=== PATIENT | female | born 1945 | race Caucasian/White ===

== ENCOUNTER 2017-01-18 15:57 | Inpatient (IN) | payer MEDICAID, OTHER ==
[~2017-01-18] VITALS: Ht 160 cm; Wt 70.8 kg
[~2017-01-18 15:57] MED LIST: ALPR0.5T6 PO; AMLO5TAB4 PO; BUDE6HFA INHALATION; GLIP5TAB13 PO; HYDR-906 PO; IPRA4AER INHALATION; LANT3I SC
--- NOTE | 2017-01-18 21:20 | ERA ---
ER Documentation Chief Complaint Date/Time DATE: 01/18/17 TIME: 21:19 Chief Complaint WEAKNESS X2 WEEKS DUE TO CHEMOTHERAPY HPI The patient is a 71-year-old female, presenting to the ER because of generalized weakness after chemotherapy 2 weeks ago. She had similar symptoms previously. She was told by her oncologist as he has anemia. She denies fever , chills, syncope, near syncope, neck pain, chest pain, dyspnea. She has chronic abdominal pain, denies vomiting, diarrhea, constipation, dysuria. 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 Medications Home Meds Active Scripts Alprazolam* (Alprazolam*) 0.5 Mg Tablet, 0.5 MG PO Q8H Y for ANXIETY, #20 TAB Prov:TERRELL DOZIER NP 06/22/16 Reported Medications Albuterol/Ipratropium* (Combivent Respimat*) 20-100 Mcg/Inh - 4 Gm Aer.w.adap, 1 PUFF INHALATION QID for SHORTNESS OF BREATH, #1 INHALER 06/19/16 Budesonide-Formoterol Fumarate* (Symbicort*) 160-4.5 Hfa.aer.ad, 2 PUFF INHALATION BID, #1 EACH 05/21/16 Insulin Glargine* (Lantus*) 100 Unit/Ml Soln, 16 UNIT SC QAM, #1 VIAL 05/17/16 Amlodipine Besylate* (Norvasc*) 5 Mg Tablet, 5 MG PO DAILY, TAB 05/17/16 Discontinued Reported Medications Glipizide* (Glipizide*) 5 Mg Tablet, 5 MG PO BID, TAB 05/17/16 Discontinued Scripts Hydrocodone/Acetaminophen ([place] 5-325 Tablet) 1 Each Tablet, 1 EACH PO Q4 for PAIN, #30 TAB 1 Refill Prov:VIRGIL SAENZ 05/29/16 Allergies Allergies: Coded Allergies: No Known Allergy (Unverified , 01/18/17) PMhx/Soc History of Surgery: Yes (bile duct stent 02/2016) Anesthesia Reaction: No Hx Neurological Disorder: No Hx Respiratory Disorders: Yes (emphysema; uses O2 at 3L/NC at home) Hx Cardiac Disorders: Yes (HTN) Hx Psychiatric Problems: No Hx Miscellaneous Medical Probl: No Hx Alcohol Use: No Hx Substance Use: No Hx Tobacco Use: Yes (quit 2013, 1pack/day for 50 years) Physical Exam Vitals Vital Signs Date Time Temp Pulse Resp B/P Pulse Ox O2 Delivery O2 Flow Rate FiO2 01/18/17 23:16 98.1 88 20 138/88 99 Nasal Cannula 2.0 01/18/17 21:15 Nasal Cannula 2 01/18/17 15:58 100.4 107 20 128/64 90 Physical Exam Const: No acute distress. Head: Atraumatic. Eyes: Normal Conjunctiva. ENT: Normal External Ears, Nose and Mouth. Neck: Full range of motion. No meningismus. Resp: Clear to auscultation bilaterally. Cardio: Regular but tachycardic Abd: Soft, non distended, normal bowel sounds, diffuse abdominal tenderness, no CVA, rigidity, rebound tenderness Skin: No petechiae or rashes. Back: No midline or flank tenderness. Ext: No cyanosis, or edema. Neur: Awake and alert. No focal deficit Psych: Normal Mood and Affect. Result Diagram: 01/18/17215301/18/172153 Results 24 hrs Laboratory Tests Test 01/18/17 21:54 01/18/17 21:55 White Blood Count 16.210^3/ul Red Blood Count 2.2210^6/ul Hemoglobin 7.5g/dl Hematocrit 22.6% Mean Corpuscular Volume 101.8fl Mean Corpuscular Hemoglobin 33.8pg Mean Corpuscular Hemoglobin Concent 33.2g/dl Red Cell Distribution Width 17.1% Platelet Count 72844^3/UL Mean Platelet Volume 10.2fl Neutrophils % 60.6% Lymphocytes % 23.8% Monocytes % 12.1% Eosinophils % 0.7% Basophils % 0.2% Nucleated Red Blood Cells % 0.6/100WBC Neutrophils # 9.810^3/ul Lymphocytes # 3.910^3/ul Monocytes # 2.010^3/ul Eosinophils # 0.110^3/ul Basophils # 0.010^3/ul Nucleated Red Blood Cells # 0.110^3/ul Prothrombin Time 15.6Sec Prothrombin Time Ratio 1.2 INR International Normalized Ratio 1.23 Activated Partial Thromboplast Time 38.6Sec Sodium Level 125mmol/L Potassium Level 4.8mmol/L Chloride Level 84mmol/L Carbon Dioxide Level 31mmol/L Anion Gap 15 Blood Urea Nitrogen 15mg/dl Creatinine 0.61mg/dl Glucose Level 222mg/dl Lactic Acid Level 1.0mmol/L Calcium Level 9.3mg/dl Total Bilirubin 0.5mg/dl Direct Bilirubin 0.00mg/dl Indirect Bilirubin 0.5mg/dl Aspartate Amino Transf (AST/SGOT) 32IU/L Alanine Aminotransferase (ALT/SGPT) 29IU/L Alkaline Phosphatase 122IU/L Troponin I < 0.012ng/ml Total Protein 8.7g/dl Albumin 3.4g/dl Globulin 5.30g/dl Albumin/Globulin Ratio 0.64 Urine Color LT. YELLOW Urine Clarity CLEAR Urine pH 5.5 Urine Specific [place] 1.010 Urine Ketones NEGATIVE Urine Nitrite NEGATIVE Urine Bilirubin NEGATIVE Urine Urobilinogen 1.0 E.U./dL Urine Leukocyte Esterase NEGATIVE Urine Hemoglobin NEGATIVE Urine Glucose NEGATIVE% Urine Total Protein NEGATIVE Current Medications Medications (Trade) Dose Ordered Sig/Rae Route PRN Reason Start Time Stop Time Status Last Admin Dose Admin Levofloxacin/ Dextrose (Levaquin 750 Mg/ D5W 150 ml (Pmx)) 150 ml @ 100 mls/hr ONCE ONCE IVPB 01/18/17 23:30 01/19/17 00:59 01/18/17 23:29 Procedures/[place] [id number] Radiology Main Line: [phone] DIAGNOSTIC IMAGING REPORT Patient: RYLAND GORDON : 1945 Age: 71 Sex: F MR #: [id number] DOS: 01/18/17 213 Ordering MD: SUNSHINE HOLLAND MD Location: E/R Room/Bed: PROCEDURE: XR Chest. CLINICAL INDICATION: Chest pain TECHNIQUE: Single frontal view of the chest was obtained. COMPARISON: 06/18/2016 FINDINGS: The cardiomediastinal silhouette is normal size. Pulmonary vasculature is within normal limits. There is scarring at the bilateral lung bases. There is a right internal jugular Port-A-Cath in place. There is a 1.4 cm nodule projecting at the right lung base. No signs of pleural fluid or pneumothorax are seen. The osseous structures and soft tissues are unremarkable. IMPRESSION: Bibasilar scarring and atelectasis. Right internal jugular Port-A-Cath in place. 1.4 cm right lung base lung nodule. RPTAT: HBST .Justin Voss MD, Date Time Electronically viewed and signed by .Justin Voss MD, MD on 01/18/2017 22:44 .T/ CC: SUNSHINE HOLLAND MD [place] [id number] Radiology Main Line: [phone] DIAGNOSTIC IMAGING REPORT Patient: RYLAND GORDON : 1945 Age: 71 Sex: F MR #: [id number] DOS: 01/18/17 2132 Ordering MD: SUNSHINE HOLLAND MD Location: E/R Room/Bed: PROCEDURE: CT abdomen and pelvis without contrast. CLINICAL INDICATION: Possible Sepsis, fever TECHNIQUE: CT scan of the abdomen and pelvis without contrast was performed. The patient was scanned without intravenous contrast. 3-D coronal reformatted images were obtained from the axial source images. The calculated radiation dose measures 709 mGy centimeters. The CTDI measures 13 mGy COMPARISON: 06/18/2016 FINDINGS: CT abdomen: There is a small hiatal hernia. There is a posterior right diaphragm fat containing hernia. There is a 1.4 cm lung nodule in the lateral right lower lobe lung base. There is a 5 mm nodular density in the anterior right lower lobe, image 03-05. There are several posterior left lower lobe lung nodules, up to 6 mm in size. There are small anterior left lower lobe lung nodules as well. There is scattered emphysematous changes.. There is a large hypodense hepatic lesion involving the anterior right lobe and medial left lobe, approximately 9.7 by 10.5 x 8.0 cm in size. There is associated intrahepatic biliary dilatation. There are scattered additional hepatic hypodense lesions which appear similar to minimally more prominent compared to prior examination, measuring 13 mm on image 03-21, and 13 mm in the anterior right lobe on image 03-03, for example. A 1.5 cm lesion in the lateral left lobe on image 03-22 appears more prominent. There is pneumobilia. There is a biliary stent placed. There is increased poorly defined adenopathy in the region of the portal hilum and retroperitoneum, with confluent nodes measure up to at least 6.5 x 3.8 cm. The spleen and pancreas are unremarkable noncontrast appearance. The gallbladder is not seen, and may be surgically absent.. The adrenal glands are symmetric and normal. The kidneys appear normal in size and contour. No renal calculus or hydronephrosis is visualized. There is no ascites or retroperitoneal lymphadenopathy. There is moderate aortic and branch vessel calcification. There is mild prominence of stool through the ascending and transverse colon. There is colonic diverticulosis, involving the descending and sigmoid colon. The appendix appears normal. CT pelvis: The urinary bladder appears normal. The pelvic organs are within normal limits. There is no abnormal pelvic mass or adenopathy. There is no pelvic free fluid. There are small bilateral fat containing inguinal hernias. There is diffuse bony demineralization. There is lumbar levoscoliosis. IMPRESSION: 1. New partially visualized pulmonary metastasis at the lung bases, up to 1.4 cm in the right lower lobe. 2. Small hiatal hernia. Right posterior Bochdalek hernia. 3. Gradually increased size of a inferior right hepatic mass, now 9.7 x 10.5 x 8.0 cm. A normal gallbladder is not identified, possibly encased within the mass. 4. Scattered hepatic hypodensities which may reflect scattered cysts and metastatic lesions, similar to slightly more prominent compared to prior exam. 5. Increased bulky celiac, retroperitoneal, and periportal adenopathy. 6. Common bile duct stent, which has migrated a few centimeters inferiorly. Pneumobilia and mild intrahepatic biliary dilatation. 7. Moderate aortic and branch vessel calcification. 8. Colonic diverticulosis, without visualized diverticulitis. 9. Small fat containing inguinal hernias. RPTAT: HBST .Justin Voss MD, Date Time Electronically viewed and signed by .Justin Voss MD, MD on 01/18/2017 23:11 .T/ CC: SUNSHINE HOLLAND MD EKG: Read by emergency physician Rate/Rhythm: Sinus tachycardia 109 beats/min QRS, ST, T-waves: No ST elevation, no T inversion Impression: Abnormal EKG MEDICAL MAKING DECISION: The patient is a 71-year-old female, presenting with acute systemic inflammatory response syndrome, acute hyponatremia, anemia. She was treated empirically with Levaquin IV The differential diagnoses considered include but are not limited to pneumonia, cystitis, pyelonephritis The differential diagnoses considered include but are not limited to gastritis, peptic ulcer disease, esophageal varices, Alexandra-Salazar tear, carcinoma, polyp, hemorrhoid, fissure, diverticulosis, angiodysplasia. Departure Diagnosis: Primary Impression: SIRS (systemic inflammatory response syndrome) Additional Impressions: Acute hyponatremia Anemia Condition: Stable Comments I discussed the findings with the patient. I discussed the patient with the on- call hospitalist Dr. Gardner who was made aware of the lab, the treatment, the patient condition. The patient is admitted to [facility] at 11:30 pm SUNSHINE HOLLAND MD January 18, 2017 21:20
[2017-01-18 21:59] LABS: ADD SCAN DIFF NO
[2017-01-18 22:02] LABS: ABNORMAL IP MESSAGE 1; BASOPHILS % 0.2 % (0.0-2.0); EOSINOPHILS # 0.1 10^3/ul (0.0-0.5); EOSINOPHILS % 0.7 % (0.0-7.0); HEMATOCRIT 22.6 % (37.0-47.0); HEMOGLOBIN 7.5 g/dl (12.0-16.0); LYMPHOCYTES # 3.9 10^3/ul (0.8-2.9); LYMPHOCYTES % 23.8 % (15.0-51.0); MEAN CORPUSCULAR HEMOGLOBIN 33.8 pg (29.0-33.0); MEAN CORPUSCULAR HGB CONC 33.2 g/dl (32.0-37.0); MEAN CORPUSCULAR VOLUME 101.8 fl (82.0-101.0); MEAN PLATELET VOLUME 10.2 fl (7.4-10.4); MONOCYTES % 12.1 % (0.0-11.0); NEUTROPHIL # 9.8 10^3/ul (1.6-7.5); NEUTROPHILS % 60.6 % (39.0-77.0); NUCLEATED RED BLOOD CELLS # 0.1 10^3/ul (0.0-0.0); NUCLEATED RED BLOOD CELLS% 0.6 /100WBC (0.0-0.0); PLATELET COUNT 187 10^3/UL (140-415); RED BLOOD COUNT 2.22 10^6/ul (4.20-5.40); RED CELL DISTRIBUTION WIDTH 17.1 % (11.5-14.5); WHITE BLOOD COUNT 16.2 10^3/ul (4.8-10.8)
[2017-01-18 22:18] LABS: INR 1.23; PROTIME 15.6 Sec (12.2-14.2); PT RATIO 1.2
[2017-01-18 22:19] LABS: PARTIAL THROMBOPLASTIN TIME 38.6 Sec (25.0-35.0)
[2017-01-18 22:24] LABS: ALBUMIN 3.4 g/dl (3.3-4.9)
[2017-01-18 22:25] LABS: CHLORIDE 84 mmol/L (97-110); POTASSIUM 4.8 mmol/L (3.5-5.1); SODIUM 125 mmol/L (135-144)
[2017-01-18 22:27] LABS: ADD UMIC NO; URINE BILIRUBIN (Dip) NEGATIVE (NEGATIVE); URINE BLOOD (Dip) NEGATIVE (NEGATIVE); URINE COLOR LT. YELLOW (YELLOW); URINE GLUCOSE (Dip) NEGATIVE (NEGATIVE); URINE KETONES (Dip) NEGATIVE (NEGATIVE); URINE LEUKOCYTE ESTERASE (Dip) NEGATIVE (NEGATIVE); URINE NITRITE (Dip) NEGATIVE (NEGATIVE); URINE TOTAL PROTEIN (Dip) NEGATIVE (NEGATIVE); URINE UROBILINOGEN (Dip) 1.0 E.U./dL (0.1-1.0)
[2017-01-18 22:27] LABS: ALBUMIN/GLOBULIN RATIO 0.64; ALKALINE PHOSPHATASE 122 IU/L (42-121); ANION GAP 15 (8-16); ASPARTATE AMINO TRANSFERASE 32 IU/L (15-46); BILIRUBIN,INDIRECT 0.5 mg/dl (0-1.1); BILIRUBIN,TOTAL 0.5 mg/dl (0.2-1.3); CARBON DIOXIDE 31 mmol/L (21-31); CREATININE 0.61 mg/dl (0.44-1.00); TOTAL PROTEIN 8.7 g/dl (6.1-8.1)
[2017-01-18 22:28] LABS: ALANINE AMINOTRANSFERASE 29 IU/L (13-69); BLOOD UREA NITROGEN 15 mg/dl (7-20); CALCIUM 9.3 mg/dl (8.4-10.2); GLUCOSE 222 mg/dl (70-220)
--- NOTE | 2017-01-18 22:45 | RADRPT ---
PROCEDURE: XR Chest. CLINICAL INDICATION: Chest pain TECHNIQUE: Single frontal view of the chest was obtained. COMPARISON: 06/18/2016 FINDINGS: The cardiomediastinal silhouette is normal size. Pulmonary vasculature is within normal limits. Th ere is scarring at the bilateral lung bases. There is a right internal jugular Port-A-Cath in place . There is a 1.4 cm nodule projecting at the right lung base. No signs of pleural fluid or pneumothorax are seen. The osseous structures and soft tissues are unre markable. IMPRESSION: Bibasilar scarring and atelectasis. Right internal jugular Port-A-Cath in place. 1.4 cm right lung base lung nodule. RPTAT: HBST .Justin Voss MD, MD Date Time Electronically viewed and signed by .Justin Voss MD, on 01/18/2017 22:44 .T/
[2017-01-18 22:49] LABS: TROPONIN-I < 0.012 ng/ml (0.00-0.12)
--- NOTE | 2017-01-18 23:11 | RADRPT ---
PROCEDURE: CT abdomen and pelvis without contrast. CLINICAL INDICATION: Possible Sepsis, fever TECHNIQUE: CT scan of the abdomen and pelvis without contrast was performed. The patient was scan tom without intravenous contrast. 3-D coronal reformatted images were obtained from the axial [facility] e images. The calculated radiation dose measures 709 mGy centimeters. The CTDI measures 13 mGy COMPARISON: 06/18/2016 FINDINGS: CT abdomen: There is a small hiatal hernia. There is a posterior right diaphragm fat containing hernia. There i s a 1.4 cm lung nodule in the lateral right lower lobe lung base. There is a 5 mm nodular density i n the anterior right lower lobe, image 03-05. There are several posterior left lower lobe lung nodu les, up to 6 mm in size. There are small anterior left lower lobe lung nodules as well. There is s cattered emphysematous changes.. There is a large hypodense hepatic lesion involving the anterior right lobe and medial left lobe, ap proximately 9.7 by 10.5 x 8.0 cm in size. There is associated intrahepatic biliary dilatation. The re are scattered additional hepatic hypodense lesions which appear similar to minimally more promine nt compared to prior examination, measuring 13 mm on image 03-21, and 13 mm in the anterior right lo be on image 03-03, for example. A 1.5 cm lesion in the lateral left lobe on image 03-22 appears mor e prominent. There is pneumobilia. There is a biliary stent placed. There is increased poorly defined adenopathy in the region of the portal hilum and retroperitoneum, with confluent nodes measure up to at least 6.5 x 3.8 cm. The spleen and pancreas are unremarkable n oncontrast appearance. The gallbladder is not seen, and may be surgically absent.. The adrenal glands are symmetric and normal. The kidneys appear normal in size and contour. No renal calculus or hydronephrosis is visualized. There is no ascites or retroperitoneal lymphadenopathy. There is moderate aortic and branch vessel c alcification. There is mild prominence of stool through the ascending and transverse colon. There is colonic dive rticulosis, involving the descending and sigmoid colon. The appendix appears normal. CT pelvis: The urinary bladder appears normal. The pelvic organs are within normal limits. There is no abnorm al pelvic mass or adenopathy. There is no pelvic free fluid. There are small bilateral fat containi ng inguinal hernias. There is diffuse bony demineralization. There is lumbar levoscoliosis. IMPRESSION: 1. New partially visualized pulmonary metastasis at the lung bases, up to 1.4 cm in the right lower lobe. 2. Small hiatal hernia. Right posterior Bochdalek hernia. 3. Gradually increased size of a inferior right hepatic mass, now 9.7 x 10.5 x 8.0 cm. A normal gall bladder is not identified, possibly encased within the mass. 4. Scattered hepatic hypodensities which may reflect scattered cysts and metastatic lesions, simila r to slightly more prominent compared to prior exam. 5. Increased bulky celiac, retroperitoneal, and periportal adenopathy. 6. Common bile duct stent, which has migrated a few centimeters inferiorly. Pneumobilia and mild i ntrahepatic biliary dilatation. 7. Moderate aortic and branch vessel calcification. 8. Colonic diverticulosis, without visualized diverticulitis. 9. Small fat containing inguinal hernias. RPTAT: HBST .Justin Voss MD, Date Time Electronically viewed and signed by .Justin Voss MD, on 01/18/2017 23:11 .T/
[2017-01-18] MEDS ORDERED: LEVOFLOXACIN 750MG/D5W (PMX) 150 ML IVPB ONE (23:30)
[2017-01-19] MEDS ORDERED: SOD CHLORIDE 0.9% 1,000 ML IV SCH (04:09)
[2017-01-19] MEDS ORDERED: ACETAMINOPHEN 325 MG TAB PO PRN (04:30)
[2017-01-19] MEDS ORDERED: NACL 0.9% 3 ML SYG IV SCH (04:30)
[2017-01-19] MEDS ORDERED: ONDANSETRON 4 MG INJ IV PRN (04:30)
[2017-01-19] MEDS ORDERED: ALPRAZOLAM 0.25 MG TAB PO PRN (04:30)
[2017-01-19] MEDS ORDERED: BISACODYL 10 MG SUPP PR PRN (04:30)
[2017-01-19] MEDS ORDERED: DOCUSATE SODIUM 100 MG CAP PO PRN (04:30)
[2017-01-19] MEDS ORDERED: ZOLPIDEM 5 MG TAB PO PRN (04:30)
[2017-01-19] MEDS ORDERED: DEXTROSE 50% 50 ML SYRINGE IV PRN ×2 (04:45)
[2017-01-19] MEDS ORDERED: GLUCOSE GEL 15 GRAM TUBE BUCCAL PRN (04:45)
[2017-01-19] MEDS ORDERED: GLUCAGON 1 MG INJ IM PRN (04:45)
[2017-01-19] MEDS ORDERED: GLUCOSE GEL 15 GRAM TUBE PO PRN ×2 (04:45)
--- NOTE | 2017-01-19 04:55 | HP ---
Date/Time of Note Date/Time of Note DATE: 01/19/17 TIME: 04:25 Assessment/Plan VTE Prophylaxis VTE Prophylaxis Intervention: SCD's Lines/Catheters IV [facility]ter Type (from [facility]): Peripheral IV Central line still needed: No Urinary Cath still in place: No Assessment/Plan Chief Complaint/Hosp Course This is a 71-year-old female being admitted to telemetry for: #1. SIRS: Patient presented with fever and tachycardia. Currently imaging studies are negative. CBC does show an elevated white blood cell count 16 however the source has not been identified yet. Chest x-ray is normal and CT of the abdomen does not show any sign of infection. Urinalysis is within normal limits blood cultures and urine cultures are pending. #2 Anemia: Hemoglobin 7.5, on previous admissions hemoglobin appears to be around 10 approximately. Patient is currently receiving chemotherapy for her metastatic cholangiocarcinoma. We will continue to trend CBC at this time and we will consult patient's city recorder Dr. Funes We will get a type and screen and consider transfusion of PRBC if hemoglobin drops below 7 or as otherwise indicated by patient's city recorder. Patient did receive Levaquin IV in the ED will continue Levaquin and add Zosyn to the regimen right now for empiric therapy. #3 Hyponatremia: Patient appears to be mentating at baseline. Sodium of 125 with a chloride of 84. Patient appears to be mildly dehydrated. Will give patient normal saline however at a slow rate of normal saline at 50 cc to prevent increasing sodium too fast. At this time I am unsure whether this could be secondary to possibly SIADH secondary to the chemotherapy she has been receiving. Will consult nephrology for further input. #4 Tachycardia: EKG shows sinus tachycardia approximately 109 bpm. This likely could be secondary to possibly underlying infection and also patient's drop in hemoglobin. We will continue to follow this. #5 metastatic cholangiocarcinoma: Patient is being followed by hematology, she is receiving rounds of chemotherapy. Will consult hematology. #6 diabetes mellitus, stable we will continue patient's home dose of Lantus, diabetic diet #7 hypertension: We will continue home medications of amlodipine #8 emphysema: We will continue patient's home respiratory medications, and supplemental oxygen at 3 L as the patient has at home. #9 DVT and GI prophylaxis, right I will put the patient on SCDs will avoid chemical prophylaxis secondary to low hemoglobin at this time, Protonix Problems: HPI/ROS Admit Date/Time Admit Date/Time 01/18/2017 Hx of Present Illness The patient is a 71-year-old female, presenting to the ER because of generalized weakness after chemotherapy 2 weeks ago. She had similar symptoms previously. She was told by her oncologist that she has anemia. She also states that she has been having a decreased appetite since starting chemotherapy. She denies fever, chills, syncope, near syncope, neck pain, chest pain, dyspnea. She has chronic abdominal pain, denies vomiting, diarrhea , constipation, dysuria. She does not smoke or drink, on 3 L nasal cannula continuously Allergies: NKDA Medications: See NOV ROS Const: Fatigue, subjective fever Eyes : No pain discharge or redness or change in visual acuity ENT: No pain, sore throat, congestion, congestion, dysphagia or discharge Respiratory: No shortness of breath, cough, sputum, wheezing, or pleuritic pain Cardiovascular: No chest pain, palpitation, PND, or edema GI : Negative except for what stated in the HPI Genitourinary: No dysuria, hematuria, flank pain , discharge or CVA tenderness Musculoskeletal: No joint pain, back pain, neck pain, restricted range of motion in neck or joints Skin: No rash, bruising or hives Neuro: No headache, dizziness, syncope, seizure, focal weakness Endocrine: No polyuria, polydipsia, temperature intolerance Psych: No hallucination, depression, anxiety or suicidal ideation PMH/Family/Social Past Medical History Diabetes mellitus, hypertension, COPD, history of cholangiocarcinoma on chemotherapy, anemia, anxiety, emphysema(uses supplemental O2 3 L at home) Past Surgical History Bile duct stent placement Family History Significant Family History: heart disease, diabetes Social History Alcohol Use: none Smoking Status: Former smoker (1 pack per day 50 years, quit 3 years ago) Drug Use: none Exam/Review of Systems Vital Signs Vitals Vital Signs Date Time Temp Pulse Resp B/P Pulse Ox O2 Delivery O2 Flow Rate FiO2 01/19/17 01:15 98.1 78 16 121/78 100 Nasal Cannula 2.0 Exam Exam General: Patient is a well-developed female, in no acute distress The patient is alert oriented -3 HEENT: Atraumatic, normocephalic. The pupils are equal, round and reactive. Extraocular motor are intact, mildly dry mucous membranes Neck: Supple with full range of motion. No rigidity or meningismus Chest: Nontender Lungs: Clear to auscultation bilaterally no crackles rales or wheezing Heart: Normal S1-S2, Regular rhythm and rate. No murmur, S3, or S4 Abdomen: Soft, chronic tenderness to palpation secondary to her cancer Extremities: Normal to inspection, no edema no cyanosis Neurologic: Normal mental status, speech normal, cranial nerves II through XII are intact, motor and sensory are intact, no focal weakness Additional Comments Rate/Rhythm: Sinus tachycardia 109 beats/min QRS, ST, T-waves: No ST elevation, no T inversion Chest x-ray IMPRESSION: Bibasilar scarring and atelectasis. Right internal jugular Port-A-Cath in place. 1.4 cm right lung base lung nodule. CT abdomen and pelvis IMPRESSION: 1. New partially visualized pulmonary metastasis at the lung bases, up to 1.4 cm in the right lower lobe. 2. Small hiatal hernia. Right posterior Bochdalek hernia. 3. Gradually increased size of a inferior right hepatic mass, now 9.7 x 10.5 x 8.0 cm. A normal gallbladder is not identified, possibly encased within the mass. 4. Scattered hepatic hypodensities which may reflect scattered cysts and metastatic lesions, similar to slightly more prominent compared to prior exam. 5. Increased bulky celiac, retroperitoneal, and periportal adenopathy. 6. Common bile duct stent, which has migrated a few centimeters inferiorly. Pneumobilia and mild intrahepatic biliary dilatation. 7. Moderate aortic and branch vessel calcification. 8. Colonic diverticulosis, without visualized diverticulitis. 9. Small fat containing inguinal hernias. Labs Result Diagram: 01/18/17215301/18/172153 JAE ABREU January 19, 2017 04:35
[2017-01-19] MEDS: morphine 2 MG INJ IV PRN ×2 (05:04→16:38)
[2017-01-19] MEDS: PANTOPRAZOLE 40 MG INJ IV SCH (05:14)
[2017-01-19 06:07] LABS: CREATINE KINASE 29 IU/L (23-200)
[2017-01-19 07:00] LABS: CK-MB < 0.22 ng/ml (0.0-2.4); TROPONIN-I < 0.012 ng/ml (0.00-0.12)
[2017-01-19 08:25] LABS: ADD SCAN DIFF NO
[2017-01-19] MEDS: PIPER-TAZO 3.375 GM IV (PMX) 100 ML IVPB SCH ×3 (08:38→21:30)
[2017-01-19 08:44] LABS: ABNORMAL IP MESSAGE 1; BASOPHILS % 0.2 % (0.0-2.0); EOSINOPHILS # 0.1 10^3/ul (0.0-0.5); EOSINOPHILS % 0.4 % (0.0-7.0); HEMATOCRIT 20.9 % (37.0-47.0); LYMPHOCYTES # 2.5 10^3/ul (0.8-2.9); LYMPHOCYTES % 17.3 % (15.0-51.0); MEAN CORPUSCULAR HEMOGLOBIN 33.8 pg (29.0-33.0); MEAN CORPUSCULAR HGB CONC 33.5 g/dl (32.0-37.0); MEAN PLATELET VOLUME 10.5 fl (7.4-10.4); MONOCYTES % 13.8 % (0.0-11.0); NEUTROPHIL # 9.5 10^3/ul (1.6-7.5); NEUTROPHILS % 65.7 % (39.0-77.0); NUCLEATED RED BLOOD CELLS # 0.1 10^3/ul (0.0-0.0); NUCLEATED RED BLOOD CELLS% 0.3 /100WBC (0.0-0.0); PLATELET COUNT 156 10^3/UL (140-415); RED BLOOD COUNT 2.07 10^6/ul (4.20-5.40); RED CELL DISTRIBUTION WIDTH 17.6 % (11.5-14.5); WHITE BLOOD COUNT 14.4 10^3/ul (4.8-10.8)
[2017-01-19 08:50] LABS: ALBUMIN 3.1 g/dl (3.3-4.9); ALBUMIN/GLOBULIN RATIO 0.68; BILIRUBIN,INDIRECT 0.6 mg/dl (0-1.1); BILIRUBIN,TOTAL 0.6 mg/dl (0.2-1.3); CALCIUM 8.7 mg/dl (8.4-10.2); CREATININE 0.59 mg/dl (0.44-1.00); POTASSIUM 4.2 mmol/L (3.5-5.1); TOTAL PROTEIN 7.6 g/dl (6.1-8.1)
[2017-01-19] MEDS: AMLODIPINE 5 MG TAB PO SCH (10:40)
[2017-01-19] MEDS: INSULIN ASPART [NOVOLOG] 3 ML PEN SC SCH ×4 (10:42→21:37)
[2017-01-19] MEDS: INSULIN GLARGINE [LANtus] 3 ML PEN SC SCH (10:44)
[2017-01-19 11:49] VITALS: TEMP 97.6
[2017-01-19 11:59] LABS: ADD SCAN DIFF NO
[2017-01-19 12:08] LABS: ABNORMAL IP MESSAGE 1; HEMATOCRIT 20.9 % (37.0-47.0); MEAN PLATELET VOLUME 9.8 fl (7.4-10.4); PLATELET COUNT 137 10^3/UL (140-415); RED BLOOD COUNT 2.03 10^6/ul (4.20-5.40); RED CELL DISTRIBUTION WIDTH 18.1 % (11.5-14.5); WHITE BLOOD COUNT 15.5 10^3/ul (4.8-10.8)
[2017-01-19 12:10] LABS: HEMOGLOBIN 6.9 g/dl (12.0-16.0)
[2017-01-19 12:27] LABS: CREATINE KINASE 41 IU/L (23-200)
[2017-01-19 12:36] LABS: CK-MB 0.26 ng/ml (0.0-2.4)
[2017-01-19 12:40] LABS: TROPONIN-I < 0.012 ng/ml (0.00-0.12)
[2017-01-19] MEDS ORDERED: VANCOMYCIN IV PER PHARMACY XX SCH (13:00)
[2017-01-19] MEDS ORDERED: SOD CHLORIDE 0.9% 250 ML IV* ONE (13:22)
--- NOTE | 2017-01-19 13:23 | CONS ---
DATE OF ADMISSION: 01/18/2017 DATE OF CONSULTATION: 01/19/2017 REASON FOR CONSULTATION: Antibiotic management. HISTORY OF PRESENT ILLNESS: Mimi Gonzalez is a 71-year-old female who comes in with g eneralized weakness after chemotherapy and is being seen for antibiotic management. She was told by her oncologist that she has anemia. She also complains of decreased appetite since starting chemot herapy. She has chronic abdominal pain without nausea, vomiting or diarrhea. She is on 3 liters na hanna cannula continuously. Her problems include: 1. Fever and tachycardia. She has an elevated white count of 16,000. Her chest x-ray is normal. CT scan of the abdomen does not show any evidence of infection. Urinalysis is within normal limits. Urine cultures are pending. The patient also has anemia and parenthetically she received Levaquin and Zosyn in the emergency room. She is tachycardic. She has a history of metastatic cholangiocar cinoma and is receiving chemotherapy. Her other problems include diabetes mellitus, hypertension, e mphysema for which she is on oxygen. Her white count on admission was 16.2, H and H of 7.5 and 22.6 , platelet count 187,000. BUN and creatinine 15/0.6. The glucose was 222. Chest x-ray shows bibas ilar scarring and atelectasis. She has right internal jugular Port-A-Cath catheter in place. A CT scan of the abdomen and pelvis, partially visualized pulmonary metastasis at the lung bases up to 1. 4 cm in the right lower lobe, small hiatal hernia, gradually increased size of the inferior right he patic mass now 9.7 x 10.5 x 8.0. Normal gallbladder is not identified, possibly encased within the mass. She has hepatic hypodensities which may reflect scattered cyst and metastatic lesions similar to slightly more prominent when compared to prior exam. She has celiac retroperitoneal and peripor diego adenopathy. A common bile duct stent, pneumobilia and mild intrahepatic biliary dilatation, col onic diverticulosis. PHYSICAL EXAMINATION: GENERAL: She is a well-developed, well-nourished female who looks chronically ill, in no acute dist ress. VITAL SIGNS: Stable. She is currently afebrile. SKIN: Without generalized rash. HEENT: Within normal limits. NECK: Supple. LYMPH NODES: None palpable. CHEST: Decreased breath sounds at the bases. HEART: Without murmur or gallop. ABDOMEN: Soft, tender to palpation. No organosplenomegaly or masses. EXTREMITIES: Without cyanosis, clubbing, or edema. RECTAL AND GENITAL: Deferred. NEUROLOGIC: No focal neurological abnormalities. IMPRESSION AND PLAN: The patient comes in with probable sepsis, although, the white count is probab ly not due to her underlying carcinoma. Blood cultures and urine cultures should be checked. She i s on Zosyn and Levaquin was discontinued. I am going to add vancomycin to her regimen. She does garza ve a Port-A-Cath which also could be infected. I will dictate my findings to the hospitalist. Dictated By: CHI FRANKS MD, JD/AMOS Conf#: [id number] DID#: [id number]
[2017-01-19] MEDS ORDERED: FUROSEMIDE 20 MG INJ IV SCH (13:30)
[2017-01-19] MEDS ORDERED: MAGNESIUM SULFATE 2 GM/50 ML 50 ML IVPB ONE (13:30)
[2017-01-19 13:49] LABS: EOSINOPHILS # 0.2 10^3/ul (0.0-0.5); LYMPHOCYTES # 2.5 10^3/ul (0.8-2.9); MONOCYTE # 2.2 10^3/ul (0.3-0.9); MYELOCYTES # 0.2; NEUTROPHIL # 9.9 10^3/ul (1.6-7.5)
[2017-01-19 14:35] LABS: ADD SCAN DIFF NO
[2017-01-19 14:39] LABS: ABNORMAL IP MESSAGE 1; HEMATOCRIT 22.5 % (37.0-47.0); HEMOGLOBIN 7.3 g/dl (12.0-16.0); MEAN CORPUSCULAR HEMOGLOBIN 33.5 pg (29.0-33.0); MEAN CORPUSCULAR HGB CONC 32.4 g/dl (32.0-37.0); MEAN CORPUSCULAR VOLUME 103.2 fl (82.0-101.0); MEAN PLATELET VOLUME 9.8 fl (7.4-10.4); PLATELET COUNT 157 10^3/UL (140-415); RED BLOOD COUNT 2.18 10^6/ul (4.20-5.40); RED CELL DISTRIBUTION WIDTH 18.2 % (11.5-14.5); WHITE BLOOD COUNT 15.2 10^3/ul (4.8-10.8)
[2017-01-19 15:00] LABS: CREATININE 0.71 mg/dl (0.44-1.00)
[2017-01-19] MEDS ORDERED: VANCOMYCIN 1.5 GM in SOD CHLORIDE 0.9% 250 ML IVPB SCH (15:00)
[2017-01-19 15:01] LABS: CALCIUM 8.7 mg/dl (8.4-10.2)
--- NOTE | 2017-01-19 15:16 | CONS ---
DATE OF ADMISSION: 01/18/2017 DATE OF CONSULTATION: 01/19/2017 TYPE OF CONSULTATION: Nephrology. REASON FOR CONSULTATION: Hyponatremia. HISTORY OF PRESENT ILLNESS: This is a 71-year-old female with a past medical history of metastatic cholangiocarcinoma, currently on chemotherapy x2 weeks, a history of hyponatremia, possible SIADH, h istory of diabetes, hypertension, emphysema, who presents to [facility] emergency room due to severe anemia. The patient states that after receiving recent chemotherapy, she is noted to have decreased appetite. Denied any fevers, chills, nausea, vomiting, abdominal pain. The patient on a lab draw was noted to be anemic and told by oncologist to come to the emergency room. Laboratory d neeraj showed a hemoglobin of 7.5, white count 16,000 and a sodium level of 125. The patient in the em ergency room was typed and crossed for 2 units of PRBC and was started on empiric antibiotic therapy and placed on IV fluids. In terms of the patient's sodium history, the patient has a history of hyponatremia ranging from 130 to 134 mEq/L. On this admission, the patient's sodium level is 125 mEq/L. She did receive IV flui ds in the emergency room with a decrease in sodium level to 124 mEq/L. The patient denies any nause a, vomiting, any confusion, any alteration in gait. PAST MEDICAL HISTORY: As stated above, history of metastatic cholangiocarcinoma on chemotherapy, hi story of hypertension, diabetes, emphysema, anxiety disorder, COPD. PAST SURGICAL HISTORY: Status post bile duct stent placement. FAMILY HISTORY: Noncontributory. SOCIAL HISTORY: Does not drink, smoke or do drugs. MEDICATIONS: The patient's medications have been reviewed. ALLERGIES: NO KNOWN DRUG ALLERGIES. REVIEW OF SYSTEMS: A 14-point review of systems was conducted. Pertinent positives stated in the HPI, otherwise negative. PHYSICAL EXAMINATION: VITAL SIGNS: Blood pressure is 120/67, respirations 16, pulse 103, temperature 97.6. HEENT: Head is normocephalic. NECK: Supple. HEART: Regular rate. LUNGS: Show diminished breath sounds at the bases. ABDOMEN: Soft, nontender to palpation. No rebound or guarding. EXTREMITIES: Negative for clubbing, cyanosis. No edema. DERMATOLOGIC: No rashes. MUSCULOSKELETAL: No joint effusions. NEUROLOGIC: No focal deficits. LABORATORY DATA: Shows sodium 124, potassium 4.2, chloride 90, BUN 12, creatinine 0.59. White coun t 15.5, hemoglobin 6.9, hematocrit 28.9, platelet count is 137. IMAGING STUDIES: A CT scan shows pulmonary metastasis, small hiatal hernia, scattered hepatic hypod ensities may reflect cysts or metastatic disease, increased retroperitoneal lymphadenopathy. Chest x-ray shows bilateral scarring and a Port-A-Cath. ASSESSMENT AND PLAN: This is a 71-year-old female who presents with: 1. Hyponatremia, possibly acute versus chronic. Underlying etiology is worrisome for syndrome of i nappropriate antidiuretic hormone due to malignancy cholangiocarcinoma, pain. The patient did recei ve normal saline fluid with a decrease in sodium levels which can be seen in SIADH state. The patie nt clinically appears euvolemic. Plan at this point is to do a full evaluation. We will check urin e sodium, urine osmolarity, serum osmolarity, TSH level, a.m. cortisol level. We will discontinue n ormal saline at this time. We will repeat serial sodium levels. We will place the patient at this point on free water restriction, encourage high osmolar and sodium diet. We will monitor closely. 2. Severe anemia, possibly due to recent chemotherapy. The patient will be typed and crossed and w ill receive blood transfusion, defer to primary team, defer to hematology. 3. Systemic inflammatory response syndrome, possible infectious etiology. The patient is on empiri c antibiotics. We will follow up cultures. 4. Tachycardia, possibly due to underlying anemia. Continue to monitor closely. Consider blood tr ansfusion. 5. Diabetes. Continue Accu-Cheks and insulin sliding scale. 6. Metastatic cholangiocarcinoma. The patient is status post chemotherapy. We will monitor. 7. Hypertension. Continue current blood pressure regimen. 8. History of chronic obstructive pulmonary disease. Continue current medical management. Thank you, Dr. Sweeney, for this interesting consult. It will be a pleasure to follow the patient gabriel chacon throughout the hospital course. Dictated By: MAEVE RIVERA/AMOS Conf#: [id number] DID#: [id number]
[2017-01-19 15:32] LABS: ADD UMIC YES; URINE BILIRUBIN (Dip) NEGATIVE (NEGATIVE); URINE BLOOD (Dip) NEGATIVE (NEGATIVE); URINE COLOR LT. YELLOW (YELLOW); URINE KETONES (Dip) NEGATIVE (NEGATIVE); URINE LEUKOCYTE ESTERASE (Dip) NEGATIVE (NEGATIVE); URINE NITRITE (Dip) NEGATIVE (NEGATIVE); URINE TOTAL PROTEIN (Dip) 1+ (NEGATIVE); URINE UROBILINOGEN (Dip) 1.0 E.U./dL (0.1-1.0)
[2017-01-19 15:47] LABS: TRANSITIONAL EPI CELLS,URINE FEW; URINE RBCS NONE SEEN /HPF (0)
[2017-01-19 16:54] VITALS: Ht 160 cm; Wt 70.8 kg
[2017-01-19 16:56] VITALS: BP 127/60; PULSE 117; RESP 22
[2017-01-19] MEDS: ALBUTEROL/IPRATROPIUM (NEB) 3 ML AMP HHN SCH ×2 (18:08→19:33)
[2017-01-19 18:30] LABS: LYMPHOCYTES # 2.3 10^3/ul (0.8-2.9); MONOCYTE # 2.6 10^3/ul (0.3-0.9); NEUTROPHIL # 9.9 10^3/ul (1.6-7.5)
--- NOTE | 2017-01-19 18:39 | CONS ---
Date/Time of Note Date/Time of Note DATE: 01/19/17 TIME: 18:28 Assessment/Plan Assessment/Plan Chief Complaint/Hosp Course This is a 71-year-old female treated by Dr. Funes metastatic cholangiocarcinoma , who was sent to the ER yesterday for weakness and found to have SIRS and probable sepsis with hemoglobin down to 6.9. # Metastatic cholangiocarcinoma, s/p 7 cycles of gemcitabine/cisplatin, switched to gemcitabine/xeloda due to increased abdominal pain, begun on . Patient received cycle 2 day 1 of gemcitabine (with xeloda) on 01/11/17. - will hold off on D8 gemcitabine given concern for sepsis - CT A/P 01/18/17 concerning for progression of disease, demonstrating new partially visualized pulmonary metastasis at the lung bases, up to 1.4 cm in the right lower lobe and gradually increased size of a inferior right hepatic mass, now 9.7 x 10.5 x 8.0 cm, scattered hepatic hypodensities which may reflect scattered cysts and metastatic lesions, similar to slightly more prominent compared to prior exam, increased bulky celiac, retroperitoneal, and periportal adenopathy. - Will discuss findings with Dr. Funes upon her return on Sunday to decide treatment course # Severe macrocytic anemia, down to 6.9 currently receiving transfusion, may be exacerbated by chemotherapy and likely anemia of chronic disease - Hgb noted to be low at 7.4 at patient's last visit with Dr. Funes on 01/16/17, patient started on procrit 20,000 (received 01/16/17) once per week and oral iron - Transfuse for hemoglobin < 8 - will check iron panel, ferritin, B12/folate, methylmalonic acid, homocysteine , TSH, LDH, retic count, haptoglobin # SIRS and probable sepsis - continue empiric vanc/zosyn, appreciate ID recs, f/u cultures Problems: Consultation Date/Type/Reason Admit Date/Time 01/18/2017 Date of Consultation: January 19, 2017 Type of Consultation: Oncology Reason for Consultation Cholangiocarcinoma, anemia Hx of Present Illness This is a 71-year-old female with a history of hyponatremia, possible SIADH, history of diabetes, hypertension, emphysema, who presents to [facility] emergency room due to severe anemia. She is treated by Dr. Funes and has a past medical history of metastatic cholangiocarcinoma, s/p 7 cycles of gemcitabine/cisplatin, switched to gemcitabine/xeloda due to increased abdominal pain, begun on 12/19/16. Patient received cycle 2 day 1 of gemcitabine (with xeloda) on 01/11/17. She also received procrit 20,000 units on 01/16/17. The patient states that after receiving recent chemotherapy, she is noted to have decreased appetite. Her daughter called the clinic yesterday to report that the patient was very weak and unable to get out of bed and was advised to go to the ER. On admission, laboratory data showed a hemoglobin of 7.5 (with repeat down to 6.9), white count 16,000. The patient states that she did have fevers at home as well as here on admission. She stopped taking her xeloda yesterday. She has received 1 unit pRBCs thus far and states that she feels better. Past Medical History As stated above, history of metastatic cholangiocarcinoma on chemotherapy, history of hypertension, diabetes, emphysema, anxiety disorder, COPD. Past Surgical History Status post bile duct stent placement. Family History Significant Family History: no pertinent family hx Social History Alcohol Use: none Smoking Status: Former smoker (1 pack per day 50 years, quit 3 years ago) Drug Use: none Exam/Review of Systems Vital Signs Vitals Vital Signs Date Time Temp Pulse Resp B/P Pulse Ox O2 Delivery O2 Flow Rate FiO2 01/19/17 17:03 2.0 01/19/17 16:56 98.4 117 22 127/60 98 Nasal Cannula Results Result Diagram: 01/19/17 1425 01/19/17 1425 Results 24 hrs Laboratory Tests Test 01/18/17 21:54 01/18/17 21:55 01/18/17 23:58 01/19/17 01:40 White Blood Count 16.2 #H Red Blood Count 2.22 #L Hemoglobin 7.5 #L Hematocrit 22.6 #L Mean Corpuscular Volume 101.8 H Mean Corpuscular Hemoglobin 33.8 H Mean Corpuscular Hemoglobin Concent 33.2 Red Cell Distribution Width 17.1 H Platelet Count 187 Mean Platelet Volume 10.2 Neutrophils % 60.6 Lymphocytes % 23.8 Monocytes % 12.1 H Eosinophils % 0.7 Basophils % 0.2 Nucleated Red Blood Cells % 0.6 H Neutrophils # 9.8 H Lymphocytes # 3.9 H Monocytes # 2.0 H Eosinophils # 0.1 Basophils # 0.0 Nucleated Red Blood Cells # 0.1 H Prothrombin Time 15.6 H Prothrombin Time Ratio 1.2 INR International Normalized Ratio 1.23 Activated Partial Thromboplast Time 38.6 H Sodium Level 125 L Potassium Level 4.8 Chloride Level 84 L Carbon Dioxide Level 31 Anion Gap 15 Blood Urea Nitrogen 15 Creatinine 0.61 Glucose Level 222 H Lactic Acid Level 1.0 1.2 1.2 Calcium Level 9.3 Total Bilirubin 0.5 Direct Bilirubin 0.00 Indirect Bilirubin 0.5 Aspartate Amino Transf (AST/SGOT) 32 Alanine Aminotransferase (ALT/SGPT) 29 Alkaline Phosphatase 122 H Troponin I < 0.012 Total Protein 8.7 H Albumin 3.4 Globulin 5.30 H Albumin/Globulin Ratio 0.64 Urine Color LT. YELLOW Urine Clarity CLEAR Urine pH 5.5 Urine Specific [place] 1.010 Urine Ketones NEGATIVE Urine Nitrite NEGATIVE Urine Bilirubin NEGATIVE Urine Urobilinogen 1.0 E.U./dL Urine Leukocyte Esterase NEGATIVE Urine Hemoglobin NEGATIVE Urine Glucose NEGATIVE Urine Total Protein NEGATIVE Test 01/19/17 05:45 01/19/17 07:40 01/19/17 10:14 01/19/17 11:50 Creatine Kinase 29 41 Creatine Kinase Index 0.8 0.6 Creatinine Kinase MB (Mass) < 0.22 0.26 Troponin I < 0.012 < 0.012 White Blood Count 14.4 H 15.5 H Red Blood Count 2.07 L 2.03 L Hemoglobin 7.0 L 6.9 *L Hematocrit 20.9 L 20.9 L Mean Corpuscular Volume 101.0 103.0 H Mean Corpuscular Hemoglobin 33.8 H 34.0 H Mean Corpuscular Hemoglobin Concent 33.5 33.0 Red Cell Distribution Width 17.6 H 18.1 H Platelet Count 156 137 L Mean Platelet Volume 10.5 H 9.8 Neutrophils % 65.7 64.0 Lymphocytes % 17.3 16.0 Monocytes % 13.8 H 14.0 H Eosinophils % 0.4 1.0 Basophils % 0.2 Nucleated Red Blood Cells % 0.3 H Neutrophils # 9.5 H 9.9 H Lymphocytes # 2.5 2.5 Monocytes # 2.0 H 2.2 H Eosinophils # 0.1 0.2 Basophils # 0.0 Nucleated Red Blood Cells # 0.1 H Sodium Level 124 L Potassium Level 4.2 Chloride Level 90 L Carbon Dioxide Level 30 Anion Gap 8 Blood Urea Nitrogen 12 Creatinine 0.59 Glucose Level 199 Hemoglobin A1c Calcium Level 8.7 Magnesium Level 1.5 L Total Bilirubin 0.6 Direct Bilirubin 0.00 Indirect Bilirubin 0.6 Aspartate Amino Transf (AST/SGOT) 27 Alanine Aminotransferase (ALT/SGPT) 27 Alkaline Phosphatase 108 Total Protein 7.6 # Albumin 3.1 L Globulin 4.50 H Albumin/Globulin Ratio 0.68 Bedside Glucose 213 Band Neutrophils % 4.0 Myelocytes % 1.0 H Myelocytes # 0.2 Test 01/19/17 12:59 01/19/17 14:17 01/19/17 14:20 01/19/17 14:25 Bedside Glucose 311 H Urine Color LT. YELLOW Urine Clarity CLEAR Urine pH 6.0 Urine Specific [place] 1.010 Urine Ketones NEGATIVE Urine Nitrite NEGATIVE Urine Bilirubin NEGATIVE Urine Urobilinogen 1.0 E.U./dL Urine Leukocyte Esterase NEGATIVE Urine Microscopic RBC NONE SEEN Urine Microscopic WBC 0-2 Urine Transitional Epithelial Cells FEW Urine Hemoglobin NEGATIVE Urine Osmolality 345 Urine Random Creatinine 45.19 Urine Random Sodium 40 Urine Glucose 0.5% H Urine Total Protein 88.0 H Osmolality 271 L White Blood Count 15.2 H Red Blood Count 2.18 L Hemoglobin 7.3 L Hematocrit 22.5 L Mean Corpuscular Volume 103.2 H Mean Corpuscular Hemoglobin 33.5 H Mean Corpuscular Hemoglobin Concent 32.4 Red Cell Distribution Width 18.2 H Platelet Count 157 Mean Platelet Volume 9.8 Sodium Level 126 L Potassium Level 4.0 Chloride Level 87 L Carbon Dioxide Level 28 Anion Gap 15 # Blood Urea Nitrogen 14 Creatinine 0.71 Glucose Level 289 H Uric Acid 2.9 L Calcium Level 8.7 Test 01/19/17 17:14 Bedside Glucose 235 H Medications Medications Current Medications Alprazolam (Xanax) 0.5 mg Q8H PRN PO ANXIETY; Start 01/19/17 at 04:30 Amlodipine Besylate (Norvasc) 5 mg DAILY PO Last administered on 01/19/17 10:40 ; Admin Dose 5 MG; Start 01/19/17 at 09:00 Insulin Glargine (Lantus) 16 unit QAM SC Last administered on 01/19/17 10:44; Admin Dose 16 UNIT; Start 01/19/17 at 09:00 Salmeterol Xinafoate/ Fluticasone (Advair 250/50 Diskus) 1 inh BID INH ; Start 01/19/17 at 21:00 Ondansetron HCl (Zofran Inj) 4 mg Q6H PRN IV NAUSEA AND/OR VOMITING; Start 01/19 at 04:30 Acetaminophen (Tylenol Tab) 650 mg Q6H PRN PO PAIN LEVEL 1-3 OR FEVER; Start at 04:30 Morphine Sulfate (morphine) 2 mg Q4H PRN IV PAIN LEVEL 7-10 Last administered on 01/19/17 05:04; Admin Dose 2 MG; Start 01/19/17 at 04:30 Zolpidem Tartrate (Ambien) 5 mg QHS PRN PO INSOMNIA; Start 01/19/17 at 04:30 Docusate Sodium (Colace) 100 mg Q12H PRN PO CONSTIPATION; Start 01/19/17 at 04: 30 Bisacodyl (Dulcolax Supp) 10 mg DAILY PRN NM CONSTIPATION; Start 01/19/17 at 04: 30 Pantoprazole (Protonix Iv) 40 mg DAILY@06 IV Last administered on 01/19/17 05: 14; Admin Dose 40 MG; Start 01/19/17 at 06:00 Miscellaneous Information 1 ea NOTE XX ; Start 01/19/17 at 04:45 Glucose (Glutose) 15 gm Q15M PRN PO DECREASED GLUCOSE; Start 01/19/17 at 04:45 Glucose (Glutose) 22.5 gm Q15M PRN PO DECREASED GLUCOSE; Start 01/19/17 at 04:45 Dextrose (D50w Syringe) 25 ml Q15M PRN IV DECREASED GLUCOSE; Start 01/19/17 at 04:45 Dextrose (D50w Syringe) 50 ml Q15M PRN IV DECREASED GLUCOSE; Start 01/19/17 at 04:45 Glucagon (Glucagen) 1 mg Q15M PRN IM DECREASED GLUCOSE; Start 01/19/17 at 04:45 Glucose 15 gm 15 gm Q15M PRN BUCCAL DECREASED GLUCOSE; Start 01/19/17 at 04:45 Piperacillin Sod/ Tazobactam Sod (Zosyn 3.375gm/ 100 ml (Pmx)) 100 ml @ 200 mls /hr Q8 IVPB Last administered on 01/19/17 14:49; Admin Dose 200 MLS/HR; Start 01/19/17 at 08:00 Furosemide 10 mg 10 mg ONCE IV ; Start 01/19/17 at 13:30; Stop 01/20/17 at 13:29 Vancomycin HCl/ Sodium Chloride (Vancocin/NS) 250 ml @ 83.333 mls/ hr NOW IVPB ; Start 01/19/17 at 15:00; Stop 01/19/17 at 20:00 TOCINTHIA MD January 19, 2017 18:39 Glucagon (Glucagen) 1 mg Q15M PRN IM DECREASED GLUCOSE; Start 01/19/17 at 04:45 Glucose 15 gm 15 gm Q15M PRN BUCCAL DECREASED GLUCOSE; Start 01/19/17 at 04:45 Piperacillin Sod/ Tazobactam Sod (Zosyn 3.375gm/ 100 ml (Pmx)) 100 ml @ 200 mls /hr Q8 IVPB Last administered on 01/19/17 14:49; Admin Dose 200 MLS/HR; Start 01/19/17 at 08:00 Furosemide 10 mg 10 mg ONCE IV ; Start 01/19/17 at 13:30; Stop 01/20/17 at 13:29 Vancomycin HCl/ Sodium Chloride (Vancocin/NS) 250 ml @ 83.333 mls/ hr NOW IVPB ; Start 01/19/17 at 15:00; Stop 01/19/17 at 20:00 TOCINTHIA MD January 19, 2017 18:39
[2017-01-19 19:55] VITALS: BP 120/59; RESP 22
[2017-01-19] MEDS: SALMETEROL/FLUTICASONE 250/50 INHA INH SCH (21:30)
[2017-01-20 01:04] LABS: ADD SCAN DIFF NO
[2017-01-20 01:06] LABS: BASOPHILS % 0.2 % (0.0-2.0); EOSINOPHILS # 0.1 10^3/ul (0.0-0.5); EOSINOPHILS % 0.4 % (0.0-7.0); HEMATOCRIT 23.4 % (37.0-47.0); HEMOGLOBIN 7.8 g/dl (12.0-16.0); LYMPHOCYTES # 2.8 10^3/ul (0.8-2.9); LYMPHOCYTES % 20.9 % (15.0-51.0); MEAN CORPUSCULAR HEMOGLOBIN 33.5 pg (29.0-33.0); MEAN CORPUSCULAR HGB CONC 33.3 g/dl (32.0-37.0); MEAN CORPUSCULAR VOLUME 100.4 fl (82.0-101.0); MEAN PLATELET VOLUME 10.3 fl (7.4-10.4); MONOCYTE # 1.4 10^3/ul (0.3-0.9); MONOCYTES % 10.3 % (0.0-11.0); NEUTROPHIL # 8.7 10^3/ul (1.6-7.5); NEUTROPHILS % 65.9 % (39.0-77.0); NUCLEATED RED BLOOD CELLS% 0.2 /100WBC (0.0-0.0); PLATELET COUNT 132 10^3/UL (140-415); RED BLOOD COUNT 2.33 10^6/ul (4.20-5.40); RED CELL DISTRIBUTION WIDTH 17.5 % (11.5-14.5); WHITE BLOOD COUNT 13.3 10^3/ul (4.8-10.8)
[2017-01-20] MEDS: PANTOPRAZOLE 40 MG INJ IV SCH (06:10)
[2017-01-20] MEDS: PIPER-TAZO 3.375 GM IV (PMX) 100 ML IVPB SCH ×3 (06:10→22:16)
[2017-01-20 06:41] LABS: ADD SCAN DIFF NO
[2017-01-20 06:46] LABS: ABNORMAL IP MESSAGE 1; BASOPHILS % 0.3 % (0.0-2.0); EOSINOPHILS # 0.1 10^3/ul (0.0-0.5); EOSINOPHILS % 0.4 % (0.0-7.0); HEMOGLOBIN 7.9 g/dl (12.0-16.0); LYMPHOCYTES # 2.1 10^3/ul (0.8-2.9); LYMPHOCYTES % 15.5 % (15.0-51.0); MEAN CORPUSCULAR HEMOGLOBIN 32.9 pg (29.0-33.0); MEAN CORPUSCULAR HGB CONC 32.9 g/dl (32.0-37.0); MEAN PLATELET VOLUME 10.6 fl (7.4-10.4); MONOCYTE # 1.8 10^3/ul (0.3-0.9); NEUTROPHIL # 9.3 10^3/ul (1.6-7.5); NEUTROPHILS % 69.2 % (39.0-77.0); NUCLEATED RED BLOOD CELLS% 0.1 /100WBC (0.0-0.0); PLATELET COUNT 130 10^3/UL (140-415); RED CELL DISTRIBUTION WIDTH 17.8 % (11.5-14.5); RETICULOCYTE COUNT % 5.2 % (0.5-1.5); WHITE BLOOD COUNT 13.5 10^3/ul (4.8-10.8)
[2017-01-20 07:07] LABS: LACTATE DEHYDROGENASE 861 IU/L (313-618)
[2017-01-20 07:09] LABS: IRON 31 ug/dl (35-150)
[2017-01-20 07:18] LABS: TOTAL IRON BINDING CAPACITY 231 ug/dl (241-421)
[2017-01-20 07:39] VITALS: BP 110/59; RESP 18
[2017-01-20] MEDS: INSULIN ASPART [NOVOLOG] 3 ML PEN SC SCH ×4 (07:58→21:09)
[2017-01-20 08:13] LABS: FOLATE 13.9 ng/ml (2.8-20.0)
[2017-01-20] MEDS: ALBUTEROL/IPRATROPIUM (NEB) 3 ML AMP HHN SCH ×4 (08:14→20:24)
[2017-01-20 08:17] LABS: CALCIUM 8.5 mg/dl (8.4-10.2); CREATININE 0.63 mg/dl (0.44-1.00)
[2017-01-20] MEDS: VANCOMYCIN 750 MG in SOD CHLORIDE 0.9% 150 ML IVPB SCH ×2 (08:25→20:32)
--- NOTE | 2017-01-20 08:41 | PN ---
DATE: 01/20/2017 SUBJECTIVE: The patient is stable. No acute events overnight. No fevers, chills, nausea, or vomit ing. OBJECTIVE: VITAL SIGNS: Blood pressure 110/57, respirations 18, pulse is 114, temperature 98.4. I's and O's: Not adequately recorded. HEENT: Head is normocephalic. NECK: Supple. HEART: Regular rate. LUNGS: Showed diminished breath sounds at the base. ABDOMEN: Soft, nontender to palpation. No rebound or guarding. EXTREMITIES: Negative for clubbing or cyanosis. No edema. DERMATOLOGIC: No rashes. MUSCULOSKELETAL: Have no joint effusion. NEUROLOGIC: No change in exam. MEDICATIONS: The patient's medications have been reviewed. LABORATORY DATA: Currently pending for this morning. Previous laboratory data showed sodium 126, B UN 14, creatinine 0.71. Uric acid 2.9. Urine sodium of 40 and urine osmolarity of 345. ASSESSMENT AND PLAN: 1. Hyponatremia. Etiology appears to be secondary to syndrome of inappropriate antidiuretic hormon e. The patient's urine studies are consistent with SIADH. The patient also has a low uric acid lev el, a normal TSH. A.m. cortisol level is pending. At this point would limit the patient's free iraida er intake to no more than 800 mL daily. Continue to encourage a high osmolar diet and salt tablets. Will monitor serial sodium levels closely. No immediate need for 3% sodium chloride at this time. 2. Severe anemia secondary to chemotherapy. Continue to monitor. Consider blood transfusion. 3. Systemic inflammatory response syndrome and possible sepsis. Continue the current antibiotic th erapy. Follow up cultures. 4. Tachycardia, possibly from anemia. Continue to monitor. 5. Diabetes. Continue Accu-Cheks and insulin sliding scale. 6. Metastatic cholangiocarcinoma. The patient is status post chemotherapy. Continue to monitor. 7. Hypertension. Continue the current blood pressure regimen. 8. History of chronic obstructive pulmonary disease. Continue the current treatment plan. Dictated By: MAEVE RIVERA/AMOS Conf#: [id number] DID#: [id number]
[2017-01-20] MEDS: AMLODIPINE 5 MG TAB PO SCH (09:08)
[2017-01-20] MEDS: SALMETEROL/FLUTICASONE 250/50 INHA INH SCH ×2 (09:09→21:00)
[2017-01-20] MEDS: INSULIN GLARGINE [LANtus] 3 ML PEN SC SCH (09:15)
[2017-01-20 12:14] LABS: ADD SCAN DIFF NO
[2017-01-20 12:16] LABS: ABNORMAL IP MESSAGE 1; BASOPHILS % 0.2 % (0.0-2.0); EOSINOPHILS % 0.2 % (0.0-7.0); HEMATOCRIT 23.3 % (37.0-47.0); HEMOGLOBIN 7.6 g/dl (12.0-16.0); LYMPHOCYTES # 1.7 10^3/ul (0.8-2.9); LYMPHOCYTES % 13.4 % (15.0-51.0); MEAN CORPUSCULAR HGB CONC 32.6 g/dl (32.0-37.0); MEAN CORPUSCULAR VOLUME 101.3 fl (82.0-101.0); MEAN PLATELET VOLUME 10.3 fl (7.4-10.4); MONOCYTE # 1.6 10^3/ul (0.3-0.9); MONOCYTES % 12.2 % (0.0-11.0); NEUTROPHIL # 9.2 10^3/ul (1.6-7.5); NEUTROPHILS % 72.5 % (39.0-77.0); NUCLEATED RED BLOOD CELLS% 0.2 /100WBC (0.0-0.0); PLATELET COUNT 122 10^3/UL (140-415); RED CELL DISTRIBUTION WIDTH 18.3 % (11.5-14.5); WHITE BLOOD COUNT 12.7 10^3/ul (4.8-10.8)
[2017-01-20] MEDS ORDERED: ACETAMINOPHEN 325 MG TAB PO ONE (15:00)
[2017-01-20 19:41] LABS: ADD SCAN DIFF NO
[2017-01-20 19:42] LABS: ABNORMAL IP MESSAGE 1; BASOPHILS % 0.2 % (0.0-2.0); EOSINOPHILS % 0.3 % (0.0-7.0); HEMOGLOBIN 7.9 g/dl (12.0-16.0); LYMPHOCYTES # 1.9 10^3/ul (0.8-2.9); LYMPHOCYTES % 13.7 % (15.0-51.0); MEAN CORPUSCULAR HEMOGLOBIN 33.5 pg (29.0-33.0); MEAN CORPUSCULAR HGB CONC 32.9 g/dl (32.0-37.0); MEAN CORPUSCULAR VOLUME 101.7 fl (82.0-101.0); MEAN PLATELET VOLUME 10.9 fl (7.4-10.4); MONOCYTE # 1.7 10^3/ul (0.3-0.9); MONOCYTES % 12.7 % (0.0-11.0); NEUTROPHIL # 9.7 10^3/ul (1.6-7.5); NEUTROPHILS % 71.8 % (39.0-77.0); NUCLEATED RED BLOOD CELLS% 0.2 /100WBC (0.0-0.0); PLATELET COUNT 124 10^3/UL (140-415); RED BLOOD COUNT 2.36 10^6/ul (4.20-5.40); RED CELL DISTRIBUTION WIDTH 18.1 % (11.5-14.5); WHITE BLOOD COUNT 13.5 10^3/ul (4.8-10.8)
[2017-01-20 20:34] VITALS: BP 131/65; RESP 18
--- NOTE | 2017-01-21 02:38 | PN ---
DATE: SUBJECTIVE: No acute changes. The patient is alert, denies pain, discomfort. No fevers. WBC today 12.7, H and H 7.6 and 23.3, platelets 122, no shift. BUN 12, creatinine 0.16. MICROBIOLOGY: Blood and urine culture negative. DIAGNOSTICS: CT of the abdomen and pelvis on admission revealed new partially visualized pulmonary metastasis at the lung bases, gradually increased size of inferior right hepatic mass, scattered hep atic hyperdensities, which may reflect scattered cysts and metastatic lesions, increased bulky juan c retroperitoneal and periportal adenopathy, common bile duct stent, which was migrated a few centim eters inferiorly, pneumobilia, and mild intrahepatic biliary dilatation, colonic diverticulosis. , INDWELLINGS: Right chest Port-A-Cath. ANTIMICROBIALS: The patient was started on vancomycin and Zosyn. PHYSICAL EXAMINATION: GENERAL: This is a well-developed, fragile, elderly woman who is awake, in no distress. HEENT: Head atraumatic, normocephalic. Sclerae anicteric. Buccal mucosa dry. NECK: Supple. CHEST: Rise symmetrical. Breath sounds clear. HEART: S1, S2. ABDOMEN: Soft. Bowel sounds present. EXTREMITIES: Without cyanosis. ASSESSMENT: 1. Metastatic cholangiocarcinoma, status post chemotherapy, oncology on case. 2. Systemic inflammatory response syndrome with low grade fevers on admission and persistent leukoc ytosis. 3. Anemia. 4. History of common bile duct stent and now with pneumobilia and mild intrahepatic biliary dilatat ion. PLAN: The patient remains stable on appropriate antimicrobials. Consider gastroenterology evaluati on. Follow oncology recommendations. Dictated By: NANCY CASPER BRUSHER TENDER for [facility] SWIFT/AMOS Conf#: [id number] DID#: [id number]
[2017-01-21] MEDS: PANTOPRAZOLE 40 MG INJ IV SCH (05:58)
[2017-01-21] MEDS: PIPER-TAZO 3.375 GM IV (PMX) 100 ML IVPB SCH ×2 (05:58→14:15)
[2017-01-21] MEDS: morphine 2 MG INJ IV PRN (06:07)
[2017-01-21 07:12] LABS: ADD SCAN DIFF NO
[2017-01-21 07:22] LABS: BASOPHILS % 0.3 % (0.0-2.0); EOSINOPHILS # 0.1 10^3/ul (0.0-0.5); EOSINOPHILS % 0.5 % (0.0-7.0); HEMATOCRIT 26.5 % (37.0-47.0); HEMOGLOBIN 8.9 g/dl (12.0-16.0); LYMPHOCYTES # 1.9 10^3/ul (0.8-2.9); LYMPHOCYTES % 15.6 % (15.0-51.0); MEAN CORPUSCULAR HEMOGLOBIN 33.3 pg (29.0-33.0); MEAN CORPUSCULAR HGB CONC 33.6 g/dl (32.0-37.0); MEAN CORPUSCULAR VOLUME 99.3 fl (82.0-101.0); MEAN PLATELET VOLUME 10.5 fl (7.4-10.4); MONOCYTE # 1.4 10^3/ul (0.3-0.9); MONOCYTES % 11.8 % (0.0-11.0); NEUTROPHIL # 8.5 10^3/ul (1.6-7.5); NEUTROPHILS % 70.3 % (39.0-77.0); PLATELET COUNT 121 10^3/UL (140-415); RED BLOOD COUNT 2.67 10^6/ul (4.20-5.40); RED CELL DISTRIBUTION WIDTH 18.5 % (11.5-14.5); WHITE BLOOD COUNT 12.1 10^3/ul (4.8-10.8)
[2017-01-21] MEDS: ALBUTEROL/IPRATROPIUM (NEB) 3 ML AMP HHN SCH ×4 (07:35→19:13)
[2017-01-21 07:36] LABS: POTASSIUM 3.8 mmol/L (3.5-5.1)
[2017-01-21 07:38] LABS: CREATININE 0.58 mg/dl (0.44-1.00)
[2017-01-21 07:39] LABS: CALCIUM 8.4 mg/dl (8.4-10.2); MAGNESIUM 1.5 mg/dl (1.7-2.5); PHOSPHORUS 3.5 mg/dl (2.5-4.9)
[2017-01-21] MEDS: INSULIN ASPART [NOVOLOG] 3 ML PEN SC SCH ×4 (08:07→20:29)
[2017-01-21 08:16] VITALS: BP 129/58; RESP 22
[2017-01-21] MEDS: VANCOMYCIN 750 MG in SOD CHLORIDE 0.9% 150 ML IVPB SCH (08:42)
[2017-01-21] MEDS: AMLODIPINE 5 MG TAB PO SCH (08:44)
[2017-01-21] MEDS: SALMETEROL/FLUTICASONE 250/50 INHA INH SCH ×2 (08:44→20:29)
[2017-01-21 08:45] VITALS: BP 131/60; PULSE 113
--- NOTE | 2017-01-21 09:06 | PN ---
DATE: 01/21/2017 SUBJECTIVE: The patient is stable, no acute events overnight. No fevers, chills, nausea, or vomiti ng. No shortness of breath. OBJECTIVE: VITAL SIGNS: Blood pressure 129/58, respirations 22, pulse is 107, temperature 99.1. HEENT: Head is normocephalic. NECK: Supple. HEART: Regular rate. LUNGS: Show diminished breath sounds at base. ABDOMEN: Soft, nontender to palpation without rebound or guarding. EXTREMITIES: Negative for clubbing, cyanosis, edema. DERMATOLOGIC: No rashes. MUSCULOSKELETAL: No joint effusions. NEUROLOGIC: No change in exam. MEDICATIONS: The patient's medications have been reviewed. LABORATORY DATA: Showed sodium 134, potassium 2.8, chloride 96, BUN 11, creatinine 0.58. White cou nt 12.1, hemoglobin 8.9, hematocrit 26.5, platelet count is 121. ASSESSMENT AND PLAN: 1. Hyponatremia, etiology is secondary to syndrome of inappropriate antidiuretic hormone. The deandre ent's urine studies were consistent with SIADH. At this point, continue free water restriction. So dium levels have been improving. Continue to monitor closely. 2. Hypomagnesemia, replete magnesium sulfate. 3. Severe anemia secondary to chemotherapy. Continue to monitor H and H levels. The patient is st atus post blood transfusion. 4. Systemic inflammatory response syndrome, sepsis. Continue current antibiotic regimen. 5. Tachycardia, likely from anemia. Continue to monitor. 6. Diabetes. Continue current insulin regimen. 7. Metastatic cholangiocarcinoma. The patient is status post chemotherapy. Continue to monitor. 8. Hypertension. Continue blood pressure regimen. 9. History of chronic obstructive pulmonary disease. Dictated By: MAEVE RIVERA/AMOS Conf#: [id number] DID#: [id number]
--- NOTE | 2017-01-21 09:25 | CONS ---
DATE OF ADMISSION: 01/18/2017 DATE OF CONSULTATION: 01/20/2017 Mimi is a 71-year-old Welsh-speaking lady with a history of cholangiocarcinoma with metastasis. She is now on chemotherapy with gemcitabine plus Xeloda. The patient appears to have progressive di sease on CT. She was admitted with severe macrocytic anemia and low grade fevers. She is on multip le antibiotics. PAST MEDICAL HISTORY AND REVIEW OF SYSTEMS: Please see the H and P. PHYSICAL EXAMINATION: GENERAL: Shows a moderately-built female, in no distress. VITAL SIGNS: Unremarkable and she is afebrile now, but had temperature of 99.6 last evening. BREASTS: Without any lumps. LUNGS: Clear. ABDOMEN: Soft. Shows old surgical scars in the lower abdomen. No masses or tenderness. EXTERNAL GENITALIA: Normal. EXTREMITIES: No edema, clubbing, or cyanosis. IMPRESSION: 1. Cholangiocarcinoma stage IV, patient on chemotherapy. 2. Severe macrocytic anemia, with hemoglobin 7.6. 3. Hyponatremia. PLAN AND DISCUSSION: The patient's macrocytic anemia could be secondary to chemotherapy, but she co uld also have underlying myelodysplasia. Her B12 and folate are normal. Her LDH is slightly elevat ed. She could have hemolysis or myelodysplastic syndrome. Hence, I will get a haptoglobin and will repeat the LDH. She is being evaluated by nephrology for the hyponatremia. She might need a blood transfusion, especially in view of her age. Dictated By: CLAIRE ECHEVERRIA/AMOS Conf#: [id number] DID#: [id number]
[2017-01-21] MEDS ORDERED: MAGNESIUM SULFATE 2 GM/50 ML 50 ML IVPB ONE (09:30)
[2017-01-21] MEDS: INSULIN GLARGINE [LANtus] 3 ML PEN SC SCH (09:56)
--- NOTE | 2017-01-21 11:40 | PN ---
Date/Time of Note Date/Time of Note DATE: 01/21/17 TIME: 11:39 Assessment/Plan VTE Prophylaxis VTE Prophylaxis Intervention: SCD's Lines/Catheters IV [facility]from [facility] Saline Lock Urinary Cath still in place: No Assessment/Plan Assessment/Plan This is a 71-year-old female being admitted to telemetry for: #1. SIRS: improved?? * ?source / all cultures negative so far #2 Anemia: * Per hemeonc, anemia could be 2/2 to chemo, but we need to r/o MDS. Haptoglobin and repeat LDH still pending / f/u final recs * Patient transfused PRBCs #3 Hyponatremia: improving #4 Tachycardia: * No improvement despite transfusion\ * D dimer / if elevated CTA and Venous dopplers / BB therapy / r/o ACS #5 metastatic cholangiocarcinoma: * Currently on chemo as outpt / CT looks worse than previous * Poor prognosis?? #6 diabetes mellitus, uncontrolled * Increase Lantus dosing and add low dose oral hypoglycemic #7 hypertension: controlled * continue current meds #8 COPD with emphysema: * Continue patient's home respiratory medications, and supplemental oxygen at 3 L as the patient has at home. #9 DVT and GI prophylaxis, right I will put the patient on SCDs will avoid chemical prophylaxis secondary to low hemoglobin at this time / Protonix Subjective 24 Hr Interval Summary Free Text/Dictation Patient feels quite well in terms of lethargy. she does complain of constipation. She denies chest pain or palpitations / tachycardia however noted and persistent She was transfused yesterday. Gastrointestinal: constipation Exam/Review of Systems Vital Signs Vitals Vital Signs Date Time Temp Pulse Resp B/P Pulse Ox O2 Delivery O2 Flow Rate FiO2 01/21/17 11:34 105 18 96 Nasal Cannula 2.0 01/21/17 08:45 131/60 01/21/17 08:16 99.1 Intake and Output 01/20/17 01/20/17 01/21/17 15:00 23:00 07:00 Intake Total 856 ml 200 ml Balance 856 ml 200 ml Exam General: Patient is a well-developed female, in no acute distress The patient is alert oriented -3 HEENT: Atraumatic, normocephalic. The pupils are equal, round and reactive. Extraocular motor are intact, mildly dry mucous membranes Neck: Supple with full range of motion. No rigidity or meningismus Chest: Nontender Lungs: Clear to auscultation bilaterally no crackles rales or wheezing Heart: Normal S1-S2, Regular rhythm and rate. No murmur, S3, or S4 Abdomen: Soft, chronic tenderness to palpation secondary to her cancer Extremities: Normal to inspection, no edema no cyanosis Neurologic: Normal mental status, speech normal, no focal weakness Results Result Diagram: 01/21/17 0646 01/21/17 0643 Results 24 hrs Laboratory Tests Test 01/20/17 11:51 01/20/17 11:58 01/20/17 17:50 01/20/17 18:45 White Blood Count 12.7 H 13.5 H Red Blood Count 2.30 L 2.36 L Hemoglobin 7.6 L 7.9 L Hematocrit 23.3 L 24.0 L Mean Corpuscular Volume 101.3 H 101.7 H Mean Corpuscular Hemoglobin 33.0 33.5 H Mean Corpuscular Hemoglobin Concent 32.6 32.9 Red Cell Distribution Width 18.3 H 18.1 H Platelet Count 122 L 124 L Mean Platelet Volume 10.3 10.9 H Neutrophils % 72.5 71.8 Lymphocytes % 13.4 L 13.7 L Monocytes % 12.2 H 12.7 H Eosinophils % 0.2 0.3 Basophils % 0.2 0.2 Nucleated Red Blood Cells % 0.2 H 0.2 H Neutrophils # 9.2 H 9.7 H Lymphocytes # 1.7 1.9 Monocytes # 1.6 H 1.7 H Eosinophils # 0.0 0.0 Basophils # 0.0 0.0 Nucleated Red Blood Cells # 0.0 0.0 Bedside Glucose 331 H 241 H Test 01/20/17 20:59 01/21/17 06:43 01/21/17 06:46 01/21/17 07:59 Bedside Glucose 276 H 186 Sodium Level 134 L Potassium Level 3.8 Chloride Level 96 L Carbon Dioxide Level 32 H Anion Gap 10 Blood Urea Nitrogen 11 Creatinine 0.58 Glucose Level 193 Calcium Level 8.4 Phosphorus Level 3.5 Magnesium Level 1.5 L White Blood Count 12.1 H Red Blood Count 2.67 L Hemoglobin 8.9 L Hematocrit 26.5 L Mean Corpuscular Volume 99.3 Mean Corpuscular Hemoglobin 33.3 H Mean Corpuscular Hemoglobin Concent 33.6 Red Cell Distribution Width 18.5 H Platelet Count 121 L Mean Platelet Volume 10.5 H Neutrophils % 70.3 Lymphocytes % 15.6 Monocytes % 11.8 H Eosinophils % 0.5 Basophils % 0.3 Nucleated Red Blood Cells % 0.0 Neutrophils # 8.5 H Lymphocytes # 1.9 Monocytes # 1.4 H Eosinophils # 0.1 Basophils # 0.0 Nucleated Red Blood Cells # 0.0 Vancomycin Level Trough 8.9 L Test 01/21/17 09:22 01/21/17 09:28 Lab Scanned Report REFERENCE LAB Bedside Glucose 283 H Medications Medications Current Medications Alprazolam (Xanax) 0.5 mg Q8H PRN PO ANXIETY; Start 01/19/17 at 04:30 Amlodipine Besylate (Norvasc) 5 mg DAILY PO Last administered on 01/21/17 08:44 ; Admin Dose 5 MG; Start 01/19/17 at 09:00 Insulin Glargine (Lantus) 16 unit QAM SC Last administered on 01/21/17 09:56; Admin Dose 16 UNIT; Start 01/19/17 at 09:00 Salmeterol Xinafoate/ Fluticasone (Advair 250/50 Diskus) 1 inh BID INH Last administered on 01/21/17 08:44; Admin Dose 1 INH; Start 01/19/17 at 21:00 Ondansetron HCl (Zofran Inj) 4 mg Q6H PRN IV NAUSEA AND/OR VOMITING; Start 01/19 at 04:30 Acetaminophen (Tylenol Tab) 650 mg Q6H PRN PO PAIN LEVEL 1-3 OR FEVER; Start at 04:30 Morphine Sulfate (morphine) 2 mg Q4H PRN IV PAIN LEVEL 7-10 Last administered on 01/21/17 06:07; Admin Dose 2 MG; Start 01/19/17 at 04:30 Zolpidem Tartrate (Ambien) 5 mg QHS PRN PO INSOMNIA; Start 01/19/17 at 04:30 Docusate Sodium (Colace) 100 mg Q12H PRN PO CONSTIPATION Last administered on 08:42; Admin Dose 100 MG; Start 01/19/17 at 04:30 Bisacodyl (Dulcolax Supp) 10 mg DAILY PRN [place] CONSTIPATION Last administered on 01/20/17 22:15; Admin Dose 10 MG; Start 01/19/17 at 04:30 Miscellaneous Information 1 ea NOTE XX ; Start 01/19/17 at 04:45 Glucose (Glutose) 15 gm Q15M PRN PO DECREASED GLUCOSE; Start 01/19/17 at 04:45 Glucose (Glutose) 22.5 gm Q15M PRN PO DECREASED GLUCOSE; Start 01/19/17 at 04:45 Dextrose (D50w Syringe) 25 ml Q15M PRN IV DECREASED GLUCOSE; Start 01/19/17 at 04:45 Dextrose (D50w Syringe) 50 ml Q15M PRN IV DECREASED GLUCOSE; Start 01/19/17 at 04:45 Glucagon (Glucagen) 1 mg Q15M PRN IM DECREASED GLUCOSE; Start 01/19/17 at 04:45 Glucose 15 gm 15 gm Q15M PRN BUCCAL DECREASED GLUCOSE; Start 01/19/17 at 04:45 Piperacillin Sod/ Tazobactam Sod 100 ml @ 200 mls/hr Q8 IVPB Last administered on 01/21/17 05:58; Admin Dose 200 MLS/HR; Start 01/19/17 at 08:00 Vancomycin HCl 750 mg/Sodium Chloride 150 ml @ 75 mls/hr Q12H IVPB Last administered on 01/21/17 08:42; Admin Dose 75 MLS/HR; Start 01/20/17 at 08:00; Stop 01/21/17 at 13:00 Vancomycin HCl (Vancocin) 250 ml @ 125 mls/hr Q12H IVPB ; Start 01/21/17 at 18: 00 Pantoprazole (Protonix Tab) 40 mg DAILY@06 PO ; Start 01/22/17 at 06:00 Procedures Procedures PROCEDURE: CT abdomen and pelvis without contrast. CLINICAL INDICATION: Possible Sepsis, fever TECHNIQUE: CT scan of the abdomen and pelvis without contrast was performed. The patient was scanned without intravenous contrast. 3-D coronal reformatted images were obtained from the axial source images. The calculated radiation dose measures 709 mGy centimeters. The CTDI measures 13 mGy COMPARISON: 06/18/2016 FINDINGS: CT abdomen: There is a small hiatal hernia. There is a posterior right diaphragm fat containing hernia. There is a 1.4 cm lung nodule in the lateral right lower lobe lung base. There is a 5 mm nodular density in the anterior right lower lobe, image 03-05. There are several posterior left lower lobe lung nodules, up to 6 mm in size. There are small anterior left lower lobe lung nodules as well. There is scattered emphysematous changes.. There is a large hypodense hepatic lesion involving the anterior right lobe and medial left lobe, approximately 9.7 by 10.5 x 8.0 cm in size. There is associated intrahepatic biliary dilatation. There are scattered additional hepatic hypodense lesions which appear similar to minimally more prominent compared to prior examination, measuring 13 mm on image 03-21, and 13 mm in the anterior right lobe on image 03-03, for example. A 1.5 cm lesion in the lateral left lobe on image 03-22 appears more prominent. There is pneumobilia. There is a biliary stent placed. There is increased poorly defined adenopathy in the region of the portal hilum and retroperitoneum, with confluent nodes measure up to at least 6.5 x 3.8 cm. The spleen and pancreas are unremarkable noncontrast appearance. The gallbladder is not seen, and may be surgically absent.. The adrenal glands are symmetric and normal. The kidneys appear normal in size and contour. No renal calculus or hydronephrosis is visualized. There is no ascites or retroperitoneal lymphadenopathy. There is moderate aortic and branch vessel calcification. There is mild prominence of stool through the ascending and transverse colon. There is colonic diverticulosis, involving the descending and sigmoid colon. The appendix appears normal. CT pelvis: The urinary bladder appears normal. The pelvic organs are within normal limits. There is no abnormal pelvic mass or adenopathy. There is no pelvic free fluid. There are small bilateral fat containing inguinal hernias. There is diffuse bony demineralization. There is lumbar levoscoliosis. IMPRESSION: 1. New partially visualized pulmonary metastasis at the lung bases, up to 1.4 cm in the right lower lobe. 2. Small hiatal hernia. Right posterior Bochdalek hernia. 3. Gradually increased size of a inferior right hepatic mass, now 9.7 x 10.5 x 8.0 cm. A normal gallbladder is not identified, possibly encased within the mass. 4. Scattered hepatic hypodensities which may reflect scattered cysts and metastatic lesions, similar to slightly more prominent compared to prior exam. 5. Increased bulky celiac, retroperitoneal, and periportal adenopathy. 6. Common bile duct stent, which has migrated a few centimeters inferiorly. Pneumobilia and mild intrahepatic biliary dilatation. 7. Moderate aortic and branch vessel calcification. 8. Colonic diverticulosis, without visualized diverticulitis. 9. Small fat containing inguinal hernias. RPTAT: HBST .Justin Voss MD, MD Date Time Electronically viewed and signed by .Justin Voss MD, on 01/18/2017 23:11 .T/ NAIMA CARTAGENA January 21, 2017 11:40
[2017-01-21 12:55] LABS: CREATINE KINASE 34 IU/L (23-200)
[2017-01-21] MEDS: METOPROLOL 25 MG TAB PO SCH ×2 (12:56→21:11)
[2017-01-21] MEDS: ASPIRIN (EC) 81 MG TAB PO SCH (12:56)
[2017-01-21 12:57] VITALS: BP 135/63; PULSE 113
[2017-01-21] MEDS ORDERED: MAGNESIUM CITRATE 300 ML BTL PO ONE (13:00)
[2017-01-21 13:09] LABS: CK-MB < 0.22 ng/ml (0.0-2.4); TROPONIN-I < 0.012 ng/ml (0.00-0.12)
[2017-01-21] MEDS ORDERED: SOD CHLORIDE 0.9% 500 ML IV ONE (15:30)
[2017-01-21] MEDS ORDERED: INSULIN GLARGINE [LANtus] 3 ML PEN SC ONE (15:30)
--- NOTE | 2017-01-21 15:34 | CONS ---
Date/Time of Note Date/Time of Note DATE: 01/21/17 TIME: 15:32 Assessment/Plan Assessment/Plan Chief Complaint/Hosp Course SUBJECTIVE: No acute changes. The patient is alert, denies pain, discomfort. No fevers. MICROBIOLOGY: Blood and urine culture negative. DIAGNOSTICS: CT of the abdomen and pelvis on admission revealed new partially visualized pulmonary metastasis at the lung bases, gradually increased size of inferior right hepatic mass, scattered hepatic hyperdensities, which may reflect scattered cysts and metastatic lesions, increased bulky celiac retroperitoneal and periportal adenopathy, common bile duct stent, which was migrated a few centimeters inferiorly, pneumobilia, and mild intrahepatic biliary dilatation, colonic diverticulosis. , INDWELLINGS: Right chest Port-A-Cath. ANTIMICROBIALS: Vancomycin and Zosyn. PHYSICAL EXAMINATION: GENERAL: This is a well-developed, fragile, elderly woman who is awake, in no distress. HEENT: Head atraumatic, normocephalic. Sclerae anicteric. Buccal mucosa dry. NECK: Supple. CHEST: Rise symmetrical. Breath sounds clear. HEART: S1, S2. ABDOMEN: Soft. Bowel sounds present. EXTREMITIES: Without cyanosis. ASSESSMENT: 1. Metastatic cholangiocarcinoma, status post chemotherapy, oncology on case. 2. Systemic inflammatory response syndrome with low grade fevers on admission and leukocytosis, likely 2 to above. 3. Anemia. 4. History of common bile duct stent and now with pneumobilia and mild intrahepatic biliary dilatation. PLAN: The patient remains stable, no fevers, cx negaticve, will dc abx and observe, f/u oncology rec-s [facility] staff Problems: Consultation Date/Type/Reason Admit Date/Time January 18, 2017 at 23:31 Initial Consult Date 01/19/17 Type of Consultation: ID Exam/Review of Systems Vital Signs Vitals Vital Signs Date Time Temp Pulse Resp B/P Pulse Ox O2 Delivery O2 Flow Rate FiO2 01/21/17 15:10 100 18 100 Nasal Cannula 2.0 01/21/17 12:57 135/63 01/21/17 08:16 99.1 Intake and Output 01/20/17 01/20/17 01/21/17 15:00 23:00 07:00 Intake Total 856 ml 200 ml Balance 856 ml 200 ml Results Result Diagram: 01/21/17 0646 01/21/17 0643 Results 24 hrs Laboratory Tests Test 01/20/17 17:50 01/20/17 18:45 01/20/17 20:59 01/21/17 06:43 Bedside Glucose 241 H 276 H White Blood Count 13.5 H Red Blood Count 2.36 L Hemoglobin 7.9 L Hematocrit 24.0 L Mean Corpuscular Volume 101.7 H Mean Corpuscular Hemoglobin 33.5 H Mean Corpuscular Hemoglobin Concent 32.9 Red Cell Distribution Width 18.1 H Platelet Count 124 L Mean Platelet Volume 10.9 H Neutrophils % 71.8 Lymphocytes % 13.7 L Monocytes % 12.7 H Eosinophils % 0.3 Basophils % 0.2 Nucleated Red Blood Cells % 0.2 H Neutrophils # 9.7 H Lymphocytes # 1.9 Monocytes # 1.7 H Eosinophils # 0.0 Basophils # 0.0 Nucleated Red Blood Cells # 0.0 Sodium Level 134 L Potassium Level 3.8 Chloride Level 96 L Carbon Dioxide Level 32 H Anion Gap 10 Blood Urea Nitrogen 11 Creatinine 0.58 Glucose Level 193 Calcium Level 8.4 Phosphorus Level 3.5 Magnesium Level 1.5 L Test 01/21/17 06:46 01/21/17 07:59 01/21/17 09:22 01/21/17 09:28 White Blood Count 12.1 H Red Blood Count 2.67 L Hemoglobin 8.9 L Hematocrit 26.5 L Mean Corpuscular Volume 99.3 Mean Corpuscular Hemoglobin 33.3 H Mean Corpuscular Hemoglobin Concent 33.6 Red Cell Distribution Width 18.5 H Platelet Count 121 L Mean Platelet Volume 10.5 H Neutrophils % 70.3 Lymphocytes % 15.6 Monocytes % 11.8 H Eosinophils % 0.5 Basophils % 0.3 Nucleated Red Blood Cells % 0.0 Neutrophils # 8.5 H Lymphocytes # 1.9 Monocytes # 1.4 H Eosinophils # 0.1 Basophils # 0.0 Nucleated Red Blood Cells # 0.0 Vancomycin Level Trough 8.9 L Bedside Glucose 186 283 H Lab Scanned Report REFERENCE LAB Test 01/21/17 12:21 01/21/17 12:22 Creatine Kinase 34 Creatine Kinase Index 0.6 Creatinine Kinase MB (Mass) < 0.22 Troponin I < 0.012 Bedside Glucose 283 H Medications Medications Current Medications Alprazolam (Xanax) 0.5 mg Q8H PRN PO ANXIETY; Start 01/19/17 at 04:30 Salmeterol Xinafoate/ Fluticasone (Advair 250/50 Diskus) 1 inh BID INH Last administered on 01/21/17 08:44; Admin Dose 1 INH; Start 01/19/17 at 21:00 Ondansetron HCl (Zofran Inj) 4 mg Q6H PRN IV NAUSEA AND/OR VOMITING; Start 01/19 at 04:30 Acetaminophen (Tylenol Tab) 650 mg Q6H PRN PO PAIN LEVEL 1-3 OR FEVER; Start at 04:30 Morphine Sulfate (morphine) 2 mg Q4H PRN IV PAIN LEVEL 7-10 Last administered on 01/21/17 06:07; Admin Dose 2 MG; Start 01/19/17 at 04:30 Zolpidem Tartrate (Ambien) 5 mg QHS PRN PO INSOMNIA; Start 01/19/17 at 04:30 Bisacodyl (Dulcolax Supp) 10 mg DAILY PRN [place] CONSTIPATION Last administered on 01/20/17 22:15; Admin Dose 10 MG; Start 01/19/17 at 04:30 Miscellaneous Information 1 ea NOTE XX ; Start 01/19/17 at 04:45 Glucose (Glutose) 15 gm Q15M PRN PO DECREASED GLUCOSE; Start 01/19/17 at 04:45 Glucose (Glutose) 22.5 gm Q15M PRN PO DECREASED GLUCOSE; Start 01/19/17 at 04:45 Dextrose (D50w Syringe) 25 ml Q15M PRN IV DECREASED GLUCOSE; Start 01/19/17 at 04:45 Dextrose (D50w Syringe) 50 ml Q15M PRN IV DECREASED GLUCOSE; Start 01/19/17 at 04:45 Glucagon (Glucagen) 1 mg Q15M PRN IM DECREASED GLUCOSE; Start 01/19/17 at 04:45 Glucose 15 gm 15 gm Q15M PRN BUCCAL DECREASED GLUCOSE; Start 01/19/17 at 04:45 Piperacillin Sod/ Tazobactam Sod 100 ml @ 200 mls/hr Q8 IVPB Last administered on 01/21/17 14:15; Admin Dose 200 MLS/HR; Start 01/19/17 at 08:00 Vancomycin HCl (Vancocin) 250 ml @ 125 mls/hr Q12H IVPB ; Start 01/21/17 at 18: 00 Pantoprazole (Protonix Tab) 40 mg DAILY@06 PO ; Start 01/22/17 at 06:00 Metoprolol Tartrate (Lopressor) 25 mg BID PO Last administered on 01/21/17 12: 56; Admin Dose 25 MG; Start 01/21/17 at 12:00 Aspirin (Halfprin) 81 mg DAILY PO Last administered on 01/21/17 12:56; Admin Dose 81 MG; Start 01/21/17 at 12:00 Docusate Sodium (Colace) 100 mg Q12H PO ; Start 01/21/17 at 16:30 Insulin Glargine (Lantus) 20 unit QAM SC ; Start 01/22/17 at 09:00 Polyethylene Glycol (Miralax) 8.5 gm DAILY PO ; Start 01/22/17 at 09:00 Linagliptin 5 mg 5 mg DAILY PO ; Start 01/21/17 at 15:30 Sodium Chloride (NS) 500 ml @ 500 mls/hr Q1H ONCE IV ; Start 01/21/17 at 15:30; Stop 01/21/17 at 16:29 NANCY CASPER NP January 21, 2017 15:34
[2017-01-21] MEDS: LINAGLIPTIN 5 MG TABLET PO SCH (16:24)
[2017-01-21] MEDS ORDERED: VANCOMYCIN 1 GM in NS 250 ML IVPB SCH (18:00)
[2017-01-21] MEDS: DOCUSATE SODIUM 100 MG CAP PO SCH (18:16)
[2017-01-21 18:48] LABS: CREATINE KINASE 34 IU/L (23-200)
[2017-01-21 19:03] LABS: CK-MB < 0.22 ng/ml (0.0-2.4); TROPONIN-I < 0.012 ng/ml (0.00-0.12)
--- NOTE | 2017-01-21 19:03 | PN ---
DATE: 01/21/2017 HISTORY OF PRESENT ILLNESS: Mimi is a 71-year-old Romansh-speaking lady with diagnosis of cholangi ocarcinoma with metastasis. She recently is on chemotherapy with gemcitabine plus Xeloda. But unfo rtunately she appears to have progressive disease on CT scan. She was admitted because of low grade fevers and severe anemia and is on multiple antibiotics. PHYSICAL EXAMINATION: GENERAL: Shows a moderately built female in no acute distress. VITAL SIGNS: She is afebrile. EARS, NOSE, THROAT, HEART, AND LUNGS: Unremarkable. ABDOMEN: Shows old surgical scars. There appears to be mild tenderness in the lower abdomen. Vaishnavi l sounds are present. EXTREMITIES: Showed no edema, clubbing, or cyanosis. LYMPH NODES: No peripheral lymphadenopathy. LABORATORY DATA: Her WBC is 12,100 still, hemoglobin 8.9 after transfusion yesterday, and the plate let count is 121,000. Her BMP is okay. PLAN AND DISCUSSION: This patient has no more fevers. She may have progressive cancer and, of cour se, this can cause fever. I have ordered a haptoglobin, which is still pending. Her LDH is slightl y elevated at 861 now. She could have mild hemolysis. Her sodium is now slightly better at 129. W e will repeat her CBC and CMP tomorrow and will continue present treatment. I will monitor her for fevers. Dictated By: CLAIRE ECHEVERRIA/AMOS Conf#: [id number] DID#: [id number] CC: Harshad Gardner;*EndCC*
[2017-01-21 19:27] VITALS: BP 152/73; RESP 18
[2017-01-21 19:27] LABS: D-DIMER 2885.71 ng/ml (<460)
[2017-01-22] MEDS: DOCUSATE SODIUM 100 MG CAP PO SCH ×2 (04:30→16:30)
[2017-01-22 05:29] LABS: ADD SCAN DIFF NO
[2017-01-22] MEDS: morphine 2 MG INJ IV PRN (05:49)
[2017-01-22 06:00] LABS: PHOSPHORUS 3.2 mg/dl (2.5-4.9)
[2017-01-22 06:00] LABS: ALBUMIN 2.9 g/dl (3.3-4.9); POTASSIUM 4.2 mmol/L (3.5-5.1)
[2017-01-22] MEDS ORDERED: PANTOPRAZOLE (EC) 40 MG TAB PO SCH (06:00)
[2017-01-22 06:01] LABS: MAGNESIUM 1.8 mg/dl (1.7-2.5)
[2017-01-22 06:02] LABS: CREATININE 0.49 mg/dl (0.44-1.00)
[2017-01-22 06:03] LABS: ALBUMIN/GLOBULIN RATIO 0.61; BILIRUBIN,INDIRECT 0.8 mg/dl (0-1.1); BILIRUBIN,TOTAL 0.8 mg/dl (0.2-1.3); CALCIUM 8.8 mg/dl (8.4-10.2); TOTAL PROTEIN 7.6 g/dl (6.1-8.1)
[2017-01-22 06:04] LABS: ABNORMAL IP MESSAGE 1; BASOPHIL # 0.1 10^3/ul (0.0-0.1); BASOPHILS % 0.4 % (0.0-2.0); EOSINOPHILS # 0.1 10^3/ul (0.0-0.5); EOSINOPHILS % 0.7 % (0.0-7.0); HEMATOCRIT 28.7 % (37.0-47.0); HEMOGLOBIN 9.6 g/dl (12.0-16.0); LYMPHOCYTES # 2.1 10^3/ul (0.8-2.9); LYMPHOCYTES % 15.5 % (15.0-51.0); MEAN CORPUSCULAR HEMOGLOBIN 33.1 pg (29.0-33.0); MEAN CORPUSCULAR HGB CONC 33.4 g/dl (32.0-37.0); MEAN PLATELET VOLUME 10.6 fl (7.4-10.4); MONOCYTE # 1.6 10^3/ul (0.3-0.9); MONOCYTES % 11.6 % (0.0-11.0); NEUTROPHIL # 9.6 10^3/ul (1.6-7.5); NEUTROPHILS % 70.6 % (39.0-77.0); PLATELET COUNT 144 10^3/UL (140-415); RED CELL DISTRIBUTION WIDTH 18.9 % (11.5-14.5); WHITE BLOOD COUNT 13.6 10^3/ul (4.8-10.8)
[2017-01-22 07:33] VITALS: BP 149/73; RESP 20
[2017-01-22] MEDS: INSULIN ASPART [NOVOLOG] 3 ML PEN SC SCH ×3 (08:13→17:24)
[2017-01-22] MEDS: ASPIRIN (EC) 81 MG TAB PO SCH (08:14)
[2017-01-22] MEDS: SALMETEROL/FLUTICASONE 250/50 INHA INH SCH (08:14)
[2017-01-22] MEDS: LINAGLIPTIN 5 MG TABLET PO SCH (08:14)
[2017-01-22] MEDS: METOPROLOL 25 MG TAB PO SCH (08:15)
[2017-01-22] MEDS: ALBUTEROL/IPRATROPIUM (NEB) 3 ML AMP HHN SCH ×3 (08:20→16:01)
[2017-01-22] MEDS ORDERED: INSULIN GLARGINE [LANtus] 3 ML PEN SC SCH (09:00)
[2017-01-22] MEDS ORDERED: POLYETHYLENE GLYCOL 17 GM PACKET PO SCH (09:00)
--- NOTE | 2017-01-22 10:31 | PN ---
DATE: 01/22/2017 SUBJECTIVE: The patient is stable. No events overnight. No fevers, chills, nausea, vomiting. OBJECTIVE: VITAL SIGNS: Blood pressure is 149/73, respirations 20, pulse 101, temperature 98.4. HEENT: Head is normocephalic. NECK: Supple. HEART: Regular rate. LUNGS: Show diminished breath sounds at the base. ABDOMEN: Soft, nontender to palpation without rebound or guarding. EXTREMITIES: Negative for clubbing, cyanosis. No edema. DERMATOLOGIC: No rashes. MUSCULOSKELETAL: No joint effusions. NEUROLOGIC: No change in exam. MEDICATIONS: Reviewed. LABORATORY DATA: Shows sodium 133, potassium 4.2, chloride 92, bicarbonate 34. White count 13.6, h emoglobin 9.6, hematocrit 28.7, platelet count 144. ASSESSMENT AND PLAN: 1. Hyponatremia, etiology secondary to syndrome of inappropriate antidiuretic hormone. The patient 's sodium levels have been stable. Would recommend to continue free water restriction. Would defer IV fluids at this time. 2. Hypomagnesemia, improved. 3. Anemia secondary to chemotherapy. Continue to monitor H and H levels, transfuse as needed. 4. Sepsis inflammatory response syndrome. Questionable sepsis. The patient is on antibiotic regime n. Will continue, cultures have been negative to date. 5. Tachycardia, possibly due to underlying SIRS. continue to monitor. 6. Diabetes. Continue current insulin regimen. 7. Metastatic cholangiocarcinoma. The patient is currently chemotherapy. Follow up with oncology. 8. Hypertension. Current blood pressure regimen. 9. History of chronic obstructive pulmonary disease. Dictated By: MAEVE RIVERA/AMOS Conf#: [id number] DID#: [id number]
--- NOTE | 2017-01-22 12:12 | CONS ---
Date/Time of Note Date/Time of Note DATE: 01/22/17 TIME: 12:06 Assessment/Plan Assessment/Plan Chief Complaint/Hosp Course This is a 71-year-old female treated by Dr. Cedeño metastatic cholangiocarcinoma , who was sent to the ER yesterday for weakness and found to have SIRS and probable sepsis with hemoglobin down to 6.9. Pt has since had transfusion and her Hg is stable and greater than 9. # Metastatic cholangiocarcinoma, s/p 7 cycles of gemcitabine/cisplatin, switched to gemcitabine/xeloda due to increased abdominal pain, begun on . Patient received cycle 2 day 1 of gemcitabine (with xeloda) on 01/11/17. -Although CT A/P was concerning for progressive disease this was in comparison to a scan from June 2016. Her chemotherapy has since been switched to another regimen which is currently controlling her disease # Severe macrocytic anemia, down to 6.9 currently receiving transfusion, may be exacerbated by chemotherapy and likely anemia of chronic disease - Hgb noted to be low at 7.4 at patient's last visit with Dr. Cedeño on 01/16/17, patient started on procrit 20,000 (received 01/16/17) once per week and oral iron - Transfuse for hemoglobin < 8. hg stable after transfusion - will check iron panel, ferritin, B12/folate, methylmalonic acid, homocysteine , TSH, LDH, retic count, haptoglobin # SIRS and probable sepsis - continue empiric vanc/zosyn, appreciate ID recs, f/u cultures OK with discharge from hematology standpoint if patient is cleared from and infection standpoint Problems: Consultation Date/Type/Reason Admit Date/Time January 18, 2017 at 23:31 Initial Consult Date 01/19/17 Type of Consultation: Hematology Reason for Consultation stage IV cholangioca Referring Provider: NAIMA CARTAGENA 24 HR Interval Summary Free Text/Dictation pt is afebrile. states she feels better. still c/ o liver pain Exam/Review of Systems Vital Signs Vitals Vital Signs Date Time Temp Pulse Resp B/P Pulse Ox O2 Delivery O2 Flow Rate FiO2 01/22/17 12:01 93 18 97 Nasal Cannula 2.0 01/22/17 07:33 98.4 149/73 01/21/17 19:21 21 Intake and Output 01/21/17 01/21/17 01/22/17 15:00 23:00 07:00 Intake Total 350 ml 1350 ml 200 ml Output Total 600 ml Balance -250 ml 1350 ml 200 ml Exam Constitutional: alert Psych: no complaints Head: normocephalic Eyes: nl conjunctiva ENMT: nl external ears & nose, nl lips & teeth Neck: non-tender, supple Respiratory: clear to auscultation, normal air movement Cardiovascular: regular rate and rhythm Gastrointestinal: other (RUQ tenderness), soft Musculoskeletal: nl extremities to inspection, nl gait and stance Results Result Diagram: 01/22/17 0517 01/22/17 0500 Results 24 hrs Laboratory Tests Test 01/21/17 12:21 01/21/17 12:22 01/21/17 16:24 01/21/17 17:27 Creatine Kinase 34 Creatine Kinase Index 0.6 Creatinine Kinase MB (Mass) < 0.22 Troponin I < 0.012 Bedside Glucose 283 H 236 H 226 H Test 01/21/17 17:50 01/21/17 20:28 01/22/17 05:00 01/22/17 05:17 D-Dimer 2885.71 H D-Dimer Comment Lactate Dehydrogenase 862 H Creatine Kinase 34 Creatine Kinase Index 0.6 Creatinine Kinase MB (Mass) < 0.22 Troponin I < 0.012 Bedside Glucose 166 Sodium Level 133 L Potassium Level 4.2 Chloride Level 92 L Carbon Dioxide Level 34 H Anion Gap 11 Blood Urea Nitrogen 9 Creatinine 0.49 Glucose Level 133 # Calcium Level 8.8 Total Bilirubin 0.8 Direct Bilirubin 0.00 Indirect Bilirubin 0.8 Aspartate Amino Transf (AST/SGOT) 27 Alanine Aminotransferase (ALT/SGPT) 25 Alkaline Phosphatase 112 Total Protein 7.6 Albumin 2.9 L Globulin 4.70 H Albumin/Globulin Ratio 0.61 White Blood Count 13.6 H Red Blood Count 2.90 L Hemoglobin 9.6 L Hematocrit 28.7 L Mean Corpuscular Volume 99.0 Mean Corpuscular Hemoglobin 33.1 H Mean Corpuscular Hemoglobin Concent 33.4 Red Cell Distribution Width 18.9 H Platelet Count 144 Mean Platelet Volume 10.6 H Neutrophils % 70.6 Lymphocytes % 15.5 Monocytes % 11.6 H Eosinophils % 0.7 Basophils % 0.4 Nucleated Red Blood Cells % 0.0 Neutrophils # 9.6 H Lymphocytes # 2.1 Monocytes # 1.6 H Eosinophils # 0.1 Basophils # 0.1 Nucleated Red Blood Cells # 0.0 Phosphorus Level 3.2 Magnesium Level 1.8 Test 01/22/17 08:11 Bedside Glucose 120 Medications Medications Current Medications Alprazolam (Xanax) 0.5 mg Q8H PRN PO ANXIETY; Start 01/19/17 at 04:30 Salmeterol Xinafoate/ Fluticasone (Advair 250/50 Diskus) 1 inh BID INH Last administered on 01/22/17 08:14; Admin Dose 1 INH; Start 01/19/17 at 21:00 Ondansetron HCl (Zofran Inj) 4 mg Q6H PRN IV NAUSEA AND/OR VOMITING; Start 01/19 at 04:30 Acetaminophen (Tylenol Tab) 650 mg Q6H PRN PO PAIN LEVEL 1-3 OR FEVER Last administered on 01/21/17 21:11; Admin Dose 650 MG; Start 01/19/17 at 04:30 Morphine Sulfate (morphine) 2 mg Q4H PRN IV PAIN LEVEL 7-10 Last administered on 01/22/17 05:49; Admin Dose 2 MG; Start 01/19/17 at 04:30 Zolpidem Tartrate (Ambien) 5 mg QHS PRN PO INSOMNIA; Start 01/19/17 at 04:30 Bisacodyl (Dulcolax Supp) 10 mg DAILY PRN [place] CONSTIPATION Last administered on 01/20/17 22:15; Admin Dose 10 MG; Start 01/19/17 at 04:30 Miscellaneous Information 1 ea NOTE XX ; Start 01/19/17 at 04:45 Glucose (Glutose) 15 gm Q15M PRN PO DECREASED GLUCOSE; Start 01/19/17 at 04:45 Glucose (Glutose) 22.5 gm Q15M PRN PO DECREASED GLUCOSE; Start 01/19/17 at 04:45 Dextrose (D50w Syringe) 25 ml Q15M PRN IV DECREASED GLUCOSE; Start 01/19/17 at 04:45 Dextrose (D50w Syringe) 50 ml Q15M PRN IV DECREASED GLUCOSE; Start 01/19/17 at 04:45 Glucagon (Glucagen) 1 mg Q15M PRN IM DECREASED GLUCOSE; Start 01/19/17 at 04:45 Glucose (Glutose) 15 gm Q15M PRN BUCCAL DECREASED GLUCOSE; Start 01/19/17 at 04: 45 Pantoprazole (Protonix Tab) 40 mg DAILY@06 PO Last administered on 01/22/17 05: 30; Admin Dose 40 MG; Start 01/22/17 at 06:00 Metoprolol Tartrate (Lopressor) 25 mg BID PO Last administered on 01/22/17 08: 15; Admin Dose 25 MG; Start 01/21/17 at 12:00 Aspirin (Halfprin) 81 mg DAILY PO Last administered on 01/22/17 08:14; Admin Dose 81 MG; Start 01/21/17 at 12:00 Docusate Sodium (Colace) 100 mg Q12H PO Last administered on 01/21/17 18:16; Admin Dose 100 MG; Start 01/21/17 at 16:30 Insulin Glargine (Lantus) 20 unit QAM SC Last administered on 01/22/17 08:17; Admin Dose 20 UNIT; Start 01/22/17 at 09:00 Polyethylene Glycol (Miralax) 8.5 gm DAILY PO ; Start 01/22/17 at 09:00 Linagliptin (Tradjenta) 5 mg DAILY PO Last administered on 01/22/17 08:14; Admin Dose 5 MG; Start 01/21/17 at 15:30 CHERIE CEDEÑO M.D. January 22, 2017 12:12
--- NOTE | 2017-01-22 13:16 | CONS ---
Date/Time of Note Date/Time of Note DATE: 01/22/17 TIME: 13:15 Assessment/Plan Assessment/Plan Chief Complaint/Hosp Course SUBJECTIVE: No acute changes. The patient is alert, denies pain, discomfort. No fevers. MICROBIOLOGY: Blood and urine culture negative. DIAGNOSTICS: CT of the abdomen and pelvis on admission revealed new partially visualized pulmonary metastasis at the lung bases, gradually increased size of inferior right hepatic mass, scattered hepatic hyperdensities, which may reflect scattered cysts and metastatic lesions, increased bulky celiac retroperitoneal and periportal adenopathy, common bile duct stent, which was migrated a few centimeters inferiorly, pneumobilia, and mild intrahepatic biliary dilatation, colonic diverticulosis. , INDWELLINGS: Right chest Port-A-Cath. PHYSICAL EXAMINATION: GENERAL: This is a well-developed, fragile, elderly woman who is awake, in no distress. HEENT: Head atraumatic, normocephalic. Sclerae anicteric. Buccal mucosa dry. NECK: Supple. CHEST: Rise symmetrical. Breath sounds clear. HEART: S1, S2. ABDOMEN: Soft. Bowel sounds present. EXTREMITIES: Without cyanosis. ASSESSMENT: 1. Metastatic cholangiocarcinoma, status post chemotherapy, oncology on case. 2. Systemic inflammatory response syndrome with low grade fevers on admission and leukocytosis, likely 2 to above. 3. Anemia. 4. History of common bile duct stent and now with pneumobilia and mild intrahepatic biliary dilatation. PLAN: The patient remains stable, off abx, will f/u cxr and fay cx prn, f/u oncology rec-s [facility] staff Problems: Consultation Date/Type/Reason Admit Date/Time January 18, 2017 at 23:31 Initial Consult Date 01/19/17 Type of Consultation: id Referring Provider: NAIMA CARTAGENA Exam/Review of Systems Vital Signs Vitals Vital Signs Date Time Temp Pulse Resp B/P Pulse Ox O2 Delivery O2 Flow Rate FiO2 01/22/17 12:01 93 18 97 Nasal Cannula 2.0 01/22/17 07:33 98.4 149/73 01/21/17 19:21 21 Intake and Output 01/21/17 01/21/17 01/22/17 15:00 23:00 07:00 Intake Total 350 ml 1350 ml 200 ml Output Total 600 ml Balance -250 ml 1350 ml 200 ml Results Result Diagram: 01/22/17 0517 01/22/17 0500 Results 24 hrs Laboratory Tests Test 01/21/17 16:24 01/21/17 17:27 01/21/17 17:50 01/21/17 20:28 Bedside Glucose 236 H 226 H 166 D-Dimer 2885.71 H D-Dimer Comment Lactate Dehydrogenase 862 H Creatine Kinase 34 Creatine Kinase Index 0.6 Creatinine Kinase MB (Mass) < 0.22 Troponin I < 0.012 Test 01/22/17 05:00 01/22/17 05:17 01/22/17 08:11 01/22/17 11:56 Sodium Level 133 L Potassium Level 4.2 Chloride Level 92 L Carbon Dioxide Level 34 H Anion Gap 11 Blood Urea Nitrogen 9 Creatinine 0.49 Glucose Level 133 # Calcium Level 8.8 Total Bilirubin 0.8 Direct Bilirubin 0.00 Indirect Bilirubin 0.8 Aspartate Amino Transf (AST/SGOT) 27 Alanine Aminotransferase (ALT/SGPT) 25 Alkaline Phosphatase 112 Total Protein 7.6 Albumin 2.9 L Globulin 4.70 H Albumin/Globulin Ratio 0.61 White Blood Count 13.6 H Red Blood Count 2.90 L Hemoglobin 9.6 L Hematocrit 28.7 L Mean Corpuscular Volume 99.0 Mean Corpuscular Hemoglobin 33.1 H Mean Corpuscular Hemoglobin Concent 33.4 Red Cell Distribution Width 18.9 H Platelet Count 144 Mean Platelet Volume 10.6 H Neutrophils % 70.6 Lymphocytes % 15.5 Monocytes % 11.6 H Eosinophils % 0.7 Basophils % 0.4 Nucleated Red Blood Cells % 0.0 Neutrophils # 9.6 H Lymphocytes # 2.1 Monocytes # 1.6 H Eosinophils # 0.1 Basophils # 0.1 Nucleated Red Blood Cells # 0.0 Phosphorus Level 3.2 Magnesium Level 1.8 Bedside Glucose 120 168 Medications Medications Current Medications Alprazolam (Xanax) 0.5 mg Q8H PRN PO ANXIETY; Start 01/19/17 at 04:30 Salmeterol Xinafoate/ Fluticasone (Advair 250/50 Diskus) 1 inh BID INH Last administered on 01/22/17t 08:14; Admin Dose 1 INH; Start 01/19/17 at 21:00 Ondansetron HCl (Zofran Inj) 4 mg Q6H PRN IV NAUSEA AND/OR VOMITING; Start 01/19 at 04:30 Acetaminophen (Tylenol Tab) 650 mg Q6H PRN PO PAIN LEVEL 1-3 OR FEVER Last administered on 01/21/17 21:11; Admin Dose 650 MG; Start 01/19/17 at 04:30 Morphine Sulfate (morphine) 2 mg Q4H PRN IV PAIN LEVEL 7-10 Last administered on 01/22/17 05:49; Admin Dose 2 MG; Start 01/19/17 at 04:30 Zolpidem Tartrate (Ambien) 5 mg QHS PRN PO INSOMNIA; Start 01/19/17 at 04:30 Bisacodyl (Dulcolax Supp) 10 mg DAILY PRN [place] CONSTIPATION Last administered on 01/20/17 22:15; Admin Dose 10 MG; Start 01/19/17 at 04:30 Miscellaneous Information 1 ea NOTE XX ; Start 01/19/17 at 04:45 Glucose (Glutose) 15 gm Q15M PRN PO DECREASED GLUCOSE; Start 01/19/17 at 04:45 Glucose (Glutose) 22.5 gm Q15M PRN PO DECREASED GLUCOSE; Start 01/19/17 at 04:45 Dextrose (D50w Syringe) 25 ml Q15M PRN IV DECREASED GLUCOSE; Start 01/19/17 at 04:45 Dextrose (D50w Syringe) 50 ml Q15M PRN IV DECREASED GLUCOSE; Start 01/19/17 at 04:45 Glucagon (Glucagen) 1 mg Q15M PRN IM DECREASED GLUCOSE; Start 01/19/17 at 04:45 Glucose (Glutose) 15 gm Q15M PRN BUCCAL DECREASED GLUCOSE; Start 01/19/17 at 04: 45 Pantoprazole (Protonix Tab) 40 mg DAILY@06 PO Last administered on 01/22/17 05: 30; Admin Dose 40 MG; Start 01/22/17 at 06:00 Metoprolol Tartrate (Lopressor) 25 mg BID PO Last administered on 01/22/17 08: 15; Admin Dose 25 MG; Start 01/21/17 at 12:00 Aspirin (Halfprin) 81 mg DAILY PO Last administered on 01/22/17 08:14; Admin Dose 81 MG; Start 01/21/17 at 12:00 Docusate Sodium (Colace) 100 mg Q12H PO Last administered on 01/21/17 18:16; Admin Dose 100 MG; Start 01/21/17 at 16:30 Insulin Glargine (Lantus) 20 unit QAM SC Last administered on 01/22/17 08:17; Admin Dose 20 UNIT; Start 01/22/17 at 09:00 Polyethylene Glycol (Miralax) 8.5 gm DAILY PO ; Start 01/22/17 at 09:00 Linagliptin (Tradjenta) 5 mg DAILY PO Last administered on 01/22/17 08:14; Admin Dose 5 MG; Start 01/21/17 at 15:30 NANCY CASPER NP January 22, 2017 13:16
--- NOTE | 2017-01-22 14:47 | PDOCDIS ---
Discharge Instructions CONDITION Patient Condition: Fair HOME CARE INSTRUCTIONS: Special Diet: Carb control diet ACTIVITY: Activity Restrictions: Slowly Increase Activity Rest between Activity Avoid heavy lifting Avoid Heavy Housework FOLLOW UP/APPOINTMENTS Appointments Follow up with PCP as out-pt Follow up with oncology as out-pt Follow up with ID as out-pt EVANS PRABHAKAR MD January 22, 2017 14:47
[2017-01-22] MEDS ORDERED: LINA5TAB PO (14:49)
[2017-01-22] MEDS ORDERED: PANT40TA4 PO (14:49)
[2017-01-22] MEDS ORDERED: DOCU-216 PO (14:49)
[2017-01-22] MEDS ORDERED: LANT3I SC (14:49)
[2017-01-22] MEDS ORDERED: METO-448 PO (14:49)
[2017-01-22] MEDS ORDERED: POLY17PO6 PO (14:49)
[2017-01-22] MEDS ORDERED: OXYC-279 PO (14:49)
[2017-01-22 15:15] LABS: MICROALBUMIN 21.8 mg/dL
[2017-01-22 16:29] LABS: HOMOCYSTEINE - CARDIOVASCULAR 6.7 umol/L (<10.4)
--- NOTE | 2017-01-23 05:47 | RADRPT ---
PROCEDURE: XR Chest. CLINICAL INDICATION: Pneumonia TECHNIQUE: A single AP view of the chest was obtained. COMPARISON: Chest x-ray dated 01/18/2017 FINDINGS: There is a right chest Port-A-Cath with tip in the mid SVC. There is focal consolidation of the medial segment of the right middle lobe. No pleural effusion or pneumothorax is seen. The cardiomediastinal silhouette is mildly enlarged. Calcifications are see n within the aortic arch. The osseous structures are unremarkable. IMPRESSION: 1. Consolidation of the medial segment of the right middle lobe, may reflect atelectasis or pneumon ia. This is a new finding when compared to the prior examination. 2. Mild cardiomegaly and aortic atherosclerosis. 3. Right chest Port-A-Cath. RPTAT: HH .Merry Rodriguez MD, Date Time Electronically viewed and signed by .Merry Rodriguez MD, on 01/23/2017 05:47 .G/
--- NOTE | 2017-01-23 07:07 | DS ---
DATE OF ADMISSION: 01/18/2017 DATE OF DISCHARGE: 01/22/2017 CONSULTANTS: 1. Dr. Dayton Chu 2. Dr. Rex Silvestre 3. Dr. Roseline Vega 4. Dr. Paul Mahoney. 5. Dr. Lavinia Funes 6. Nurse practitioner, Emma Villatoro DIAGNOSES: 1. Metastatic cholangiocarcinoma, status post chemotherapy. 2. Systemic inflammatory response syndrome with low-grade fever. 3. Anemia. 4. History of common bile duct stent with pneumobilia. 5. Hyponatremia. 6. Hypomagnesemia. 7. Diabetes mellitus. 8. Essential hypertension. 9. Chronic obstructive pulmonary disease. MEDICATIONS: 1. Colace 100 mg. 2. Lantus 20 units. 3. Tradjenta 5 mg. 4. Metoprolol 25 mg. 5. Percocet 5/325. 6. Protonix 40 mg. 7. MiraLax 17 g. 8. Combivent. 9. Ativan. 10. Symbicort. ALLERGIES: NO KNOWN DRUG ALLERGIES. LABORATORIES: Sodium 132, potassium 4.2, chloride 92, bicarbonate 34, BUN 9, creatinine 0.49, gluco se 134, calcium 8.8, phosphorus 3.2, magnesium 1.8. LFTs all within normal limits. Albumin 2.9. F olate 13.9. Vitamin B12 greater than 2000. WBC 13.6, hemoglobin 9.6, hematocrit 28.7, platelets 14 4. MCV 99. HOSPITAL COURSE: This is a pleasant 71-year-old female with past medical history of diabetes mellit us, hypertension, COPD, history of cholangiocarcinoma, on chemotherapy, anemia, anxiety, emphysema, on home oxygen, status post bile duct stent placement, former smoker, 1 pack x50 years, quit 3 years ago, who presents to [facility] Emergency Room complaining of having generalized weakness after chemotherapy 2 weeks ago. The patient has had these symptoms previously. She was told by her oncologist that she had anemia and she also stated having generalized weakness, decreased appetite since her chemotherapy. Upon arrival to emergency room, the patient's temperature was 98.1, pulse 7 8, respirations 16, blood pressure 121/78. WBC 16.2, hemoglobin 7.5, hematocrit 26.6, platelets 187 . Sodium 125, potassium 4.8, chloride 84, bicarbonate 31, BUN 15, creatinine 0.61, glucose 222. Th e patient was started on broad-spectrum IV antibiotics, IV fluid. Infectious disease and hematology/oncology were consulted. The anemia is likely secondary to post- chemotherapy and for her metastatic cholangiocarcinoma. The patient did not require any transfusion s during the course of hospitalization. Regarding her ____ the patient was seen and evaluated by th e infectious disease, was placed on vancomycin and Zosyn, which was discontinued by infectious disea se doctor on 01/21/2017. Regarding her diabetes mellitus, the patient was placed on insulin sliding scale and Lantus and Tradjenta. For her essential hypertension, her blood pressure is well control led on metoprolol. Her amlodipine was placed on hold. The patient has a history of constipation fo r which she has been placed on Colace and MiraLax. For her history of COPD, the patient has been co ntinued on oxygen and Symbicort. The patient has not had any breathing difficulty during the course of hospitalization. The patient has been afebrile during this course of hospitalization. The deandre ent had a T-max of 99.6. The patient had 1 episode of fever when she was in the emergency room. Af ter that the patient has not had any fever. The patient was seen and evaluated by broach operator/onco logist today and has been cleared at her standpoint to be discharged. Follow up with her as outpati ent. The patient also has been cleared at the infectious disease doctor as outpatient. If cleared, to be discharged home and follow up with him as outpatient. Does not require any antibiotics as pe r their recommendation. CONDITION AT TIME OF DISCHARGE: Stable. Dictated By: EVANS PHILLIPS/AMOS Conf#: [id number] DID#: [id number]
--- NOTE | 2017-01-25 08:37 | RADRPT ---
Vent Rate: 105 bpm RR Interval: [address] Interval: 180 msec QRS Duration: 88 msec QT Interval: 340 msec QTC Interval: 449 msec P-R-T Nemo: 73 - -12 - 75 degrees Sinus tachycardia Possible Anterior infarct , age undetermined Abnormal ECG Electronically Signed By: Kenton Nielsen [id number]
== END 2017-01-22 19:10 | disposition home or self-care (01) | DRG 436 ==
LOC: E/R 15:57 → MS2 23:31
PROVIDERS: ADMIT Family Medicine; ATTEND Family Medicine
PROC: 30233N1 Transfusion of Nonautologous Red Blood Cells into Peripheral Vein, Percutaneous Approach (ICD-10-PCS; principal; 2017-01-19)
DX: C24.9 Malignant neoplasm of biliary tract, unspecified (principal); C78.01 Secondary malignant neoplasm of right lung; E11.65 Type 2 diabetes mellitus with hyperglycemia; R65.10 Systemic inflammatory response syndrome (SIRS) of non-infectious origin without acute organ dysfunction; E22.2 Syndrome of inappropriate secretion of antidiuretic hormone; J43.9 Emphysema, unspecified; Z99.81 Dependence on supplemental oxygen; E83.42 Hypomagnesemia; D64.81 Anemia due to antineoplastic chemotherapy; D64.9 Anemia, unspecified; I10 Essential (primary) hypertension; F41.9 Anxiety disorder, unspecified; K59.00 Constipation, unspecified; Z79.4 Long term (current) use of insulin; Z87.891 Personal history of nicotine dependence
CPT/HCPCS: 36415; 36430; 71010; 74176; 80048; 80053; 80202; 81001; 81003; 82043; 82533; 82550; 82553; 82607; 82728; 82746; 82962; 83010; 83036; 83090; 83540; 83605; 83615; 83735; 83921; 83930; 83935; 84100; 84155; 84300; 84443; 84484; 84560; 85025; 85045; 85378; 85610; 85730; 86850; 86900; 86901; 86920; 87040; 87086; 93005; 94640; 94664; 96372; 96374; 96375; 96376; J1940; C9113; J1815; J1956; J2270; J2543; J3370; J3475; J7030; J7040; J7050; P9016

== ENCOUNTER 2017-02-23 10:28 | Inpatient (IN) | payer MEDICAID, OTHER ==
[~2017-02-23] VITALS: Ht 167.6 cm; Wt 65.0 kg
[~2017-02-23 10:28] MED LIST changes: -AMLO5TAB4 PO; +DOCU-216 PO; -GLIP5TAB13 PO; -HYDR-906 PO; +LINA5TAB PO; +METO-448 PO; +OXYC-279 PO; +PANT40TA4 PO; +POLY17PO6 PO
[2017-02-23] MEDS ORDERED: PANTOPRAZOLE 40 MG INJ IV STA (10:52)
[2017-02-23 11:31] LABS: ADD SCAN DIFF NO
[2017-02-23 11:40] LABS: ABNORMAL IP MESSAGE 1; HEMATOCRIT 14.2 % (37.0-47.0); MEAN CORPUSCULAR HEMOGLOBIN 33.9 pg (29.0-33.0); MEAN CORPUSCULAR HGB CONC 30.3 g/dl (32.0-37.0); MEAN CORPUSCULAR VOLUME 111.8 fl (82.0-101.0); MEAN PLATELET VOLUME 11.7 fl (7.4-10.4); PLATELET COUNT 71 10^3/UL (140-415); RED BLOOD COUNT 1.27 10^6/ul (4.20-5.40); RED CELL DISTRIBUTION WIDTH 24.5 % (11.5-14.5); WHITE BLOOD COUNT 13.1 10^3/ul (4.8-10.8)
--- NOTE | 2017-02-23 11:49 | RADRPT ---
PROCEDURE: XR Chest. CLINICAL INDICATION: Upper GI bleeding TECHNIQUE: Chest AP portable. COMPARISON: 01/22/2017 FINDINGS: Right internal jugular Port-A-Cath. The mediastinal structures are unremarkable. There is calcification of the thoracic aorta (consiste nt with atherosclerosis). There is mild cardiomegaly. The pulmonary vascularity is normal. There is no change in the RML subsegmental atelectasis there is bibasilar subsegmental atelectasis. No co nsolidation is identified. The pleural spaces are unremarkable. There are senescent changes of the axial skeleton. IMPRESSION: Calcification of the thoracic aorta (consistent with atherosclerosis) Mild cardiomegaly No change in RML subsegmental atelectasis. Bibasilar subsegmental atelectasis. RPTAT: [facility] .Lito Lynch MD, MD Date Time Electronically viewed and signed by .Lito Lynch MD, on 02/23/2017 11:49 .B/
[2017-02-23 12:01] LABS: ALANINE AMINOTRANSFERASE 35 IU/L (13-69); ALBUMIN 3.2 g/dl (3.3-4.9); ALBUMIN/GLOBULIN RATIO 0.96; ALKALINE PHOSPHATASE 105 IU/L (42-121); ANION GAP 10 (8-16); ASPARTATE AMINO TRANSFERASE 25 IU/L (15-46); BILIRUBIN,INDIRECT 0.6 mg/dl (0-1.1); BILIRUBIN,TOTAL 0.6 mg/dl (0.2-1.3); BLOOD UREA NITROGEN 12 mg/dl (7-20); CALCIUM 8.2 mg/dl (8.4-10.2); CARBON DIOXIDE 26 mmol/L (21-31); CHLORIDE 95 mmol/L (97-110); CREATININE 0.67 mg/dl (0.44-1.00); GLUCOSE 233 mg/dl (70-220); POTASSIUM 4.1 mmol/L (3.5-5.1); SODIUM 127 mmol/L (135-144); TOTAL PROTEIN 6.5 g/dl (6.1-8.1)
[2017-02-23 12:06] LABS: HEMOGLOBIN 4.3 g/dl (12.0-16.0)
[2017-02-23 12:07] LABS: INR 1.56; PROTIME 18.8 Sec (12.2-14.2); PT RATIO 1.5
[2017-02-23 12:08] LABS: PARTIAL THROMBOPLASTIN TIME 42.2 Sec (25.0-35.0)
--- NOTE | 2017-02-23 12:18 | ERA ---
ER Documentation Chief Complaint Date/Time DATE: 02/23/17 TIME: 1050 Chief Complaint Complains of blood (tarry) in the stool unknown if its from Iron medication HPI 71-year-old female brought to the emergency department on referral from her oncologist for evaluation of a low hemoglobin. 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 Upon blood tests, since her last chemotherapy, she was noted to have a severely low hemoglobin. At this time, patient has no significant symptoms. She denies chest pain, shortness of breath or other complaints. ROS All systems reviewed and are negative except as per history of present illness. Medications Home Meds Active Scripts Oxycodone HCl/Acetaminophen (Percocet 5-325 mg Tablet) 1 Each Tablet, 1 EACH PO Q6H, #1 TAB Prov:EVANS PRABHAKAR MD 01/22/17 Linagliptin (TRADJENTA) 5 Mg Tablet, 5 MG PO DAILY, #30 TAB Prov:EVANS PRABHAKAR MD 01/22/17 Insulin Glargine* (Lantus*) 100 Unit/Ml Soln, 20 UNIT SC QAM for 30 Days Prov:EVANS PRABHAKRA MD 01/22/17 Polyethylene Glycol* (Miralax*) 17 Gm Powd.pack, 8.5 GM PO DAILY Y for CONSTIPATION, #30 Prov:EVANS PRABHAKAR MD 01/22/17 Pantoprazole* (Pantoprazole*) 40 Mg Tablet.dr, 40 MG PO DAILY@06, #30 Prov:EVANS PRABHAKAR MD 01/22/17 Docusate Sodium (Dok) 100 Mg Capsule, 100 MG PO DAILY, #30 CAP Prov:EVANS PRABHAKAR MD 01/22/17 Metoprolol Tartrate* (Lopressor*) 25 Mg Tab, 25 MG PO BID, #60 TAB Prov:EVANS PRABHAKAR MD 01/22/17 Alprazolam* (Alprazolam*) 0.5 Mg Tablet, 0.5 MG PO Q8H Y for ANXIETY, #20 TAB Prov:TERRELL DOZIER NP 06/22/16 Reported Medications Albuterol/Ipratropium* (Combivent Respimat*) 20-100 Mcg/Inh - 4 Gm Aer.w.adap, 1 PUFF INHALATION QID for SHORTNESS OF BREATH, #1 INHALER 06/19/16 Budesonide-Formoterol Fumarate* (Symbicort*) 160-4.5 Hfa.aer.ad, 2 PUFF INHALATION BID, #1 EACH 05/21/16 Allergies Allergies: Coded Allergies: No Known Allergy (Unverified , 02/23/17) PMhx/Soc History of Surgery: Yes (tubal ligation) Anesthesia Reaction: No Hx Neurological Disorder: No Hx Respiratory Disorders: Yes (hx of asthma, COPD, emphysema) Hx Cardiac Disorders: Yes (HTN) Hx Psychiatric Problems: No Hx Miscellaneous Medical Probl: Yes (DM2) Hx Alcohol Use: No Hx Substance Use: No Hx Tobacco Use: No Smoking Status: Former smoker FmHx Noncontributory for chief complaint Physical Exam Vitals Vital Signs Date Time Temp Pulse Resp B/P Pulse Ox O2 Delivery O2 Flow Rate FiO2 02/23/17 11:00 Nasal Cannula 2 02/23/17 10:33 98.3 96 20 122/77 99 Physical Exam GENERAL: Patient is an elderly pale female in no acute distress HEENT: Pupils equal, round, and reactive to light. EOMI. There is no scleral icterus. NECK: C-spine is soft and supple, there is no meningismus. There is no cervical lymphadenopathy. LUNGS: Clear to auscultation bilaterally. There are no rales, wheezes or rhonchi. HEART: Regular rate and rhythm, no murmurs, clicks, rubs or gallops. ABDOMEN: Soft, non-tender, non-distended. There are bowel sounds in all four quadrants. No rebound or guarding. EXTREMITIES: There is no peripheral cyanosis or edema. No focal swelling or erythema. NEURO: The patient moves all four extremities with 5/5 strength. Cranial nerves II - XII are intact. Normal gait. Alert and oriented SKIN: There is no apparent rash or petechiae. Pallor is noted HEME/LYMPHATIC: There is no evidence of excessive bruising or lymphedema. PSYCHIATRIC: The patient does not appear anxious or depressed. Result Diagram: 02/23/17 1110 02/23/17 1110 Results 24 hrs Laboratory Tests Test 02/23/17 11:10 White Blood Count 13.110^3/ul Red Blood Count 1.2710^6/ul Hemoglobin 4.3g/dl Hematocrit 14.2% Mean Corpuscular Volume 111.8fl Mean Corpuscular Hemoglobin 33.9pg Mean Corpuscular Hemoglobin Concent 30.3g/dl Red Cell Distribution Width 24.5% Platelet Count 7110^3/UL Mean Platelet Volume 11.7fl Prothrombin Time Pending Prothrombin Time Ratio 1.5 INR International Normalized Ratio 1.56 Activated Partial Thromboplast Time 42.2Sec Sodium Level 127mmol/L Potassium Level 4.1mmol/L Chloride Level 95mmol/L Carbon Dioxide Level 26mmol/L Anion Gap 10 Blood Urea Nitrogen 12mg/dl Creatinine 0.67mg/dl Glucose Level 233mg/dl Calcium Level 8.2mg/dl Total Bilirubin 0.6mg/dl Direct Bilirubin 0.00mg/dl Indirect Bilirubin 0.6mg/dl Aspartate Amino Transf (AST/SGOT) 25IU/L Alanine Aminotransferase (ALT/SGPT) 35IU/L Alkaline Phosphatase 105IU/L Troponin I Pending Total Protein 6.5g/dl Albumin 3.2g/dl Globulin 3.30g/dl Albumin/Globulin Ratio 0.96 Current Medications Medications (Trade) Dose Ordered Sig/Rae Route PRN Reason Start Time Stop Time Status Last Admin Dose Admin Pantoprazole (Protonix Iv) 40 mg ONCE STAT IV 02/23/17 10:52 02/23/17 10:54 DC 02/23/17 11:34 Procedures/MDM Patient was taken to a room, seen and evaluated. Comfort measures were initiated. Diagnostic tests were ordered and reviewed. 3 LEAD RHYTHM STRIP: Normal sinus rhythm without ectopy EK lead EKG reviewed by myself: Normal Sinus Rhythm Normal [place] and intervals No ST elevation, depression, or T wave inversion Impression: Normal EKG RADIOLOGY: reviewed with the radiologist CONSULTATION: hospitalist was notified for admission. I spoke with her orthopedic cast specialist REEVALUATION: Patient remained hemodynamically stable in the emergency room MEDICAL DECISION MAKING: This is an unfortunate 71-year-old female who has a baseline hemoglobin of approximately 8 according to her oncologist, who is now has a significant anemia. She may have a blood loss anemia related to her underlying GI carcinoma and I have started GI protective medications. She has a severely low hemoglobin will require transfusion which I have ordered as well , but she shows no evidence of severe endorgan dysfunction at this current time. Overall, patient will be admitted to the hospital for transfusion and further treatment. Departure Diagnosis: Primary Impression: Severe anemia KRISTEN OLSEN Feb 23, 2017 12:18
[2017-02-23 12:20] LABS: TROPONIN-I < 0.012 ng/ml (0.00-0.12)
[2017-02-23 12:48] LABS: ADD UMIC YES; URINE BILIRUBIN (Dip) NEGATIVE (NEGATIVE); URINE BLOOD (Dip) NEGATIVE (NEGATIVE); URINE COLOR LT. YELLOW (YELLOW); URINE GLUCOSE (Dip) NEGATIVE (NEGATIVE); URINE KETONES (Dip) NEGATIVE (NEGATIVE); URINE LEUKOCYTE ESTERASE (Dip) TRACE (NEGATIVE); URINE NITRITE (Dip) NEGATIVE (NEGATIVE); URINE TOTAL PROTEIN (Dip) 1+ (NEGATIVE); URINE UROBILINOGEN (Dip) 0.2 E.U./dL (0.1-1.0)
[2017-02-23 13:06] LABS: BACTERIA,URINE MODERATE
[2017-02-23 14:05] LABS: EOSINOPHILS # 0.1 10^3/ul (0.0-0.5); LYMPHOCYTES # 2.6 10^3/ul (0.8-2.9); MONOCYTE # 0.9 10^3/ul (0.3-0.9); NEUTROPHIL # 8.8 10^3/ul (1.6-7.5)
[2017-02-23 14:06] LABS: ANISOCYTOSIS 1+; HYPOCHROMASIA 1+
[2017-02-23] MEDS ORDERED: ZOLPIDEM 5 MG TAB PO PRN (17:00)
[2017-02-23] MEDS ORDERED: POLYETHYLENE GLYCOL 17 GM PACKET PO PRN (17:00)
[2017-02-23] MEDS ORDERED: ONDANSETRON 4 MG INJ IV PRN (17:00)
[2017-02-23] MEDS ORDERED: NACL 0.9% 3 ML SYG IV SCH (17:00)
[2017-02-23] MEDS ORDERED: HYDROCODONE/APAP (5/325) TAB PO PRN (17:00)
[2017-02-23] MEDS ORDERED: ALPRAZOLAM 0.5 MG TAB PO PRN (17:00)
[2017-02-23] MEDS ORDERED: ALBUTEROL/IPRATROPIUM (NEB) 3 ML AMP HHN PRN (17:00)
[2017-02-23] MEDS ORDERED: DOCUSATE SODIUM 100 MG CAP PO PRN (17:00)
--- NOTE | 2017-02-23 17:15 | HP ---
DATE OF ADMISSION: 02/23/2017 CHIEF COMPLAINT: Weakness and dark stools. HOSPITAL COURSE: The patient is a 71-year-old female with a history of metastatic cholangiocarcinom a status post chemo, COPD, hypertension, diabetes. The patient follows with Dr. Funes for chemother wilbert. The patient presents with the complaints of dark stools. She was sent from oncology office fo r evaluation of her anemia. The patient denies any chest pain, shortness of breath, but she does re port some fatigue. Hemoglobin at baseline is typically higher hemoglobin of 4.3. Transfusion was initiated in the ER. The patient has no other complaints. PAST MEDICAL HISTORY: As per HPI. HOME MEDICATIONS: Please see med recon. ALLERGIES: NO KNOWN DRUG ALLERGIES. FAMILY HISTORY: Noncontributory. SOCIAL HISTORY: Negative for alcohol, tobacco, or drugs. REVIEW OF SYSTEMS: A 12-point review of systems negative except for that discussed in HPI. PHYSICAL EXAMINATION: VITAL SIGNS: Temp is 97.6, pulse 85. Respiratory rate is 22. BP is 119/57, saturation 100% on 2 l iters. GENERAL: No acute distress, alert and oriented. HEENT: Normocephalic, atraumatic. LUNGS: Clear to auscultation. CARDIOVASCULAR: Regular rate and rhythm. ABDOMEN: Nondistended, soft, tender to palpation. EXTREMITIES: No clubbing, cyanosis, or edema. LABORATORIES: White count 15.1. Hemoglobin is 12.3. Platelets are 71. Chemistry within normal li mits except for sodium 127, chloride 95, glucose 233. INR is 1.56. UA is within normal limits exce pt for trace leukocyte esterase. DIAGNOSTICS: Chest x-ray shows calcification of thoracic aorta consistent with atherosclerosis, bib asilar atelectasis. ASSESSMENT AND PLAN: 1. Severe anemia, likely secondary to underlying cancer and chemotherapy, but we will rule out taylor rointestinal bleed. The patient has had dark stools, but patient is on iron therapy. We will check a stool occult. We will get a gastroenterology consultation. The patient already did have an orde r for 4 units packed red blood cells and has already received 2. 2. Diabetes. Continue home regimen. 3. Hypertension. Continue home regimen. 4. Chronic obstructive pulmonary disease, stable. DuoNeb as needed. 5. Prophylaxis: Sequential compression devices. Dictated By: VIRGIL YAN/NTS Conf#: [id number] DID#: [id number]
[2017-02-23] MEDS ORDERED: GLUCOSE GEL 15 GRAM TUBE BUCCAL PRN (17:30)
[2017-02-23] MEDS ORDERED: GLUCOSE GEL 15 GRAM TUBE PO PRN ×2 (17:30)
[2017-02-23] MEDS ORDERED: GLUCAGON 1 MG INJ IM PRN (17:30)
[2017-02-23] MEDS ORDERED: DEXTROSE 50% 50 ML SYRINGE IV PRN ×2 (17:30)
[2017-02-23] MEDS: morphine 2 MG INJ IV PRN (18:43)
[2017-02-23] MEDS: INSULIN ASPART [NOVOLOG] 3 ML PEN SC SCH ×2 (19:00→23:52)
[2017-02-23 19:02] VITALS: TEMP 97.9
[2017-02-23] MEDS ORDERED: ONDANSETRON 4 MG INJ IV STA (19:51)
[2017-02-23] MEDS ORDERED: ACETAMINOPHEN 325 MG TAB PO ONE (20:00)
[2017-02-23 21:48] LABS: ADD SCAN DIFF NO
[2017-02-23 21:53] LABS: ABNORMAL IP MESSAGE 1; MEAN CORPUSCULAR HEMOGLOBIN 29.2 pg (29.0-33.0); MEAN CORPUSCULAR HGB CONC 31.5 g/dl (32.0-37.0); MEAN CORPUSCULAR VOLUME 92.5 fl (82.0-101.0); MEAN PLATELET VOLUME 11.5 fl (7.4-10.4); PLATELET COUNT 82 10^3/UL (140-415); WHITE BLOOD COUNT 12.1 10^3/ul (4.8-10.8)
[2017-02-23 22:10] LABS: HEMATOCRIT 22.2 % (37.0-47.0)
[2017-02-23 22:27] LABS: EOSINOPHILS # 0.2 10^3/ul (0.0-0.5); LYMPHOCYTES # 4.1 10^3/ul (0.8-2.9); MONOCYTE # 1.2 10^3/ul (0.3-0.9); NEUTROPHIL # 6.4 10^3/ul (1.6-7.5)
[2017-02-23 22:30] VITALS: BP 135/83; RESP 20
[2017-02-23 22:40] LABS: ANISOCYTOSIS 3+; MICROCYTOSIS 1+
[2017-02-23 22:41] LABS: PLATELET ESTIMATE PLT APPEAR DECREASED
[2017-02-23 23:00] VITALS: Ht 167.6 cm; Wt 65.0 kg
[2017-02-23] MEDS: SALMETEROL/FLUTICASONE 250/50 INHA INH SCH (23:51)
[2017-02-23] MEDS: ACETAMINOPHEN 325 MG TAB PO PRN (23:51)
[2017-02-24] VITALS (13 sets, daily range): BP systolic 120–168; BP diastolic 62–78; PULSE 101–112; RESP 15–20
[2017-02-24] MEDS: PANTOPRAZOLE 40 MG INJ IV SCH (06:07)
[2017-02-24] MEDS: DOCUSATE SODIUM 100 MG CAP PO SCH (08:03)
[2017-02-24] MEDS: LINAGLIPTIN 5 MG TABLET PO SCH (08:03)
[2017-02-24] MEDS: SALMETEROL/FLUTICASONE 250/50 INHA INH SCH ×2 (08:03→21:04)
[2017-02-24] MEDS: INSULIN ASPART [NOVOLOG] 3 ML PEN SC SCH ×5 (08:04→21:05)
[2017-02-24] MEDS: INSULIN GLARGINE [LANtus] 3 ML PEN SC SCH (08:08)
[2017-02-24 08:31] LABS: ADD SCAN DIFF NO
[2017-02-24 08:33] LABS: ABNORMAL IP MESSAGE 1; BASOPHILS % 0.2 % (0.0-2.0); EOSINOPHILS # 0.1 10^3/ul (0.0-0.5); EOSINOPHILS % 0.9 % (0.0-7.0); HEMATOCRIT 25.7 % (37.0-47.0); HEMOGLOBIN 8.5 g/dl (12.0-16.0); LYMPHOCYTES % 16.7 % (15.0-51.0); MEAN CORPUSCULAR HEMOGLOBIN 30.5 pg (29.0-33.0); MEAN CORPUSCULAR HGB CONC 33.1 g/dl (32.0-37.0); MEAN CORPUSCULAR VOLUME 92.1 fl (82.0-101.0); MONOCYTE # 1.7 10^3/ul (0.3-0.9); MONOCYTES % 13.9 % (0.0-11.0); NEUTROPHIL # 8.2 10^3/ul (1.6-7.5); NEUTROPHILS % 67.6 % (39.0-77.0); PLATELET COUNT 94 10^3/UL (140-415); RED BLOOD COUNT 2.79 10^6/ul (4.20-5.40); WHITE BLOOD COUNT 12.1 10^3/ul (4.8-10.8)
[2017-02-24 09:03] LABS: ALBUMIN 3.1 g/dl (3.3-4.9); ALBUMIN/GLOBULIN RATIO 0.83; CALCIUM 8.7 mg/dl (8.4-10.2); CREATININE 0.49 mg/dl (0.44-1.00); MAGNESIUM 1.7 mg/dl (1.7-2.5); PHOSPHORUS 2.9 mg/dl (2.5-4.9); POTASSIUM 4.1 mmol/L (3.5-5.1); TOTAL PROTEIN 6.8 g/dl (6.1-8.1)
--- NOTE | 2017-02-24 10:10 | CONS ---
Date/Time of Note Date/Time of Note DATE: 02/24/17 TIME: 09:48 Assessment/Plan Assessment/Plan Additional Assessment/Plan Assessment * Anemia/Melena Chronic vs acute Lower GI bleed vs upper GI bleed * History of metastatic cholangiocarcinoma * Diabetes mellitus * Hypertension Plan * Monitor hemoglobin and hematocrit and transfuse 1 unit PRB for hgb<7.5,2 units PRBC hgb <7 * EGD and colonoscopy on Sunday,risk and benefit explained to patient and agreed with planned procedure * PPI Consultation Date/Type/Reason Admit Date/Time Feb 23, 2017 at 12:19 Date of Consultation: Feb 24, 2017 Type of Consultation: Gastroenterology Reason for Consultation Anemia Referring Provider: VIRGIL SAENZ Hx of Present Illness 71 year old female with past medical history of metastatic cholangiocarcinoma, undergoing chemotherapy with Dr Funes,diabetes mellitus,hypertension,anemia with repeated blood transfusion who presented in the emergency room because of melena.Patient has been taking iron preparation .She denies chest pain, shortness of breath,hematemesis,abdominal pain,body malaise and hematochezia Emergency department course revealed a hemoglobin 4.3 Na 127,glucose 233,Total bilirubin 0.6 AST 25,ALT 35.Chest x ray Calcification of the thoracic aorta ( consistent with atherosclerosis)Mild cardiomegaly No change in RML subsegmental atelectasis.Bibasilar subsegmental atelectasis.Blood transfusion was started at Emergency room. Subsequent examination on the floor Hemoglobin 8,5 ,she denies hematemesis, hematochezia nor abdominal pain. I have discuss with patient the planned management in order to rule out gastrointestinal pathology,which includes EGD and colonoscopy.Procedures have been explained to the patient Eyes: no complaints ENT: no complaints Respiratory: no complaints Cardiovascular: no complaints Gastrointestinal: other (melena), passing stool Genitourinary: no complaints Musculoskeletal: no complaints Skin: no complaints Neurologic: no complaints Endocrine: no complaints Lymphatic: no complaints Psychological: nl mood/affect, no complaints Immunologic: no complaints Past Medical History Medical History: diabetes, hypertension, other (metastatic cholangiocarcinoma) Past Surgical History Past Surgical Hx: other (porthacather) Family History Significant Family History: no pertinent family hx Social History Alcohol Use: none Smoking Status: Former smoker Drug Use: none Exam/Review of Systems Vital Signs Vitals Vital Signs Date Time Temp Pulse Resp B/P Pulse Ox O2 Delivery O2 Flow Rate FiO2 02/24/17 08:12 112 02/24/17 08:02 97.8 18 150/72 99 02/24/17 00:00 Nasal Cannula 2.0 Intake and Output 02/23/17 02/23/17 02/24/17 15:00 23:00 07:00 Intake Total 1050 ml 350 ml Balance 1050 ml 350 ml Exam Constitutional: alert, oriented, well developed Psych: nl mood/affect, no complaints Head: atraumatic, normocephalic Eyes: EOMI, PERRL, nl conjunctiva, nl lids, nl sclera ENMT: nl external ears & nose Neck: non-tender, supple Respiratory: clear to auscultation, normal air movement Cardiovascular: nl pulses, regular rate and rhythm Gastrointestinal: nl liver, spleen, soft, tender (mild right upper quadrant), No rebound or guarding Musculoskeletal: nl extremities to inspection, nl gait and stance Extremities: normal pulses Neurological: nl mental status, nl speech, nl strength Skin: nl turgor, No rash or lesions Lymph: nl lymph nodes Results Result Diagram: 02/24/17 0750 02/24/17 0754 Results 24 hrs Laboratory Tests Test 02/23/17 11:10 02/23/17 12:30 02/23/17 18:39 02/23/17 21:40 White Blood Count 13.1 H 12.1 H Red Blood Count 1.27 #L 2.40 #L Hemoglobin 4.3 #*L 7.0 #L Hematocrit 14.2 #L 22.2 #L Mean Corpuscular Volume 111.8 H 92.5 Mean Corpuscular Hemoglobin 33.9 H 29.2 Mean Corpuscular Hemoglobin Concent 30.3 L 31.5 L Red Cell Distribution Width 24.5 #H Platelet Count 71 #L 82 L Mean Platelet Volume 11.7 H 11.5 H Neutrophils % 67.0 53.0 Band Neutrophils % 5.0 Lymphocytes % 20.0 34.0 Monocytes % 7.0 10.0 Eosinophils % 1.0 2.0 Nucleated Red Blood Cells % 1.0 H Neutrophils # 8.8 H 6.4 Lymphocytes # 2.6 4.1 H Monocytes # 0.9 1.2 H Eosinophils # 0.1 0.2 Hypochromasia 1+ Anisocytosis 1+ 3+ Prothrombin Time 18.8 #H Prothrombin Time Ratio 1.5 INR International Normalized Ratio 1.56 Activated Partial Thromboplast Time 42.2 H Sodium Level 127 L Potassium Level 4.1 Chloride Level 95 L Carbon Dioxide Level 26 Anion Gap 10 Blood Urea Nitrogen 12 Creatinine 0.67 Glucose Level 233 H Calcium Level 8.2 L Total Bilirubin 0.6 Direct Bilirubin 0.00 Indirect Bilirubin 0.6 Aspartate Amino Transf (AST/SGOT) 25 Alanine Aminotransferase (ALT/SGPT) 35 Alkaline Phosphatase 105 Troponin I < 0.012 Total Protein 6.5 Albumin 3.2 L Globulin 3.30 H Albumin/Globulin Ratio 0.96 Urine Color LT. YELLOW Urine Clarity CLEAR Urine pH 6.0 Urine Specific [place] 1.020 Urine Ketones NEGATIVE Urine Nitrite NEGATIVE Urine Bilirubin NEGATIVE Urine Urobilinogen 0.2 E.U./dL Urine Leukocyte Esterase TRACE H Urine Microscopic RBC 2-5 Urine Microscopic WBC 5-10 Urine Epithelial Cells FEW Urine Bacteria MODERATE Urine Hemoglobin NEGATIVE Urine Glucose NEGATIVE Urine Total Protein 1+ H Bedside Glucose 152 Promyelocytes % 1.0 H Promyelocytes # 0.1 Platelet Estimate PLT APPEAR DECREASED Microcytosis 1+ Test 02/23/17 23:24 02/24/17 06:09 02/24/17 07:50 02/24/17 07:54 Bedside Glucose 192 Lab Scanned Report BLOOD TRANSFUSION White Blood Count 12.1 H Red Blood Count 2.79 L Hemoglobin 8.5 #L Hematocrit 25.7 L Mean Corpuscular Volume 92.1 Mean Corpuscular Hemoglobin 30.5 Mean Corpuscular Hemoglobin Concent 33.1 Red Cell Distribution Width Platelet Count 94 L Mean Platelet Volume 11.0 H Neutrophils % 67.6 Lymphocytes % 16.7 Monocytes % 13.9 H Eosinophils % 0.9 Basophils % 0.2 Nucleated Red Blood Cells % 0.0 Neutrophils # 8.2 H Lymphocytes # 2.0 Monocytes # 1.7 H Eosinophils # 0.1 Basophils # 0.0 Nucleated Red Blood Cells # 0.0 Sodium Level 132 L Potassium Level 4.1 Chloride Level 99 Carbon Dioxide Level 27 Anion Gap 10 Blood Urea Nitrogen 8 Creatinine 0.49 Glucose Level 208 Calcium Level 8.7 Phosphorus Level 2.9 Magnesium Level 1.7 Total Bilirubin 3.0 #H Direct Bilirubin 0.00 Indirect Bilirubin 3.0 H Aspartate Amino Transf (AST/SGOT) 27 Alanine Aminotransferase (ALT/SGPT) 24 Alkaline Phosphatase 111 Total Protein 6.8 Albumin 3.1 L Globulin 3.70 H Albumin/Globulin Ratio 0.83 Test 02/24/17 07:56 Bedside Glucose 163 Medications Medications Current Medications Ondansetron HCl (Zofran Inj) 4 mg Q6H PRN IV NAUSEA AND/OR VOMITING; Start 02/23 at 17:00 Acetaminophen (Tylenol Tab) 650 mg Q6H PRN PO PAIN LEVEL 1-3 OR FEVER Last administered on 02/23/17 23:51; Admin Dose 650 MG; Start 02/23/17 at 17:00 Acetaminophen/ Hydrocodone Bitart ([place] (5/325)) 1 tab Q6H PRN PO MODERATE PAIN LEVEL 4-6; Start 02/23/17 at 17:00 Morphine Sulfate (morphine) 2 mg Q4H PRN IV SEVERE PAIN LEVEL 7-10 Last administered on 02/23/17 18:43; Admin Dose 2 MG; Start 02/23/17 at 17:00 Docusate Sodium (Colace) 100 mg Q12H PRN PO CONSTIPATION; Start 02/23/17 at 17: 00 Zolpidem Tartrate (Ambien) 5 mg QHS PRN PO SLEEP; Start 02/23/17 at 17:00 Pantoprazole (Protonix Iv) 40 mg DAILY@06 IV Last administered on 02/24/17 06: 07; Admin Dose 40 MG; Start 02/24/17 at 06:00 Alprazolam (Xanax) 0.5 mg Q8H PRN PO ANXIETY; Start 02/23/17 at 17:00 Docusate Sodium (Colace) 100 mg DAILY PO Last administered on 02/24/17 08:03; Admin Dose 100 MG; Start 02/24/17 at 09:00 Insulin Glargine (Lantus) 20 unit QAM SC Last administered on 02/24/17 08:08; Admin Dose 20 UNIT; Start 02/24/17 at 09:00 Linagliptin (Tradjenta) 5 mg DAILY PO Last administered on 02/24/17 08:03; Admin Dose 5 MG; Start 02/24/17 at 09:00 Polyethylene Glycol (Miralax) 8.5 gm DAILY PRN PO CONSTIPATION; Start 02/23/17 at 17:00 Salmeterol Xinafoate/ Fluticasone (Advair 250/50 Diskus) 1 inh BID INH Last administered on 02/24/17 08:03; Admin Dose 1 INH; Start 02/23/17 at 21:00 Miscellaneous Information 1 ea NOTE XX ; Start 02/23/17 at 17:30 Glucose (Glutose) 15 gm Q15M PRN PO DECREASED GLUCOSE; Start 02/23/17 at 17:30 Glucose (Glutose) 22.5 gm Q15M PRN PO DECREASED GLUCOSE; Start 02/23/17 at 17:30 Dextrose (D50w Syringe) 25 ml Q15M PRN IV DECREASED GLUCOSE; Start 02/23/17 at 17:30 Dextrose (D50w Syringe) 50 ml Q15M PRN IV DECREASED GLUCOSE; Start 02/23/17 at 17:30 Glucagon (Glucagen) 1 mg Q15M PRN IM DECREASED GLUCOSE; Start 02/23/17 at 17:30 Glucose (Glutose) 15 gm Q15M PRN BUCCAL DECREASED GLUCOSE; Start 02/23/17 at 17: 30 DANDY PORTILLO MD Feb 24, 2017 10:02
[2017-02-24] MEDS: ACETAMINOPHEN 325 MG TAB PO PRN (12:14)
--- NOTE | 2017-02-24 18:09 | PN ---
Date/Time of Note Date/Time of Note DATE: 02/24/17 TIME: 18:07 Assessment/Plan VTE Prophylaxis VTE Prophylaxis Intervention: SCD's Lines/Catheters IV [facility] PORTACATH Urinary Cath still in place: No Assessment/Plan Chief Complaint/Hosp Course 1. Severe anemia secondary to underlying cancer and chemotherapy and/or gastrointestinal bleed Patient is status post 4 units of packed red blood cells GI consult appreciated plan is for EGD and colonoscopy on Sunday Follow-up on stool occult blood 2. Diabetes-stable Continue home regimen. 3. Hypertension Continue home regimen. 4. Chronic obstructive pulmonary disease- stable DuoNeb as needed. Prophylaxis: Sequential compression devices Problems: Subjective 24 Hr Interval Summary Constitutional: no complaints Exam/Review of Systems Vital Signs Vitals Vital Signs Date Time Temp Pulse Resp B/P Pulse Ox O2 Delivery O2 Flow Rate FiO2 02/24/17 16:18 102 02/24/17 16:17 98.3 18 138/65 98 02/24/17 00:00 Nasal Cannula 2.0 Intake and Output 02/23/17 02/23/17 02/24/17 15:00 23:00 07:00 Intake Total 1050 ml 350 ml Balance 1050 ml 350 ml Exam Constitutional: alert Respiratory: clear to auscultation Cardiovascular: regular rate and rhythm Gastrointestinal: soft, No distended Musculoskeletal: nl extremities to inspection Results Result Diagram: 02/24/17 0750 02/24/17 0754 Results 24 hrs Laboratory Tests Test 02/23/17 18:39 02/23/17 21:40 02/23/17 23:24 02/24/17 06:09 Bedside Glucose 152 192 White Blood Count 12.1 H Red Blood Count 2.40 #L Hemoglobin 7.0 #L Hematocrit 22.2 #L Mean Corpuscular Volume 92.5 Mean Corpuscular Hemoglobin 29.2 Mean Corpuscular Hemoglobin Concent 31.5 L Red Cell Distribution Width Platelet Count 82 L Mean Platelet Volume 11.5 H Neutrophils % 53.0 Lymphocytes % 34.0 Monocytes % 10.0 Eosinophils % 2.0 Promyelocytes % 1.0 H Neutrophils # 6.4 Lymphocytes # 4.1 H Monocytes # 1.2 H Eosinophils # 0.2 Promyelocytes # 0.1 Platelet Estimate PLT APPEAR DECREASED Anisocytosis 3+ Microcytosis 1+ Lab Scanned Report BLOOD TRANSFUSION Test 02/24/17 07:50 02/24/17 07:54 02/24/17 07:56 02/24/17 12:11 White Blood Count 12.1 H Red Blood Count 2.79 L Hemoglobin 8.5 #L Hematocrit 25.7 L Mean Corpuscular Volume 92.1 Mean Corpuscular Hemoglobin 30.5 Mean Corpuscular Hemoglobin Concent 33.1 Red Cell Distribution Width Platelet Count 94 L Mean Platelet Volume 11.0 H Neutrophils % 67.6 Lymphocytes % 16.7 Monocytes % 13.9 H Eosinophils % 0.9 Basophils % 0.2 Nucleated Red Blood Cells % 0.0 Neutrophils # 8.2 H Lymphocytes # 2.0 Monocytes # 1.7 H Eosinophils # 0.1 Basophils # 0.0 Nucleated Red Blood Cells # 0.0 Sodium Level 132 L Potassium Level 4.1 Chloride Level 99 Carbon Dioxide Level 27 Anion Gap 10 Blood Urea Nitrogen 8 Creatinine 0.49 Glucose Level 208 Calcium Level 8.7 Phosphorus Level 2.9 Magnesium Level 1.7 Total Bilirubin 3.0 #H Direct Bilirubin 0.00 Indirect Bilirubin 3.0 H Aspartate Amino Transf (AST/SGOT) 27 Alanine Aminotransferase (ALT/SGPT) 24 Alkaline Phosphatase 111 Total Protein 6.8 Albumin 3.1 L Globulin 3.70 H Albumin/Globulin Ratio 0.83 Bedside Glucose 163 200 Test 02/24/17 17:14 Bedside Glucose 217 Medications Medications Current Medications Ondansetron HCl (Zofran Inj) 4 mg Q6H PRN IV NAUSEA AND/OR VOMITING; Start 02/23 at 17:00 Acetaminophen (Tylenol Tab) 650 mg Q6H PRN PO PAIN LEVEL 1-3 OR FEVER Last administered on 02/24/17 12:14; Admin Dose 650 MG; Start 02/23/17 at 17:00 Acetaminophen/ Hydrocodone Bitart ([place] (5/325)) 1 tab Q6H PRN PO MODERATE PAIN LEVEL 4-6; Start 02/23/17 at 17:00 Morphine Sulfate (morphine) 2 mg Q4H PRN IV SEVERE PAIN LEVEL 7-10 Last administered on 02/23/17 18:43; Admin Dose 2 MG; Start 02/23/17 at 17:00 Docusate Sodium (Colace) 100 mg Q12H PRN PO CONSTIPATION; Start 02/23/17 at 17: 00 Zolpidem Tartrate (Ambien) 5 mg QHS PRN PO SLEEP; Start 02/23/17 at 17:00 Pantoprazole (Protonix Iv) 40 mg DAILY@06 IV Last administered on 02/24/17 06: 07; Admin Dose 40 MG; Start 02/24/17 at 06:00 Alprazolam (Xanax) 0.5 mg Q8H PRN PO ANXIETY; Start 02/23/17 at 17:00 Docusate Sodium (Colace) 100 mg DAILY PO Last administered on 02/24/17 08:03; Admin Dose 100 MG; Start 02/24/17 at 09:00 Insulin Glargine (Lantus) 20 unit QAM SC Last administered on 02/24/17 08:08; Admin Dose 20 UNIT; Start 02/24/17 at 09:00 Linagliptin (Tradjenta) 5 mg DAILY PO Last administered on 02/24/17 08:03; Admin Dose 5 MG; Start 02/24/17 at 09:00 Polyethylene Glycol (Miralax) 8.5 gm DAILY PRN PO CONSTIPATION; Start 02/23/17 at 17:00 Salmeterol Xinafoate/ Fluticasone (Advair 250/50 Diskus) 1 inh BID INH Last administered on 02/24/17 08:03; Admin Dose 1 INH; Start 02/23/17 at 21:00 Miscellaneous Information 1 ea NOTE XX ; Start 02/23/17 at 17:30 Glucose (Glutose) 15 gm Q15M PRN PO DECREASED GLUCOSE; Start 02/23/17 at 17:30 Glucose (Glutose) 22.5 gm Q15M PRN PO DECREASED GLUCOSE; Start 02/23/17 at 17:30 Dextrose (D50w Syringe) 25 ml Q15M PRN IV DECREASED GLUCOSE; Start 02/23/17 at 17:30 Dextrose (D50w Syringe) 50 ml Q15M PRN IV DECREASED GLUCOSE; Start 02/23/17 at 17:30 Glucagon (Glucagen) 1 mg Q15M PRN IM DECREASED GLUCOSE; Start 02/23/17 at 17:30 Glucose (Glutose) 15 gm Q15M PRN BUCCAL DECREASED GLUCOSE; Start 02/23/17 at 17: 30 Bisacodyl (Dulcolax) 10 mg ONCE ONCE PO ; Start 02/25/17 at 10:30; Stop at 10:31 Magnesium Citrate (Citroma) 300 ml ONCE ONCE PO ; Start 02/25/17 at 17:30; Stop 02/25/17 at 17:31 Polyethylene Glycol (Miralax) 119 gm ONCE ONCE PO ; Start 02/25/17 at 18:30; Stop 02/25/17 at 18:31 VIRGIL SAENZ Feb 24, 2017 18:09
[2017-02-24] MEDS: morphine 2 MG INJ IV PRN (19:31)
[2017-02-25] VITALS (11 sets, daily range): BP systolic 128–168; BP diastolic 63–81; PULSE 99–120; RESP 17–20
[2017-02-25] MEDS: PANTOPRAZOLE 40 MG INJ IV SCH (06:20)
[2017-02-25 07:24] LABS: ADD SCAN DIFF NO
[2017-02-25 07:33] LABS: ABNORMAL IP MESSAGE 1; BASOPHILS % 0.3 % (0.0-2.0); EOSINOPHILS # 0.1 10^3/ul (0.0-0.5); EOSINOPHILS % 0.7 % (0.0-7.0); HEMATOCRIT 23.4 % (37.0-47.0); HEMOGLOBIN 7.8 g/dl (12.0-16.0); LYMPHOCYTES # 1.5 10^3/ul (0.8-2.9); LYMPHOCYTES % 16.8 % (15.0-51.0); MEAN CORPUSCULAR HEMOGLOBIN 30.8 pg (29.0-33.0); MEAN CORPUSCULAR HGB CONC 33.3 g/dl (32.0-37.0); MEAN CORPUSCULAR VOLUME 92.5 fl (82.0-101.0); MONOCYTE # 1.4 10^3/ul (0.3-0.9); MONOCYTES % 15.6 % (0.0-11.0); NEUTROPHILS % 65.5 % (39.0-77.0); PLATELET COUNT 105 10^3/UL (140-415); RED BLOOD COUNT 2.53 10^6/ul (4.20-5.40); RED CELL DISTRIBUTION WIDTH 28.8 % (11.5-14.5); WHITE BLOOD COUNT 9.1 10^3/ul (4.8-10.8)
[2017-02-25 07:56] LABS: CALCIUM 6.2 mg/dl (8.4-10.2); CREATININE 0.41 mg/dl (0.44-1.00); MAGNESIUM 1.2 mg/dl (1.7-2.5)
[2017-02-25 07:58] LABS: POTASSIUM 2.8 mmol/L (3.5-5.1)
[2017-02-25] MEDS: SALMETEROL/FLUTICASONE 250/50 INHA INH SCH ×2 (08:09→20:58)
[2017-02-25] MEDS: LINAGLIPTIN 5 MG TABLET PO SCH (08:09)
[2017-02-25] MEDS: DOCUSATE SODIUM 100 MG CAP PO SCH (08:10)
[2017-02-25] MEDS: INSULIN ASPART [NOVOLOG] 3 ML PEN SC SCH ×7 (08:10→21:00)
[2017-02-25] MEDS: INSULIN GLARGINE [LANtus] 3 ML PEN SC SCH (08:12)
[2017-02-25] MEDS ORDERED: POTASSIUM CHLORIDE (SR) 20 MEQ TAB PO STA (09:12)
--- NOTE | 2017-02-25 10:29 | PN ---
Date/Time of Note Date/Time of Note DATE: 02/25/17 TIME: 10:24 Assessment/Plan VTE Prophylaxis VTE Prophylaxis Intervention: ambulation Lines/Catheters IV C[facility] (from [facility] PORTACATH Urinary Cath still in place: No Assessment/Plan Assessment/Plan Assessment * Anemia/Melena Chronic vs acute Lower GI bleed vs upper GI bleed * History of metastatic cholangiocarcinoma * Diabetes mellitus * Hypertension Plan * Monitor hemoglobin and hematocrit and transfuse 1 unit PRB for hgb<7.5,2 units PRBC hgb <7 * EGD and colonoscopy on Sunday, * PPI Subjective 24 Hr Interval Summary Free Text/Dictation * Course reviewed with RN * Patient seen and examined * EGD/Colonoscopy on Sunday,bowel preparation started * Hemoglobin 7.8 * K 2.8 * Stool occult blood negative Exam/Review of Systems Vital Signs Vitals Vital Signs Date Time Temp Pulse Resp B/P Pulse Ox O2 Delivery O2 Flow Rate FiO2 02/25/17 08:21 108 02/25/17 08:10 97.9 18 168/81 95 02/25/17 07:46 Nasal Cannula 2.0 Intake and Output 02/24/17 02/24/17 02/25/17 15:00 23:00 07:00 Intake Total 800 ml Balance 800 ml Exam Constitutional: alert, well developed Neck: non-tender, supple Respiratory: clear to auscultation, normal air movement Cardiovascular: nl pulses, regular rate and rhythm Gastrointestinal: nl liver, spleen, non-tender, soft Musculoskeletal: nl extremities to inspection, nl gait and stance Extremities: normal pulses Neurological: nl speech, nl strength Skin: nl turgor Lymph: nl lymph nodes Results Result Diagram: 02/25/17 0540 02/25/17 0540 Results 24 hrs Laboratory Tests Test 02/24/17 12:11 02/24/17 17:14 02/24/17 21:01 02/25/17 02:29 Bedside Glucose 200 217 186 158 Test 02/25/17 05:27 02/25/17 05:40 02/25/17 07:49 Lab Scanned Report BLOOD TRANSFUSION White Blood Count 9.1 # Red Blood Count 2.53 L Hemoglobin 7.8 L Hematocrit 23.4 L Mean Corpuscular Volume 92.5 Mean Corpuscular Hemoglobin 30.8 Mean Corpuscular Hemoglobin Concent 33.3 Red Cell Distribution Width 28.8 H Platelet Count 105 L Mean Platelet Volume 11.0 H Neutrophils % 65.5 Lymphocytes % 16.8 Monocytes % 15.6 H Eosinophils % 0.7 Basophils % 0.3 Nucleated Red Blood Cells % 0.0 Neutrophils # 6.0 Lymphocytes # 1.5 Monocytes # 1.4 H Eosinophils # 0.1 Basophils # 0.0 Nucleated Red Blood Cells # 0.0 Sodium Level 134 L Potassium Level 2.8 *L Chloride Level 107 Carbon Dioxide Level 24 Anion Gap 6 L Blood Urea Nitrogen 6 L Creatinine 0.41 L Glucose Level 121 # Calcium Level 6.2 L Magnesium Level 1.2 L Bedside Glucose 153 Medications Medications Current Medications Ondansetron HCl (Zofran Inj) 4 mg Q6H PRN IV NAUSEA AND/OR VOMITING; Start 02/23 at 17:00 Acetaminophen (Tylenol Tab) 650 mg Q6H PRN PO PAIN LEVEL 1-3 OR FEVER Last administered on 02/24/17 12:14; Admin Dose 650 MG; Start 02/23/17 at 17:00 Acetaminophen/ Hydrocodone Bitart ([place] (5/325)) 1 tab Q6H PRN PO MODERATE PAIN LEVEL 4-6; Start 02/23/17 at 17:00 Morphine Sulfate (morphine) 2 mg Q4H PRN IV SEVERE PAIN LEVEL 7-10 Last administered on 02/24/17 19:31; Admin Dose 2 MG; Start 02/23/17 at 17:00 Docusate Sodium (Colace) 100 mg Q12H PRN PO CONSTIPATION; Start 02/23/17 at 17: 00 Zolpidem Tartrate (Ambien) 5 mg QHS PRN PO SLEEP Last administered on 22:18; Admin Dose 5 MG; Start 02/23/17 at 17:00 Pantoprazole (Protonix Iv) 40 mg DAILY@06 IV Last administered on 02/25/17 06: 20; Admin Dose 40 MG; Start 02/24/17 at 06:00 Alprazolam (Xanax) 0.5 mg Q8H PRN PO ANXIETY; Start 02/23/17 at 17:00 Docusate Sodium (Colace) 100 mg DAILY PO Last administered on 02/25/17 08:10; Admin Dose 100 MG; Start 02/24/17 at 09:00 Insulin Glargine (Lantus) 20 unit QAM SC Last administered on 02/25/17 08:12; Admin Dose 20 UNIT; Start 02/24/17 at 09:00 Linagliptin (Tradjenta) 5 mg DAILY PO Last administered on 02/25/17 08:09; Admin Dose 5 MG; Start 02/24/17 at 09:00 Polyethylene Glycol (Miralax) 8.5 gm DAILY PRN PO CONSTIPATION; Start 02/23/17 at 17:00 Salmeterol Xinafoate/ Fluticasone (Advair 250/50 Diskus) 1 inh BID INH Last administered on 02/25/17 08:09; Admin Dose 1 INH; Start 02/23/17 at 21:00 Miscellaneous Information 1 ea NOTE XX ; Start 02/23/17 at 17:30 Glucose (Glutose) 15 gm Q15M PRN PO DECREASED GLUCOSE; Start 02/23/17 at 17:30 Glucose (Glutose) 22.5 gm Q15M PRN PO DECREASED GLUCOSE; Start 02/23/17 at 17:30 Dextrose (D50w Syringe) 25 ml Q15M PRN IV DECREASED GLUCOSE; Start 02/23/17 at 17:30 Dextrose (D50w Syringe) 50 ml Q15M PRN IV DECREASED GLUCOSE; Start 02/23/17 at 17:30 Glucagon (Glucagen) 1 mg Q15M PRN IM DECREASED GLUCOSE; Start 02/23/17 at 17:30 Glucose (Glutose) 15 gm Q15M PRN BUCCAL DECREASED GLUCOSE; Start 02/23/17 at 17: 30 Bisacodyl (Dulcolax) 10 mg ONCE ONCE PO Last administered on 02/25/17 09:39; Admin Dose 10 MG; Start 02/25/17 at 10:30; Stop 02/25/17 at 10:31 Magnesium Citrate (Citroma) 300 ml ONCE ONCE PO ; Start 02/25/17 at 17:30; Stop 02/25/17 at 17:31 Polyethylene Glycol 119 gm 119 gm ONCE ONCE PO ; Start 02/25/17 at 18:30; Stop 02/25/17 at 18:31 Magnesium Sulfate 100 ml @ 25 mls/hr ONCE ONCE IVPB ; Start 02/25/17 at 10:30 ; Stop 02/25/17 at 14:29 Potassium Chloride (KCl 40 MEQ/250 ML NS) 250 ml @ 62.5 mls/hr ONCE ONCE IVPB ; Start 02/25/17 at 10:30; Stop 02/25/17 at 14:29 DANDY PORTILLO MD Feb 25, 2017 10:29
[2017-02-25] MEDS ORDERED: BISACODYL (EC) 5 MG TAB PO ONE (10:30)
[2017-02-25] MEDS ORDERED: POTASSIUM CHLORIDE 250 ML IVPB ONE (10:30)
[2017-02-25] MEDS ORDERED: MAGNESIUM SULFATE 4 GM/100 ML 100 ML IVPB ONE (10:30)
--- NOTE | 2017-02-25 11:12 | PN ---
Date/Time of Note Date/Time of Note DATE: 02/25/17 TIME: 11:08 Assessment/Plan VTE Prophylaxis VTE Prophylaxis Intervention: SCD's Lines/Catheters IV C[facility]from [facility] PORTACATH Urinary Cath still in place: No Assessment/Plan Chief Complaint/Hosp Course 1. Severe anemia secondary to underlying cancer and chemotherapy and/or gastrointestinal bleed Patient is status post 4 units of packed red blood cells GI consult appreciated plan is for EGD and colonoscopy on Sunday Of note stool occult blood is negative 2. Diabetes-stable Continue home regimen. 3. Hypertension Resume home metoprolol as BP beginning to become elevated 4. Chronic obstructive pulmonary disease- stable DuoNeb as needed 5. Hypokalemia/hypomagnesemia Replete Prophylaxis: Sequential compression devices Problems: Subjective 24 Hr Interval Summary Constitutional: no complaints Exam/Review of Systems Vital Signs Vitals Vital Signs Date Time Temp Pulse Resp B/P Pulse Ox O2 Delivery O2 Flow Rate FiO2 02/25/17 08:21 108 02/25/17 08:10 97.9 18 168/81 95 02/25/17 07:46 Nasal Cannula 2.0 Intake and Output 02/24/17 02/24/17 02/25/17 15:00 23:00 07:00 Intake Total 800 ml Balance 800 ml Exam Constitutional: alert Respiratory: clear to auscultation Cardiovascular: regular rate and rhythm Gastrointestinal: soft, No distended Musculoskeletal: nl extremities to inspection Results Result Diagram: 02/25/17 0540 02/25/17 0540 Results 24 hrs Laboratory Tests Test 02/24/17 12:11 02/24/17 17:14 02/24/17 21:01 02/25/17 02:29 Bedside Glucose 200 217 186 158 Test 02/25/17 05:27 02/25/17 05:40 02/25/17 07:49 Lab Scanned Report BLOOD TRANSFUSION White Blood Count 9.1 # Red Blood Count 2.53 L Hemoglobin 7.8 L Hematocrit 23.4 L Mean Corpuscular Volume 92.5 Mean Corpuscular Hemoglobin 30.8 Mean Corpuscular Hemoglobin Concent 33.3 Red Cell Distribution Width 28.8 H Platelet Count 105 L Mean Platelet Volume 11.0 H Neutrophils % 65.5 Lymphocytes % 16.8 Monocytes % 15.6 H Eosinophils % 0.7 Basophils % 0.3 Nucleated Red Blood Cells % 0.0 Neutrophils # 6.0 Lymphocytes # 1.5 Monocytes # 1.4 H Eosinophils # 0.1 Basophils # 0.0 Nucleated Red Blood Cells # 0.0 Sodium Level 134 L Potassium Level 2.8 *L Chloride Level 107 Carbon Dioxide Level 24 Anion Gap 6 L Blood Urea Nitrogen 6 L Creatinine 0.41 L Glucose Level 121 # Calcium Level 6.2 L Magnesium Level 1.2 L Bedside Glucose 153 Medications Medications Current Medications Ondansetron HCl (Zofran Inj) 4 mg Q6H PRN IV NAUSEA AND/OR VOMITING; Start 02/23 at 17:00 Acetaminophen (Tylenol Tab) 650 mg Q6H PRN PO PAIN LEVEL 1-3 OR FEVER Last administered on 02/24/17 12:14; Admin Dose 650 MG; Start 02/23/17 at 17:00 Acetaminophen/ Hydrocodone Bitart ([place] (5/325)) 1 tab Q6H PRN PO MODERATE PAIN LEVEL 4-6; Start 02/23/17 at 17:00 Morphine Sulfate (morphine) 2 mg Q4H PRN IV SEVERE PAIN LEVEL 7-10 Last administered on 02/24/17 19:31; Admin Dose 2 MG; Start 02/23/17 at 17:00 Docusate Sodium (Colace) 100 mg Q12H PRN PO CONSTIPATION; Start 02/23/17 at 17: 00 Zolpidem Tartrate (Ambien) 5 mg QHS PRN PO SLEEP Last administered on 22:18; Admin Dose 5 MG; Start 02/23/17 at 17:00 Pantoprazole (Protonix Iv) 40 mg DAILY@06 IV Last administered on 02/25/17 06: 20; Admin Dose 40 MG; Start 02/24/17 at 06:00 Alprazolam (Xanax) 0.5 mg Q8H PRN PO ANXIETY; Start 02/23/17 at 17:00 Docusate Sodium (Colace) 100 mg DAILY PO Last administered on 02/25/17 08:10; Admin Dose 100 MG; Start 02/24/17 at 09:00 Insulin Glargine (Lantus) 20 unit QAM SC Last administered on 02/25/17 08:12; Admin Dose 20 UNIT; Start 02/24/17 at 09:00 Linagliptin (Tradjenta) 5 mg DAILY PO Last administered on 02/25/17 08:09; Admin Dose 5 MG; Start 02/24/17 at 09:00 Polyethylene Glycol (Miralax) 8.5 gm DAILY PRN PO CONSTIPATION; Start 02/23/17 at 17:00 Salmeterol Xinafoate/ Fluticasone (Advair 250/50 Diskus) 1 inh BID INH Last administered on 02/25/17 08:09; Admin Dose 1 INH; Start 02/23/17 at 21:00 Miscellaneous Information 1 ea NOTE XX ; Start 02/23/17 at 17:30 Glucose (Glutose) 15 gm Q15M PRN PO DECREASED GLUCOSE; Start 02/23/17 at 17:30 Glucose (Glutose) 22.5 gm Q15M PRN PO DECREASED GLUCOSE; Start 02/23/17 at 17:30 Dextrose (D50w Syringe) 25 ml Q15M PRN IV DECREASED GLUCOSE; Start 02/23/17 at 17:30 Dextrose (D50w Syringe) 50 ml Q15M PRN IV DECREASED GLUCOSE; Start 02/23/17 at 17:30 Glucagon (Glucagen) 1 mg Q15M PRN IM DECREASED GLUCOSE; Start 02/23/17 at 17:30 Glucose (Glutose) 15 gm Q15M PRN BUCCAL DECREASED GLUCOSE; Start 02/23/17 at 17: 30 Magnesium Citrate (Citroma) 300 ml ONCE ONCE PO ; Start 02/25/17 at 17:30; Stop 02/25/17 at 17:31 Polyethylene Glycol 119 gm 119 gm ONCE ONCE PO ; Start 02/25/17 at 18:30; Stop 02/25/17 at 18:31 Magnesium Sulfate 100 ml @ 25 mls/hr ONCE ONCE IVPB Last administered on 02/25 10:33; Admin Dose 25 MLS/HR; Start 02/25/17 at 10:30; Stop 02/25/17 at 14: 29 Potassium Chloride (KCl 40 MEQ/250 ML NS) 250 ml @ 62.5 mls/hr ONCE ONCE IVPB ; Start 02/25/17 at 10:30; Stop 02/25/17 at 14:29 VIRGIL SAENZ Feb 25, 2017 11:12
[2017-02-25] MEDS ORDERED: MAGNESIUM CITRATE 300 ML BTL PO ONE (17:30)
[2017-02-25] MEDS ORDERED: POLYETHYLENE GLYCOL 3350 119 GM POWDER PO ONE (18:30)
[2017-02-25] MEDS: METOPROLOL 25 MG TAB PO SCH (20:59)
[2017-02-26] VITALS (17 sets, daily range): BP systolic 119–159; BP diastolic 51–82; PULSE 93–117; RESP 14–23
[2017-02-26] MEDS: ACETAMINOPHEN 325 MG TAB PO PRN (00:42)
[2017-02-26] MEDS: PANTOPRAZOLE 40 MG INJ IV SCH ×2 (05:46→21:08)
[2017-02-26] MEDS ORDERED: POLYETHYLENE GLYCOL 3350 119 GM POWDER PO ONE (06:00)
[2017-02-26] MEDS ORDERED: LIDOCAINE 2% (SDV) 5 ML INJ ONE (07:00)
[2017-02-26] MEDS ORDERED: PROPOFOL 200 MG INJ ONE (07:00)
[2017-02-26 07:35] LABS: ADD SCAN DIFF NO
[2017-02-26 07:44] LABS: ABNORMAL IP MESSAGE 1; BASOPHILS % 0.3 % (0.0-2.0); EOSINOPHILS # 0.1 10^3/ul (0.0-0.5); EOSINOPHILS % 1.2 % (0.0-7.0); HEMATOCRIT 31.2 % (37.0-47.0); HEMOGLOBIN 10.1 g/dl (12.0-16.0); LYMPHOCYTES # 1.9 10^3/ul (0.8-2.9); LYMPHOCYTES % 16.5 % (15.0-51.0); MEAN CORPUSCULAR HEMOGLOBIN 30.4 pg (29.0-33.0); MEAN CORPUSCULAR HGB CONC 32.4 g/dl (32.0-37.0); MONOCYTE # 1.8 10^3/ul (0.3-0.9); MONOCYTES % 16.1 % (0.0-11.0); NEUTROPHIL # 7.3 10^3/ul (1.6-7.5); NEUTROPHILS % 64.7 % (39.0-77.0); PLATELET COUNT 162 10^3/UL (140-415); RED BLOOD COUNT 3.32 10^6/ul (4.20-5.40); RED CELL DISTRIBUTION WIDTH 28.9 % (11.5-14.5); WHITE BLOOD COUNT 11.2 10^3/ul (4.8-10.8)
[2017-02-26] MEDS: INSULIN ASPART [NOVOLOG] 3 ML PEN SC SCH ×7 (08:00→21:20)
[2017-02-26] MEDS ORDERED: BISACODYL (EC) 5 MG TAB PO ONE (08:00)
[2017-02-26 08:01] LABS: CALCIUM 8.7 mg/dl (8.4-10.2); CREATININE 0.49 mg/dl (0.44-1.00); MAGNESIUM 2.3 mg/dl (1.7-2.5); PHOSPHORUS 2.9 mg/dl (2.5-4.9); POTASSIUM 5.1 mmol/L (3.5-5.1)
[2017-02-26] MEDS: SALMETEROL/FLUTICASONE 250/50 INHA INH SCH ×2 (08:45→21:07)
[2017-02-26] MEDS: LINAGLIPTIN 5 MG TABLET PO SCH (08:46)
[2017-02-26] MEDS: DOCUSATE SODIUM 100 MG CAP PO SCH (08:46)
[2017-02-26] MEDS: INSULIN GLARGINE [LANtus] 3 ML PEN SC SCH (08:46)
[2017-02-26] MEDS: METOPROLOL 25 MG TAB PO SCH ×2 (08:47→21:09)
[2017-02-26] MEDS: morphine 2 MG INJ IV PRN (14:35)
--- NOTE | 2017-02-26 16:34 | PN ---
DATE: 02/26/2017 Time of evaluation: 1330. SUBJECTIVE DATA: Complains of severe abdominal pain. Denies any active bleeding. OBJECTIVE DATA: VITAL SIGNS: Temperature 99.4, pulse rate 98, respiratory rate 18, blood pressure 159/82, oxygen saturation 98% on low flow O2. GENERAL: This is an elderly female lying in bed in mild respiratory distress. HEENT: Head normocephalic and atraumatic. Eyes: Anicteric sclerae. Conjunctivae clear. ENT: Nasal septum is midline. Oral mucosa is dry. NECK: Supple. No JVD noticed. RESPIRATORY: Bilaterally diminished breath sounds. Minimal use of accessory muscles of respiration. CARDIAC: S1, S2 heard. Regular rate and rhythm. ABDOMEN: Nondistended. Diffuse tenderness. Bowel sounds hypoactive in all 4 quadrants. GENITOURINARY: Deferred. EXTREMITIES: No cyanosis, no clubbing, no edema. Peripheral pulses are palpable. NEUROLOGIC: The patient is awake, alert and oriented. Cranial nerves are grossly intact. LABORATORY AND DIAGNOSTIC DATA: WBC 11.3, hemoglobin 10.1, hematocrit 31.2, platelet count 162. Sodium 131, potassium 5.1, chloride 96, carbon dioxide 31, anion gap 9, BUN 3, creatinine 0.49, glucose 143, calcium 8.4, phosphorus 2.9, magnesium 2.3. ASSESSMENT AND PLAN: 1. Symptomatic anemia, most probably secondary to acute blood loss versus others. Continue proton pump inhibitors. The patient is scheduled for an esophagogastroduodenoscopy today. 2. Type 2 diabetes mellitus. Hemoglobin A1c from 02/03/2017 was sent out. Continue sliding scale insulin. 3. Essential hypertension. Continue antihypertensives. Blood pressure is fairly well controlled. 4. Chronic obstructive pulmonary disease. Continue supplemental oxygen. No evidence of any exacerbation. 5. Metastatic cholangiocarcinoma. Status post chemotherapy. 6. Hyponatremia. Continue IV fluid containing sodium chloride. Improving. 7. Fluid, electrolytes, and nutrition. Carbohydrate controlled diet. Currently n.p.o. for an esophagogastroduodenoscopy. 8. Deep venous thrombosis prophylaxis with bilateral sequential compression devices. 9. Gastrointestinal prophylaxis. Proton pump inhibitors PLAN: Continue proton pump inhibitors. Await esophagogastroduodenoscopy. The case was discussed with Dr. Sánchez. TERRELL SÁNCHEZ MD, AM/AMOS Conf#: [id number] [facility]#: [id number] MTDD
[2017-02-26] MEDS ORDERED: ALBUTEROL 0.083% (NEB) 2.5 MG/3 ML AMP ONE (17:40)
[2017-02-26] MEDS: SUCRALFATE 1 GM TAB PO SCH (21:08)
--- NOTE | 2017-02-26 21:57 | GILP ---
DATE OF PROCEDURE: 02/26/2017 NAME OF PROCEDURE: Colonoscopy with polyp ablation. SURGEON: Adelita Youngblood MD HISTORY AND INDICATIONS: The patient being evaluated for severe anemia. PREMEDICATION: Monitored anesthesia care by anesthesiologist. INSTRUMENT USED: Olympus colonoscope. PREPARATION: Adequate. TECHNIQUE: After informed consent, with the patient/relatives understanding the procedure, its rosalba cations potential risks and complications including but not limited to allergic reaction, bleeding, perforation, infection, missed lesions and after all pertinent questions were answered to the patien t's satisfaction, the patient/relatives signed the witnessed informed consent. Following this, premedication was administered slowly IV push by under careful cardiovascular and re spiratory monitoring with pulse oximetry, automatic blood pressure and hospital nurse. Once the sedativ e effect was achieved, the patient was placed in the left lateral decubitus position, digital rectal examination was performed. The colonoscope was then introduced and advanced under visual control th roughout all segments of the colon including: the rectum, sigmoid, descending colon, splenic flexure , transverse colon, hepatic flexure, ascending colon and finally reaching the cecum which was clearl y identified by transillumination, finger indentation and the ileocecal valve. Careful examination o f the mucosa of the lower gastrointestinal tract both on insertion as well as withdrawal of the inst rument disclosed the following findings: Rectal Examination: No evidence of perirectal disease, no masses. Colonic Mucosa: The colonic mucosa is remarkable for mild diverticulosis in the left side of the co hermila. There is a 4 mm polyp in the descending colon which was completely ablated with biopsy forceps . The remainder of colonic mucosa is unremarkable. The ileocecal valve was clearly identified and appears unremarkable. The instrument was withdrawn, re-examining the mucosa in detail. No addition al abnormalities are noted with exception of moderate-sized internal hemorrhoids. The instrument was then withdrawn. The patient tolerated the procedure well and was transferred out of the endoscopy suite awake and in good condition to continue recovery under observation. IMPRESSION: 1. A 4 mm descending colon polyp, ablated. 2. Diverticulosis, left side of the colon. 3. Moderate-sized internal hemorrhoids. PLAN: The patient will be continued on present regimen. Pathology will be reviewed as soon as brendan navarrete. Further recommendation will depend on the patient's clinical course. Dictated By: ADELITA YOUNGBLOOD MS/AMOS Conf#: [id number] [facility]#: [id number]
--- NOTE | 2017-02-26 22:00 | GILP ---
DATE OF PROCEDURE: 02/26/2017 DATE: 02/26/2017 NAME OF PROCEDURE: Esophagogastroduodenoscopy with biopsies. SURGEON: Dandy Youngblood MD. PREMEDICATION: Monitored anesthesia care by anesthesiologist. INSTRUMENT USED: Olympus panendoscope. TECHNIQUE: After informed consent, with the patient/relatives understanding the procedure, its indic ations, potential risks, and complications, including but not limited to: allergic reaction, bleedin g, perforation or infection, and after all pertinent questions were answered to the patient's satisf action, the patient/relatives signed witnessed informed consent. Following this, premedication was administered slowly IV push under careful cardiovascular and respi ratory monitoring with pulse oximetry, automatic blood pressure and singeing torch operator. Once the sedative effect was achieved the patient was place in the left lateral decubitus, the panen doscope was introduced and advanced under visual control. Careful examination of the upper gastrointestinal tract, both on insertion as well as withdrawal of the instrument disclosed the following findings: ESOPHAGUS: Mild erythema and edema mucosa is noted in the distal esophagus. STOMACH: Upon entrance to the stomach, air was insufflated, the gastric douglas distended normally. There is erythema and edema of the mucosa of a moderate degree. Biopsies were obtained to rule out H. pylori infection. PYLORUS: The pylorus appears patent and within normal limits, with no evidence of gastric outlet ob struction. DUODENUM: Shows a deep, approximately 1.5 cm duodenal ulcer with no stigmata of recent bleeding, bu t clearly is likely to represent the source of previous melena and significant anemia. The second p ortion of the duodenum appears unremarkable. The instrument was then withdrawn, the patient tolerated the procedure well and was transfer out of the endoscopy suite awake, and in good condition to continue recovery under observation IMPRESSION: 1. Deep active duodenal ulcer with no stigmata. 2. Gastritis, rule out Helicobacter pylori infection, biopsies obtained. 3. Mild esophagitis. PLAN: The patient will be treated with PPI b.i.d., Carafate 1 gram q.i.d. and further recommendatio n will depend on her clinical course as well as review of biopsies. Dictated By: DANDY YOUNGBLOOD MS/AMOS Conf#: [id number] DID#: [id number] CC: VIRGIL SAENZ MD; DANDY YOUNGBLOOD;*EndCC*
[2017-02-27] VITALS (8 sets, daily range): BP systolic 135–160; BP diastolic 69–83; PULSE 80–94; RESP 18–20
[2017-02-27] MEDS: morphine 2 MG INJ IV PRN (01:49)
[2017-02-27] MEDS: PANTOPRAZOLE 40 MG INJ IV SCH (06:30)
[2017-02-27 08:03] LABS: ADD SCAN DIFF NO
[2017-02-27] MEDS: SALMETEROL/FLUTICASONE 250/50 INHA INH SCH (08:19)
[2017-02-27 08:20] LABS: ABNORMAL IP MESSAGE 1; BASOPHILS % 0.1 % (0.0-2.0); HEMATOCRIT 29.2 % (37.0-47.0); HEMOGLOBIN 9.5 g/dl (12.0-16.0); LYMPHOCYTES % 10.8 % (15.0-51.0); MEAN CORPUSCULAR HEMOGLOBIN 30.1 pg (29.0-33.0); MEAN CORPUSCULAR HGB CONC 32.5 g/dl (32.0-37.0); MEAN CORPUSCULAR VOLUME 92.4 fl (82.0-101.0); MEAN PLATELET VOLUME 11.1 fl (7.4-10.4); MONOCYTE # 0.7 10^3/ul (0.3-0.9); MONOCYTES % 7.5 % (0.0-11.0); NEUTROPHIL # 7.1 10^3/ul (1.6-7.5); NEUTROPHILS % 80.1 % (39.0-77.0); PLATELET COUNT 204 10^3/UL (140-415); RED BLOOD COUNT 3.16 10^6/ul (4.20-5.40); RED CELL DISTRIBUTION WIDTH 27.8 % (11.5-14.5); WHITE BLOOD COUNT 8.9 10^3/ul (4.8-10.8)
[2017-02-27] MEDS: METOPROLOL 25 MG TAB PO SCH (08:20)
[2017-02-27] MEDS: SUCRALFATE 1 GM TAB PO SCH ×2 (08:21→12:36)
[2017-02-27] MEDS: DOCUSATE SODIUM 100 MG CAP PO SCH (08:21)
[2017-02-27] MEDS: LINAGLIPTIN 5 MG TABLET PO SCH (08:21)
[2017-02-27] MEDS: INSULIN ASPART [NOVOLOG] 3 ML PEN SC SCH ×4 (08:25→12:00)
[2017-02-27 08:52] LABS: CALCIUM 8.6 mg/dl (8.4-10.2); CREATININE 0.48 mg/dl (0.44-1.00); POTASSIUM 4.4 mmol/L (3.5-5.1)
[2017-02-27 08:53] LABS: CHOL/HDL RATIO 4.6 RATIO; MAGNESIUM 1.9 mg/dl (1.7-2.5); PHOSPHORUS 4.5 mg/dl (2.5-4.9)
[2017-02-27 09:16] LABS: THYROID STIMULATING HORMONE 1.2 MIU/L (0.465-4.680)
[2017-02-27] MEDS: INSULIN GLARGINE [LANtus] 3 ML PEN SC SCH (09:58)
--- NOTE | 2017-02-27 11:12 | PDOCDIS ---
Discharge Instructions DIAGNOSIS Discharge Diagnosis: Symptomatic anemia CONDITION Patient Condition: Stable HOME CARE INSTRUCTIONS: Special Diet: Carbohydrate controlled FOLLOW UP/APPOINTMENTS Appointments Wali Pepe MD Specialty: Internal Medicine Office Address: [address] [place], [place] [id number] Office OTHER ORDERS: Other Orders: 1. Take medications as per prescription. Resume home medications 2. Follow a carbohydrate controlled diet. 3. Follow-up with your primary care physician in 1 week. If you do not have a primary care physician, please call Dr. Wali Pepe's office. 4. Resume activities as tolerated. TERRELL DOZIRE NP Feb 27, 2017 11:12
[2017-02-27] MEDS ORDERED: PANT40TA3 PO (11:19)
[2017-02-27] MEDS ORDERED: SUCR1TAB27 PO (11:19)
[2017-02-27] MEDS ORDERED: HEPARIN (100 UNITS/ML) 5 ML SYG CATHETER ONE (12:15)
--- NOTE | 2017-02-27 14:01 | DS ---
DATE OF ADMISSION: 02/23/2017 DATE OF DISCHARGE: 02/27/2017 FINAL DIAGNOSES: 1. Symptomatic anemia secondary to upper gastrointestinal bleeding. 2. Duodenal ulcers. 3. Gastritis. 4. Mild esophagitis. 5. Type 2 diabetes mellitus. 6. Essential hypertension. 7. Chronic obstructive pulmonary disease, dependent on home oxygen. 8. Metastatic cholangiocarcinoma. Status post chemotherapy. 9. Hyponatremia. INJECTION OPERATOR: Dr. Adelita Youngblood, gastroenterology. HOSPITAL COURSE: This is a 71-year-old female with past medical history of metastatic cholangiocarc inoma status post chemotherapy, COPD, essential hypertension, diabetes mellitus, [facility] chief complaint of dark stools. The patient was noticed to have hemoglobin of 4.3 in the emergency room. Provided the patient's history of present illness, her comorbidities and the diagnostic findings, a clinical decision was made to admit the patient to inpatient setting to have her further evaluated. The patient was admitted to inpatient telemetry floor. The patient was started on proton pump inhib itors. The patient was transfused with blood products. A gastroenterology consult was called. The patient underwent an esophagogastroduodenoscopy on 02/26/2017 that showed a deep active duodenal ul cer with no stigmata. The EGDscopy also revealed gastritis and mild esophagitis. Consequently, the patient was also started on mucosal barrier protectant. The patient received a total of 4 units of PRBC with the improvement in the patient's H and H. The patient's latest H and H are 9.5 and 29.2 respectively. The patient also underwent a colonoscopy on 02/16/2017 that showed diverticulosis of the left side of the colon and a 4 mm descending colon polyp that was ablated. The pathology of EGD scopy and colonoscopy are pending at this time. The patient has underlying type 2 diabetes mellitus. The patient's hemoglobin A1c was found to be 5 .9. The patient was seen by candy wrapping machine operator. The patient has underlying essential hypertension. She was maintained on antihypertensives. She also has underlying COPD and she is dependent on home oxygen. The patient was maintained on routine inhaled bronchodilators. The patient had no evidenc e of any COPD exacerbation. The patient has metastatic cholangiocarcinoma. The patient is getting chemotherapy as outpatient with Dr. Funes. The patient also had some hyponatremia that improved thr oughout the patient's hospital course with the latest sodium level of 131. The patient had a stable hospital course. The patient is stable to be discharged home. DISCHARGE DISPOSITION/PLAN: The patient will be discharged home today. The patient was instructed to take a carbohydrate-controlled diet. The patient was instructed to take medications as per presc ription. The patient was to follow up with her primary care physician in 1 week and if she does not have a primary care physician, to please call Dr. Wali Pepe's office. She was instructed to resu me activities as tolerated. The patient was instructed to go to the nearest emergency room or call 911 if she has dark stools, any other active bleeding. The patient verbalized understanding of her discharge instructions. CONDITION AT DISCHARGE: Stable. DISCHARGE MEDICATIONS: 1. Protonix 40 mg p.o. b.i.d. 2. Carafate 1 gram p.o. q.i.d. 3. Combivent Respimat 20/100 mcg per inhalation 1 puff q.i.d. p.r.n. shortness of breath. 4. Xanax 0.5 mg p.o. q.8 hours p.r.n. anxiety. 5. Symbicort 160/4.5 two puffs inhaled b.i.d. 6. Colace 100 mg p.o. daily. 7. Lantus insulin 20 units subcutaneously q.a.m. 8. Tradjenta 5 mg p.o. daily. 9. Lopressor 25 mg p.o. b.i.d. 10. MiraLAX 8.5 gram p.o. daily p.r.n. constipation. 11. Percocet 5/325 one tablet p.o. q.6 hours p.r.n. pain. PERTINENT LABORATORY, DIAGNOSTIC DATA, AND PROCEDURES: 1. Esophagogastroduodenoscopy. Deep active duodenal ulcer with no stigmata. Gastritis. Mild esop hagitis. 2. Colonoscopy. A 4 mm descending colon polyp, ablated. Diverticulosis of the left side of the co hermila. Moderate-sized internal hemorrhoids. 3. Latest CBC: WBC 8.9, hemoglobin 9.5, hematocrit 29.2, platelet count 204. 4. BMP: Sodium 131, potassium 4.4, chloride 96, carbon dioxide 27, anion gap 12, BUN 12, creatinin e 0.4, glucose 202, calcium 8.6. 5. Fasting lipid panel: Triglycerides 79, total cholesterol 83, LDL 49, HDL 18. 6. Hemoglobin A1c 5.9 (This could be a wrong hemoglobin A1c because this was done after blood trans fusion). 7. Stool for OB x1 negative. 8. Chest x-ray upon admission. Calcification of thoracic aorta. Mild cardiomegaly. Bibasilar sub segmental atelectasis. At this time, I would like to thank Dr. Lambert for seeing the patient, doing the necessary procedu res, and providing clinical recommendations. The case and management of this patient was fully discussed with Dr. Sánchez. Approximately 40 minutes was spent on coordinating the discharge on this patient. Dictated By: TERRELL DOZIER SATURATION DIVER for KEVIN SÁNCHEZ MD, AM/NTS Conf#: [id number] DID#: [id number]
== END 2017-02-27 13:15 | disposition home or self-care (01) | DRG 378 ==
LOC: E/R 10:28 → MS4 12:19
PROVIDERS: ADMIT Internal Medicine; ATTEND Internal Medicine
PROC: 30233N1 Transfusion of Nonautologous Red Blood Cells into Peripheral Vein, Percutaneous Approach (ICD-10-PCS; 2017-02-23)
PROC: 0DBM8ZZ Excision of Descending Colon, Via Natural or Artificial Opening Endoscopic (ICD-10-PCS; principal; 2017-02-26 19:00)
PROC: 0DB68ZX Excision of Stomach, Via Natural or Artificial Opening Endoscopic, Diagnostic (ICD-10-PCS; 2017-02-26 19:00)
DX: K26.4 Chronic or unspecified duodenal ulcer with hemorrhage (principal); D62 Acute posthemorrhagic anemia; C78.80 Secondary malignant neoplasm of unspecified digestive organ; Z99.81 Dependence on supplemental oxygen; E87.1 Hypo-osmolality and hyponatremia; D64.81 Anemia due to antineoplastic chemotherapy; J44.9 Chronic obstructive pulmonary disease, unspecified; K64.8 Other hemorrhoids; K57.30 Diverticulosis of large intestine without perforation or abscess without bleeding; K20.9 Esophagitis, unspecified; K92.1 Melena; K29.70 Gastritis, unspecified, without bleeding; I10 Essential (primary) hypertension; E11.9 Type 2 diabetes mellitus without complications; E87.6 Hypokalemia; Z92.21 Personal history of antineoplastic chemotherapy
CPT/HCPCS: 36415; 36430; 71010; 80048; 80053; 80061; 81001; 82270; 82962; 83036; 83735; 84100; 84439; 84443; 84484; 85025; 85610; 85730; 86850; 86870; 86900; 86901; 86920; 88305; 88312; 93005; 94664; 96372; 96374; 96375; C9113; J1642; J1815; J2270; J3480; P9016

== ENCOUNTER 2017-03-02 00:44 | Inpatient (IN) | payer OTHER ==
[2017-03-02] VITALS (11 sets, daily range): BP systolic 117–174; BP diastolic 61–82; PULSE 99–152; RESP 18; TEMP 99.5; Ht 157.5 cm; Wt 69.4 kg
[~2017-03-02] VITALS: Ht 157.5 cm; Wt 69.4 kg
[~2017-03-02 00:44] MED LIST changes: +PANT40TA3 PO; -PANT40TA4 PO; +SUCR1TAB27 PO
--- NOTE | 2017-03-02 02:03 | ERA ---
ER Documentation Chief Complaint Date/Time DATE: 03/02/17 TIME: 01:56 Chief Complaint fever, Confusion HPI The patient is a 71-year-old female, presenting to the ER because of fever, cough, dyspnea for 1 day. She has been confused today and fell and complains of left hip and left knee pain. The history is is obtained for the daughter. She denies any neck pain, chest pain, abdominal pain, vomiting however her history is not reliable. She does not smoke nor drink, she is on 3 L nasal cannula continuously at home. Past medical history: COPD, hypertension, diabetes mellitus, history of GI bleed , history of duodenal ulcer. She is on chemotherapy for metastatic cholangiocarcinoma ROS All systems reviewed and are negative except as per history of present illness. Medications Home Meds Active Scripts Sucralfate (Carafate) 1 Gm Tablet, 1 GM PO QID for 30 Days, TAB Prov:TERRELL DOZIER NP 02/27/17 Pantoprazole* (Protonix*) 40 Mg Tablet.dr, 40 MG PO BID for 30 Days, TAB Prov:TERRELL DOZIER NP 02/27/17 Oxycodone HCl/Acetaminophen (Percocet 5-325 mg Tablet) 1 Each Tablet, 1 EACH PO Q6H, #1 TAB Prov:EVANS PRABHAKAR MD 01/22/17 Linagliptin (TRADJENTA) 5 Mg Tablet, 5 MG PO DAILY, #30 TAB Prov:EVANS PRABHAKAR MD 01/22/17 Insulin Glargine* (Lantus*) 100 Unit/Ml Soln, 20 UNIT SC QAM for 30 Days Prov:EVANS PRABHAKAR MD 01/22/17 Polyethylene Glycol* (Miralax*) 17 Gm Powd.pack, 8.5 GM PO DAILY Y for CONSTIPATION, #30 Prov:EVANS PRABHAKAR MD 01/22/17 Docusate Sodium (Dok) 100 Mg Capsule, 100 MG PO DAILY, #30 CAP Prov:EVANS PRABHAKAR MD 01/22/17 Metoprolol Tartrate* (Lopressor*) 25 Mg Tab, 25 MG PO BID, #60 TAB Prov:EVANS PRABHAKAR MD 01/22/17 Alprazolam* (Alprazolam*) 0.5 Mg Tablet, 0.5 MG PO Q8H Y for ANXIETY, #20 TAB Prov:JACOBYCIERAY 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 06/22/16 Reported Medications Albuterol/Ipratropium* (Combivent Respimat*) 20-100 Mcg/Inh - 4 Gm Aer.w.adap, 1 PUFF INHALATION QID for SHORTNESS OF BREATH, #1 INHALER 06/19/16 Budesonide-Formoterol Fumarate* (Symbicort*) 160-4.5 Hfa.aer.ad, 2 PUFF INHALATION BID, #1 EACH 05/21/16 Discontinued Scripts Pantoprazole* (Pantoprazole*) 40 Mg Tablet., 40 MG PO DAILY@06, #30 Prov:EVANS PRABHAKAR MD 01/22/17 Allergies Allergies: Coded Allergies: No Known Allergy (Unverified , 03/02/17) PMhx/Soc History of Surgery: Yes Anesthesia Reaction: No Hx Neurological Disorder: No Hx Respiratory Disorders: Yes Hx Cardiac Disorders: Yes Hx Psychiatric Problems: No Hx Miscellaneous Medical Probl: No Hx Alcohol Use: No Hx Substance Use: No Hx Tobacco Use: Yes Physical Exam Vitals Vital Signs Date Time Temp Pulse Resp B/P Pulse Ox O2 Delivery O2 Flow Rate FiO2 03/02/17 03:20 99.5 109 24 136/80 100 Nasal Cannula 3.0 03/02/17 01:45 Nasal Cannula 6 03/02/17 00:57 101.9 110 28 138/85 98 Physical Exam Const: No acute distress. Head: Atraumatic. Eyes: Normal Conjunctiva. ENT: Normal External Ears, Nose and Mouth. Neck: Full range of motion. No meningismus. Resp: Clear to auscultation bilaterally. Cardio: Regular tachycardic Abd: Soft, non distended, normal bowel sounds, non tender. Skin: No petechiae or rashes. Back: No midline or flank tenderness. Ext: No cyanosis, or edema. Neur: Awake and alert. No focal deficit Psych: Normal Mood and Affect. Result Diagram: 03/05/17 0610 03/05/17 0610 Results 24 hrs Laboratory Tests Test 03/02/17 02:30 03/02/17 02:45 03/02/17 02:51 03/02/17 04:30 White Blood Count 24.410^3/ul Red Blood Count 3.1810^6/ul Hemoglobin 9.9g/dl Hematocrit 29.8% Mean Corpuscular Volume 93.7fl Mean Corpuscular Hemoglobin 31.1pg Mean Corpuscular Hemoglobin Concent 33.2g/dl Red Cell Distribution Width % Platelet Count 12365^3/UL Mean Platelet Volume 10.3fl Neutrophils % 76.0% Band Neutrophils % 4.0% Lymphocytes % 9.0% Monocytes % 11.0% Neutrophils # 18.510^3/ul Lymphocytes # 2.210^3/ul Monocytes # 2.710^3/ul Platelet Estimate PLT APPEAR ADEQUATE Prothrombin Time 18.0Sec Prothrombin Time Ratio 1.4 INR International Normalized Ratio 1.48 Activated Partial Thromboplast Time 42.9Sec Sodium Level 129mmol/L Potassium Level 4.0mmol/L Chloride Level 92mmol/L Carbon Dioxide Level 30mmol/L Anion Gap 11 Blood Urea Nitrogen 17mg/dl Creatinine 0.58mg/dl Glucose Level 108mg/dl Lactic Acid Level 1.1mmol/L 0.8mmol/L Calcium Level 8.5mg/dl Total Bilirubin 0.7mg/dl Direct Bilirubin 0.00mg/dl Indirect Bilirubin 0.7mg/dl Aspartate Amino Transf (AST/SGOT) 43IU/L Alanine Aminotransferase (ALT/SGPT) 34IU/L Alkaline Phosphatase 138IU/L Troponin I < 0.012ng/ml Total Protein 7.3g/dl Albumin 3.6g/dl Globulin 3.70g/dl Albumin/Globulin Ratio 0.97 Urine Color LT. YELLOW Urine Clarity CLEAR Urine pH 7.0 Urine Specific [place] 1.010 Urine Ketones NEGATIVE Urine Nitrite NEGATIVE Urine Bilirubin NEGATIVE Urine Urobilinogen 1.0 E.U./dL Urine Leukocyte Esterase NEGATIVE Urine Hemoglobin NEGATIVE Urine Glucose NEGATIVE% Urine Total Protein NEGATIVE Bedside Urine pH (LAB) 7.0 Bedside Urine Protein (LAB) 1+ Bedside Urine Glucose (UA) Negative Bedside Urine Ketones (LAB) Negative Bedside Urine Blood Negative Bedside Urine Nitrite (LAB) Negative Bedside Urine Leukocyte Esterase (L Negative Current Medications Medications (Trade) Dose Ordered Sig/Rae Route PRN Reason Start Time Stop Time Status Last Admin Dose Admin Acetaminophen (Tylenol Tab) 650 mg ONCE STAT PO 03/02/17 02:06 03/02/17 02:09 DC 03/02/17 02:32 Pantoprazole 40 mg 40 mg ONCE ONCE IV 03/02/17 03:30 03/02/17 03:31 DC 03/02/17 03:29 Vancomycin HCl (Vancocin) 250 ml @ 125 mls/hr ONCE IVPB 03/02/17 04:30 03/02/17 06:29 DC 03/02/17 05:28 Procedures/MDM [place] [address] Radiology Main Line: [phone] DIAGNOSTIC IMAGING REPORT Patient: RYLAND GORDON : 1945 Age: 71 Sex: F MR #: [id number] DOS: 03/02/17205 Ordering MD: JORGE HOLLAND MD Location: E/R Room/Bed: PROCEDURE: XR Knee. CLINICAL INDICATION: Trauma TECHNIQUE: AP, lateral and oblique view of the left knee were obtained. COMPARISON: There are no similar studies submitted for comparison. FINDINGS: There is normal mineralization.There is no acute fracture or dislocation.No destructive lesion is identified. There is no joint effusion. IMPRESSION: No fracture or dislocation. RPTAT: HIKT .Mich Sen MD, MD Date Time Electronically viewed and signed by .Mich Sen MD, MD on 03/02/2017 03:23 .T/ CC: JORGE HOLLAND MD [place] [address] Radiology Main Line: [phone] DIAGNOSTIC IMAGING REPORT Patient: RYLAND GORDON : 1945 Age: 71 Sex: F MR #: [id number] DOS: 03/02/17205 Ordering MD: JORGE HOLLAND MD Location: E/R Room/Bed: PROCEDURE: XR hip. CLINICAL INDICATION: Trauma TECHNIQUE: AP and frog lateral views of the left hip were performed. COMPARISON: There are no similar studies submitted for comparison. FINDINGS: There is a normal mineralization.No fracture is identified.There is normal alignment.No destructive osseous lesion is identified. IMPRESSION: No evidence of acute fracture. RPTAT: HIKT .Mich Sen MD, MD Date Time Electronically viewed and signed by .Mich Sen MD, MD on 03/02/2017 03:11 .T/ CC: JORGE HOLLAND MD [place] [address] Radiology Main Line: [phone] DIAGNOSTIC IMAGING REPORT Patient: RYLAND GORDON : 1945 Age: 71 Sex: F MR #: [id number] DOS: 03/02/17 0206 Ordering MD: JORGE HOLLAND MD Location: E/R Room/Bed: PROCEDURE: XR Chest. CLINICAL INDICATION: Sepsis. TECHNIQUE: Single frontal chest x-ray. COMPARISON: 01/22/2017 FINDINGS: There is a right internal jugular central line with tip in the SVC. The cardiomediastinal silhouette is unremarkable. There is no congestive heart failure.. There are poorly defined nodular densities bilaterally, most prominent in the right mid lung field 2.6 cm diameter.. There is bibasilar atelectasis. There is no pleural effusion. There is no pneumothorax. The osseous structures are unremarkable. IMPRESSION: Poorly defined nodular densities, increased in size as compared to the prior study. Bibasilar atelectasis. Otherwise no change. RPTAT: HMVK .Jorge Bolton MD, MD Date Time Electronically viewed and signed by .Jorge Bolton MD, MD on 03/02/2017 03:03 .K/ CC: JORGE HOLLAND MD [place] [address] Radiology Main Line: [phone] DIAGNOSTIC IMAGING REPORT Patient: RYLAND GORDON : 1945 Age: 71 Sex: F MR #: [id number] DOS: 03/02/17 0206 Ordering MD: JORGE HOLLAND MD Location: E/R Room/Bed: PROCEDURE: Noncontrast CT Head. CLINICAL INDICATION: Altered level of consciousness TECHNIQUE: Noncontrast CT of the head was obtained. The administered radiation dose was CTDI vol = 44.8 mGy, DLP = 720 mGy-cm. COMPARISON: No pertinent prior examinations were submitted for comparison. FINDINGS: The ventricles and cortical sulci are mildly enlarged. There is mild decreased attenuation within the periventricular and subcortical white matter compatible with chronic microvascular changes. There is no acute intracranial hemorrhage or extra-axial fluid collection. There is no mass effect. No midline shift is identified. There is no loss of landers-white differentiation to suggest acute infarction. The orbits are within normal limits. The paranasal sinuses are well aerated. No destructive osseous lesion is identified. IMPRESSION: No acute findings. Mild diffuse parenchymal volume loss and chronic microvascular changes. RPTAT: HIKT .Mich Sen MD, MD Date Time Electronically viewed and signed by .Mich Sen MD, MD on 03/02/2017 03:33 .T/ CC: JORGE HOLLAND MD EKG: Read by emergency physician Rate/Rhythm: Sinus tachycardia 112 beats/min QRS, ST, T-waves: No ST elevation, no T inversion, LAD Impression: Abnormal EKG MEDICAL MAKING DECISION: The patient is a 71-year-old female, presenting with acute systemic inflammatory response syndrome, acute encephalopathy of unclear etiology, acute hyponatremia. She was treated with Tylenol and p.o. for fever, Protonix 40 mg IV for epigastric abdominal discomfort, vancomycin IV and meropenem IV empirically The differential diagnoses considered include but are not limited to UTI, pneumonia, metabolic encephalopathy, septic encephalopathy, TIA, electrolyte imbalance Departure Diagnosis: Primary Impression: Systemic inflammatory response syndrome Additional Impressions: Encephalopathy Hyponatremia Condition: Stable Comments I discussed the findings with the patient. I discussed the patient with the on- call hospitalist Dr. Gardner at 4:20 AM who was made aware of the lab, the treatment, the patient condition. The patient is admitted [facility] the [facility] Mar 02, 2017 02:03
[2017-03-02] MEDS ORDERED: ACETAMINOPHEN 325 MG TAB PO STA (02:06)
[2017-03-02 02:48] LABS: URINE BLOOD (Dip) POC Negative (NEGATIVE)
--- NOTE | 2017-03-02 03:03 | RADRPT ---
PROCEDURE: XR Chest. CLINICAL INDICATION: Sepsis. TECHNIQUE: Single frontal chest x-ray. COMPARISON: 01/22/2017 FINDINGS: There is a right internal jugular central line with tip in the SVC. The cardiomediastinal silhouett e is unremarkable. There is no congestive heart failure.. There are poorly defined nodular densitie s bilaterally, most prominent in the right mid lung field 2.6 cm diameter.. There is bibasilar atele ctasis. There is no pleural effusion. There is no pneumothorax. The osseous structures are unremar kable. IMPRESSION: Poorly defined nodular densities, increased in size as compared to the prior study. Bibasilar atele ctasis. Otherwise no change. RPTAT: HMVK .Jorge Bolton MD, Date Time Electronically viewed and signed by .Jorge Bolton MD, on 03/02/2017 03:03 .K/
--- NOTE | 2017-03-02 03:11 | RADRPT ---
PROCEDURE: XR hip. CLINICAL INDICATION: Trauma TECHNIQUE: AP and frog lateral views of the left hip were performed. COMPARISON: There are no similar studies submitted for comparison. FINDINGS: There is a normal mineralization.No fracture is identified.There is normal alignment.No destructive osseous lesion is identified. IMPRESSION: No evidence of acute fracture. RPTAT: HIKT .Mich Sen MD, MD Date Time Electronically viewed and signed by .Mich Sen MD, MD on 03/02/2017 03:11 .T/
[2017-03-02 03:15] LABS: ADD SCAN DIFF NO
[2017-03-02 03:19] LABS: ADD UMIC NO; UR BILIRUBIN (Dip) NEGATIVE (NEGATIVE); UR BLOOD (Dip) NEGATIVE (NEGATIVE); UR CLARITY CLEAR (CLEAR); UR COLOR LT. YELLOW (YELLOW); UR GLUCOSE (Dip) NEGATIVE (NEGATIVE); UR KETONES (Dip) NEGATIVE (NEGATIVE); UR LEUKOCYTE ESTERASE (Dip) NEGATIVE (NEGATIVE); UR NITRITE (Dip) NEGATIVE (NEGATIVE); UR TOTAL PROTEIN (Dip) NEGATIVE (NEGATIVE); UR UROBILINOGEN (Dip) 1.0 E.U./dL (0.1-1.0)
[2017-03-02 03:22] LABS: ABNORMAL IP MESSAGE 1; HEMATOCRIT 29.8 % (37.0-47.0); HEMOGLOBIN 9.9 g/dl (12.0-16.0); MEAN CORPUSCULAR HEMOGLOBIN 31.1 pg (29.0-33.0); MEAN CORPUSCULAR HGB CONC 33.2 g/dl (32.0-37.0); MEAN CORPUSCULAR VOLUME 93.7 fl (82.0-101.0); MEAN PLATELET VOLUME 10.3 fl (7.4-10.4); PLATELET COUNT 286 10^3/UL (140-415); RED BLOOD COUNT 3.18 10^6/ul (4.20-5.40); WHITE BLOOD COUNT 24.4 10^3/ul (4.8-10.8)
--- NOTE | 2017-03-02 03:24 | RADRPT ---
PROCEDURE: XR Knee. CLINICAL INDICATION: Trauma TECHNIQUE: AP, lateral and oblique view of the left knee were obtained. COMPARISON: There are no similar studies submitted for comparison. FINDINGS: There is normal mineralization.There is no acute fracture or dislocation.No destructive lesion is id entified. There is no joint effusion. IMPRESSION: No fracture or dislocation. RPTAT: HIKT .Mich Sen MD, MD Date Time Electronically viewed and signed by .Mich Sen MD, MD on 03/02/2017 03:23 .T/
[2017-03-02] MEDS ORDERED: PANTOPRAZOLE 40 MG INJ IV ONE (03:30)
--- NOTE | 2017-03-02 03:33 | RADRPT ---
PROCEDURE: Noncontrast CT Head. CLINICAL INDICATION: Altered level of consciousness TECHNIQUE: Noncontrast CT of the head was obtained. The administered radiation dose was CTDI vol = 44.8 mGy, DLP = 720 mGy-cm. COMPARISON: No pertinent prior examinations were submitted for comparison. FINDINGS: The ventricles and cortical sulci are mildly enlarged. There is mild decreased attenuation within t he periventricular and subcortical white matter compatible with chronic microvascular changes. There is no acute intracranial hemorrhage or extra-axial fluid collection. There is no mass effect . No midline shift is identified. There is no loss of landers-white differentiation to suggest acute in farction. The orbits are within normal limits. The paranasal sinuses are well aerated. No destructive osseous lesion is identified. IMPRESSION: No acute findings. Mild diffuse parenchymal volume loss and chronic microvascular changes. RPTAT: HIKT .Mich Sen MD, MD Date Time Electronically viewed and signed by .Mich Sen MD, on 03/02/2017 03:33 .T/
[2017-03-02 03:45] LABS: INR 1.48; PT RATIO 1.4
[2017-03-02 03:46] LABS: PARTIAL THROMBOPLASTIN TIME 42.9 Sec (25.0-35.0)
[2017-03-02 03:48] LABS: ALANINE AMINOTRANSFERASE 34 IU/L (13-69); ALBUMIN 3.6 g/dl (3.3-4.9); ALBUMIN/GLOBULIN RATIO 0.97; ALKALINE PHOSPHATASE 138 IU/L (42-121); ANION GAP 11 (8-16); ASPARTATE AMINO TRANSFERASE 43 IU/L (15-46); BILIRUBIN,INDIRECT 0.7 mg/dl (0-1.1); BILIRUBIN,TOTAL 0.7 mg/dl (0.2-1.3); BLOOD UREA NITROGEN 17 mg/dl (7-20); CALCIUM 8.5 mg/dl (8.4-10.2); CARBON DIOXIDE 30 mmol/L (21-31); CHLORIDE 92 mmol/L (97-110); CREATININE 0.58 mg/dl (0.44-1.00); GLUCOSE 108 mg/dl (70-220); SODIUM 129 mmol/L (135-144); TOTAL PROTEIN 7.3 g/dl (6.1-8.1)
[2017-03-02 04:00] LABS: TROPONIN-I < 0.012 ng/ml (0.00-0.12)
[2017-03-02 04:09] LABS: LYMPHOCYTES # 2.2 10^3/ul (0.8-2.9); MONOCYTE # 2.7 10^3/ul (0.3-0.9); NEUTROPHIL # 18.5 10^3/ul (1.6-7.5)
[2017-03-02 04:10] LABS: PLATELET ESTIMATE PLT APPEAR ADEQUATE
[2017-03-02] MEDS ORDERED: VANCOMYCIN 1 GM (PMX) 250 ML IVPB SCH (04:30)
[2017-03-02] MEDS ORDERED: LORAZEPAM 1 MG TAB PO ONE (07:30)
[2017-03-02] MEDS ORDERED: ONDANSETRON 4 MG INJ IV PRN (09:00)
[2017-03-02] MEDS ORDERED: MEROPENEM 500 MG/100 ML (PMX) 100 ML IVPB SCH (09:00)
[2017-03-02] MEDS ORDERED: NACL 0.9% 3 ML SYG IV SCH (09:00)
[2017-03-02] MEDS ORDERED: VANCOMYCIN IV PER PHARMACY XX SCH (09:00)
[2017-03-02] MEDS ORDERED: ALBUTEROL/IPRATROPIUM (NEB) 3 ML AMP HHN PRN (09:30)
[2017-03-02] MEDS ORDERED: POLYETHYLENE GLYCOL 17 GM PACKET PO PRN (09:30)
[2017-03-02] MEDS ORDERED: VANCOMYCIN 500MG/NS (PMX) 100 ML IVPB ONE (10:00)
[2017-03-02] MEDS ORDERED: BISACODYL (EC) 5 MG TAB PO PRN (10:30)
[2017-03-02] MEDS ORDERED: GLUCOSE GEL 15 GRAM TUBE PO PRN ×2 (10:30)
[2017-03-02] MEDS ORDERED: hydrALAzine 20 MG INJ IV PRN (10:30)
[2017-03-02] MEDS ORDERED: DEXTROSE 50% 50 ML SYRINGE IV PRN ×2 (10:30)
[2017-03-02] MEDS ORDERED: GLUCAGON 1 MG INJ IM PRN (10:30)
[2017-03-02] MEDS ORDERED: GLUCOSE GEL 15 GRAM TUBE BUCCAL PRN (10:30)
[2017-03-02] MEDS: CEFEPIME 1GM/50 ML (PMX) 50 ML IVPB SCH ×2 (10:38→21:36)
--- NOTE | 2017-03-02 11:34 | HP ---
DATE OF ADMISSION: 03/02/2017 REASON FOR ADMISSION: Fevers, confusion. CONSULTANTS: Dayton Chu MD, Infectious Diseases. HISTORY OF PRESENT ILLNESS: This is a 71-year-old female with past medical history of metastatic cholangiocarcinoma on chemotherapy, COPD who is on home O2, anemia, essential hypertension, type 2 diabetes mellitus, peptic ulcer disease and esophagitis, who was discharged from [facility] on 02/27/2017 after treatment for symptomatic anemia. The patient was discharged home. The patient verbalized that she has been having fevers for the past 2 days. There was also reported dysuria. The patient denied any diarrhea. In fact, the patient was constipated. She denied any significant worsening of dyspnea. As mentioned earlier, she uses home oxygen for her COPD. The patient denied any significant cough. The family was also reporting confusion in this patient. Hence, the patient was brought to the emergency room. In the emergency room, the patient was noticed to have leukocytosis with a WBC of 24.4. The patient was febrile with a temperature of 101.9. The patient's blood pressure was within normal limits. The patient had no lactic acidosis. The patient's chest x-ray showed poorly defined nodular densities increased in size as compared to prior study. The patient also reported a fall at home, falling on to the left side. There was no reported loss of consciousness. The patient underwent an x-ray of the left hip and left knee that are negative for any acute findings. PAST MEDICAL HISTORY: Essential hypertension, type 2 diabetes mellitus, metastatic cholangiocarcinoma, anemia, COPD, dependent on home O2, duodenal ulcers, gastritis, esophagitis. PAST SURGICAL HISTORY: CBD stent placement. HOME MEDICATIONS: 1. Combivent Respimat 20/100 mcg per inhalation 1 puff inhaled q.i.d. 2. Lopressor 25 mg p.o. b.i.d. 3. Xanax 0.5 mg p.o. q.8h. p.r.n. anxiety. 4. Percocet 5/325 one tablet p.o. q.6h. p.r.n. pain. 5. Symbicort 160/4.5 two puffs inhaled b.i.d. 6. Colace 100 mg p.o. daily. 7. Protonix 40 mg p.o. b.i.d. 8. MiraLax 8.5 mg p.o. daily p.r.n. constipation. 9. Carafate 1 gram p.o. q.i.d. 10. Lantus insulin 20 units subcutaneous q.a.m. 11. Tradjenta 5 mg p.o. daily. ALLERGIES: NO KNOWN DRUG ALLERGIES. SOCIAL HISTORY: The patient lives at home with her family. The patient is an ex-smoker. No history of recent tobacco, alcohol or illicit drug use. REVIEW OF SYSTEMS: A 12-point review of systems were made and the review of systems are negative other than what is mentioned in the history of present illness. PHYSICAL EXAMINATION: VITAL SIGNS: Temperature 99.5, pulse rate 101, respiratory rate 18, blood pressure 138/90, oxygen saturation 100% on 4 liters of oxygen via nasal cannula. GENERAL: This is a 71-year-old female patient lying in bed in mild respiratory distress. HEENT: Head normocephalic and atraumatic. Eyes: Anicteric sclerae. Conjunctivae clear. ENT: Nasal septum is midline. Oral mucosa is dry. NECK: Supple. No JVD noticed. RESPIRATORY: Bilaterally diminished breath sounds. Minimal use of accessory muscles of respiration. CARDIAC: Regular rate and rhythm. S1 and S2 heard. ABDOMEN: Soft, nontender and nondistended. Bowel sounds positive in all 4 quadrants. GENITOURINARY: The patient has a Curtis catheter in place. EXTREMITIES: No cyanosis, no clubbing, no edema. Peripheral pulses are palpable. NEUROLOGIC: The patient is awake, alert, and oriented. LABORATORY AND DIAGNOSTIC DATA: WBC 24.4, hemoglobin 9.9, hematocrit 29.8, platelet count 286. Sodium 129, potassium 4.0, chloride 92, carbon dioxide 30, anion gap 11, BUN 17, creatinine 0.58, glucose 108, calcium 8.5. Total bilirubin 0.7, direct bilirubin 0.0, indirect bilirubin 0.7, AST 43, ALT 34, alkaline phosphatase 138. PT 18.0, INR 1.48, APTT 42.9. Urinalysis: Urine nitrite negative, urine leukocyte esterase negative Left knee x-ray: No fracture or dislocation. Left hip x-ray: No evidence of acute fracture. Chest x-ray: Poorly defined nodular densities, increased in size compared to prior study. Bibasilar atelectasis. Brain CT scan: No acute findings. Mild diffuse parenchymal volume loss and chronic microvascular changes. IMPRESSION: This is a 71-year-old female with multiple comorbidities who came to the emergency room with chief complaint of fevers and confusion, who will be admitted here for further treatment and evaluation. ASSESSMENT AND PLAN: 1. Systemic inflammatory response syndrome with leukocytosis, sinus tachycardia , and febrile illness. Etiology unclear. The patient will be started on empiric antibiotics. Pancultures will be obtained. An infectious disease consult will be called. 2. Metastatic cholangiocarcinoma. The patient undergoing chemotherapy. We will monitor. 3. Essential hypertension. The patient will be continued on antihypertensives. The patient will also be started on p.r.n. antihypertensives for any systolic blood pressure readings greater than 160 mmHg. 4. Type 2 diabetes mellitus. The patient will be maintained on Lantus insulin along with premeal insulin and insulin sliding scale. 5. Duodenal ulcers and gastric ulcers along with esophagitis. Continue proton pump inhibitors and mucosal barrier protectant. 6. Microcytic hypochromic anemia. Most probably anemia of underlying malignancy. We will monitor hemoglobin and hematocrit closely. We will transfuse as needed. 7. COPD. No evidence of exacerbation. We will continue the patient on inhaled bronchodilators. PLAN: The patient will be admitted to inpatient telemetry floor. The patient will be started on a carbohydrate controlled diet. The patient will remain a FULL CODE. Activities will be with assistance. Physical therapy evaluation will be ordered. The rest of the patient's management will be based on the clinical course, the results of diagnostic studies, and inputs from consultants. Based on the patient's clinical presentation, she most probably requires at least 1 midnight's stay for further management and evaluation of her clinical presentation. The case and management of this patient was fully discussed with Dr. Perez. TERRELL PEREZ MD, AM/AMOS Conf#: [id number] DID#: [id number] REAGAN
[2017-03-02] MEDS: SUCRALFATE 1 GM TAB PO SCH ×3 (12:17→21:36)
[2017-03-02] MEDS: SALMETEROL/FLUTICASONE 250/50 INHA INH SCH ×2 (12:17→21:36)
[2017-03-02] MEDS: POLYETHYLENE GLYCOL 17 GM PACKET PO SCH ×2 (12:17→21:37)
[2017-03-02] MEDS: INSULIN ASPART [NOVOLOG] 3 ML PEN SC SCH ×5 (12:23→21:47)
[2017-03-02] MEDS: ALBUTEROL/IPRATROPIUM (NEB) 3 ML AMP HHN SCH ×2 (13:00→21:05)
--- NOTE | 2017-03-02 15:03 | CONS ---
DATE OF ADMISSION: 03/02/2017 DATE OF CONSULTATION: 03/02/2017 TYPE OF CONSULTATION: Infectious Disease. REASON FOR CONSULTATION: Antibiotic management. HISTORY OF PRESENT ILLNESS: Mimi Saldana is a 71-year-old female who comes in with a history of metastatic cholangiocarcinoma on chemotherapy and is being seen for antibiotic manageme nt. Past problems include: 1. Metastatic cholangiocarcinoma, current chemotherapy. 2. Chronic obstructive pulmonary disease on home oxygen. 3. Anemia. 4. Essential hypertension. 5. Adult-onset diabetes mellitus. 6. Peptic ulcer disease. 7. Esophagitis. The patient was discharged from [facility] on 02/27/2017 after treatment for symptomatic an emia. She is having fever for the last 2 days as well as dysuria. She denies any cough. In the em ergency room, her white count was 24.4, she had a temperature of 101.9, blood pressure within normal limits. Chest x-ray showed poorly defined nodular densities increased in size as compared to prior studies. She reported a fall at home, falling on her left side. There was no reported loss of consciousness . She underwent an x-ray of the left hip and left knee that are essentially negative. PAST SURGICAL HISTORY: Status post CBD, stent placement. FAMILY HISTORY: Noncontributory. SOCIAL HISTORY: She does not smoke, drink or abuse drugs. She is an ex-smoker. ALLERGIES: NONE TO PENICILLIN, SULFA OR FOODS. MEDICATIONS: Per chart. REVIEW OF SYSTEMS: Noncontributory. PHYSICAL EXAMINATION: GENERAL: The patient is a well-developed, well-nourished female who is in mild respiratory distress . VITAL SIGNS: Stable. T-max 99.5. SKIN: Without generalized rash. HEENT: Within normal limits. NECK: Supple. LYMPH NODES: None palpable. CHEST: Decreased breath sounds at the bases. HEART: Without murmur or gallop. ABDOMEN: Soft, nontender, nondistended, without organosplenomegaly or masses. EXTREMITIES: Without cyanosis, clubbing, or edema. RECTAL AND GENITAL: Exam is deferred. NEUROLOGIC: No focal neurological abnormalities. ANCILLARY LABORATORY DATA: White count 24.4, H and H of 9.9 and 29.8, platelet count 286,000. BUN and creatinine 17/0.58. Her urine nitrite is negative, leukocyte esterase is negative. IMAGING: An x-ray of the left knee shows no fractures or dislocations. Chest x-ray shows poorly de fined nodular densities increased in size compared to prior studies. IMPRESSION AND PLAN: The patient comes in now with systemic inflammatory response syndrome with luciano kocytosis, the etiology of which is unclear. Patient was started on vancomycin and cefepime. We wi ll continue her on this regimen. Blood cultures have been drawn. She had one dose of meropenem. S he also had a number of other medications. Will await her cultures. I will dictate her findings to the hospitalist. Dictated By: CHI FRANKS MD, JD/AMOS Conf#: [id number] DID#: [id number]
[2017-03-02] MEDS: SOD CHLORIDE 0.9% 1,000 ML IV SCH (15:45)
[2017-03-02] MEDS: HYDROCODONE/APAP (5/325) TAB PO PRN (17:49)
[2017-03-02] MEDS: PANTOPRAZOLE (EC) 40 MG TAB PO SCH (21:36)
[2017-03-02] MEDS: METOPROLOL 25 MG TAB PO SCH (21:37)
[2017-03-02] MEDS: VANCOMYCIN 1 GM (PMX) 250 ML IVPB SCH (23:49)
[2017-03-03] VITALS (13 sets, daily range): BP systolic 128–146; BP diastolic 61–76; PULSE 91–113; RESP 18–20
[2017-03-03] MEDS: ACCU-CHEK XX SCH (02:05)
[2017-03-03] MEDS: SOD CHLORIDE 0.9% 1,000 ML IV SCH ×3 (04:11→22:37)
[2017-03-03] MEDS: ALBUTEROL/IPRATROPIUM (NEB) 3 ML AMP HHN SCH ×3 (07:50→20:07)
[2017-03-03] MEDS: INSULIN ASPART [NOVOLOG] 3 ML PEN SC SCH ×7 (08:00→21:00)
[2017-03-03 08:03] LABS: ADD SCAN DIFF NO
[2017-03-03 08:13] LABS: ABNORMAL IP MESSAGE 1; BASOPHILS % 0.2 % (0.0-2.0); EOSINOPHILS # 0.1 10^3/ul (0.0-0.5); EOSINOPHILS % 0.5 % (0.0-7.0); HEMATOCRIT 27.8 % (37.0-47.0); HEMOGLOBIN 8.7 g/dl (12.0-16.0); LYMPHOCYTES # 1.7 10^3/ul (0.8-2.9); LYMPHOCYTES % 8.1 % (15.0-51.0); MEAN CORPUSCULAR HEMOGLOBIN 29.9 pg (29.0-33.0); MEAN CORPUSCULAR HGB CONC 31.3 g/dl (32.0-37.0); MEAN CORPUSCULAR VOLUME 95.5 fl (82.0-101.0); MEAN PLATELET VOLUME 10.6 fl (7.4-10.4); MONOCYTE # 2.5 10^3/ul (0.3-0.9); MONOCYTES % 11.9 % (0.0-11.0); NEUTROPHIL # 16.2 10^3/ul (1.6-7.5); NEUTROPHILS % 76.3 % (39.0-77.0); PLATELET COUNT 266 10^3/UL (140-415); RED BLOOD COUNT 2.91 10^6/ul (4.20-5.40); WHITE BLOOD COUNT 21.2 10^3/ul (4.8-10.8)
[2017-03-03 08:36] LABS: ALBUMIN/GLOBULIN RATIO 0.88; BILIRUBIN,INDIRECT 0.5 mg/dl (0-1.1); BILIRUBIN,TOTAL 0.5 mg/dl (0.2-1.3); CALCIUM 8.3 mg/dl (8.4-10.2); CREATININE 0.48 mg/dl (0.44-1.00); POTASSIUM 3.5 mmol/L (3.5-5.1); TOTAL PROTEIN 6.4 g/dl (6.1-8.1)
[2017-03-03 08:40] LABS: MAGNESIUM 1.6 mg/dl (1.7-2.5); PHOSPHORUS 2.9 mg/dl (2.5-4.9)
[2017-03-03] MEDS: DOCUSATE SODIUM 100 MG CAP PO SCH (08:49)
[2017-03-03] MEDS: SALMETEROL/FLUTICASONE 250/50 INHA INH SCH ×2 (08:49→22:13)
[2017-03-03] MEDS: PANTOPRAZOLE (EC) 40 MG TAB PO SCH ×2 (08:49→22:14)
[2017-03-03] MEDS: SUCRALFATE 1 GM TAB PO SCH ×4 (08:50→22:13)
[2017-03-03] MEDS: LINAGLIPTIN 5 MG TABLET PO SCH (08:50)
[2017-03-03] MEDS: METOPROLOL 25 MG TAB PO SCH ×2 (08:50→22:14)
[2017-03-03] MEDS: POLYETHYLENE GLYCOL 17 GM PACKET PO SCH ×3 (08:50→22:13)
[2017-03-03] MEDS: INSULIN GLARGINE [LANtus] 3 ML PEN SC SCH (08:51)
[2017-03-03] MEDS: CEFEPIME 1GM/50 ML (PMX) 50 ML IVPB SCH ×2 (08:56→22:23)
[2017-03-03 09:05] LABS: THYROID STIMULATING HORMONE 1.89 MIU/L (0.465-4.680)
[2017-03-03] MEDS: morphine 2 MG INJ IV PRN ×3 (09:11→22:48)
[2017-03-03] MEDS: VANCOMYCIN 1 GM (PMX) 250 ML IVPB SCH ×2 (11:58→22:49)
--- NOTE | 2017-03-03 12:57 | CONS ---
Date/Time of Note Date/Time of Note DATE: 03/03/17 TIME: 12:56 Assessment/Plan Assessment/Plan Chief Complaint/Hosp Course ID PROGRESS NOTE ABX DAY # vancomycin and cefepime. 24H INTERVAL SUMMARY * The patient has been off the floor for several hours this am down in Nuclear Medicine; hence I was not able to see and examine today * CHART REVIEWED->Admitted w/Fever 101.9; reporting fevers x 2 days prior to admission w/dysuria. Fever resolved w/Tmax last 24H 99.2. WBC down today after broad spectrum empiric ABX initiated. * MICRO: BCx (-); Urine Cx (-); INFLUENZA A & B BY EIA Final INFLUENZA A NEGATIVE (Ref Range Neg) INFLUENZA B NEGATIVE (Ref Range Neg) ID ASSESSMENT: 71 yo F w/ admitted with: 1. Systemic inflammatory response syndrome with leukocytosis, sinus tachycardia , febrile illness. * Etiology unclear 2. Metastatic cholangiocarcinoma => the patient is in chemotherapy 3. Essential hypertension. 4. Type 2 diabetes mellitus -> IDDM 5. Duodenal ulcers and gastric ulcers along with esophagitis. 6. Microcytic hypochromic anemia, likely related to #2 7. COPD who is on home O2 ABX ALLERGIES: KNDA INVASIVES: *PIV CURRENT ABX: ABX DAY # =>vancomycin and cefepime. ID RECOMMENDATIONS: 1. Continue broad spectrum empiric ABX -> work up in process, all micro (-) to date 2. Await results nuclear study today 3. Will continue to f/u . . Problems: Consultation Date/Type/Reason Admit Date/Time Mar 02, 2017 at 05:01 Initial Consult Date Exam/Review of Systems Vital Signs Vitals Vital Signs Date Time Temp Pulse Resp B/P Pulse Ox O2 Delivery O2 Flow Rate FiO2 03/03/17 12:34 98.0 78 18 134/64 98 03/03/17 07:52 Nasal Cannula 3.0 03/02/17 06:14 33 Intake and Output 03/02/17 03/02/17 03/03/17 15:00 23:00 07:00 Intake Total 50 ml 500 ml 450 ml Output Total 1400 ml 600 ml Balance 50 ml -900 ml -150 ml Results Result Diagram: 03/03/17 0705 03/03/17 0705 Results 24 hrs Laboratory Tests Test 03/02/17 17:46 03/02/17 21:26 03/03/17 01:58 03/03/17 07:05 Bedside Glucose 81 184 130 White Blood Count 21.2 H Red Blood Count 2.91 L Hemoglobin 8.7 L Hematocrit 27.8 L Mean Corpuscular Volume 95.5 Mean Corpuscular Hemoglobin 29.9 Mean Corpuscular Hemoglobin Concent 31.3 L Red Cell Distribution Width Platelet Count 266 Mean Platelet Volume 10.6 H Neutrophils % 76.3 Lymphocytes % 8.1 L Monocytes % 11.9 H Eosinophils % 0.5 Basophils % 0.2 Nucleated Red Blood Cells % 0.0 Neutrophils # 16.2 H Lymphocytes # 1.7 Monocytes # 2.5 H Eosinophils # 0.1 Basophils # 0.0 Nucleated Red Blood Cells # 0.0 Sodium Level 128 L Potassium Level 3.5 Chloride Level 93 L Carbon Dioxide Level 32 H Anion Gap 7 L Blood Urea Nitrogen 11 Creatinine 0.48 Glucose Level 112 Calcium Level 8.3 L Phosphorus Level 2.9 Magnesium Level 1.6 L Total Bilirubin 0.5 Direct Bilirubin 0.00 Indirect Bilirubin 0.5 Aspartate Amino Transf (AST/SGOT) 31 Alanine Aminotransferase (ALT/SGPT) 23 Alkaline Phosphatase 129 H Total Protein 6.4 Albumin 3.0 L Globulin 3.40 H Albumin/Globulin Ratio 0.88 Triglycerides Level 92 Cholesterol Level 68 L LDL Cholesterol, Calculated 33 HDL Cholesterol 17 L Cholesterol/HDL Ratio 4.0 Thyroid Stimulating Hormone (TSH) 1.890 Free Thyroxine 1.62 Test 03/03/17 07:55 03/03/17 12:03 Bedside Glucose 115 181 Medications Medications Current Medications Ondansetron HCl (Zofran Inj) 4 mg Q6H PRN IV NAUSEA AND/OR VOMITING; Start at 09:00 Acetaminophen (Tylenol Tab) 650 mg Q6H PRN PO PAIN LEVEL 1-3 OR FEVER; Start at 09:00 Acetaminophen/ Hydrocodone Bitart ([place] (5/325)) 1 tab Q6H PRN PO PAIN LEVEL 4 -6 Last administered on 03/02/17 17:49; Admin Dose 1 TAB; Start 03/02/17 at 09: 00 Morphine Sulfate (morphine) 2 mg Q4H PRN IV PAIN LEVEL 7-10 Last administered on 03/03/17 09:11; Admin Dose 2 MG; Start 03/02/17 at 09:00 Magnesium Hydroxide 30 ml 30 ml DAILY PRN PO CONSTIPATION; Start 03/02/17 at 09 :00 Cefepime HCl (Maxipime 1gm/50 ml (Pmx)) 50 ml @ 100 mls/hr Q12 IVPB Last administered on 03/03/17 08:56; Admin Dose 100 MLS/HR; Start 03/02/17 at 10:00 Alprazolam (Xanax) 0.5 mg Q8H PRN PO ANXIETY; Start 03/02/17 at 09:30 Docusate Sodium (Colace) 100 mg DAILY PO Last administered on 03/03/17 08:49; Admin Dose 100 MG; Start 03/03/17 at 09:00 Linagliptin (Tradjenta) 5 mg DAILY PO Last administered on 03/03/17 08:50; Admin Dose 5 MG; Start 03/03/17 at 09:00 Metoprolol Tartrate (Lopressor) 25 mg BID PO Last administered on 03/03/17 08: 50; Admin Dose 25 MG; Start 03/02/17 at 21:00 Pantoprazole (Protonix Tab) 40 mg BID PO Last administered on 03/03/17 08:49; Admin Dose 40 MG; Start 03/02/17 at 21:00 Polyethylene Glycol (Miralax) 8.5 gm DAILY PRN PO CONSTIPATION; Start 03/02/17 at 09:30 Sucralfate (Carafate) 1 gm QID PO Last administered on 03/03/17 12:07; Admin Dose 1 GM; Start 03/02/17 at 13:00 Salmeterol Xinafoate/ Fluticasone 1 inh 1 inh BID INH Last administered on 03/03 08:49; Admin Dose 1 INH; Start 03/02/17 at 11:00 Vancomycin HCl (Vancocin) 250 ml @ 250 mls/hr Q12H IVPB Last administered on 11:58; Admin Dose 250 MLS/HR; Start 03/02/17 at 23:00 Insulin Glargine (Lantus) 20 unit DAILY@08 SC Last administered on 03/03/17 08 :51; Admin Dose 20 UNIT; Start 03/03/17 at 08:00 Diagnostic Test (Pha) (Accu-Chek) 1 ea 02 XX Last administered on 03/03/17 02: 05; Admin Dose 1 EA; Start 03/03/17 at 02:00 Miscellaneous Information 1 ea NOTE XX ; Start 03/02/17 at 10:30 Glucose (Glutose) 15 gm Q15M PRN PO DECREASED GLUCOSE; Start 03/02/17 at 10:30 Glucose (Glutose) 22.5 gm Q15M PRN PO DECREASED GLUCOSE; Start 03/02/17 at 10: 30 Dextrose (D50w Syringe) 25 ml Q15M PRN IV DECREASED GLUCOSE; Start 03/02/17 at 10:30 Dextrose (D50w Syringe) 50 ml Q15M PRN IV DECREASED GLUCOSE; Start 03/02/17 at 10:30 Glucagon (Glucagen) 1 mg Q15M PRN IM DECREASED GLUCOSE; Start 03/02/17 at 10:30 Glucose (Glutose) 15 gm Q15M PRN BUCCAL DECREASED GLUCOSE; Start 03/02/17 at 10 :30 Hydralazine HCl (Apresoline) 10 mg Q6H PRN IV SBP>160 Last administered on 03/02 12:28; Admin Dose 10 MG; Start 03/02/17 at 10:30 Polyethylene Glycol (Miralax) 17 gm BID PO Last administered on 03/03/17 08:50 ; Admin Dose 17 GM; Start 03/02/17 at 11:00 Bisacodyl 10 mg 10 mg DAILY PRN PO CONSTIPATION; Start 03/02/17 at 10:30 Sodium Chloride (NS) 1,000 ml @ 75 mls/hr [id number] IV Last administered on 03/03 04:11; Admin Dose 75 MLS/HR; Start 03/02/17 at 13:30 Miscellaneous Information (*Rx Drug Level Order Reminder*) VANCOMYCIN TROUGH AT 2200 ONCE ONCE XX ; Start 03/03/17 at 22:00; Stop 03/03/17 at 22:01 NAE GARDNER NP Mar 03, 2017 12:57
[2017-03-03] MEDS ORDERED: MAGNESIUM SULFATE 2 GM/50 ML 50 ML IVPB ONE (13:00)
--- NOTE | 2017-03-03 14:15 | PN ---
Date/Time of Note Date/Time of Note DATE: 03/03/17 TIME: 14:11 Assessment/Plan VTE Prophylaxis VTE Prophylaxis Intervention: SCD's Lines/Catheters IV [facility]from [facility] [place] Urinary Cath still in place: No Assessment/Plan Chief Complaint/Hosp Course 1. Systemic inflammatory response syndrome with leukocytosis, sinus tachycardia , febrile illness. Etiology unclear. The patient will be continued on empiric antibiotics. Pancultures negative so far. Being followed by infectious diseases. 2. Metastatic cholangiocarcinoma. The patient undergoing chemotherapy. We will monitor. 3. Essential hypertension. The patient will be continued on antihypertensives including p.r.n. antihypertensives for any systolic blood pressure readings greater than 160 mmHg. 4. Type 2 diabetes mellitus. The patient will be maintained on Lantus insulin along with premeal insulin and insulin sliding scale. 5. Duodenal ulcers and gastric ulcers along with esophagitis. Continue proton pump inhibitors and mucosal barrier protectants. 6. Microcytic hypochromic anemia. Most probably anemia of underlying malignancy. We will monitor hemoglobin and hematocrit closely. We will transfuse as needed. 7. Hyponatremia. Continue normal saline. 8. Fluids, electrolytes, and nutrition. Carbohydrate controlled diet. 9. DVT prophylaxis with bilateral sequential compression devices. 10. Gastrointestinal prophylaxis. Proton pump inhibitors. 11. Plan. Continue antibiotics as per infectious disease. Monitor in telemetry because of underlying tachycardia. Case discussed with Dr. Perez. Problems: Subjective 24 Hr Interval Summary Free Text/Dictation The patient remains awake and alert. No episodes of confusion as per the family. Remains afebrile. Exam/Review of Systems Vital Signs Vitals Vital Signs Date Time Temp Pulse Resp B/P Pulse Ox O2 Delivery O2 Flow Rate FiO2 03/03/17 12:34 98.0 78 18 134/64 98 03/03/17 07:52 Nasal Cannula 3.0 03/02/17 06:14 33 Intake and Output 03/02/17 03/02/17 03/03/17 15:00 23:00 07:00 Intake Total 50 ml 500 ml 450 ml Output Total 1400 ml 600 ml Balance 50 ml -900 ml -150 ml Exam GENERAL: This is a 71-year-old female patient lying in bed in mild respiratory distress. HEENT: Head normocephalic and atraumatic. Eyes: Anicteric sclerae. Conjunctivae clear. ENT: Nasal septum is midline. Oral mucosa is dry. NECK: Supple. No JVD noticed. RESPIRATORY: Bilaterally diminished breath sounds. Minimal use of accessory muscles of respiration. CARDIAC: Regular rate and rhythm. S1 and S2 heard. ABDOMEN: Soft, nontender and nondistended. Bowel sounds positive in all 4 quadrants. GENITOURINARY: The patient has a Curtis catheter in place. EXTREMITIES: No cyanosis, no clubbing, no edema. Peripheral pulses are palpable. NEUROLOGIC: The patient is awake, alert, and oriented. Results Result Diagram: 03/03/17 0703/03/17 0705 Results 24 hrs Laboratory Tests Test 03/02/17 17:46 03/02/17 21:26 03/03/17 01:58 03/03/17 07:05 Bedside Glucose 81 184 130 White Blood Count 21.2 H Red Blood Count 2.91 L Hemoglobin 8.7 L Hematocrit 27.8 L Mean Corpuscular Volume 95.5 Mean Corpuscular Hemoglobin 29.9 Mean Corpuscular Hemoglobin Concent 31.3 L Red Cell Distribution Width Platelet Count 266 Mean Platelet Volume 10.6 H Neutrophils % 76.3 Lymphocytes % 8.1 L Monocytes % 11.9 H Eosinophils % 0.5 Basophils % 0.2 Nucleated Red Blood Cells % 0.0 Neutrophils # 16.2 H Lymphocytes # 1.7 Monocytes # 2.5 H Eosinophils # 0.1 Basophils # 0.0 Nucleated Red Blood Cells # 0.0 Sodium Level 128 L Potassium Level 3.5 Chloride Level 93 L Carbon Dioxide Level 32 H Anion Gap 7 L Blood Urea Nitrogen 11 Creatinine 0.48 Glucose Level 112 Calcium Level 8.3 L Phosphorus Level 2.9 Magnesium Level 1.6 L Total Bilirubin 0.5 Direct Bilirubin 0.00 Indirect Bilirubin 0.5 Aspartate Amino Transf (AST/SGOT) 31 Alanine Aminotransferase (ALT/SGPT) 23 Alkaline Phosphatase 129 H Total Protein 6.4 Albumin 3.0 L Globulin 3.40 H Albumin/Globulin Ratio 0.88 Triglycerides Level 92 Cholesterol Level 68 L LDL Cholesterol, Calculated 33 HDL Cholesterol 17 L Cholesterol/HDL Ratio 4.0 Thyroid Stimulating Hormone (TSH) 1.890 Free Thyroxine 1.62 Test 03/03/17 07:55 03/03/17 12:03 Bedside Glucose 115 181 Medications Medications Current Medications Ondansetron HCl (Zofran Inj) 4 mg Q6H PRN IV NAUSEA AND/OR VOMITING; Start at 09:00 Acetaminophen (Tylenol Tab) 650 mg Q6H PRN PO PAIN LEVEL 1-3 OR FEVER; Start at 09:00 Acetaminophen/ Hydrocodone Bitart ([place] (5/325)) 1 tab Q6H PRN PO PAIN LEVEL 4 -6 Last administered on 03/02/17 17:49; Admin Dose 1 TAB; Start 03/02/17 at 09: 00 Morphine Sulfate (morphine) 2 mg Q4H PRN IV PAIN LEVEL 7-10 Last administered on 03/03/17 09:11; Admin Dose 2 MG; Start 03/02/17 at 09:00 Magnesium Hydroxide 30 ml 30 ml DAILY PRN PO CONSTIPATION; Start 03/02/17 at 09 :00 Cefepime HCl (Maxipime 1gm/50 ml (Pmx)) 50 ml @ 100 mls/hr Q12 IVPB Last administered on 03/03/17 08:56; Admin Dose 100 MLS/HR; Start 03/02/17 at 10:00 Alprazolam (Xanax) 0.5 mg Q8H PRN PO ANXIETY; Start 03/02/17 at 09:30 Docusate Sodium (Colace) 100 mg DAILY PO Last administered on 03/03/17 08:49; Admin Dose 100 MG; Start 03/03/17 at 09:00 Linagliptin (Tradjenta) 5 mg DAILY PO Last administered on 03/03/17 08:50; Admin Dose 5 MG; Start 03/03/17 at 09:00 Metoprolol Tartrate (Lopressor) 25 mg BID PO Last administered on 03/03/17 08: 50; Admin Dose 25 MG; Start 03/02/17 at 21:00 Pantoprazole (Protonix Tab) 40 mg BID PO Last administered on 03/03/17 08:49; Admin Dose 40 MG; Start 03/02/17 at 21:00 Polyethylene Glycol (Miralax) 8.5 gm DAILY PRN PO CONSTIPATION; Start 03/02/17 at 09:30 Sucralfate (Carafate) 1 gm QID PO Last administered on 03/03/17 12:07; Admin Dose 1 GM; Start 03/02/17 at 13:00 Salmeterol Xinafoate/ Fluticasone 1 inh 1 inh BID INH Last administered on 03/03 08:49; Admin Dose 1 INH; Start 03/02/17 at 11:00 Vancomycin HCl (Vancocin) 250 ml @ 250 mls/hr Q12H IVPB Last administered on 11:58; Admin Dose 250 MLS/HR; Start 03/02/17 at 23:00 Insulin Glargine (Lantus) 20 unit DAILY@08 SC Last administered on 03/03/17 08 :51; Admin Dose 20 UNIT; Start 03/03/17 at 08:00 Diagnostic Test (Pha) (Accu-Chek) 1 ea 02 XX Last administered on 03/03/17 02: 05; Admin Dose 1 EA; Start 03/03/17 at 02:00 Miscellaneous Information 1 ea NOTE XX ; Start 03/02/17 at 10:30 Glucose (Glutose) 15 gm Q15M PRN PO DECREASED GLUCOSE; Start 03/02/17 at 10:30 Glucose (Glutose) 22.5 gm Q15M PRN PO DECREASED GLUCOSE; Start 03/02/17 at 10: 30 Dextrose (D50w Syringe) 25 ml Q15M PRN IV DECREASED GLUCOSE; Start 03/02/17 at 10:30 Dextrose (D50w Syringe) 50 ml Q15M PRN IV DECREASED GLUCOSE; Start 03/02/17 at 10:30 Glucagon (Glucagen) 1 mg Q15M PRN IM DECREASED GLUCOSE; Start 03/02/17 at 10:30 Glucose (Glutose) 15 gm Q15M PRN BUCCAL DECREASED GLUCOSE; Start 03/02/17 at 10 :30 Hydralazine HCl (Apresoline) 10 mg Q6H PRN IV SBP>160 Last administered on 03/02 12:28; Admin Dose 10 MG; Start 03/02/17 at 10:30 Polyethylene Glycol (Miralax) 17 gm BID PO Last administered on 03/03/17 08:50 ; Admin Dose 17 GM; Start 03/02/17 at 11:00 Bisacodyl 10 mg 10 mg DAILY PRN PO CONSTIPATION; Start 03/02/17 at 10:30 Sodium Chloride (NS) 1,000 ml @ 75 mls/hr [id number] IV Last administered on 6/17 /17at 04:11; Admin Dose 75 MLS/HR; Start 03/02/17 at 13:30 Miscellaneous Information VANCOMYCIN TROUGH AT 2200 ONCE ONCE XX ; Start 03/03/17 at 22:00; Stop 03/03/17 at 22:01 Magnesium Sulfate (Magnesium Sulfate 2 Gm/50 ml) 50 ml @ 25 mls/hr ONCE ONCE IVPB ; Start 03/03/17 at 13:00; Stop 03/03/17 at 14:59 TERRELL DOZIER NP Mar 03, 2017 14:15
[2017-03-04] VITALS (12 sets, daily range): BP systolic 122–141; BP diastolic 57–77; PULSE 84–119; RESP 18–21
[2017-03-04] MEDS: ACCU-CHEK XX SCH (02:00)
[2017-03-04] MEDS: ACETAMINOPHEN 325 MG TAB PO PRN ×2 (04:37→22:29)
[2017-03-04] MEDS ORDERED: VANCOMYCIN 1 GM (PMX) 250 ML IVPB SCH (07:00)
[2017-03-04] MEDS: ALBUTEROL/IPRATROPIUM (NEB) 3 ML AMP HHN SCH ×3 (07:44→19:40)
[2017-03-04] MEDS: INSULIN ASPART [NOVOLOG] 3 ML PEN SC SCH ×7 (08:00→21:00)
[2017-03-04 08:06] LABS: ADD SCAN DIFF NO
[2017-03-04 08:09] LABS: ABNORMAL IP MESSAGE 1; HEMATOCRIT 26.4 % (37.0-47.0); HEMOGLOBIN 8.3 g/dl (12.0-16.0); MEAN CORPUSCULAR HEMOGLOBIN 30.4 pg (29.0-33.0); MEAN CORPUSCULAR HGB CONC 31.4 g/dl (32.0-37.0); MEAN CORPUSCULAR VOLUME 96.7 fl (82.0-101.0); MEAN PLATELET VOLUME 10.3 fl (7.4-10.4); PLATELET COUNT 255 10^3/UL (140-415); RED BLOOD COUNT 2.73 10^6/ul (4.20-5.40); RED CELL DISTRIBUTION WIDTH 25.2 % (11.5-14.5); WHITE BLOOD COUNT 17.9 10^3/ul (4.8-10.8)
[2017-03-04 08:35] LABS: CALCIUM 7.9 mg/dl (8.4-10.2); CREATININE 0.55 mg/dl (0.44-1.00)
[2017-03-04 08:38] LABS: MAGNESIUM 1.9 mg/dl (1.7-2.5); PHOSPHORUS 3.2 mg/dl (2.5-4.9)
[2017-03-04] MEDS: SALMETEROL/FLUTICASONE 250/50 INHA INH SCH ×2 (08:56→21:10)
[2017-03-04] MEDS: POLYETHYLENE GLYCOL 17 GM PACKET PO SCH ×2 (08:57→21:10)
[2017-03-04] MEDS: METOPROLOL 25 MG TAB PO SCH ×2 (08:57→21:12)
[2017-03-04] MEDS: LINAGLIPTIN 5 MG TABLET PO SCH (08:57)
[2017-03-04] MEDS: SUCRALFATE 1 GM TAB PO SCH ×4 (08:57→21:10)
[2017-03-04] MEDS: DOCUSATE SODIUM 100 MG CAP PO SCH (08:57)
[2017-03-04] MEDS: PANTOPRAZOLE (EC) 40 MG TAB PO SCH ×2 (08:57→21:10)
[2017-03-04] MEDS: CEFEPIME 1GM/50 ML (PMX) 50 ML IVPB SCH ×2 (08:59→21:10)
[2017-03-04 10:19] LABS: LYMPHOCYTES # 1.4 10^3/ul (0.8-2.9); MONOCYTE # 0.7 10^3/ul (0.3-0.9); MYELOCYTES # 0.4; NEUTROPHIL # 14.5 10^3/ul (1.6-7.5)
[2017-03-04] MEDS: morphine 2 MG INJ IV PRN ×2 (11:55→17:57)
[2017-03-04] MEDS: INSULIN GLARGINE [LANtus] 3 ML PEN SC SCH (12:00)
--- NOTE | 2017-03-04 14:36 | PN ---
Date/Time of Note Date/Time of Note DATE: 03/04/17 TIME: 14:35 Assessment/Plan VTE Prophylaxis VTE Prophylaxis Intervention: SCD's Lines/Catheters [facility] Central Line Central line still needed: Yes Urinary Cath still in place: No Assessment/Plan Chief Complaint/Hosp Course 1. Systemic inflammatory response syndrome with leukocytosis, sinus tachycardia , febrile illness. Etiology unclear. The patient will be continued on empiric antibiotics. Pancultures negative so far. Being followed by infectious diseases. 2. Metastatic cholangiocarcinoma. The patient undergoing chemotherapy. We will monitor. 3. Essential hypertension. The patient will be continued on antihypertensives including p.r.n. antihypertensives for any systolic blood pressure readings greater than 160 mmHg. 4. Type 2 diabetes mellitus. The patient will be maintained on Lantus insulin along with premeal insulin and insulin sliding scale. 5. Duodenal ulcers and gastric ulcers along with esophagitis. Continue proton pump inhibitors and mucosal barrier protectants. 6. Microcytic hypochromic anemia. Most probably anemia of underlying malignancy. We will monitor hemoglobin and hematocrit closely. We will transfuse as needed. 7. Hyponatremia. Continue normal saline. 8. Fluids, electrolytes, and nutrition. Carbohydrate controlled diet. 9. DVT prophylaxis with bilateral sequential compression devices. 10. Gastrointestinal prophylaxis. Proton pump inhibitors. 11. Plan. Continue antibiotics as per infectious disease. Monitor in telemetry because of underlying tachycardia. Case discussed with Dr. Perez. Problems: Subjective 24 Hr Interval Summary Free Text/Dictation The patient remains afebrile. Exam/Review of Systems Vital Signs Vitals Vital Signs Date Time Temp Pulse Resp B/P Pulse Ox O2 Delivery O2 Flow Rate FiO2 03/04/17 14:19 2.0 03/04/17 14:18 104 20 97 Nasal Cannula 03/04/17 12:36 98.0 133/65 03/02/17 06:14 33 Intake and Output 03/03/17 03/03/17 03/04/17 15:00 23:00 07:00 Intake Total 750 ml 1150 ml Output Total 900 ml 700 ml Balance -150 ml 450 ml Exam GENERAL: This is a 71-year-old female patient lying in bed in mild respiratory distress. HEENT: Head normocephalic and atraumatic. Eyes: Anicteric sclerae. Conjunctivae clear. ENT: Nasal septum is midline. Oral mucosa is dry. NECK: Supple. No JVD noticed. RESPIRATORY: Bilaterally diminished breath sounds. Minimal use of accessory muscles of respiration. CARDIAC: Regular rate and rhythm. S1 and S2 heard. ABDOMEN: Soft, nontender and nondistended. Bowel sounds positive in all 4 quadrants. GENITOURINARY: The patient has a Curtis catheter in place. EXTREMITIES: No cyanosis, no clubbing, no edema. Peripheral pulses are palpable. NEUROLOGIC: The patient is awake, alert, and oriented. Results Result Diagram: 03/04/17 0720 03/04/17 0720 Results 24 hrs Laboratory Tests Test 03/03/17 20:12 03/03/17 23:00 03/04/17 07:20 03/04/17 07:49 Bedside Glucose 141 92 Vancomycin Level Trough 8.7 L White Blood Count 17.9 H Red Blood Count 2.73 L Hemoglobin 8.3 L Hematocrit 26.4 L Mean Corpuscular Volume 96.7 Mean Corpuscular Hemoglobin 30.4 Mean Corpuscular Hemoglobin Concent 31.4 L Red Cell Distribution Width 25.2 H Platelet Count 255 Mean Platelet Volume 10.3 Neutrophils % 81.0 H Band Neutrophils % 3.0 Lymphocytes % 8.0 L Monocytes % 4.0 Metamyelocytes % 2.0 H Myelocytes % 2.0 H Neutrophils # 14.5 H Lymphocytes # 1.4 Monocytes # 0.7 Metamyelocytes # 0.4 Myelocytes # 0.4 Differential Comment MANUAL DIFF Large Platelets OCCASIONAL Sodium Level 128 L Potassium Level 4.0 Chloride Level 93 L Carbon Dioxide Level 34 H Anion Gap 5 L Blood Urea Nitrogen 8 Creatinine 0.55 Glucose Level 88 Calcium Level 7.9 L Phosphorus Level 3.2 Magnesium Level 1.9 Test 03/04/17 11:49 Bedside Glucose 189 Medications Medications Current Medications Ondansetron HCl (Zofran Inj) 4 mg Q6H PRN IV NAUSEA AND/OR VOMITING; Start at 09:00 Acetaminophen (Tylenol Tab) 650 mg Q6H PRN PO PAIN LEVEL 1-3 OR FEVER Last administered on 03/04/17 04:37; Admin Dose 650 MG; Start 03/02/17 at 09:00 Acetaminophen/ Hydrocodone Bitart ([place] (5/325)) 1 tab Q6H PRN PO PAIN LEVEL 4 -6 Last administered on 03/02/17 17:49; Admin Dose 1 TAB; Start 03/02/17 at 09: 00 Morphine Sulfate (morphine) 2 mg Q4H PRN IV PAIN LEVEL 7-10 Last administered on 03/04/17 11:55; Admin Dose 2 MG; Start 03/02/17 at 09:00 Magnesium Hydroxide 30 ml 30 ml DAILY PRN PO CONSTIPATION; Start 03/02/17 at 09 :00 Cefepime HCl (Maxipime 1gm/50 ml (Pmx)) 50 ml @ 100 mls/hr Q12 IVPB Last administered on 03/04/17 08:59; Admin Dose 100 MLS/HR; Start 03/02/17 at 10:00 Alprazolam (Xanax) 0.5 mg Q8H PRN PO ANXIETY; Start 03/02/17 at 09:30 Docusate Sodium (Colace) 100 mg DAILY PO Last administered on 03/04/17 08:57; Admin Dose 100 MG; Start 03/03/17 at 09:00 Linagliptin (Tradjenta) 5 mg DAILY PO Last administered on 03/04/17 08:57; Admin Dose 5 MG; Start 03/03/17 at 09:00 Metoprolol Tartrate (Lopressor) 25 mg BID PO Last administered on 03/04/17 08: 57; Admin Dose 25 MG; Start 03/02/17 at 21:00 Pantoprazole (Protonix Tab) 40 mg BID PO Last administered on 03/04/17 08:57; Admin Dose 40 MG; Start 03/02/17 at 21:00 Polyethylene Glycol (Miralax) 8.5 gm DAILY PRN PO CONSTIPATION; Start 03/02/17 at 09:30 Sucralfate (Carafate) 1 gm QID PO Last administered on 03/04/17 12:03; Admin Dose 1 GM; Start 03/02/17 at 13:00 Salmeterol Xinafoate/ Fluticasone ([place] 250/50 Diskus) 1 inh BID INH Last administered on 03/04/17 08:56; Admin Dose 1 INH; Start 03/02/17 at 11:00 Insulin Glargine (Lantus) 20 unit DAILY@08 SC Last administered on 03/04/17 12 :00; Admin Dose 20 UNIT; Start 03/03/17 at 08:00 Diagnostic Test (Pha) (Accu-Chek) 1 ea 02 XX Last administered on 03/03/17 02: 05; Admin Dose 1 EA; Start 03/03/17 at 02:00 Miscellaneous Information 1 ea NOTE XX ; Start 03/02/17 at 10:30 Glucose (Glutose) 15 gm Q15M PRN PO DECREASED GLUCOSE; Start 03/02/17 at 10:30 Glucose (Glutose) 22.5 gm Q15M PRN PO DECREASED GLUCOSE; Start 03/02/17 at 10: 30 Dextrose (D50w Syringe) 25 ml Q15M PRN IV DECREASED GLUCOSE; Start 03/02/17 at 10:30 Dextrose (D50w Syringe) 50 ml Q15M PRN IV DECREASED GLUCOSE; Start 03/02/17 at 10:30 Glucagon (Glucagen) 1 mg Q15M PRN IM DECREASED GLUCOSE; Start 03/02/17 at 10:30 Glucose (Glutose) 15 gm Q15M PRN BUCCAL DECREASED GLUCOSE; Start 03/02/17 at 10 :30 Hydralazine HCl (Apresoline) 10 mg Q6H PRN IV SBP>160 Last administered on 03/02 12:28; Admin Dose 10 MG; Start 03/02/17 at 10:30 Polyethylene Glycol (Miralax) 17 gm BID PO Last administered on 03/04/17 08:57 ; Admin Dose 17 GM; Start 03/02/17 at 11:00 Bisacodyl 10 mg 10 mg DAILY PRN PO CONSTIPATION; Start 03/02/17 at 10:30 Sodium Chloride 1,000 ml @ 75 mls/hr [id number] IV Last administered on 22:37; Admin Dose 75 MLS/HR; Start 03/02/17 at 13:30 Vancomycin HCl/ Sodium Chloride (Vancocin/NS) 150 ml @ 75 mls/hr Q8H IVPB ; Start 03/04/17 at 15:00 Miscellaneous Information (*Rx Drug Level Order Reminder*) VANCOMYCIN TROUGH AT 1400 ONCE ONCE XX ; Start 03/05/17 at 14:00; Stop 03/05/17 at 14:01 TERRELL DOZIER NP Mar 04, 2017 14:36
[2017-03-04] MEDS: SOD CHLORIDE 0.9% 1,000 ML IV SCH (15:46)
[2017-03-04] MEDS: VANCOMYCIN 750 MG in SOD CHLORIDE 0.9% 150 ML IVPB SCH ×3 (15:46→22:29)
--- NOTE | 2017-03-04 18:34 | PN ---
DATE: 03/04/2017 SUBJECTIVE: No acute changes overnight. The patient is alert, eating lunch. Denies pain, no fever s. No vomiting or diarrhea. WBC today 17.9, H and H ____ and 26.4, platelets 255, neutrophils 81, bands 3, lymphs 8, monos 4. B UN 8, creatinine 0.55. MICROBIOLOGY: Blood and urine cultures remain negative. Influenza swab since admission negative. DIAGNOSTICS: Chest x-ray revealed nodular densities and bibasilar atelectasis. CT of the brain claire wed no acute findings. ANTIMICROBIALS: The patient is on vancomycin and cefepime day #3. PHYSICAL EXAMINATION: GENERAL: Cachectic, well-developed, elderly woman who is alert, in no distress. HEENT: Head atraumatic, normocephalic. Sclerae anicteric. Buccal mucosa dry. NECK: Supple. CHEST: Rise symmetrical. Breath sounds diminished to bases. HEART: S1, S2. ABDOMEN: Soft, bowel sounds present. EXTREMITIES: Without cyanosis. ASSESSMENT: 1. Systemic inflammatory response syndrome with persistent leukocytosis and bandemia, etiology unc lear, responding to antibiotics. 2. Metastatic cholangiocarcinoma, in chemo. 3. Diabetes. 4. Hypertension. PLAN: She will be ____ on home oxygen. The patient remains stable, responding to broad spectrum an tibiotics. Continue present care and pending final workup. Dictated By: NANCY CASPER PULL WORKER for [employer] Conf#: [id number] DID#: [id number]
[2017-03-05] VITALS (10 sets, daily range): BP systolic 119–155; BP diastolic 58–70; PULSE 90–127; RESP 16–20
[2017-03-05] MEDS: ACCU-CHEK XX SCH (02:00)
[2017-03-05] MEDS: morphine 2 MG INJ IV PRN ×4 (02:15→22:49)
[2017-03-05] MEDS: VANCOMYCIN 750 MG in SOD CHLORIDE 0.9% 150 ML IVPB SCH ×3 (06:55→23:08)
[2017-03-05 07:17] LABS: ADD SCAN DIFF NO
[2017-03-05 07:25] LABS: ABNORMAL IP MESSAGE 1; BASOPHIL # 0.1 10^3/ul (0.0-0.1); BASOPHILS % 0.3 % (0.0-2.0); EOSINOPHILS # 0.1 10^3/ul (0.0-0.5); EOSINOPHILS % 0.4 % (0.0-7.0); HEMATOCRIT 25.4 % (37.0-47.0); HEMOGLOBIN 8.4 g/dl (12.0-16.0); LYMPHOCYTES # 1.4 10^3/ul (0.8-2.9); LYMPHOCYTES % 7.4 % (15.0-51.0); MEAN CORPUSCULAR HEMOGLOBIN 31.3 pg (29.0-33.0); MEAN CORPUSCULAR HGB CONC 33.1 g/dl (32.0-37.0); MEAN CORPUSCULAR VOLUME 94.8 fl (82.0-101.0); MEAN PLATELET VOLUME 10.4 fl (7.4-10.4); MONOCYTE # 2.3 10^3/ul (0.3-0.9); MONOCYTES % 12.1 % (0.0-11.0); NEUTROPHIL # 14.3 10^3/ul (1.6-7.5); NEUTROPHILS % 76.1 % (39.0-77.0); PLATELET COUNT 288 10^3/UL (140-415); RED BLOOD COUNT 2.68 10^6/ul (4.20-5.40); WHITE BLOOD COUNT 18.8 10^3/ul (4.8-10.8)
[2017-03-05 07:42] LABS: CALCIUM 8.1 mg/dl (8.4-10.2); CREATININE 0.43 mg/dl (0.44-1.00); POTASSIUM 3.2 mmol/L (3.5-5.1)
[2017-03-05] MEDS: ALBUTEROL/IPRATROPIUM (NEB) 3 ML AMP HHN SCH ×3 (07:46→20:19)
[2017-03-05 07:56] LABS: MAGNESIUM 1.6 mg/dl (1.7-2.5); PHOSPHORUS 3.1 mg/dl (2.5-4.9)
[2017-03-05] MEDS: INSULIN ASPART [NOVOLOG] 3 ML PEN SC SCH ×7 (08:00→21:00)
[2017-03-05] MEDS: SOD CHLORIDE 0.9% 1,000 ML IV SCH ×2 (08:10→21:30)
[2017-03-05] MEDS: INSULIN GLARGINE [LANtus] 3 ML PEN SC SCH (08:37)
[2017-03-05] MEDS: SALMETEROL/FLUTICASONE 250/50 INHA INH SCH ×2 (09:53→22:22)
[2017-03-05] MEDS: PANTOPRAZOLE (EC) 40 MG TAB PO SCH ×2 (09:53→22:23)
[2017-03-05] MEDS: SUCRALFATE 1 GM TAB PO SCH ×4 (09:53→22:24)
[2017-03-05] MEDS: LINAGLIPTIN 5 MG TABLET PO SCH (09:54)
[2017-03-05] MEDS: DOCUSATE SODIUM 100 MG CAP PO SCH (09:54)
[2017-03-05] MEDS: POLYETHYLENE GLYCOL 17 GM PACKET PO SCH ×2 (09:54→21:00)
[2017-03-05] MEDS: METOPROLOL 25 MG TAB PO SCH ×2 (09:54→22:24)
[2017-03-05] MEDS: CEFEPIME 1GM/50 ML (PMX) 50 ML IVPB SCH ×2 (09:58→22:22)
[2017-03-05] MEDS ORDERED: POTASSIUM CHLORIDE (SR) 20 MEQ TAB PO STA (11:34)
--- NOTE | 2017-03-05 11:38 | PN ---
Date/Time of Note Date/Time of Note DATE: 03/05/17 TIME: 11:36 Assessment/Plan VTE Prophylaxis VTE Prophylaxis Intervention: SCD's Lines/Catheters IV C[facility]ter Type (from [facility] Central Line Central line still needed: Yes Urinary Cath still in place: No Assessment/Plan Chief Complaint/Hosp Course 1. Systemic inflammatory response syndrome with leukocytosis, sinus tachycardia , febrile illness. Etiology unclear. The patient will be continued on empiric antibiotics. Pancultures negative so far. Being followed by infectious diseases. 2. Metastatic cholangiocarcinoma. The patient undergoing chemotherapy. We will monitor. 3. Essential hypertension. The patient will be continued on antihypertensives including p.r.n. antihypertensives for any systolic blood pressure readings greater than 160 mmHg. 4. Type 2 diabetes mellitus. The patient will be maintained on Lantus insulin along with premeal insulin and insulin sliding scale. 5. Duodenal ulcers and gastric ulcers along with esophagitis. Continue proton pump inhibitors and mucosal barrier protectants. 6. Microcytic hypochromic anemia. Most probably anemia of underlying malignancy. We will monitor hemoglobin and hematocrit closely. We will transfuse as needed. 7. Hyponatremia. Continue normal saline. 8. Fluids, electrolytes, and nutrition. Carbohydrate controlled diet. 9. DVT prophylaxis with bilateral sequential compression devices. 10. Gastrointestinal prophylaxis. Proton pump inhibitors. 11. Plan. Continue antibiotics as per infectious disease. Monitor in telemetry because of underlying tachycardia. Patient continues to have persistent leukocytosis. Will await trending down of her leukocytosis prior to discharge. Case discussed with Dr. Conte. Problems: Subjective 24 Hr Interval Summary Free Text/Dictation The patient remains afebrile. Exam/Review of Systems Vital Signs Vitals Vital Signs Date Time Temp Pulse Resp B/P Pulse Ox O2 Delivery O2 Flow Rate FiO2 03/05/17 09:11 Nasal Cannula 2.0 03/05/17 08:22 109 03/05/17 08:00 99.0 20 155/68 98 03/02/17 06:14 33 Intake and Output 03/04/17 03/04/17 03/05/17 15:00 23:00 07:00 Intake Total 50 ml 1650 ml 1250 ml Output Total 3 ml Balance 50 ml 1647 ml 1250 ml Exam GENERAL: This is a 71-year-old female patient lying in bed in mild respiratory distress. HEENT: Head normocephalic and atraumatic. Eyes: Anicteric sclerae. Conjunctivae clear. ENT: Nasal septum is midline. Oral mucosa is dry. NECK: Supple. No JVD noticed. RESPIRATORY: Bilaterally diminished breath sounds. Minimal use of accessory muscles of respiration. CARDIAC: Regular rate and rhythm. S1 and S2 heard. ABDOMEN: Soft, nontender and nondistended. Bowel sounds positive in all 4 quadrants. GENITOURINARY: The patient has a Curtis catheter in place. EXTREMITIES: No cyanosis, no clubbing, no edema. Peripheral pulses are palpable. NEUROLOGIC: The patient is awake, alert, and oriented. Results Result Diagram: 03/05/17 0610 03/05/17 0610 Results 24 hrs Laboratory Tests Test 03/04/17 11:49 03/04/17 17:44 03/04/17 21:09 03/05/17 06:00 Bedside Glucose 189 130 98 Phosphorus Level 3.1 Magnesium Level 1.6 L Test 03/05/17 06:10 03/05/17 08:12 White Blood Count 18.8 H Red Blood Count 2.68 L Hemoglobin 8.4 L Hematocrit 25.4 L Mean Corpuscular Volume 94.8 Mean Corpuscular Hemoglobin 31.3 Mean Corpuscular Hemoglobin Concent 33.1 Red Cell Distribution Width Platelet Count 288 Mean Platelet Volume 10.4 Neutrophils % 76.1 Lymphocytes % 7.4 L Monocytes % 12.1 H Eosinophils % 0.4 Basophils % 0.3 Nucleated Red Blood Cells % 0.0 Neutrophils # 14.3 H Lymphocytes # 1.4 Monocytes # 2.3 H Eosinophils # 0.1 Basophils # 0.1 Nucleated Red Blood Cells # 0.0 Sodium Level 129 L Potassium Level 3.2 L Chloride Level 93 L Carbon Dioxide Level 33 H Anion Gap 6 L Blood Urea Nitrogen 5 L Creatinine 0.43 L Glucose Level 68 #L Calcium Level 8.1 L Bedside Glucose 83 Medications Medications Current Medications Ondansetron HCl (Zofran Inj) 4 mg Q6H PRN IV NAUSEA AND/OR VOMITING; Start at 09:00 Acetaminophen (Tylenol Tab) 650 mg Q6H PRN PO PAIN LEVEL 1-3 OR FEVER Last administered on 03/04/17t 22:29; Admin Dose 650 MG; Start 03/02/17 at 09:00 Acetaminophen/ Hydrocodone Bitart ([place] (5/325)) 1 tab Q6H PRN PO PAIN LEVEL 4 -6 Last administered on 03/02/17 17:49; Admin Dose 1 TAB; Start 03/02/17 at 09: 00 Morphine Sulfate (morphine) 2 mg Q4H PRN IV PAIN LEVEL 7-10 Last administered on 03/05/17 08:35; Admin Dose 2 MG; Start 03/02/17 at 09:00 Magnesium Hydroxide 30 ml 30 ml DAILY PRN PO CONSTIPATION; Start 03/02/17 at 09 :00 Cefepime HCl (Maxipime 1gm/50 ml (Pmx)) 50 ml @ 100 mls/hr Q12 IVPB Last administered on 03/05/17 09:58; Admin Dose 100 MLS/HR; Start 03/02/17 at 10:00 Alprazolam (Xanax) 0.5 mg Q8H PRN PO ANXIETY; Start 03/02/17 at 09:30 Docusate Sodium (Colace) 100 mg DAILY PO Last administered on 03/05/17 09:54; Admin Dose 100 MG; Start 03/03/17 at 09:00 Linagliptin (Tradjenta) 5 mg DAILY PO Last administered on 03/05/17 09:54; Admin Dose 5 MG; Start 03/03/17 at 09:00 Metoprolol Tartrate (Lopressor) 25 mg BID PO Last administered on 03/05/17 09: 54; Admin Dose 25 MG; Start 03/02/17 at 21:00 Pantoprazole (Protonix Tab) 40 mg BID PO Last administered on 03/05/17 09:53; Admin Dose 40 MG; Start 03/02/17 at 21:00 Polyethylene Glycol (Miralax) 8.5 gm DAILY PRN PO CONSTIPATION; Start 03/02/17 at 09:30 Sucralfate (Carafate) 1 gm QID PO Last administered on 03/05/17 09:53; Admin Dose 1 GM; Start 03/02/17 at 13:00 Salmeterol Xinafoate/ Fluticasone (Advair 250/50 Diskus) 1 inh BID INH Last administered on 03/05/17 09:53; Admin Dose 1 INH; Start 03/02/17 at 11:00 Insulin Glargine (Lantus) 20 unit DAILY@08 SC Last administered on 03/05/17 08 :37; Admin Dose 20 UNIT; Start 03/03/17 at 08:00 Diagnostic Test (Pha) (Accu-Chek) 1 ea 02 XX Last administered on 03/03/17 02: 05; Admin Dose 1 EA; Start 03/03/17 at 02:00 Miscellaneous Information 1 ea NOTE XX ; Start 03/02/17 at 10:30 Glucose (Glutose) 15 gm Q15M PRN PO DECREASED GLUCOSE; Start 03/02/17 at 10:30 Glucose (Glutose) 22.5 gm Q15M PRN PO DECREASED GLUCOSE; Start 03/02/17 at 10: 30 Dextrose (D50w Syringe) 25 ml Q15M PRN IV DECREASED GLUCOSE; Start 03/02/17 at 10:30 Dextrose (D50w Syringe) 50 ml Q15M PRN IV DECREASED GLUCOSE; Start 03/02/17 at 10:30 Glucagon (Glucagen) 1 mg Q15M PRN IM DECREASED GLUCOSE; Start 03/02/17 at 10:30 Glucose (Glutose) 15 gm Q15M PRN BUCCAL DECREASED GLUCOSE; Start 03/02/17 at 10 :30 Hydralazine HCl (Apresoline) 10 mg Q6H PRN IV SBP>160 Last administered on 03/02 12:28; Admin Dose 10 MG; Start 03/02/17 at 10:30 Polyethylene Glycol (Miralax) 17 gm BID PO Last administered on 03/05/17 09:54 ; Admin Dose 17 GM; Start 03/02/17 at 11:00 Bisacodyl 10 mg 10 mg DAILY PRN PO CONSTIPATION; Start 03/02/17 at 10:30 Sodium Chloride 1,000 ml @ 75 mls/hr [id number] IV Last administered on 15:46; Admin Dose 75 MLS/HR; Start 03/02/17 at 13:30 Vancomycin HCl/ Sodium Chloride (Vancocin/NS) 150 ml @ 75 mls/hr Q8H IVPB Last administered on 03/05/17 06:55; Admin Dose 75 MLS/HR; Start 03/04/17 at 15 :00 Miscellaneous Information (*Rx Drug Level Order Reminder*) VANCOMYCIN TROUGH AT 1400 ONCE ONCE XX ; Start 03/05/17 at 14:00; Stop 03/05/17 at 14:01 TERRELL DOZIER NP Mar 05, 2017 11:38
[2017-03-05] MEDS ORDERED: MAGNESIUM SULFATE 2 GM/50 ML 50 ML IVPB ONE (12:00)
--- NOTE | 2017-03-05 21:19 | CONS ---
Date/Time of Note Date/Time of Note DATE: 03/05/17 TIME: 21:16 Assessment/Plan Assessment/Plan Chief Complaint/Hosp Course SUBJECTIVE: No acute changes overnight. The patient is alert, Denies pain, no fevers. No vomiting or diarrhea. MICROBIOLOGY: Blood and urine cultures remain negative. Influenza swab since admission negative. DIAGNOSTICS: Chest x-ray revealed nodular densities and bibasilar atelectasis. CT of the brain showed no acute findings. ANTIMICROBIALS: The patient is on vancomycin and cefepime day #4. PHYSICAL EXAMINATION: GENERAL: Cachectic, well-developed, elderly woman who is alert, in no distress. HEENT: Head atraumatic, normocephalic. Sclerae anicteric. Buccal mucosa dry. NECK: Supple. CHEST: Rise symmetrical. Breath sounds diminished to bases. HEART: S1, S2. ABDOMEN: Soft, bowel sounds present. EXTREMITIES: Without cyanosis. ASSESSMENT: 1. Systemic inflammatory response syndrome with persistent leukocytosis and bandemia, possibly 2 to metastatic disease. 2. Metastatic cholangiocarcinoma, in chemo. 3. Diabetes. 4. Hypertension. PLAN: Remains stable, all cx's negative, we may dc abx in am if remains afebrile DW staff Problems: Consultation Date/Type/Reason Admit Date/Time Mar 02, 2017 at 05:01 Initial Consult Date Type of Consultation: ID Exam/Review of Systems Vital Signs Vitals Vital Signs Date Time Temp Pulse Resp B/P Pulse Ox O2 Delivery O2 Flow Rate FiO2 03/05/17 20:20 2.0 03/05/17 20:20 112 20 95 Nasal Cannula 03/05/17 16:41 99.2 128/59 03/02/17 06:14 33 Intake and Output 03/04/17 03/04/17 03/05/17 15:00 23:00 07:00 Intake Total 50 ml 1650 ml 1250 ml Output Total 3 ml Balance 50 ml 1647 ml 1250 ml Results Result Diagram: 03/05/17 0610 03/05/17 0610 Results 24 hrs Laboratory Tests Test 03/05/17 06:00 03/05/17 06:10 03/05/17 08:12 03/05/17 12:03 Phosphorus Level 3.1 Magnesium Level 1.6 L White Blood Count 18.8 H Red Blood Count 2.68 L Hemoglobin 8.4 L Hematocrit 25.4 L Mean Corpuscular Volume 94.8 Mean Corpuscular Hemoglobin 31.3 Mean Corpuscular Hemoglobin Concent 33.1 Red Cell Distribution Width Platelet Count 288 Mean Platelet Volume 10.4 Neutrophils % 76.1 Lymphocytes % 7.4 L Monocytes % 12.1 H Eosinophils % 0.4 Basophils % 0.3 Nucleated Red Blood Cells % 0.0 Neutrophils # 14.3 H Lymphocytes # 1.4 Monocytes # 2.3 H Eosinophils # 0.1 Basophils # 0.1 Nucleated Red Blood Cells # 0.0 Sodium Level 129 L Potassium Level 3.2 L Chloride Level 93 L Carbon Dioxide Level 33 H Anion Gap 6 L Blood Urea Nitrogen 5 L Creatinine 0.43 L Glucose Level 68 #L Calcium Level 8.1 L Bedside Glucose 83 72 Test 03/05/17 14:15 03/05/17 17:12 Vancomycin Level Trough 13.8 Bedside Glucose 110 Medications Medications Current Medications Ondansetron HCl (Zofran Inj) 4 mg Q6H PRN IV NAUSEA AND/OR VOMITING; Start at 09:00 Acetaminophen (Tylenol Tab) 650 mg Q6H PRN PO PAIN LEVEL 1-3 OR FEVER Last administered on 03/04/17 22:29; Admin Dose 650 MG; Start 03/02/17 at 09:00 Acetaminophen/ Hydrocodone Bitart ([place] (5/325)) 1 tab Q6H PRN PO PAIN LEVEL 4 -6 Last administered on 03/02/17 17:49; Admin Dose 1 TAB; Start 03/02/17 at 09: 00 Morphine Sulfate (morphine) 2 mg Q4H PRN IV PAIN LEVEL 7-10 Last administered on 03/05/17 16:27; Admin Dose 2 MG; Start 03/02/17 at 09:00 Magnesium Hydroxide 30 ml 30 ml DAILY PRN PO CONSTIPATION; Start 03/02/17 at 09 :00 Cefepime HCl (Maxipime 1gm/50 ml (Pmx)) 50 ml @ 100 mls/hr Q12 IVPB Last administered on 03/05/17 09:58; Admin Dose 100 MLS/HR; Start 03/02/17 at 10:00 Alprazolam (Xanax) 0.5 mg Q8H PRN PO ANXIETY; Start 03/02/17 at 09:30 Docusate Sodium (Colace) 100 mg DAILY PO Last administered on 03/05/17 09:54; Admin Dose 100 MG; Start 03/03/17 at 09:00 Linagliptin (Tradjenta) 5 mg DAILY PO Last administered on 03/05/17 09:54; Admin Dose 5 MG; Start 03/03/17 at 09:00 Metoprolol Tartrate (Lopressor) 25 mg BID PO Last administered on 03/05/17 09: 54; Admin Dose 25 MG; Start 03/02/17 at 21:00 Pantoprazole (Protonix Tab) 40 mg BID PO Last administered on 03/05/17 09:53; Admin Dose 40 MG; Start 03/02/17 at 21:00 Polyethylene Glycol (Miralax) 8.5 gm DAILY PRN PO CONSTIPATION; Start 03/02/17 at 09:30 Sucralfate (Carafate) 1 gm QID PO Last administered on 03/05/17 16:27; Admin Dose 1 GM; Start 03/02/17 at 13:00 Salmeterol Xinafoate/ Fluticasone (Advair 250/50 Diskus) 1 inh BID INH Last administered on 03/05/17 09:53; Admin Dose 1 INH; Start 03/02/17 at 11:00 Insulin Glargine (Lantus) 20 unit DAILY@08 SC Last administered on 03/05/17 08 :37; Admin Dose 20 UNIT; Start 03/03/17 at 08:00 Diagnostic Test (Pha) (Accu-Chek) 1 ea 02 XX Last administered on 03/03/17 02: 05; Admin Dose 1 EA; Start 03/03/17 at 02:00 Miscellaneous Information 1 ea NOTE XX ; Start 03/02/17 at 10:30 Glucose (Glutose) 15 gm Q15M PRN PO DECREASED GLUCOSE; Start 03/02/17 at 10:30 Glucose (Glutose) 22.5 gm Q15M PRN PO DECREASED GLUCOSE; Start 03/02/17 at 10: 30 Dextrose (D50w Syringe) 25 ml Q15M PRN IV DECREASED GLUCOSE; Start 03/02/17 at 10:30 Dextrose (D50w Syringe) 50 ml Q15M PRN IV DECREASED GLUCOSE; Start 03/02/17 at 10:30 Glucagon (Glucagen) 1 mg Q15M PRN IM DECREASED GLUCOSE; Start 03/02/17 at 10:30 Glucose (Glutose) 15 gm Q15M PRN BUCCAL DECREASED GLUCOSE; Start 03/02/17 at 10 :30 Hydralazine HCl (Apresoline) 10 mg Q6H PRN IV SBP>160 Last administered on 03/02 12:28; Admin Dose 10 MG; Start 03/02/17 at 10:30 Polyethylene Glycol (Miralax) 17 gm BID PO Last administered on 03/05/17 09:54 ; Admin Dose 17 GM; Start 03/02/17 at 11:00 Bisacodyl 10 mg 10 mg DAILY PRN PO CONSTIPATION; Start 03/02/17 at 10:30 Sodium Chloride 1,000 ml @ 75 mls/hr [id number] IV Last administered on 15:46; Admin Dose 75 MLS/HR; Start 03/02/17 at 13:30 Vancomycin HCl/ Sodium Chloride (Vancocin/NS) 150 ml @ 75 mls/hr Q8H IVPB Last administered on 03/05/17 16:12; Admin Dose 75 MLS/HR; Start 03/04/17 at 15 :00 NANCY CASPER NP Mar 05, 2017 21:19
[2017-03-06] VITALS (9 sets, daily range): BP systolic 123–149; BP diastolic 58–92; PULSE 90–122; RESP 17–20
[2017-03-06] MEDS: ACETAMINOPHEN 325 MG TAB PO PRN (01:03)
[2017-03-06] MEDS: ACCU-CHEK XX SCH (01:07)
[2017-03-06] MEDS: VANCOMYCIN 750 MG in SOD CHLORIDE 0.9% 150 ML IVPB SCH ×2 (06:12→14:51)
[2017-03-06 07:09] LABS: ADD SCAN DIFF NO
[2017-03-06 07:53] LABS: CALCIUM 8.4 mg/dl (8.4-10.2); CREATININE 0.67 mg/dl (0.44-1.00); POTASSIUM 4.1 mmol/L (3.5-5.1)
[2017-03-06] MEDS: INSULIN ASPART [NOVOLOG] 3 ML PEN SC SCH ×7 (08:00→21:00)
[2017-03-06 08:20] LABS: PHOSPHORUS 3.4 mg/dl (2.5-4.9)
[2017-03-06] MEDS: ALBUTEROL/IPRATROPIUM (NEB) 3 ML AMP HHN SCH ×3 (08:31→20:25)
[2017-03-06] MEDS: POLYETHYLENE GLYCOL 17 GM PACKET PO SCH ×2 (08:37→20:59)
[2017-03-06] MEDS: CEFEPIME 1GM/50 ML (PMX) 50 ML IVPB SCH ×2 (08:37→20:58)
[2017-03-06] MEDS: SOD CHLORIDE 0.9% 1,000 ML IV SCH (08:37)
[2017-03-06] MEDS: SALMETEROL/FLUTICASONE 250/50 INHA INH SCH ×2 (08:37→20:58)
[2017-03-06] MEDS: PANTOPRAZOLE (EC) 40 MG TAB PO SCH ×2 (08:38→19:44)
[2017-03-06] MEDS: DOCUSATE SODIUM 100 MG CAP PO SCH (08:38)
[2017-03-06] MEDS: LINAGLIPTIN 5 MG TABLET PO SCH (08:38)
[2017-03-06] MEDS: morphine 2 MG INJ IV PRN ×2 (08:38→19:43)
[2017-03-06] MEDS: SUCRALFATE 1 GM TAB PO SCH ×4 (08:38→19:44)
[2017-03-06] MEDS: METOPROLOL 25 MG TAB PO SCH ×2 (08:38→21:05)
[2017-03-06] MEDS: INSULIN GLARGINE [LANtus] 3 ML PEN SC SCH (08:39)
[2017-03-06 08:50] LABS: ABNORMAL IP MESSAGE 1; BASOPHIL # 0.1 10^3/ul (0.0-0.1); BASOPHILS % 0.3 % (0.0-2.0); EOSINOPHILS # 0.1 10^3/ul (0.0-0.5); EOSINOPHILS % 0.4 % (0.0-7.0); HEMATOCRIT 26.1 % (37.0-47.0); HEMOGLOBIN 8.4 g/dl (12.0-16.0); LYMPHOCYTES # 1.6 10^3/ul (0.8-2.9); LYMPHOCYTES % 7.2 % (15.0-51.0); MEAN CORPUSCULAR HEMOGLOBIN 30.5 pg (29.0-33.0); MEAN CORPUSCULAR HGB CONC 32.2 g/dl (32.0-37.0); MEAN CORPUSCULAR VOLUME 94.9 fl (82.0-101.0); MEAN PLATELET VOLUME 10.1 fl (7.4-10.4); MONOCYTE # 2.3 10^3/ul (0.3-0.9); MONOCYTES % 10.5 % (0.0-11.0); NEUTROPHIL # 17.3 10^3/ul (1.6-7.5); NEUTROPHILS % 77.8 % (39.0-77.0); PLATELET COUNT 266 10^3/UL (140-415); RED BLOOD COUNT 2.75 10^6/ul (4.20-5.40); RED CELL DISTRIBUTION WIDTH 24.7 % (11.5-14.5); WHITE BLOOD COUNT 22.2 10^3/ul (4.8-10.8)
--- NOTE | 2017-03-06 12:30 | PN ---
DATE: 03/06/2017 INTERNAL MEDICINE FOLLOWUP SUBJECTIVE: Chart reviewed. No significant events overnight noted. Patient remains on 2 liters O2 nasal cannula, saturating 99%. PHYSICAL EXAMINATION: VITAL SIGNS: Blood pressure 149/62, pulse 89, respirations 17, temperature 98.8. HEENT: Pupils are equal and react to light. Anicteric sclerae. NECK: Supple, no JVD noted, no cervical lymphadenopathy noted, no carotid bruits heard. LUNGS: Fair breath sounds bilaterally. CARDIOVASCULAR: S1, S2 normal. ABDOMEN: Soft, nontender. No organomegaly or masses noted. EXTREMITIES: No clubbing or cyanosis. NEUROLOGICAL: Awake and alert. LABORATORY DATA: WBC 22.2, hemoglobin 8.4, hematocrit 26.1, platelets 266. Sodium 130, potassium 4 .1, chloride 95, CO2 31, BUN 8, creatinine 0.67, glucose 66. IMPRESSION: 1. Leukocytosis with systemic inflammatory response syndrome, unclear etiology. 2. Metastatic cholangiocarcinoma, on chemotherapy. 3. History of hypertension. 4. History of diabetes mellitus. 5. Duodenal ulcer and gastric ulcer along with esophagitis. 6. Anemia. 7. Hyponatremia. PLAN: 1. Continue antibiotics per ID. 2. Heart rate is not significantly better since yesterday. 3. Follow up labs. 4. Above discussed with the staff. Dictated By: VENKATA TELLEZ MD, MA/[facility]OS Conf#: [id number] DID#: [id number]
--- NOTE | 2017-03-06 12:41 | PN ---
DATE: 03/06/2017 SUBJECTIVE: No acute changes. The patient is alert, looks comfortable. Denies pain. Family at be dside. No fevers. WBC 22.2, platelets 266, neutrophils 77.8. No bands. BUN 8, creatinine 0.67. MICROBIOLOGY: All cultures negative. ANTIMICROBIALS: The patient remains on: 1. Vancomycin. 2. Cefepime. PHYSICAL EXAMINATION: GENERAL: This is a well-developed, fragile, elderly woman, who is alert, in no distress. HEENT: Head atraumatic, normocephalic. Sclerae anicteric. Buccal mucosa pink. NECK: Supple. CHEST: Rise symmetrical. Breath sounds clear. HEART: S1, S2. ABDOMEN: Soft, bowel tones present. EXTREMITIES: No cyanosis. ASSESSMENT: 1. Systemic inflammatory response syndrome with persistent leukocytosis, status post fevers, so far no evidence of acute infectious process, possibly secondary to metastatic disease. 2. Diabetes. 3. Hypertension. 4. Metastatic cholangiocarcinoma. PLAN: The patient remains hemodynamically and clinically stable, afebrile. All cultures have been negative. Chest x-ray revealed no pneumonia. We will discontinue antibiotics and observe her. We will repeat fay culture p.r.n. Dictated By: NANCY CASPER CARDIOLOGY SPECIALIST for [facility] Conf#: [id number] DID#: [id number]
[2017-03-06] MEDS: HYDROCODONE/APAP (5/325) TAB PO PRN (21:07)
[2017-03-07] VITALS (13 sets, daily range): BP systolic 121–151; BP diastolic 62–70; PULSE 88–113; RESP 18–20
[2017-03-07] MEDS: VANCOMYCIN 750 MG in SOD CHLORIDE 0.9% 150 ML IVPB SCH ×2 (00:10→06:38)
[2017-03-07] MEDS: SOD CHLORIDE 0.9% 1,000 ML IV SCH ×2 (00:13→12:45)
[2017-03-07] MEDS: morphine 2 MG INJ IV PRN ×4 (00:32→18:16)
[2017-03-07] MEDS: ACCU-CHEK XX SCH (02:00)
[2017-03-07] MEDS: INSULIN ASPART [NOVOLOG] 3 ML PEN SC SCH ×5 (08:00→21:00)
[2017-03-07] MEDS: SUCRALFATE 1 GM TAB PO SCH ×4 (08:27→21:14)
[2017-03-07] MEDS: SALMETEROL/FLUTICASONE 250/50 INHA INH SCH ×2 (08:27→21:14)
[2017-03-07] MEDS: CEFEPIME 1GM/50 ML (PMX) 50 ML IVPB SCH (08:27)
[2017-03-07] MEDS: METOPROLOL 25 MG TAB PO SCH ×2 (08:28→21:15)
[2017-03-07] MEDS: DOCUSATE SODIUM 100 MG CAP PO SCH (08:28)
[2017-03-07] MEDS: POLYETHYLENE GLYCOL 17 GM PACKET PO SCH ×2 (08:28→21:00)
[2017-03-07] MEDS: PANTOPRAZOLE (EC) 40 MG TAB PO SCH ×2 (08:31→21:14)
[2017-03-07] MEDS: MAGNESIUM HYDROXIDE 30ML CUP PO PRN (08:34)
[2017-03-07] MEDS: LINAGLIPTIN 5 MG TABLET PO SCH (08:34)
[2017-03-07] MEDS: ALBUTEROL/IPRATROPIUM (NEB) 3 ML AMP HHN SCH ×3 (08:54→20:37)
[2017-03-07] MEDS: INSULIN GLARGINE [LANtus] 3 ML PEN SC SCH (09:53)
--- NOTE | 2017-03-07 12:21 | PN ---
DATE: 03/07/2017 SUBJECTIVE: No events overnight. The patient is awake, feels good, looks comfortable, no vomiting, no diarrhea. No labs this morning. PHYSICAL EXAMINATION: GENERAL: Well-developed, well-nourished elderly woman who is awake, in no distress. HEENT: Head atraumatic, normocephalic. Sclerae anicteric. Buccal mucosa pink. NECK: Supple. CHEST: Rise symmetrical. Breath sounds diminished to bases. HEART: S1, S2. ABDOMEN: Soft. Bowel tones present. EXTREMITIES: Without cyanosis. ASSESSMENT: 1. Systemic inflammatory response syndrome with persistent leukocytosis, status post fever, possibl y secondary to metastatic disease. 2. Metastatic cholangiocarcinoma. 3. Diabetes. 4. Hypertension. PLAN: The patient remains clinically and hemodynamically stable, no fevers. Her cultures have been negative. Antibiotics were discontinued this morning. We will observe her and repeat cultures p.r .n. Dictated By: NANCY CASPER RANCH COOK for [facility] Conf#: [id number] DID#: [id number]
--- NOTE | 2017-03-07 13:03 | PN ---
DATE: 03/07/2017 INTERNAL MEDICINE FOLLOWUP SUBJECTIVE: Chart reviewed. No significant events noted. No fevers or distress. PHYSICAL EXAMINATION: VITAL SIGNS: Blood pressure 135/69, pulse 105, respirations 20, temperature 98.8, currently on 2 li ters nasal cannula, saturating 96%. HEENT: Pupils are equal and reactive to light. NECK: Supple. No JVD noted. No cervical lymphadenopathy noted. No carotid bruits heard. LUNGS: Fair breath sounds bilaterally. CARDIOVASCULAR: S1, S2 normal. ABDOMEN: Soft, nontender. No organomegaly or masses noted. EXTREMITIES: No clubbing, cyanosis, or edema noted. NEUROLOGICAL: Awake. IMPRESSION: 1. Leukocytosis with systemic inflammatory response syndrome. 2. Metastatic cholangiocarcinoma, on chemotherapy. 3. History of hypertension. 4. History of diabetes mellitus. 5. Duodenal ulcer and gastric ulcer. 6. Anemia. 7. Mild hyponatremia. PLAN: 1. ID followup noted. 2. Follow up labs. 3. Continue current treatment. Dictated By: VENKATA TELLEZ MD, MA/[facility] Conf#: [id number] DID#: [id number]
[2017-03-08] VITALS (11 sets, daily range): BP systolic 144–151; BP diastolic 69–73; PULSE 97–118; RESP 14–19
[2017-03-08] MEDS: morphine 2 MG INJ IV PRN ×5 (00:49→20:16)
[2017-03-08] MEDS: ACCU-CHEK XX SCH (02:00)
[2017-03-08] MEDS: SOD CHLORIDE 0.9% 1,000 ML IV SCH ×2 (05:12→17:29)
[2017-03-08] MEDS: INSULIN ASPART [NOVOLOG] 3 ML PEN SC SCH ×4 (08:00→20:40)
[2017-03-08] MEDS ORDERED: INSULIN GLARGINE [LANtus] 3 ML PEN SC SCH (08:00)
[2017-03-08] MEDS: ALBUTEROL/IPRATROPIUM (NEB) 3 ML AMP HHN SCH ×4 (08:24→20:43)
[2017-03-08] MEDS: METOPROLOL 25 MG TAB PO SCH ×2 (10:04→20:16)
[2017-03-08] MEDS: SALMETEROL/FLUTICASONE 250/50 INHA INH SCH ×2 (10:05→20:15)
[2017-03-08] MEDS: SUCRALFATE 1 GM TAB PO SCH ×4 (10:05→20:15)
[2017-03-08] MEDS: PANTOPRAZOLE (EC) 40 MG TAB PO SCH ×2 (10:05→20:15)
[2017-03-08] MEDS: LINAGLIPTIN 5 MG TABLET PO SCH (10:05)
[2017-03-08] MEDS: POLYETHYLENE GLYCOL 17 GM PACKET PO SCH ×2 (10:05→20:19)
[2017-03-08] MEDS: DOCUSATE SODIUM 100 MG CAP PO SCH (10:05)
[2017-03-08] MEDS: INSULIN GLARGINE [LANtus] 3 ML PEN SC SCH (10:07)
--- NOTE | 2017-03-08 14:26 | CONS ---
Date/Time of Note Date/Time of Note DATE: 03/08/17 TIME: 14:25 Assessment/Plan Assessment/Plan Chief Complaint/Hosp Course SUBJECTIVE: No acute changes overnight. The patient is alert, Denies pain, no fevers. No vomiting or diarrhea. MICROBIOLOGY: Blood and urine cultures remain negative. Influenza swab since admission negative. DIAGNOSTICS: Chest x-ray revealed nodular densities and bibasilar atelectasis. CT of the brain showed no acute findings. ANTIMICROBIALS: The patient is on vancomycin and cefepime day #4. PHYSICAL EXAMINATION: GENERAL: Cachectic, well-developed, elderly woman who is alert, in no distress. HEENT: Head atraumatic, normocephalic. Sclerae anicteric. Buccal mucosa dry. NECK: Supple. CHEST: Rise symmetrical. Breath sounds diminished to bases. HEART: S1, S2. ABDOMEN: Soft, bowel sounds present. EXTREMITIES: Without cyanosis. ASSESSMENT: 1. Systemic inflammatory response syndrome with persistent leukocytosis likely 2 to metastatic disease. 2. Metastatic cholangiocarcinoma, in chemo. 3. Diabetes. 4. Hypertension. PLAN: Remains stable, all cx's negative, observe off abx DW staff Problems: Consultation Date/Type/Reason Admit Date/Time Mar 02, 2017 at 05:01 Type of Consultation: ID Exam/Review of Systems Vital Signs Vitals Vital Signs Date Time Temp Pulse Resp B/P Pulse Ox O2 Delivery O2 Flow Rate FiO2 03/08/17 12:10 118 03/08/17 11:35 97.7 16 146/70 95 03/08/17 08:24 Nasal Cannula 2.0 Intake and Output 03/07/17 03/07/17 03/08/17 15:00 23:00 07:00 Intake Total 2000 ml 1050 ml Balance 2000 ml 1050 ml Results Result Diagram: 03/06/17 0804 03/06/17 0624 Results 24 hrs Laboratory Tests Test 03/07/17 17:26 03/07/17 21:23 03/08/17 08:16 03/08/17 10:12 Bedside Glucose 182 165 138 154 Test 03/08/17 12:03 Bedside Glucose 191 Medications Medications Current Medications Ondansetron HCl (Zofran Inj) 4 mg Q6H PRN IV NAUSEA AND/OR VOMITING Last administered on 03/06/17t 08:38; Admin Dose 4 MG; Start 03/02/17 at 09:00 Acetaminophen (Tylenol Tab) 650 mg Q6H PRN PO PAIN LEVEL 1-3 OR FEVER Last administered on 03/06/17 01:03; Admin Dose 650 MG; Start 03/02/17 at 09:00 Acetaminophen/ Hydrocodone Bitart ([place] (5/325)) 1 tab Q6H PRN PO PAIN LEVEL 4 -6 Last administered on 03/06/17 21:07; Admin Dose 1 TAB; Start 03/02/17 at 09: 00 Morphine Sulfate (morphine) 2 mg Q4H PRN IV PAIN LEVEL 7-10 Last administered on 03/08/17 11:03; Admin Dose 2 MG; Start 03/02/17 at 09:00 Magnesium Hydroxide (Milk Of Mag) 30 ml DAILY PRN PO CONSTIPATION Last administered on 03/07/17 08:34; Admin Dose 30 ML; Start 03/02/17 at 09:00 Alprazolam (Xanax) 0.5 mg Q8H PRN PO ANXIETY; Start 03/02/17 at 09:30 Docusate Sodium (Colace) 100 mg DAILY PO Last administered on 03/08/17 10:05; Admin Dose 100 MG; Start 03/03/17 at 09:00 Linagliptin (Tradjenta) 5 mg DAILY PO Last administered on 03/08/17 10:05; Admin Dose 5 MG; Start 03/03/17 at 09:00 Metoprolol Tartrate (Lopressor) 25 mg BID PO Last administered on 03/08/17 10: 04; Admin Dose 25 MG; Start 03/02/17 at 21:00 Pantoprazole (Protonix Tab) 40 mg BID PO Last administered on 03/08/17 10:05; Admin Dose 40 MG; Start 03/02/17 at 21:00 Polyethylene Glycol (Miralax) 8.5 gm DAILY PRN PO CONSTIPATION; Start 03/02/17 at 09:30 Sucralfate (Carafate) 1 gm QID PO Last administered on 03/08/17 13:53; Admin Dose 1 GM; Start 03/02/17 at 13:00 Salmeterol Xinafoate/ Fluticasone (Advair 250/50 Diskus) 1 inh BID INH Last administered on 03/08/17 10:05; Admin Dose 1 INH; Start 03/02/17 at 11:00 Diagnostic Test (Pha) (Accu-Chek) 1 ea 02 XX Last administered on 03/03/17 02: 05; Admin Dose 1 EA; Start 03/03/17 at 02:00 Miscellaneous Information 1 ea NOTE XX ; Start 03/02/17 at 10:30 Glucose (Glutose) 15 gm Q15M PRN PO DECREASED GLUCOSE; Start 03/02/17 at 10:30 Glucose (Glutose) 22.5 gm Q15M PRN PO DECREASED GLUCOSE; Start 03/02/17 at 10: 30 Dextrose (D50w Syringe) 25 ml Q15M PRN IV DECREASED GLUCOSE; Start 03/02/17 at 10:30 Dextrose (D50w Syringe) 50 ml Q15M PRN IV DECREASED GLUCOSE; Start 03/02/17 at 10:30 Glucagon (Glucagen) 1 mg Q15M PRN IM DECREASED GLUCOSE; Start 03/02/17 at 10:30 Glucose (Glutose) 15 gm Q15M PRN BUCCAL DECREASED GLUCOSE; Start 03/02/17 at 10 :30 Hydralazine HCl (Apresoline) 10 mg Q6H PRN IV SBP>160 Last administered on 03/02 12:28; Admin Dose 10 MG; Start 03/02/17 at 10:30 Polyethylene Glycol (Miralax) 17 gm BID PO Last administered on 03/08/17 10:05 ; Admin Dose 17 GM; Start 03/02/17 at 11:00 Bisacodyl 10 mg 10 mg DAILY PRN PO CONSTIPATION; Start 03/02/17 at 10:30 Sodium Chloride (NS) 1,000 ml @ 75 mls/hr [id number] IV Last administered on 03/08 05:12; Admin Dose 75 MLS/HR; Start 03/02/17 at 13:30 Insulin Glargine (Lantus) 16 unit DAILY@08 SC Last administered on 03/08/17 10 :07; Admin Dose 16 UNIT; Start 03/07/17 at 08:00 NANCY CASPER NP Mar 08, 2017 14:26
--- NOTE | 2017-03-08 14:31 | PN ---
DATE: 03/08/2017 INTERNAL MEDICINE FOLLOWUP SUBJECTIVE: Chart reviewed. The patient is lying in bed on 2 liters nasal cannula, saturating 95% and does not appear in acute distress. PHYSICAL EXAMINATION: VITAL SIGNS: Blood pressure 146/70, pulse 101, respirations 16, temperature 98.6. HEENT: Pupils are equal and reactive to light. NECK: Supple, no JVD noted, no cervical adenopathy, no carotid bruits heard. LUNGS: Fair breath sounds bilaterally. CARDIOVASCULAR: S1, S2 normal. ABDOMEN: Soft, nontender. No organomegaly or masses noted. EXTREMITIES: No clubbing, cyanosis, or edema noted. NEUROLOGICAL: Awake. IMPRESSION: 1. Metastatic cholangiocarcinoma, on chemotherapy. 2. Leukocytosis with systemic inflammatory response syndrome, most likely due to underlying carcino ma. 3. History of hypertension. 4. History of diabetes mellitus. 5. Duodenal ulcer and gastric ulcer. 6. Anemia. 7. Mild hyponatremia. PLAN: 1. ID followup. 2. Followup CBC. 3. Since patient has been stable and no evidence of infection, I would consider discharge planning tomorrow if patient is stable. Dictated By: VENKATA TELLEZ MD, MA/[facility] Conf#: [id number] DID#: [id number]
[2017-03-09] VITALS (12 sets, daily range): BP systolic 140–187; BP diastolic 65–81; PULSE 93–123; RESP 16–20
[2017-03-09] MEDS: morphine 2 MG INJ IV PRN ×3 (01:12→23:58)
[2017-03-09] MEDS: ACCU-CHEK XX SCH (02:16)
[2017-03-09] MEDS: SOD CHLORIDE 0.9% 1,000 ML IV SCH ×2 (05:54→18:35)
[2017-03-09 06:52] LABS: ADD SCAN DIFF NO
[2017-03-09 07:05] LABS: ABNORMAL IP MESSAGE 1; BASOPHIL # 0.1 10^3/ul (0.0-0.1); BASOPHILS % 0.4 % (0.0-2.0); EOSINOPHILS # 0.1 10^3/ul (0.0-0.5); EOSINOPHILS % 0.4 % (0.0-7.0); HEMATOCRIT 25.7 % (37.0-47.0); HEMOGLOBIN 8.3 g/dl (12.0-16.0); LYMPHOCYTES % 8.7 % (15.0-51.0); MEAN CORPUSCULAR HEMOGLOBIN 31.1 pg (29.0-33.0); MEAN CORPUSCULAR HGB CONC 32.3 g/dl (32.0-37.0); MEAN CORPUSCULAR VOLUME 96.3 fl (82.0-101.0); MEAN PLATELET VOLUME 9.9 fl (7.4-10.4); MONOCYTE # 1.9 10^3/ul (0.3-0.9); MONOCYTES % 8.3 % (0.0-11.0); NEUTROPHIL # 18.2 10^3/ul (1.6-7.5); NEUTROPHILS % 78.4 % (39.0-77.0); PLATELET COUNT 288 10^3/UL (140-415); RED BLOOD COUNT 2.67 10^6/ul (4.20-5.40); RED CELL DISTRIBUTION WIDTH 24.1 % (11.5-14.5); WHITE BLOOD COUNT 23.2 10^3/ul (4.8-10.8)
[2017-03-09] MEDS: ALBUTEROL/IPRATROPIUM (NEB) 3 ML AMP HHN SCH ×3 (08:14→20:26)
[2017-03-09] MEDS: ALPRAZOLAM 0.25 MG TAB PO PRN ×2 (08:32→15:56)
[2017-03-09] MEDS: PANTOPRAZOLE (EC) 40 MG TAB PO SCH ×2 (08:32→20:55)
[2017-03-09] MEDS: DOCUSATE SODIUM 100 MG CAP PO SCH (08:32)
[2017-03-09] MEDS: SUCRALFATE 1 GM TAB PO SCH ×4 (08:32→20:55)
[2017-03-09] MEDS: METOPROLOL 25 MG TAB PO SCH ×2 (08:33→20:55)
[2017-03-09] MEDS: LINAGLIPTIN 5 MG TABLET PO SCH (08:33)
[2017-03-09] MEDS: INSULIN ASPART [NOVOLOG] 3 ML PEN SC SCH ×4 (08:35→20:55)
[2017-03-09] MEDS: INSULIN GLARGINE [LANtus] 3 ML PEN SC SCH (08:36)
[2017-03-09] MEDS: POLYETHYLENE GLYCOL 17 GM PACKET PO SCH ×2 (10:06→20:56)
[2017-03-09] MEDS: SALMETEROL/FLUTICASONE 250/50 INHA INH SCH ×2 (13:20→20:54)
--- NOTE | 2017-03-09 13:28 | CONS ---
Date/Time of Note Date/Time of Note DATE: 03/09/17 TIME: 13:26 Assessment/Plan Assessment/Plan Chief Complaint/Hosp Course SUBJECTIVE: No acute changes overnight. The patient is alert, no fevers. Abdomen is slightly more distended No vomiting or diarrhea. MICROBIOLOGY: Blood and urine cultures remain negative. Influenza swab since admission negative. DIAGNOSTICS: Chest x-ray revealed nodular densities and bibasilar atelectasis. CT of the brain showed no acute findings. PHYSICAL EXAMINATION: GENERAL: Cachectic, well-developed, elderly woman who is alert, in no distress. HEENT: Head atraumatic, normocephalic. Sclerae anicteric. Buccal mucosa dry. NECK: Supple. CHEST: Rise symmetrical. Breath sounds diminished to bases. HEART: S1, S2. ABDOMEN: Soft, bowel sounds present. EXTREMITIES: Without cyanosis. ASSESSMENT: 1. Systemic inflammatory response syndrome with persistent leukocytosis likely 2 to metastatic disease. 2. Metastatic cholangiocarcinoma, in chemo. 3. Diabetes. 4. Hypertension. PLAN: Remains stable, all cx's negative, will observe off abx, consider oncology eval? DW staff Problems: Consultation Date/Type/Reason Admit Date/Time Mar 02, 2017 at 05:01 Type of Consultation: ID Exam/Review of Systems Vital Signs Vitals Vital Signs Date Time Temp Pulse Resp B/P Pulse Ox O2 Delivery O2 Flow Rate FiO2 03/09/17 12:28 93 03/09/17 11:54 98.5 18 146/72 100 03/09/17 08:14 2.0 03/09/17 08:14 Nasal Cannula Intake and Output 03/08/17 03/08/17 03/09/17 15:00 23:00 07:00 Intake Total 2100 ml 1020 ml Balance 2100 ml 1020 ml Results Result Diagram: 03/09/17 0620 03/06/17 0624 Results 24 hrs Laboratory Tests Test 03/08/17 17:24 03/08/17 20:33 03/09/17 02:14 03/09/17 06:20 Bedside Glucose 177 181 137 White Blood Count 23.2 H Red Blood Count 2.67 L Hemoglobin 8.3 L Hematocrit 25.7 L Mean Corpuscular Volume 96.3 Mean Corpuscular Hemoglobin 31.1 Mean Corpuscular Hemoglobin Concent 32.3 Red Cell Distribution Width 24.1 H Platelet Count 288 Mean Platelet Volume 9.9 Neutrophils % 78.4 H Lymphocytes % 8.7 L Monocytes % 8.3 Eosinophils % 0.4 Basophils % 0.4 Nucleated Red Blood Cells % 0.0 Neutrophils # 18.2 H Lymphocytes # 2.0 Monocytes # 1.9 H Eosinophils # 0.1 Basophils # 0.1 Nucleated Red Blood Cells # 0.0 Test 03/09/17 08:17 03/09/17 12:47 Bedside Glucose 180 137 Medications Medications Current Medications Ondansetron HCl (Zofran Inj) 4 mg Q6H PRN IV NAUSEA AND/OR VOMITING Last administered on 03/06/17 08:38; Admin Dose 4 MG; Start 03/02/17 at 09:00 Acetaminophen (Tylenol Tab) 650 mg Q6H PRN PO PAIN LEVEL 1-3 OR FEVER Last administered on 03/06/17 01:03; Admin Dose 650 MG; Start 03/02/17 at 09:00 Acetaminophen/ Hydrocodone Bitart ([place] (5/325)) 1 tab Q6H PRN PO PAIN LEVEL 4 -6 Last administered on 03/06/17 21:07; Admin Dose 1 TAB; Start 03/02/17 at 09: 00 Morphine Sulfate (morphine) 2 mg Q4H PRN IV PAIN LEVEL 7-10 Last administered on 03/09/17 01:12; Admin Dose 2 MG; Start 03/02/17 at 09:00 Magnesium Hydroxide (Milk Of Mag) 30 ml DAILY PRN PO CONSTIPATION Last administered on 03/07/17 08:34; Admin Dose 30 ML; Start 03/02/17 at 09:00 Alprazolam (Xanax) 0.5 mg Q8H PRN PO ANXIETY Last administered on 03/09/17 08: 32; Admin Dose 0.5 MG; Start 03/02/17 at 09:30 Docusate Sodium (Colace) 100 mg DAILY PO Last administered on 03/09/17 08:32; Admin Dose 100 MG; Start 03/03/17 at 09:00 Linagliptin (Tradjenta) 5 mg DAILY PO Last administered on 03/09/17 08:33; Admin Dose 5 MG; Start 03/03/17 at 09:00 Metoprolol Tartrate (Lopressor) 25 mg BID PO Last administered on 03/09/17 08: 33; Admin Dose 25 MG; Start 03/02/17 at 21:00 Pantoprazole (Protonix Tab) 40 mg BID PO Last administered on 03/09/17 08:32; Admin Dose 40 MG; Start 03/02/17 at 21:00 Polyethylene Glycol (Miralax) 8.5 gm DAILY PRN PO CONSTIPATION; Start 03/02/17 at 09:30 Sucralfate (Carafate) 1 gm QID PO Last administered on 03/09/17 13:20; Admin Dose 1 GM; Start 03/02/17 at 13:00 Salmeterol Xinafoate/ Fluticasone (Advair 250/50 Diskus) 1 inh BID INH Last administered on 03/09/17 13:20; Admin Dose 1 INH; Start 03/02/17 at 11:00 Diagnostic Test (Pha) (Accu-Chek) 1 ea 02 XX Last administered on 03/09/17 02: 16; Admin Dose 1 EA; Start 03/03/17 at 02:00 Miscellaneous Information 1 ea NOTE XX ; Start 03/02/17 at 10:30 Glucose (Glutose) 15 gm Q15M PRN PO DECREASED GLUCOSE; Start 03/02/17 at 10:30 Glucose (Glutose) 22.5 gm Q15M PRN PO DECREASED GLUCOSE; Start 03/02/17 at 10: 30 Dextrose (D50w Syringe) 25 ml Q15M PRN IV DECREASED GLUCOSE; Start 03/02/17 at 10:30 Dextrose (D50w Syringe) 50 ml Q15M PRN IV DECREASED GLUCOSE; Start 03/02/17 at 10:30 Glucagon (Glucagen) 1 mg Q15M PRN IM DECREASED GLUCOSE; Start 03/02/17 at 10:30 Glucose (Glutose) 15 gm Q15M PRN BUCCAL DECREASED GLUCOSE; Start 03/02/17 at 10 :30 Hydralazine HCl (Apresoline) 10 mg Q6H PRN IV SBP>160 Last administered on 03/02 12:28; Admin Dose 10 MG; Start 03/02/17 at 10:30 Polyethylene Glycol (Miralax) 17 gm BID PO Last administered on 03/09/17 10:06 ; Admin Dose 17 GM; Start 03/02/17 at 11:00 Bisacodyl 10 mg 10 mg DAILY PRN PO CONSTIPATION; Start 03/02/17 at 10:30 Sodium Chloride (NS) 1,000 ml @ 75 mls/hr [id number] IV Last administered on 03/09 05:54; Admin Dose 75 MLS/HR; Start 03/02/17 at 13:30 Insulin Glargine (Lantus) 16 unit DAILY@08 SC Last administered on 03/09/17 08 :36; Admin Dose 16 UNIT; Start 03/07/17 at 08:00 NANCY CASPER NP Mar 09, 2017 13:27
--- NOTE | 2017-03-09 14:22 | PN ---
DATE: 03/09/2017 SUBJECTIVE: Chart reviewed. No significant changes. Currently on 2 L O2 nasal cannula, saturating 100%. PHYSICAL EXAMINATION: VITAL SIGNS: Blood pressure 146/72, pulse 95, respirations 18, temperature 98.5. HEENT: Pupils are equal and reactive to light. NECK: Supple. No JVD noted, no cervical adenopathy noted, no carotid bruits heard. LUNGS: Fair breath sounds bilaterally. CARDIOVASCULAR: S1, S2 normal. ABDOMEN: Soft, nontender, nondistended. Positive bowel sounds. EXTREMITIES: No clubbing or cyanosis noted. NEUROLOGICAL: Awake. LABORATORY: WBC 23.2, hemoglobin 8.3, hematocrit 25.7, platelets 288. IMPRESSION: 1. Metastatic cholangiocarcinoma, on chemotherapy. 2. Leukocytosis. Likely source due to underlying carcinoma. 3. History of hypertension. 4. Diabetes mellitus. 5. Duodenal ulcer and gastric ulcer. 6. Anemia. 7. Mild . RECOMMENDATIONS: 1. Continue the current treatment. 2. Patient can be discharged home tomorrow if okay with ID. Dictated By: VENKATA TELLEZ MD, MA/AMOS Conf#: [id number] DID#: [id number]
[2017-03-10] VITALS (14 sets, daily range): BP systolic 141–183; BP diastolic 67–113; PULSE 96–118; RESP 15–21
[2017-03-10] MEDS: ACCU-CHEK XX SCH (02:00)
[2017-03-10] MEDS: SOD CHLORIDE 0.9% 1,000 ML IV SCH ×2 (06:09→20:24)
[2017-03-10] MEDS: INSULIN ASPART [NOVOLOG] 3 ML PEN SC SCH ×4 (08:00→20:34)
[2017-03-10] MEDS: ALBUTEROL/IPRATROPIUM (NEB) 3 ML AMP HHN SCH ×3 (08:11→20:48)
[2017-03-10] MEDS: PANTOPRAZOLE (EC) 40 MG TAB PO SCH ×2 (08:28→20:25)
[2017-03-10] MEDS: SUCRALFATE 1 GM TAB PO SCH ×4 (08:28→20:25)
[2017-03-10] MEDS: morphine 2 MG INJ IV PRN ×4 (08:28→23:38)
[2017-03-10] MEDS: METOPROLOL 25 MG TAB PO SCH ×2 (08:28→20:33)
[2017-03-10] MEDS: DOCUSATE SODIUM 100 MG CAP PO SCH (08:28)
[2017-03-10] MEDS: LINAGLIPTIN 5 MG TABLET PO SCH (08:28)
[2017-03-10] MEDS: POLYETHYLENE GLYCOL 17 GM PACKET PO SCH ×2 (08:29→20:26)
[2017-03-10] MEDS: SALMETEROL/FLUTICASONE 250/50 INHA INH SCH ×2 (08:29→20:24)
[2017-03-10] MEDS: INSULIN GLARGINE [LANtus] 3 ML PEN SC SCH (08:37)
--- NOTE | 2017-03-10 10:57 | PN ---
Date/Time of Note Date/Time of Note DATE: 03/10/17 TIME: 10:55 Assessment/Plan VTE Prophylaxis VTE Prophylaxis Intervention: heparin Lines/Catheters IV [facility] portacath Urinary Cath still in place: No Assessment/Plan Problems: (1) COPD (chronic obstructive pulmonary disease) Status: Chronic Comment: Continue with the pulmonary medications as best the patient tolerates. Eventual discharge planning. 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 However ultimately we need to address long-term goals (3) Essential hypertension Status: Chronic Comment: Adequate control (4) Diabetes mellitus type 2 in nonobese Status: Chronic Comment: Adequate control on present regimen (5) Systemic inflammatory response syndrome Status: Acute Comment: Improved nicely with treatment Subjective 24 Hr Interval Summary Free Text/Dictation Patient reports she is unaware of who her chemotherapy doctor is. She reports her breathing is stable. Constitutional: no complaints Respiratory: shortness of breath Cardiovascular: no complaints Gastrointestinal: constipation, pain Genitourinary: no complaints Exam/Review of Systems Vital Signs Vitals Vital Signs Date Time Temp Pulse Resp B/P Pulse Ox O2 Delivery O2 Flow Rate FiO2 03/10/17 08:11 115 20 96 Nasal Cannula 2.0 03/10/17 08:02 98.2 145/69 Intake and Output 03/09/17 03/09/17 03/10/17 15:00 23:00 07:00 Intake Total 200 ml 2000 ml 1200 ml Balance 200 ml 2000 ml 1200 ml Exam Constitutional: alert, oriented Neck: non-tender, supple Respiratory: diminished breath sounds (Increased AP diameter decreased IT ratio ) Cardiovascular: nl pulses, regular rate and rhythm Gastrointestinal: distended, soft Results Result Diagram: 03/09/17 0620 03/06/17 0624 Results 24 hrs Laboratory Tests Test 03/09/17 12:47 03/09/17 17:11 03/09/17 20:42 03/10/17 08:26 Bedside Glucose 137 133 137 118 Medications Medications Current Medications Ondansetron HCl (Zofran Inj) 4 mg Q6H PRN IV NAUSEA AND/OR VOMITING Last administered on 03/06/17 08:38; Admin Dose 4 MG; Start 03/02/17 at 09:00 Acetaminophen (Tylenol Tab) 650 mg Q6H PRN PO PAIN LEVEL 1-3 OR FEVER Last administered on 03/06/17 01:03; Admin Dose 650 MG; Start 03/02/17 at 09:00 Acetaminophen/ Hydrocodone Bitart ([place] (5/325)) 1 tab Q6H PRN PO PAIN LEVEL 4 -6 Last administered on 03/06/17 21:07; Admin Dose 1 TAB; Start 03/02/17 at 09: 00 Morphine Sulfate (morphine) 2 mg Q4H PRN IV PAIN LEVEL 7-10 Last administered on 03/10/17 08:28; Admin Dose 2 MG; Start 03/02/17 at 09:00 Magnesium Hydroxide (Milk Of Mag) 30 ml DAILY PRN PO CONSTIPATION Last administered on 03/07/17 08:34; Admin Dose 30 ML; Start 03/02/17 at 09:00 Alprazolam (Xanax) 0.5 mg Q8H PRN PO ANXIETY Last administered on 03/09/17 15: 56; Admin Dose 0.5 MG; Start 03/02/17 at 09:30 Docusate Sodium (Colace) 100 mg DAILY PO Last administered on 03/10/17 08:28; Admin Dose 100 MG; Start 03/03/17 at 09:00 Linagliptin (Tradjenta) 5 mg DAILY PO Last administered on 03/10/17 08:28; Admin Dose 5 MG; Start 03/03/17 at 09:00 Metoprolol Tartrate (Lopressor) 25 mg BID PO Last administered on 03/10/17 08: 28; Admin Dose 25 MG; Start 03/02/17 at 21:00 Pantoprazole (Protonix Tab) 40 mg BID PO Last administered on 03/10/17 08:28; Admin Dose 40 MG; Start 03/02/17 at 21:00 Polyethylene Glycol (Miralax) 8.5 gm DAILY PRN PO CONSTIPATION; Start 03/02/17 at 09:30 Sucralfate (Carafate) 1 gm QID PO Last administered on 03/10/17 08:28; Admin Dose 1 GM; Start 03/02/17 at 13:00 Salmeterol Xinafoate/ Fluticasone (Advair 250/50 Diskus) 1 inh BID INH Last administered on 03/10/17 08:29; Admin Dose 1 INH; Start 03/02/17 at 11:00 Diagnostic Test (Pha) (Accu-Chek) 1 ea 02 XX Last administered on 03/09/17 02: 16; Admin Dose 1 EA; Start 03/03/17 at 02:00 Miscellaneous Information 1 ea NOTE XX ; Start 03/02/17 at 10:30 Glucose (Glutose) 15 gm Q15M PRN PO DECREASED GLUCOSE; Start 03/02/17 at 10:30 Glucose (Glutose) 22.5 gm Q15M PRN PO DECREASED GLUCOSE; Start 03/02/17 at 10: 30 Dextrose (D50w Syringe) 25 ml Q15M PRN IV DECREASED GLUCOSE; Start 03/02/17 at 10:30 Dextrose (D50w Syringe) 50 ml Q15M PRN IV DECREASED GLUCOSE; Start 03/02/17 at 10:30 Glucagon (Glucagen) 1 mg Q15M PRN IM DECREASED GLUCOSE; Start 03/02/17 at 10:30 Glucose (Glutose) 15 gm Q15M PRN BUCCAL DECREASED GLUCOSE; Start 03/02/17 at 10 :30 Hydralazine HCl (Apresoline) 10 mg Q6H PRN IV SBP>160 Last administered on 03/02 12:28; Admin Dose 10 MG; Start 03/02/17 at 10:30 Polyethylene Glycol (Miralax) 17 gm BID PO Last administered on 03/10/17 08:29 ; Admin Dose 17 GM; Start 03/02/17 at 11:00 Bisacodyl 10 mg 10 mg DAILY PRN PO CONSTIPATION; Start 03/02/17 at 10:30 Sodium Chloride (NS) 1,000 ml @ 75 mls/hr [id number] IV Last administered on 03/10 06:09; Admin Dose 75 MLS/HR; Start 03/02/17 at 13:30 Insulin Glargine (Lantus) 16 unit DAILY@08 SC Last administered on 03/10/17 08 :37; Admin Dose 16 UNIT; Start 03/07/17 at 08:00 HAYDEN ALMANZAR MD Mar 10, 2017 10:57
[2017-03-10] MEDS: TIOTROPIUM 18 MCG CAPSULE INHA DEV INH SCH (12:14)
[2017-03-10] MEDS: MAGNESIUM HYDROXIDE 30ML CUP PO PRN (13:12)
[2017-03-10] MEDS: MONTELUKAST 10 MG TAB PO SCH (20:25)
[2017-03-11] VITALS (12 sets, daily range): BP systolic 97–147; BP diastolic 57–79; PULSE 94–111; RESP 16–18
[2017-03-11] MEDS: ACCU-CHEK XX SCH (02:00)
[2017-03-11] MEDS: HYDROCODONE/APAP (5/325) TAB PO PRN (03:40)
[2017-03-11] MEDS: morphine 2 MG INJ IV PRN ×4 (03:48→20:17)
[2017-03-11] MEDS: ALBUTEROL/IPRATROPIUM (NEB) 3 ML AMP HHN SCH ×4 (08:00→19:50)
[2017-03-11] MEDS: INSULIN ASPART [NOVOLOG] 3 ML PEN SC SCH ×4 (08:00→20:30)
[2017-03-11] MEDS: TIOTROPIUM 18 MCG CAPSULE INHA DEV INH SCH (08:17)
[2017-03-11] MEDS: POLYETHYLENE GLYCOL 17 GM PACKET PO SCH ×2 (08:17→20:18)
[2017-03-11] MEDS: SALMETEROL/FLUTICASONE 250/50 INHA INH SCH ×2 (08:17→20:18)
[2017-03-11] MEDS: DOCUSATE SODIUM 100 MG CAP PO SCH (08:17)
[2017-03-11] MEDS: SUCRALFATE 1 GM TAB PO SCH ×4 (08:17→20:18)
[2017-03-11] MEDS: METOPROLOL 25 MG TAB PO SCH ×2 (08:17→20:20)
[2017-03-11] MEDS: PANTOPRAZOLE (EC) 40 MG TAB PO SCH ×2 (08:21→20:19)
[2017-03-11] MEDS: LINAGLIPTIN 5 MG TABLET PO SCH (08:21)
[2017-03-11] MEDS: INSULIN GLARGINE [LANtus] 3 ML PEN SC SCH (08:24)
[2017-03-11] MEDS: SOD CHLORIDE 0.9% 1,000 ML IV SCH (10:50)
--- NOTE | 2017-03-11 11:13 | PN ---
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 Funes (3) Essential hypertension Status: Chronic Comment: Adequate control (4) Diabetes mellitus type 2 in nonobese Status: Chronic Comment: Adequate control Subjective 24 Hr Interval Summary Free Text/Dictation Patient reports abdominal pain is stable. She reports her breathing well still labored is improved Constitutional: no complaints Respiratory: shortness of breath (But improved) Cardiovascular: no complaints Gastrointestinal: no complaints Genitourinary: no complaints Exam/Review of Systems Vital Signs Vitals Vital Signs Date Time Temp Pulse Resp B/P Pulse Ox O2 Delivery O2 Flow Rate FiO2 03/11/17 10:15 Nasal Cannula 2.0 03/11/17 08:44 115 20 98 03/11/17 07:32 98.0 133/79 Intake and Output 03/10/17 03/10/17 03/11/17 15:00 23:00 07:00 Intake Total 400 ml 1075 ml Balance 400 ml 1075 ml Exam Constitutional: alert, oriented Neck: non-tender, supple Respiratory: clear to auscultation, diminished breath sounds, normal air movement Cardiovascular: nl pulses, regular rate and rhythm Results Result Diagram: 03/09/17 0620 Results 24 hrs Laboratory Tests Test 03/10/17 11:36 03/10/17 17:41 03/10/17 20:32 03/11/17 07:55 Bedside Glucose 156 163 168 117 Medications Medications Current Medications Ondansetron HCl (Zofran Inj) 4 mg Q6H PRN IV NAUSEA AND/OR VOMITING Last administered on 03/06/17 08:38; Admin Dose 4 MG; Start 03/02/17 at 09:00 Acetaminophen (Tylenol Tab) 650 mg Q6H PRN PO PAIN LEVEL 1-3 OR FEVER Last administered on 03/06/17 01:03; Admin Dose 650 MG; Start 03/02/17 at 09:00 Acetaminophen/ Hydrocodone Bitart ([place] (5/325)) 1 tab Q6H PRN PO PAIN LEVEL 4 -6 Last administered on 03/06/17 21:07; Admin Dose 1 TAB; Start 03/02/17 at 09: 00 Morphine Sulfate (morphine) 2 mg Q4H PRN IV PAIN LEVEL 7-10 Last administered on 03/11/17 09:26; Admin Dose 2 MG; Start 03/02/17 at 09:00 Magnesium Hydroxide (Milk Of Mag) 30 ml DAILY PRN PO CONSTIPATION Last administered on 03/10/17 13:12; Admin Dose 30 ML; Start 03/02/17 at 09:00 Alprazolam (Xanax) 0.5 mg Q8H PRN PO ANXIETY Last administered on 03/09/17 15: 56; Admin Dose 0.5 MG; Start 03/02/17 at 09:30 Docusate Sodium (Colace) 100 mg DAILY PO Last administered on 03/11/17 08:17; Admin Dose 100 MG; Start 03/03/17 at 09:00 Linagliptin (Tradjenta) 5 mg DAILY PO Last administered on 03/11/17 08:21; Admin Dose 5 MG; Start 03/03/17 at 09:00 Metoprolol Tartrate (Lopressor) 25 mg BID PO Last administered on 03/11/17 08: 17; Admin Dose 25 MG; Start 03/02/17 at 21:00 Pantoprazole (Protonix Tab) 40 mg BID PO Last administered on 03/11/17 08:21; Admin Dose 40 MG; Start 03/02/17 at 21:00 Polyethylene Glycol (Miralax) 8.5 gm DAILY PRN PO CONSTIPATION; Start 03/02/17 at 09:30 Sucralfate (Carafate) 1 gm QID PO Last administered on 03/11/17 08:17; Admin Dose 1 GM; Start 03/02/17 at 13:00 Salmeterol Xinafoate/ Fluticasone (Advair 250/50 Diskus) 1 inh BID INH Last administered on 03/11/17 08:17; Admin Dose 1 INH; Start 03/02/17 at 11:00 Diagnostic Test (Pha) (Accu-Chek) 1 ea 02 XX Last administered on 03/09/17 02: 16; Admin Dose 1 EA; Start 03/03/17 at 02:00 Miscellaneous Information 1 ea NOTE XX ; Start 03/02/17 at 10:30 Glucose (Glutose) 15 gm Q15M PRN PO DECREASED GLUCOSE; Start 03/02/17 at 10:30 Glucose (Glutose) 22.5 gm Q15M PRN PO DECREASED GLUCOSE; Start 03/02/17 at 10: 30 Dextrose (D50w Syringe) 25 ml Q15M PRN IV DECREASED GLUCOSE; Start 03/02/17 at 10:30 Dextrose (D50w Syringe) 50 ml Q15M PRN IV DECREASED GLUCOSE; Start 03/02/17 at 10:30 Glucagon (Glucagen) 1 mg Q15M PRN IM DECREASED GLUCOSE; Start 03/02/17 at 10:30 Glucose (Glutose) 15 gm Q15M PRN BUCCAL DECREASED GLUCOSE; Start 03/02/17 at 10 :30 Hydralazine HCl (Apresoline) 10 mg Q6H PRN IV SBP>160 Last administered on 03/02 12:28; Admin Dose 10 MG; Start 03/02/17 at 10:30 Polyethylene Glycol (Miralax) 17 gm BID PO Last administered on 03/11/17 08:17 ; Admin Dose 17 GM; Start 03/02/17 at 11:00 Bisacodyl 10 mg 10 mg DAILY PRN PO CONSTIPATION Last administered on 03/11/17 09:31; Admin Dose 10 MG; Start 03/02/17 at 10:30 Sodium Chloride (NS) 1,000 ml @ 75 mls/hr [id number] IV Last administered on 03/10 20:24; Admin Dose 75 MLS/HR; Start 03/02/17 at 13:30 Insulin Glargine (Lantus) 16 unit DAILY@08 SC Last administered on 03/11/17 08 :24; Admin Dose 16 UNIT; Start 03/07/17 at 08:00 Tiotropium [place] (Spiriva) 1 inh DAILY INH Last administered on 03/11/17 08: 17; Admin Dose 1 INH; Start 03/10/17 at 11:00 Montelukast Sodium (Singulair) 10 mg HS PO Last administered on 03/10/17t 20:25 ; Admin Dose 10 MG; Start 03/10/17 at 21:00 HAYDEN ALMANZAR MD Mar 11, 2017 11:13
[2017-03-11] MEDS ORDERED: LACTULOSE 30ML CUP PO ONE (11:30)
[2017-03-11] MEDS ORDERED: MAGNESIUM CITRATE 300 ML BTL PO ONE (12:30)
[2017-03-11] MEDS ORDERED: FIORICET PO (16:31)
[2017-03-11] MEDS: ACETAMINOPHEN 325 MG TAB PO PRN (16:36)
--- NOTE | 2017-03-11 18:13 | CONS ---
Date/Time of Note Date/Time of Note DATE: 03/11/17 TIME: 18:12 Assessment/Plan Assessment/Plan Chief Complaint/Hosp Course SUBJECTIVE: No acute changes overnight. No fevers. MICROBIOLOGY: Blood and urine cultures remain negative. Influenza swab since admission negative. DIAGNOSTICS: Chest x-ray revealed nodular densities and bibasilar atelectasis. CT of the brain showed no acute findings. PHYSICAL EXAMINATION: GENERAL: Cachectic, well-developed, elderly woman who is alert, in no distress. HEENT: Head atraumatic, normocephalic. Sclerae anicteric. Buccal mucosa dry. NECK: Supple. CHEST: Rise symmetrical. Breath sounds diminished to bases. HEART: S1, S2. ABDOMEN: Soft, bowel sounds present. EXTREMITIES: Without cyanosis. ASSESSMENT: 1. Systemic inflammatory response syndrome with persistent leukocytosis likely 2 to metastatic disease. 2. Metastatic cholangiocarcinoma, in chemo. 3. Diabetes. 4. Hypertension. PLAN: Remains stable off abx DW staff Problems: Consultation Date/Type/Reason Admit Date/Time Mar 02, 2017 at 05:01 Type of Consultation: ID Exam/Review of Systems Vital Signs Vitals Vital Signs Date Time Temp Pulse Resp B/P Pulse Ox O2 Delivery O2 Flow Rate FiO2 03/11/17 16:17 104 03/11/17 15:15 97.9 16 134/68 98 03/11/17 14:35 Nasal Cannula 2.0 Intake and Output 03/10/17 03/10/17 03/11/17 15:00 23:00 07:00 Intake Total 400 ml 1075 ml Balance 400 ml 1075 ml Results Result Diagram: 03/09/17 0620 Results 24 hrs Laboratory Tests Test 03/10/17 20:32 03/11/17 07:55 03/11/17 12:01 03/11/17 17:28 Bedside Glucose 168 117 138 145 Medications Medications Current Medications Ondansetron HCl (Zofran Inj) 4 mg Q6H PRN IV NAUSEA AND/OR VOMITING Last administered on 03/06/17 08:38; Admin Dose 4 MG; Start 03/02/17 at 09:00 Acetaminophen (Tylenol Tab) 650 mg Q6H PRN PO PAIN LEVEL 1-3 OR FEVER Last administered on 03/11/17 16:36; Admin Dose 650 MG; Start 03/02/17 at 09:00 Acetaminophen/ Hydrocodone Bitart ([place] (5/325)) 1 tab Q6H PRN PO PAIN LEVEL 4 -6 Last administered on 03/06/17 21:07; Admin Dose 1 TAB; Start 03/02/17 at 09: 00 Morphine Sulfate (morphine) 2 mg Q4H PRN IV PAIN LEVEL 7-10 Last administered on 03/11/17 14:00; Admin Dose 2 MG; Start 03/02/17 at 09:00 Magnesium Hydroxide (Milk Of Mag) 30 ml DAILY PRN PO CONSTIPATION Last administered on 03/10/17 13:12; Admin Dose 30 ML; Start 03/02/17 at 09:00 Alprazolam (Xanax) 0.5 mg Q8H PRN PO ANXIETY Last administered on 03/09/17 15: 56; Admin Dose 0.5 MG; Start 03/02/17 at 09:30 Docusate Sodium (Colace) 100 mg DAILY PO Last administered on 03/11/17 08:17; Admin Dose 100 MG; Start 03/03/17 at 09:00 Linagliptin (Tradjenta) 5 mg DAILY PO Last administered on 03/11/17 08:21; Admin Dose 5 MG; Start 03/03/17 at 09:00 Metoprolol Tartrate (Lopressor) 25 mg BID PO Last administered on 03/11/17 08: 17; Admin Dose 25 MG; Start 03/02/17 at 21:00 Pantoprazole (Protonix Tab) 40 mg BID PO Last administered on 03/11/17 08:21; Admin Dose 40 MG; Start 03/02/17 at 21:00 Polyethylene Glycol (Miralax) 8.5 gm DAILY PRN PO CONSTIPATION; Start 03/02/17 at 09:30 Sucralfate (Carafate) 1 gm QID PO Last administered on 03/11/17 16:36; Admin Dose 1 GM; Start 03/02/17 at 13:00 Salmeterol Xinafoate/ Fluticasone (Advair 250/50 Diskus) 1 inh BID INH Last administered on 03/11/17 08:17; Admin Dose 1 INH; Start 03/02/17 at 11:00 Diagnostic Test (Pha) (Accu-Chek) 1 ea 02 XX Last administered on 03/09/17 02: 16; Admin Dose 1 EA; Start 03/03/17 at 02:00 Miscellaneous Information 1 ea NOTE XX ; Start 03/02/17 at 10:30 Glucose (Glutose) 15 gm Q15M PRN PO DECREASED GLUCOSE; Start 03/02/17 at 10:30 Glucose (Glutose) 22.5 gm Q15M PRN PO DECREASED GLUCOSE; Start 03/02/17 at 10: 30 Dextrose (D50w Syringe) 25 ml Q15M PRN IV DECREASED GLUCOSE; Start 03/02/17 at 10:30 Dextrose (D50w Syringe) 50 ml Q15M PRN IV DECREASED GLUCOSE; Start 03/02/17 at 10:30 Glucagon (Glucagen) 1 mg Q15M PRN IM DECREASED GLUCOSE; Start 03/02/17 at 10:30 Glucose (Glutose) 15 gm Q15M PRN BUCCAL DECREASED GLUCOSE; Start 03/02/17 at 10 :30 Hydralazine HCl (Apresoline) 10 mg Q6H PRN IV SBP>160 Last administered on 03/02 12:28; Admin Dose 10 MG; Start 03/02/17 at 10:30 Polyethylene Glycol (Miralax) 17 gm BID PO Last administered on 03/11/17 08:17 ; Admin Dose 17 GM; Start 03/02/17 at 11:00 Bisacodyl (Dulcolax) 10 mg DAILY PRN PO CONSTIPATION Last administered on 09:31; Admin Dose 10 MG; Start 03/02/17 at 10:30 Insulin Glargine (Lantus) 16 unit DAILY@08 SC Last administered on 03/11/17 08 :24; Admin Dose 16 UNIT; Start 03/07/17 at 08:00 Tiotropium [place] (Spiriva) 1 inh DAILY INH Last administered on 03/11/17 08: 17; Admin Dose 1 INH; Start 03/10/17 at 11:00 Montelukast Sodium (Singulair) 10 mg HS PO Last administered on 03/10/17 20:25 ; Admin Dose 10 MG; Start 03/10/17 at 21:00 NANCY CASPER NP Mar 11, 2017 18:12
[2017-03-11] MEDS: MONTELUKAST 10 MG TAB PO SCH (20:18)
[2017-03-12] VITALS (11 sets, daily range): BP systolic 123–160; BP diastolic 58–72; PULSE 92–112; RESP 18–19
[2017-03-12] MEDS: ACCU-CHEK XX SCH (02:00)
[2017-03-12] MEDS: morphine 2 MG INJ IV PRN ×3 (03:27→15:13)
[2017-03-12] MEDS: ALBUTEROL/IPRATROPIUM (NEB) 3 ML AMP HHN SCH ×2 (07:23→13:51)
[2017-03-12] MEDS: INSULIN ASPART [NOVOLOG] 3 ML PEN SC SCH ×3 (08:00→17:09)
[2017-03-12] MEDS: INSULIN GLARGINE [LANtus] 3 ML PEN SC SCH (08:29)
[2017-03-12] MEDS: LINAGLIPTIN 5 MG TABLET PO SCH (08:30)
[2017-03-12] MEDS: SALMETEROL/FLUTICASONE 250/50 INHA INH SCH (08:30)
[2017-03-12] MEDS: TIOTROPIUM 18 MCG CAPSULE INHA DEV INH SCH (08:30)
[2017-03-12] MEDS: PANTOPRAZOLE (EC) 40 MG TAB PO SCH (08:30)
[2017-03-12] MEDS: SUCRALFATE 1 GM TAB PO SCH ×3 (08:31→16:33)
[2017-03-12] MEDS: METOPROLOL 25 MG TAB PO SCH (08:31)
[2017-03-12] MEDS: POLYETHYLENE GLYCOL 17 GM PACKET PO SCH (08:31)
[2017-03-12] MEDS: DOCUSATE SODIUM 100 MG CAP PO SCH (08:32)
--- NOTE | 2017-03-12 13:55 | CONS ---
Date/Time of Note Date/Time of Note DATE: 03/12/17 TIME: 13:54 Assessment/Plan Assessment/Plan Chief Complaint/Hosp Course SUBJECTIVE: No acute changes overnight. No fevers. Alert, c/p diarrhea, nad MICROBIOLOGY: Blood and urine cultures remain negative. Influenza swab since admission negative. DIAGNOSTICS: Chest x-ray revealed nodular densities and bibasilar atelectasis. CT of the brain showed no acute findings. PHYSICAL EXAMINATION: GENERAL: Cachectic, well-developed, elderly woman who is alert, in no distress. HEENT: Head atraumatic, normocephalic. Sclerae anicteric. Buccal mucosa dry. NECK: Supple. CHEST: Rise symmetrical. Breath sounds diminished to bases. HEART: S1, S2. ABDOMEN: Distended. Soft, bowel sounds present. EXTREMITIES: Without cyanosis. ASSESSMENT: 1. Systemic inflammatory response syndrome with persistent leukocytosis likely 2 to metastatic disease. 2. Metastatic cholangiocarcinoma, in chemo. 3. Diabetes. 4. Hypertension. 5. Diarrhea PLAN: Clinically unchanged, stable off abx, will send stool for C dif DW staff Problems: Consultation Date/Type/Reason Admit Date/Time Mar 02, 2017 at 05:01 Type of Consultation: ID Exam/Review of Systems Vital Signs Vitals Vital Signs Date Time Temp Pulse Resp B/P Pulse Ox O2 Delivery O2 Flow Rate FiO2 03/12/17 12:25 92 03/12/17 12:15 125/59 03/12/17 11:45 97.8 19 100 03/12/17 08:15 Nasal Cannula 2.0 Intake and Output 03/11/17 03/11/17 03/12/17 15:00 23:00 07:00 Intake Total 700 ml 300 ml Balance 700 ml 300 ml Results Result Diagram: 03/09/17 0620 Results 24 hrs Laboratory Tests Test 03/11/17 17:28 03/11/17 20:24 03/12/17 08:00 03/12/17 12:16 Bedside Glucose 145 163 113 142 Medications Medications Current Medications Ondansetron HCl (Zofran Inj) 4 mg Q6H PRN IV NAUSEA AND/OR VOMITING Last administered on 03/06/17t 08:38; Admin Dose 4 MG; Start 03/02/17 at 09:00 Acetaminophen (Tylenol Tab) 650 mg Q6H PRN PO PAIN LEVEL 1-3 OR FEVER Last administered on 03/11/17 16:36; Admin Dose 650 MG; Start 03/02/17 at 09:00 Acetaminophen/ Hydrocodone Bitart ([place] (5/325)) 1 tab Q6H PRN PO PAIN LEVEL 4 -6 Last administered on 03/06/17 21:07; Admin Dose 1 TAB; Start 03/02/17 at 09: 00 Morphine Sulfate (morphine) 2 mg Q4H PRN IV PAIN LEVEL 7-10 Last administered on 03/12/17 10:06; Admin Dose 2 MG; Start 03/02/17 at 09:00 Magnesium Hydroxide (Milk Of Mag) 30 ml DAILY PRN PO CONSTIPATION Last administered on 03/10/17 13:12; Admin Dose 30 ML; Start 03/02/17 at 09:00 Alprazolam (Xanax) 0.5 mg Q8H PRN PO ANXIETY Last administered on 03/09/17 15: 56; Admin Dose 0.5 MG; Start 03/02/17 at 09:30 Docusate Sodium (Colace) 100 mg DAILY PO Last administered on 03/11/17 08:17; Admin Dose 100 MG; Start 03/03/17 at 09:00 Linagliptin (Tradjenta) 5 mg DAILY PO Last administered on 03/12/17 08:30; Admin Dose 5 MG; Start 03/03/17 at 09:00 Metoprolol Tartrate (Lopressor) 25 mg BID PO Last administered on 03/12/17 08: 31; Admin Dose 25 MG; Start 03/02/17 at 21:00 Pantoprazole (Protonix Tab) 40 mg BID PO Last administered on 03/12/17 08:30; Admin Dose 40 MG; Start 03/02/17 at 21:00 Polyethylene Glycol (Miralax) 8.5 gm DAILY PRN PO CONSTIPATION; Start 03/02/17 at 09:30 Sucralfate (Carafate) 1 gm QID PO Last administered on 03/12/17 12:17; Admin Dose 1 GM; Start 03/02/17 at 13:00 Salmeterol Xinafoate/ Fluticasone (Advair 250/50 Diskus) 1 inh BID INH Last administered on 03/12/17 08:30; Admin Dose 1 INH; Start 03/02/17 at 11:00 Diagnostic Test (Pha) (Accu-Chek) 1 ea 02 XX Last administered on 03/09/17 02: 16; Admin Dose 1 EA; Start 03/03/17 at 02:00 Miscellaneous Information 1 ea NOTE XX ; Start 03/02/17 at 10:30 Glucose (Glutose) 15 gm Q15M PRN PO DECREASED GLUCOSE; Start 03/02/17 at 10:30 Glucose (Glutose) 22.5 gm Q15M PRN PO DECREASED GLUCOSE; Start 03/02/17 at 10: 30 Dextrose (D50w Syringe) 25 ml Q15M PRN IV DECREASED GLUCOSE; Start 03/02/17 at 10:30 Dextrose (D50w Syringe) 50 ml Q15M PRN IV DECREASED GLUCOSE; Start 03/02/17 at 10:30 Glucagon (Glucagen) 1 mg Q15M PRN IM DECREASED GLUCOSE; Start 03/02/17 at 10:30 Glucose (Glutose) 15 gm Q15M PRN BUCCAL DECREASED GLUCOSE; Start 03/02/17 at 10 :30 Hydralazine HCl (Apresoline) 10 mg Q6H PRN IV SBP>160 Last administered on 03/02 12:28; Admin Dose 10 MG; Start 03/02/17 at 10:30 Polyethylene Glycol (Miralax) 17 gm BID PO Last administered on 03/11/17 08:17 ; Admin Dose 17 GM; Start 03/02/17 at 11:00 Bisacodyl (Dulcolax) 10 mg DAILY PRN PO CONSTIPATION Last administered on 09:31; Admin Dose 10 MG; Start 03/02/17 at 10:30 Insulin Glargine (Lantus) 16 unit DAILY@08 SC Last administered on 03/12/17 08 :29; Admin Dose 16 UNIT; Start 03/07/17 at 08:00 Tiotropium [place] (Spiriva) 1 inh DAILY INH Last administered on 03/12/17 08: 30; Admin Dose 1 INH; Start 03/10/17 at 11:00 Montelukast Sodium (Singulair) 10 mg HS PO Last administered on 03/11/17 20:18 ; Admin Dose 10 MG; Start 03/10/17 at 21:00 NANCY CASPER NP Mar 12, 2017 13:55
--- NOTE | 2017-03-12 15:11 | PN ---
Date/Time of Note Date/Time of Note DATE: 03/12/17 TIME: 15:09 Assessment/Plan VTE Prophylaxis VTE Prophylaxis Intervention: SCD's Lines/Catheters IV Catheter Type (from Nrs): PORTACATH Urinary Cath still in place: No Assessment/Plan Assessment/Plan 1. Metastatic cholangiocarcinoma, on chemotherapy. 2. Leukocytosis. Likely source due to underlying carcinoma. 3. History of hypertension. 4. Diabetes mellitus. 5. Duodenal ulcer and gastric ulcer. 6. Anemia. Plan: Conitnue current care d/c stool softeners Imodium 2 mg pO x 1 dose now possible d/c home today with Outpatien follow up with Subjective 24 Hr Interval Summary Free Text/Dictation c/o diarrhea, no abd pain Exam/Review of Systems Vital Signs Vitals Vital Signs Date Time Temp Pulse Resp B/P Pulse Ox O2 Delivery O2 Flow Rate FiO2 03/12/17 13:53 107 18 95 Nasal Cannula 2.0 03/12/17 12:15 125/59 03/12/17 11:45 97.8 Intake and Output 03/11/17 03/11/17 03/12/17 15:00 23:00 07:00 Intake Total 700 ml 300 ml Balance 700 ml 300 ml Exam GENERAL: Cachectic, well-developed, elderly woman who is alert, in no distress. HEENT: Head atraumatic, normocephalic. Sclerae anicteric. Buccal mucosa dry. NECK: Supple. CHEST: Rise symmetrical. Breath sounds diminished to bases. HEART: S1, S2. ABDOMEN: Soft, bowel sounds present. EXTREMITIES: Without cyanosis. Results Result Diagram: 03/09/17 0620 Results 24 hrs Laboratory Tests Test 03/11/17 17:28 03/11/17 20:24 03/12/17 08:00 03/12/17 12:16 Bedside Glucose 145 163 113 142 Medications Medications Current Medications Ondansetron HCl (Zofran Inj) 4 mg Q6H PRN IV NAUSEA AND/OR VOMITING Last administered on 03/06/17 08:38; Admin Dose 4 MG; Start 03/02/17 at 09:00 Acetaminophen (Tylenol Tab) 650 mg Q6H PRN PO PAIN LEVEL 1-3 OR FEVER Last administered on 03/11/17 16:36; Admin Dose 650 MG; Start 03/02/17 at 09:00 Acetaminophen/ Hydrocodone Bitart ([place] (5/325)) 1 tab Q6H PRN PO PAIN LEVEL 4 -6 Last administered on 03/06/17 21:07; Admin Dose 1 TAB; Start 03/02/17 at 09: 00 Morphine Sulfate (morphine) 2 mg Q4H PRN IV PAIN LEVEL 7-10 Last administered on 03/12/17 10:06; Admin Dose 2 MG; Start 03/02/17 at 09:00 Magnesium Hydroxide (Milk Of Mag) 30 ml DAILY PRN PO CONSTIPATION Last administered on 03/10/17 13:12; Admin Dose 30 ML; Start 03/02/17 at 09:00 Alprazolam (Xanax) 0.5 mg Q8H PRN PO ANXIETY Last administered on 03/09/17 15: 56; Admin Dose 0.5 MG; Start 03/02/17 at 09:30 Docusate Sodium (Colace) 100 mg DAILY PO Last administered on 03/11/17 08:17; Admin Dose 100 MG; Start 03/03/17 at 09:00 Linagliptin (Tradjenta) 5 mg DAILY PO Last administered on 03/12/17 08:30; Admin Dose 5 MG; Start 03/03/17 at 09:00 Metoprolol Tartrate (Lopressor) 25 mg BID PO Last administered on 03/12/17 08: 31; Admin Dose 25 MG; Start 03/02/17 at 21:00 Pantoprazole (Protonix Tab) 40 mg BID PO Last administered on 03/12/17 08:30; Admin Dose 40 MG; Start 03/02/17 at 21:00 Polyethylene Glycol (Miralax) 8.5 gm DAILY PRN PO CONSTIPATION; Start 03/02/17 at 09:30 Sucralfate (Carafate) 1 gm QID PO Last administered on 03/12/17 12:17; Admin Dose 1 GM; Start 03/02/17 at 13:00 Salmeterol Xinafoate/ Fluticasone (Advair 250/50 Diskus) 1 inh BID INH Last administered on 03/12/17 08:30; Admin Dose 1 INH; Start 03/02/17 at 11:00 Diagnostic Test (Pha) (Accu-Chek) 1 ea 02 XX Last administered on 03/09/17 02: 16; Admin Dose 1 EA; Start 03/03/17 at 02:00 Miscellaneous Information 1 ea NOTE XX ; Start 03/02/17 at 10:30 Glucose (Glutose) 15 gm Q15M PRN PO DECREASED GLUCOSE; Start 03/02/17 at 10:30 Glucose (Glutose) 22.5 gm Q15M PRN PO DECREASED GLUCOSE; Start 03/02/17 at 10: 30 Dextrose (D50w Syringe) 25 ml Q15M PRN IV DECREASED GLUCOSE; Start 03/02/17 at 10:30 Dextrose (D50w Syringe) 50 ml Q15M PRN IV DECREASED GLUCOSE; Start 03/02/17 at 10:30 Glucagon (Glucagen) 1 mg Q15M PRN IM DECREASED GLUCOSE; Start 03/02/17 at 10:30 Glucose (Glutose) 15 gm Q15M PRN BUCCAL DECREASED GLUCOSE; Start 03/02/17 at 10 :30 Hydralazine HCl (Apresoline) 10 mg Q6H PRN IV SBP>160 Last administered on 03/02 12:28; Admin Dose 10 MG; Start 03/02/17 at 10:30 Polyethylene Glycol (Miralax) 17 gm BID PO Last administered on 03/11/17 08:17 ; Admin Dose 17 GM; Start 03/02/17 at 11:00 Bisacodyl (Dulcolax) 10 mg DAILY PRN PO CONSTIPATION Last administered on 09:31; Admin Dose 10 MG; Start 03/02/17 at 10:30 Insulin Glargine (Lantus) 16 unit DAILY@08 SC Last administered on 03/12/17 08 :29; Admin Dose 16 UNIT; Start 03/07/17 at 08:00 Tiotropium [place] (Spiriva) 1 inh DAILY INH Last administered on 03/12/17 08: 30; Admin Dose 1 INH; Start 03/10/17 at 11:00 Montelukast Sodium (Singulair) 10 mg HS PO Last administered on 03/11/17 20:18 ; Admin Dose 10 MG; Start 03/10/17 at 21:00 SUSAN SMITH MD Mar 12, 2017 15:11
--- NOTE | 2017-03-12 15:12 | PDOCDIS ---
Discharge Instructions CONDITION Patient Condition: Good HOME CARE INSTRUCTIONS: Special Diet: CARDIAC DIET ACTIVITY: Activity Restrictions: Slowly Increase Activity Rest between Activity Avoid heavy lifting Avoid Heavy Housework FOLLOW UP/APPOINTMENTS Follow-up Plan follow up with her own PMD through HMO insurance in 1-2 week after discharge, Follow up with Oncology Dr.Sheila mak in 1-2 week after discharge SUSAN SMITH MD Mar 12, 2017 15:12
[2017-03-12] MEDS ORDERED: IPRA4AER INHALATION (15:13)
[2017-03-12] MEDS ORDERED: LOPERAMIDE 2 MG CAP PO ONE (15:30)
--- NOTE | 2017-03-12 15:55 | CONS ---
Date/Time of Note Date/Time of Note DATE: 03/12/17 TIME: 15:49 Assessment/Plan Assessment/Plan Chief Complaint/Hosp Course This is a 71-year-old female with metastatic cholangiocarcinoma, who was sent to the ER yesterday for SOB and SIRS # Metastatic cholangiocarcinoma, s/p 7 cycles of gemcitabine/cisplatin, switched to gemcitabine/xeloda due to increased abdominal pain, last given on -pt has progressive disease on this currently chemotherapy and is finding it very difficult to tolerate more chemotherapy -I discussed hospice care with the patient as I do not feel pt will benefit from more chemotherapy -patient would like to discuss the options with her family as an out patient and meet in clinic # Severe macrocytic anemia, -cont,procrit 40,000 as an out patient - Transfuse for hemoglobin < 8 # SIRS and probable sepsis - completed course of antibiotics. ok for discharge from hematology standpoint Problems: Consultation Date/Type/Reason Admit Date/Time Mar 02, 2017 at 05:01 Date of Consultation: Mar 12, 2017 Type of Consultation: oncology Reason for Consultation stage IV cholangioca Referring Provider: HAYDEN ALMANZAR MD Hx of Present Illness This is a 71-year-old female with stage IV cholangiocarcinoma currently on chemotherapy with Gemcitabine and Xeloda. Pt's last chemotherapy was given on . Pt has had a difficult time as of late tolerating the chemotherapy as she has been profoundly anemic and weak. She is also receiving iron and Procrit as an outpatient. Pt now presents [facility] significant worsening of dyspnea. Of note as mentioned earlier, she uses home oxygen for her COPD. The patient denied any significant cough. The family was also reporting confusion in this patient. Hence, the patient was brought to the emergency room. Pt has since been treated with IV antibiotics and has been given breathing treatments. She is currently clinically stable. Constitutional: no complaints Respiratory: shortness of breath (But improved) Cardiovascular: no complaints Gastrointestinal: no complaints Genitourinary: no complaints Musculoskeletal: no complaints Skin: no complaints Past Medical History As stated above, history of metastatic cholangiocarcinoma on chemotherapy, history of hypertension, diabetes, emphysema, anxiety disorder, COPD. Past Surgical History Past Surgical Hx: other Family History Significant Family History: no pertinent family hx Social History Alcohol Use: none Smoking Status: Former smoker Drug Use: none Exam/Review of Systems Vital Signs Vitals Vital Signs Date Time Temp Pulse Resp B/P Pulse Ox O2 Delivery O2 Flow Rate FiO2 03/12/17 13:53 107 18 95 Nasal Cannula 2.0 03/12/17 12:15 125/59 03/12/17 11:45 97.8 Intake and Output 03/11/17 03/11/17 03/12/17 15:00 23:00 07:00 Intake Total 700 ml 300 ml Balance 700 ml 300 ml Exam Constitutional: alert, oriented Psych: no complaints, other Head: normocephalic Eyes: nl conjunctiva ENMT: nl external ears & nose, other (with O2) Neck: non-tender, supple Respiratory: clear to auscultation, normal air movement Cardiovascular: regular rate and rhythm Gastrointestinal: soft Musculoskeletal: nl extremities to inspection, nl gait and stance Extremities: normal pulses Results Result Diagram: 03/09/17 0620 Results 24 hrs Laboratory Tests Test 03/11/17 17:28 03/11/17 20:24 03/12/17 08:00 03/12/17 12:16 Bedside Glucose 145 163 113 142 Medications Medications Current Medications Ondansetron HCl (Zofran Inj) 4 mg Q6H PRN IV NAUSEA AND/OR VOMITING Last administered on 03/06/17 08:38; Admin Dose 4 MG; Start 03/02/17 at 09:00 Acetaminophen (Tylenol Tab) 650 mg Q6H PRN PO PAIN LEVEL 1-3 OR FEVER Last administered on 03/11/17 16:36; Admin Dose 650 MG; Start 03/02/17 at 09:00 Acetaminophen/ Hydrocodone Bitart ([place] (5/325)) 1 tab Q6H PRN PO PAIN LEVEL 4 -6 Last administered on 03/06/17 21:07; Admin Dose 1 TAB; Start 03/02/17 at 09: 00 Morphine Sulfate (morphine) 2 mg Q4H PRN IV PAIN LEVEL 7-10 Last administered on 03/12/17 15:13; Admin Dose 2 MG; Start 03/02/17 at 09:00 Magnesium Hydroxide (Milk Of Mag) 30 ml DAILY PRN PO CONSTIPATION Last administered on 03/10/17 13:12; Admin Dose 30 ML; Start 03/02/17 at 09:00 Alprazolam (Xanax) 0.5 mg Q8H PRN PO ANXIETY Last administered on 03/09/17 15: 56; Admin Dose 0.5 MG; Start 03/02/17 at 09:30 Docusate Sodium (Colace) 100 mg DAILY PO Last administered on 03/11/17 08:17; Admin Dose 100 MG; Start 03/03/17 at 09:00 Linagliptin (Tradjenta) 5 mg DAILY PO Last administered on 03/12/17 08:30; Admin Dose 5 MG; Start 03/03/17 at 09:00 Metoprolol Tartrate (Lopressor) 25 mg BID PO Last administered on 03/12/17 08: 31; Admin Dose 25 MG; Start 03/02/17 at 21:00 Pantoprazole (Protonix Tab) 40 mg BID PO Last administered on 03/12/17 08:30; Admin Dose 40 MG; Start 03/02/17 at 21:00 Polyethylene Glycol (Miralax) 8.5 gm DAILY PRN PO CONSTIPATION; Start 03/02/17 at 09:30 Sucralfate (Carafate) 1 gm QID PO Last administered on 03/12/17 12:17; Admin Dose 1 GM; Start 03/02/17 at 13:00 Salmeterol Xinafoate/ Fluticasone (Advair 250/50 Diskus) 1 inh BID INH Last administered on 03/12/17 08:30; Admin Dose 1 INH; Start 03/02/17 at 11:00 Diagnostic Test (Pha) (Accu-Chek) 1 ea 02 XX Last administered on 03/09/17 02: 16; Admin Dose 1 EA; Start 03/03/17 at 02:00 Miscellaneous Information 1 ea NOTE XX ; Start 03/02/17 at 10:30 Glucose (Glutose) 15 gm Q15M PRN PO DECREASED GLUCOSE; Start 03/02/17 at 10:30 Glucose (Glutose) 22.5 gm Q15M PRN PO DECREASED GLUCOSE; Start 03/02/17 at 10: 30 Dextrose (D50w Syringe) 25 ml Q15M PRN IV DECREASED GLUCOSE; Start 03/02/17 at 10:30 Dextrose (D50w Syringe) 50 ml Q15M PRN IV DECREASED GLUCOSE; Start 03/02/17 at 10:30 Glucagon (Glucagen) 1 mg Q15M PRN IM DECREASED GLUCOSE; Start 03/02/17 at 10:30 Glucose (Glutose) 15 gm Q15M PRN BUCCAL DECREASED GLUCOSE; Start 03/02/17 at 10 :30 Hydralazine HCl (Apresoline) 10 mg Q6H PRN IV SBP>160 Last administered on 03/02 12:28; Admin Dose 10 MG; Start 03/02/17 at 10:30 Polyethylene Glycol (Miralax) 17 gm BID PO Last administered on 03/11/17 08:17 ; Admin Dose 17 GM; Start 03/02/17 at 11:00 Bisacodyl (Dulcolax) 10 mg DAILY PRN PO CONSTIPATION Last administered on 09:31; Admin Dose 10 MG; Start 03/02/17 at 10:30 Insulin Glargine (Lantus) 16 unit DAILY@08 SC Last administered on 03/12/17 08 :29; Admin Dose 16 UNIT; Start 03/07/17 at 08:00 Tiotropium [place] (Spiriva) 1 inh DAILY INH Last administered on 03/12/17 08: 30; Admin Dose 1 INH; Start 03/10/17 at 11:00 Montelukast Sodium (Singulair) 10 mg HS PO Last administered on 03/11/17 20:18 ; Admin Dose 10 MG; Start 03/10/17 at 21:00 CHERIE CEDEÑO M.D. Mar 12, 2017 15:55 CHERIE CEDEÑO M.D. Mar 12, 2017 15:55
--- NOTE | 2017-03-13 00:23 | DS ---
DATE OF ADMISSION: 03/02/2017 DATE OF DISCHARGE: 03/12/2017 FINAL DISCHARGE DIAGNOSES: 1. Systemic inflammatory response syndrome with acute encephalopathy. 2. Acute metastatic cholangiocarcinoma, on chemotherapy. 3. Leukocytosis secondary to carcinoma. 4. History of hypertension. 5. History of diabetes mellitus. 6. Duodenal ulcer and gastric ulcer. 7. Anemia of chronic disease. CONSULTATIONS DONE DURING THIS HOSPITALIZATION: Oncology consult, Dr. Lavinia Funes. Infectious dis ease consult, Dr. Chu. HOSPITAL COURSE: This is a 71-year-old female who has a past medical history of hypertension, COPD, history of cholangiocarcinoma, type 2 diabetes mellitus who presented with generalized weakness, fa tigue, also had fever, chills. The patient got admitted for systemic inflammatory response syndrome secondary to cholangiocarcinoma. The patient had an infectious disease consultation. She was koffi chilo initially empiric antibiotics with Zosyn and vancomycin. Her ____ cultures included urine cultu res and blood cultures x2 which have been negative. The patient was followed up by infectious disea se service. Her antibiotic was stopped. She was also seen by Oncology, Dr. Lavinia Funes, regarding her cholangiocarcinoma. She was recommended to have hospice care evaluation due to her metastatic cholangiocarcinoma. The patient wanted to talk with her other family member before making a final m edical decision, so she got discharged home with outpatient followup with Dr. Lavinia Funes and gina che palliative care referral. DISPOSITION: To home. DISCHARGE CONDITION: Stable, improved compared to admission. DISCHARGE ACTIVITIES: As tolerated. Slowly resume to the normal baseline activity. DISCHARGE DIET: Regular diet. DISCHARGE MEDICATION: As per medical reconciliation. DISCHARGE FOLLOWUP INSTRUCTIONS: The patient is to follow up with Oncology, Dr. Lavinia Funes, as ou tpatient 1 to 2 weeks after discharge, and she will be referred to hospice care service upon the pat ient's and family's decision about hospice care. Total time spent in this patient's discharge plan, communicating with the patient and her daughter a t bedside and communicating with the nursing staff, took more than 60 minutes. Dictated By: SUSAN SMITH MD, KP/AMOS Conf#: [id number] DID#: [id number]
== END 2017-03-12 18:37 | disposition still patient (30) | DRG 436 ==
LOC: E/R 00:44 → MS4 05:01
PROVIDERS: ADMIT Family Medicine; ATTEND Family Medicine
DX: C22.1 Intrahepatic bile duct carcinoma (principal); R65.10 Systemic inflammatory response syndrome (SIRS) of non-infectious origin without acute organ dysfunction; C79.9 Secondary malignant neoplasm of unspecified site; K26.9 Duodenal ulcer, unspecified as acute or chronic, without hemorrhage or perforation; E87.1 Hypo-osmolality and hyponatremia; J44.9 Chronic obstructive pulmonary disease, unspecified; Z99.81 Dependence on supplemental oxygen; K25.9 Gastric ulcer, unspecified as acute or chronic, without hemorrhage or perforation; K20.9 Esophagitis, unspecified; E11.9 Type 2 diabetes mellitus without complications; D63.8 Anemia in other chronic diseases classified elsewhere; I10 Essential (primary) hypertension; Z87.891 Personal history of nicotine dependence; Z79.4 Long term (current) use of insulin; Z79.899 Other long term (current) drug therapy; Z91.81 History of falling
CPT/HCPCS: 36415; 70450; 71010; 73510; 73562; 80048; 80053; 80061; 80202; 81003; 82962; 83036; 83605; 83735; 84100; 84439; 84443; 84484; 85025; 85610; 85730; 87040; 87086; 87400; 93005; 94640; 94664; 96374; 96375; 97110; 97116; 97162; 97530; C9113; J0360; J0692; J1815; J2185; J2270; J2405; J3370; J3475; J7030

== ENCOUNTER 2017-03-15 21:49 | Inpatient (IN) | payer OTHER ==
[~2017-03-15] VITALS: Ht 172.7 cm; Wt 75.0 kg
[~2017-03-15 21:49] MED LIST changes: +FIORICET PO
[2017-03-15 21:53] VITALS: Ht 172.7 cm; Wt 75.0 kg
--- NOTE | 2017-03-15 22:34 | ERA ---
ER Documentation Chief Complaint Date/Time DATE: 03/15/17 TIME: 22:33 Chief Complaint swelling to both legs w/ sob HPI The patient is a 71-year-old female, presenting to the ER because of worsening chronic lower extremity edema. She also complained of shortness of breath and orthopnea today. She was discharged from the hospital just 3 days ago. She denies fever, chills, neck pain, chest pain. She complains of chronic abdominal pain, denied nausea, vomiting, dysuria, diarrhea. The history is is obtained for the daughter. She does not smoke nor drink, she is on 3 L nasal cannula continuously at home. Past medical history: COPD, hypertension, diabetes mellitus, history of GI bleed , history of duodenal/gastric ulcer, anemia. She is on chemotherapy for metastatic cholangiocarcinoma ROS All systems reviewed and are negative except as per history of present illness. Medications Home Meds Active Scripts Sucralfate (Carafate) 1 Gm Tablet, 1 GM PO QID for 30 Days, TAB Prov:TERRELL DOZIER NP 02/27/17 Pantoprazole* (Protonix*) 40 Mg Tablet.dr, 40 MG PO BID for 30 Days, TAB Prov:TERRELL DOZIER NP 02/27/17 Linagliptin (TRADJENTA) 5 Mg Tablet, 5 MG PO DAILY, #30 TAB Prov:EVANS PRABHAKAR MD 01/22/17 Polyethylene Glycol* (Miralax*) 17 Gm Powd.pack, 8.5 GM PO DAILY Y for CONSTIPATION, #30 Prov:EVANS PRABHAKAR MD 01/22/17 Docusate Sodium (Dok) 100 Mg Capsule, 100 MG PO DAILY, #30 CAP Prov:EVANS PRABHAKAR MD 01/22/17 Metoprolol Tartrate* (Lopressor*) 25 Mg Tab, 25 MG PO BID, #60 TAB Prov:EVANS PRABHAKAR MD 01/22/17 Reported Medications Insulin Glargine* (Lantus*) 100 Unit/Ml Soln, 16 UNIT SC BID, #1 VIAL 03/15/17 Budesonide-Formoterol Fumarate* (Symbicort*) 160-4.5 Hfa.aer.ad, 2 PUFF INHALATION BID, #1 EACH 05/21/16 Discontinued Reported Medications Acetamin/Butalbital/Caffeine* (Fioricet*) [id number] Tab, 1 TAB PO Q4H Y for PAIN LEVEL 1-5, TAB 03/11/17 Discontinued Scripts Albuterol/Ipratropium* (Combivent Respimat*) 20-100 Mcg/Inh - 4 Gm Aer.w.adap, 1 PUFF INHALATION QID for SHORTNESS OF BREATH, #2 INHALER Prov:SUSAN SMITH MD 03/12/17 Oxycodone HCl/Acetaminophen (Percocet 5-325 mg Tablet) 1 Each Tablet, 1 EACH PO Q6H, #1 TAB Prov:EVANS PRABHAKAR MD 01/22/17 Insulin Glargine* (Lantus*) 100 Unit/Ml Soln, 20 UNIT SC QAM for 30 Days Prov:EVANS PRABHAKAR MD 01/22/17 Alprazolam* (Alprazolam*) 0.5 Mg Tablet, 0.5 MG PO Q8H Y for ANXIETY, #20 TAB Prov:TERRELL DOZIER NP 06/22/16 Allergies Allergies: Coded Allergies: No Known Allergy (Unverified , 03/15/17) PMhx/Soc History of Surgery: No Anesthesia Reaction: No Hx Neurological Disorder: No Hx Respiratory Disorders: Yes (COPD) Hx Cardiac Disorders: Yes (HTN) Hx Psychiatric Problems: No Hx Miscellaneous Medical Probl: Yes Hx Alcohol Use: No Hx Substance Use: No Hx Tobacco Use: No Physical Exam Vitals Vital Signs Date Time Temp Pulse Resp B/P Pulse Ox O2 Delivery O2 Flow Rate FiO2 03/16/17 00:30 93 18 168/89 100 Nasal Cannula 3.0 03/16/17 00:21 96 3.0 30 03/15/17 22:56 Nasal Cannula 3 03/15/17 21:53 97.8 99 20 152/74 95 Physical Exam Const: No acute distress. Head: Atraumatic. Eyes: Normal Conjunctiva. ENT: Normal External Ears, Nose and Mouth. Neck: Full range of motion. No meningismus. Resp: Minimal bibasilar crackle Cardio: Regular rate and rhythm. Abd: Soft, non distended, normal bowel sounds, non tender. Skin: No petechiae or rashes. Back: No midline or flank tenderness. Ext: Bilateral leg edema with vesicle on the dorsal aspect of bilateral feet, minimal bilateral calf tenderness Neur: Awake and alert. No focal deficit Psych: Normal Mood and Affect. Result Diagram: 03/15/17 2254 03/15/172253 Results 24 hrs Laboratory Tests Test 03/15/17 22:47 03/15/17 22:54 03/15/17 23:55 Blood Gas Specimen Source Blood arterial Arterial Blood Date Drawn 03/15/2017 10:50:26 PM Arterial Blood pH (Temp corrected) 7.467 Arterial Blood pCO2 (Temp correct) 43.0mmhg Arterial Blood pO2 (Temp corrected) 104.9mmHG Arterial Blood HCO3 30.4mmol/L Arterial Blood Base Excess 6.1mmol/L Arterial Blood Oxygen Saturation 97.6mmHG Ananth Test ACCEPTAB Arterial Blood Gas Puncture Site Left Radial Arterial Blood Carboxyhemoglobin 0.4% Arterial Blood Methemoglobin 0.3% Blood Gas A-a O2 Differential 58.5mmHg Oxyhemoglobin Percent 96.9% Total Hemoglobin 8.8g/dl Blood Gas Temperature 37.0C Blood Gas Actual Respiration Rate 24 Blood Gas Modality NASAL CANNULA FiO2 30.0% Blood Gas Critical Value Read Back Susy PITTMAN Blood Gas Notified Whom BL Blood Gas Notified Time 03/15/2017 11:04:05 PM White Blood Count 25.010^3/ul Red Blood Count 2.5810^6/ul Hemoglobin 8.3g/dl Hematocrit 25.2% Mean Corpuscular Volume 97.7fl Mean Corpuscular Hemoglobin 32.2pg Mean Corpuscular Hemoglobin Concent 32.9g/dl Red Cell Distribution Width % Platelet Count 65445^3/UL Mean Platelet Volume 9.6fl Neutrophils % 77.0% Lymphocytes % 10.9% Monocytes % 8.8% Eosinophils % 0.5% Basophils % 0.2% Nucleated Red Blood Cells % 0.0/100WBC Neutrophils # 19.210^3/ul Lymphocytes # 2.710^3/ul Monocytes # 2.210^3/ul Eosinophils # 0.110^3/ul Basophils # 0.110^3/ul Nucleated Red Blood Cells # 0.010^3/ul Prothrombin Time 16.5Sec Prothrombin Time Ratio 1.3 INR International Normalized Ratio 1.32 Activated Partial Thromboplast Time 58.2Sec Sodium Level 122mmol/L Potassium Level 4.4mmol/L Chloride Level 86mmol/L Carbon Dioxide Level 33mmol/L Anion Gap 7 Blood Urea Nitrogen 19mg/dl Creatinine 0.89mg/dl Glucose Level 78mg/dl Calcium Level 8.4mg/dl Troponin I < 0.012ng/ml B-Type Natriuretic Peptide 792PG/ML Bedside Urine pH (LAB) 6.0 Bedside Urine Protein (LAB) 1+ Bedside Urine Glucose (UA) Negative Bedside Urine Ketones (LAB) Negative Bedside Urine Blood Negative Bedside Urine Nitrite (LAB) Negative Bedside Urine Leukocyte Esterase (L 1+ Procedures/MDM [place] [address] Radiology Main Line: [phone] DIAGNOSTIC IMAGING REPORT Patient: RYLAND GORDON : 1945 Age: 71 Sex: F MR #: [id number] DOS: 03/15/17 2243 Ordering MD: SUNSHINE HOLLAND MD Location: E/R Room/Bed: PROCEDURE: US bilateral lower extremity venous Doppler CLINICAL INDICATION: Bilateral swelling TECHNIQUE: Multiple sonographic images of the bilateral lower extremity deep venous system was obtained utilizing grayscale, color-flow, compressive sonography and Doppler imaging with augmentation. COMPARISON: There are no similar studies submitted for comparison. FINDINGS: There is normal compressibility and flow within the left common femoral, superficial femoral, popliteal, and calf veins. There is normal compressibility and flow within the right common femoral, superficial femoral, popliteal, and calf veins. IMPRESSION: No evidence of DVT within the lower extremities. RPTAT: HIKT .Mich Sen MD, Date Time Electronically viewed and signed by .Mich Sen MD, on 03/15/2017 23:42 .T/ CC: SUNSHINE HOLLAND MD [place] [address] Radiology Main Line: [phone] DIAGNOSTIC IMAGING REPORT Patient: RYLAND GORDON : 1945 Age: 71 Sex: F MR #: [id number] DOS: 03/15/17 2243 Ordering MD: SUNSHINE HOLLAND MD Location: E/R Room/Bed: PROCEDURE: XR Chest. CLINICAL INDICATION: Shortness of breath. TECHNIQUE: AP Portable chest. COMPARISON: 06/18/2016 FINDINGS: There is mild cardiomegaly. Mild pulmonary vascular congestion. Some linear atelectasis is noted at the right lung base. The osseous structures are unremarkable. IMPRESSION: Pulmonary vascular congestion. RPTAT: HIKT .Mich Sen MD, MD Date Time Electronically viewed and signed by .Mich Sen MD, MD on 03/15/2017 23:43 .T/ CC: SUNSHINE HOLLAND MD EKG: Read by emergency physician Rate/Rhythm: Normal Sinus Rhythm 92 beats/min QRS, ST, T-waves: No ST elevation, no T inversion, sinus arrhythmia, low voltage QRS Impression: Abnormal EKG MEDICAL MAKING DECISION: The patient is a 71-year-old female, presenting with an acute CHF exacerbation, acute cystitis, acute hyponatremia. She was treated with Zosyn IV for acute cystitis, Lasix 40 mg IV for acute CHF with good response The differential diagnoses for acute CHF considered include but are not limited to asthma, COPD, pneumonia, pulmonary embolus, pleural effusion, congestive heart failure. The differential diagnoses for acute cystitis considered include but are not limited to cholelithiasis, cholecystitis, cystitis, pancreatitis, hepatitis, gastritis, peptic ulcer disease, gastric ulcer, appendicitis, diverticulitis, cholangitis, choledocholithiasis, partial small bowel obstruction. Departure Diagnosis: Primary Impression: CHF (congestive heart failure) Additional Impressions: Cystitis Hyponatremia Anemia Condition: Stable Comments I discussed the findings with the patient. I discussed the patient with the on- call hospitalist . the hospitalist Dr. Gardner at 12:40 am who was made aware of the lab, the treatment, the patient condition. The patient is admitted to telemetry SUNSHINE HOLLAND MD Mar 15, 2017 22:34
[2017-03-15 23:04] LABS: AADO2 Arterial 58.5 mmHg (7.0-24.0); Allen Test ACCEPTAB; Arterial Base Excess 6.1 mmol/L (-3.0-3); Arterial COHb 0.4 % (0.0-3.0); Arterial Fraction of Oxyhgb 96.9 % (93.0-99.0); Arterial HCO3 30.4 mmol/L (22.0-26.0); Arterial MetHb 0.3 % (0.0-1.5); Arterial Total Hemglobin 8.8 g/dl (12.0-18.0); MODE NASAL CANNULA
[2017-03-15 23:07] LABS: ABNORMAL IP MESSAGE 1; BASOPHIL # 0.1 10^3/ul (0.0-0.1); BASOPHILS % 0.2 % (0.0-2.0); EOSINOPHILS # 0.1 10^3/ul (0.0-0.5); EOSINOPHILS % 0.5 % (0.0-7.0); HEMATOCRIT 25.2 % (37.0-47.0); HEMOGLOBIN 8.3 g/dl (12.0-16.0); LYMPHOCYTES # 2.7 10^3/ul (0.8-2.9); LYMPHOCYTES % 10.9 % (15.0-51.0); MEAN CORPUSCULAR HEMOGLOBIN 32.2 pg (29.0-33.0); MEAN CORPUSCULAR HGB CONC 32.9 g/dl (32.0-37.0); MEAN CORPUSCULAR VOLUME 97.7 fl (82.0-101.0); MEAN PLATELET VOLUME 9.6 fl (7.4-10.4); MONOCYTE # 2.2 10^3/ul (0.3-0.9); MONOCYTES % 8.8 % (0.0-11.0); NEUTROPHIL # 19.2 10^3/ul (1.6-7.5); PLATELET COUNT 301 10^3/UL (140-415); RED BLOOD COUNT 2.58 10^6/ul (4.20-5.40)
[2017-03-15 23:12] LABS: ADD SCAN DIFF NO
[2017-03-15] MEDS ORDERED: LANT3I SC (23:18)
[2017-03-15 23:22] LABS: INR 1.32; PROTIME 16.5 Sec (12.2-14.2); PT RATIO 1.3
[2017-03-15 23:24] LABS: PARTIAL THROMBOPLASTIN TIME 58.2 Sec (25.0-35.0)
[2017-03-15 23:34] LABS: ANION GAP 7 (8-16); BLOOD UREA NITROGEN 19 mg/dl (7-20); CALCIUM 8.4 mg/dl (8.4-10.2); CARBON DIOXIDE 33 mmol/L (21-31); CHLORIDE 86 mmol/L (97-110); CREATININE 0.89 mg/dl (0.44-1.00); GLUCOSE 78 mg/dl (70-220); POTASSIUM 4.4 mmol/L (3.5-5.1); SODIUM 122 mmol/L (135-144)
--- NOTE | 2017-03-15 23:42 | RADRPT ---
PROCEDURE: US bilateral lower extremity venous Doppler CLINICAL INDICATION: Bilateral swelling TECHNIQUE: Multiple sonographic images of the bilateral lower extremity deep venous system was obt ained utilizing grayscale, color-flow, compressive sonography and Doppler imaging with augmentation. COMPARISON: There are no similar studies submitted for comparison. FINDINGS: There is normal compressibility and flow within the left common femoral, superficial femoral, poplit eal, and calf veins. There is normal compressibility and flow within the right common femoral, superficial femoral, popli teal, and calf veins. IMPRESSION: No evidence of DVT within the lower extremities. RPTAT: HIKT .Mich Sen MD, MD Date Time Electronically viewed and signed by .Mich Sen MD, MD on 03/15/2017 23:42 .T/
--- NOTE | 2017-03-15 23:43 | RADRPT ---
PROCEDURE: XR Chest. CLINICAL INDICATION: Shortness of breath. TECHNIQUE: AP Portable chest. COMPARISON: 06/18/2016 FINDINGS: There is mild cardiomegaly. Mild pulmonary vascular congestion. Some linear atelectasis is noted a t the right lung base. The osseous structures are unremarkable. IMPRESSION: Pulmonary vascular congestion. RPTAT: HIKT .Mich Sen MD, MD Date Time Electronically viewed and signed by .Mich Sen MD, on 03/15/2017 23:43 .T/
[2017-03-15 23:46] LABS: B-TYPE NATRIURETIC PEPTIDE 792 PG/ML (0-125)
[2017-03-15 23:51] LABS: URINE BLOOD (Dip) POC Negative (NEGATIVE)
[2017-03-16] VITALS (12 sets, daily range): BP systolic 107–139; BP diastolic 55–76; PULSE 87–106; RESP 18–25
[2017-03-16 00:15] LABS: TROPONIN-I < 0.012 ng/ml (0.00-0.12)
[2017-03-16] MEDS ORDERED: ACETAMINOPHEN 325 MG TAB PO PRN (01:00)
[2017-03-16] MEDS ORDERED: PIPER-TAZO 3.375 GM IV (PMX) 100 ML IVPB ONE (01:00)
[2017-03-16] MEDS ORDERED: NACL 0.9% 3 ML SYG IV SCH (01:00)
[2017-03-16] MEDS ORDERED: ONDANSETRON 4 MG INJ IV PRN (01:00)
[2017-03-16] MEDS ORDERED: FUROSEMIDE 40 MG INJ IV ONE (01:00)
[2017-03-16] MEDS ORDERED: POLYETHYLENE GLYCOL 17 GM PACKET PO PRN (03:30)
--- NOTE | 2017-03-16 03:30 | HP ---
Date/Time of Note Date/Time of Note DATE: 03/16/17 TIME: 03:26 Assessment/Plan Assessment/Plan Chief Complaint/Hosp Course This is a 7-year-old female being admitted to the telemetry floor for: #1 Possible new onset CHF: Possibly secondary to tumor burden from her metastatic cholangio-carcinoma versus new onset CHF. Patient does have a BNP of approximately 700. Will provide Lasix diuresis. Will order an echocardiogram. Patient denies any chest pain. Troponin was negative. X-ray did show vascular congestion. 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 Patient does appear volume overloaded. At this time will put patient on Lasix and will monitor sodium levels. Will consult nephrology. We will put the patient on fluid restriction of 800 cc daily. #3 Leukocytosis: White blood cell count is 25 however her previous labs also show elevated white blood cell count. Nonetheless patient does also have a UTI will treat her with IV antibiotics are started in the ED. Will obtain urine and blood culture. Patient currently does not have any fevers. #4 UTI: Received Zosyn in the ED. At the current time will continue her on ceftriaxone. Will obtain urine culture. #5 diabetes mellitus: We will put patient on insulin sliding scale. Resume home medications. #6 metastatic cholangiocarcinoma: Based on patient's previous history as well as documentation from previous admissions and documentation from hematology seems the patient has received treatments for her cancer however may be at the point where she may not be showing any more response and receiving benefit from these treatments. Her hr administrative assistant did recommend a possible hospice consideration. Will consult palliative care at this time. We will also consider if we need hematology on board as well. #6 DVT and GI prophylaxis: Heparin, Protonix Further treatment strategy as per the clinical course Problems: HPI/ROS Admit Date/Time Admit Date/Time Mar 16, 2017 at 00:48 Hx of Present Illness CC: sob, lower extremity edema The patient is a 71-year-old female, presenting to the ER because of worsening chronic lower extremity edema. She also complained of shortness of breath and orthopnea today. She was discharged from the hospital just 3 days ago. She denies fever, chills, neck pain, chest pain. She complains of chronic abdominal pain, denied nausea, vomiting, dysuria, diarrhea. The history is is obtained for the daughter. She does not smoke nor drink currently, she is on 3 L nasal cannula continuously at home. allergies: nkda meds: see NOV ROS Const: Aspiration Eyes : No pain discharge or redness or change in visual acuity ENT: No pain, sore throat, congestion, congestion, dysphagia or discharge Respiratory: As per HPI Cardiovascular: As per HPI GI : no change in appetite, abdominal pain, nausea, vomiting, diarrhea, constipation, or change in the color his stool Genitourinary: No dysuria, hematuria, flank pain , discharge or CVA tenderness Musculoskeletal: As per HPI Skin: No rash, bruising or hives Neuro: No headache, dizziness, syncope, seizure, focal weakness Endocrine: No polyuria, polydipsia, temperature intolerance Psych: No hallucination, depression, anxiety or suicidal ideation PMH/Family/Social Past Medical History COPD, hypertension, diabetes mellitus, history of GI bleed, history of duodenal/ gastric ulcer, anemia. She is on chemotherapy for metastatic cholangiocarcinoma Past Surgical History Bile duct stent placement Past Surgical Hx: other Family History Significant Family History: heart disease Social History Smoking Status: Former smoker (1ppd x 50 years, quit 3 years ago) Exam/Review of Systems Vital Signs Vitals Vital Signs Date Time Temp Pulse Resp B/P Pulse Ox O2 Delivery O2 Flow Rate FiO2 03/16/17 02:35 96 03/16/17 01:31 20 148/86 100 Nasal Cannula 3.0 03/16/17 00:21 30 03/15/17 21:53 97.8 Exam Exam General: This is a 71 year female in some mild discomfort in her lower extremities HEENT: Atraumatic, normocephalic. The pupils are equal, round and reactive. Extraocular motor are intact Neck: Supple with full range of motion. No rigidity or meningismus Chest: Nontender Lungs: Minimal bilateral crackles in the lungs bilaterally Heart: Normal S1-S2, Regular rhythm and rate. No murmur, S3, or S4 Abdomen: Soft , nontender, nondistended , bowel sounds are present. No guarding no rebound tenderness , No masses or organomegaly. No costovertebral temporal angle mass Extremities: Bilateral 2+ pitting edema of the lower extremities Neurologic: Normal mental status, speech normal, cranial nerves II through XII are intact, motor and sensory are intact, no focal weakness Additional Comments PROCEDURE: XR Chest. CLINICAL INDICATION: Shortness of breath. TECHNIQUE: AP Portable chest. COMPARISON: 06/18/2016 FINDINGS: There is mild cardiomegaly. Mild pulmonary vascular congestion. Some linear atelectasis is noted at the right lung base. The osseous structures are unremarkable. IMPRESSION: Pulmonary vascular congestion. RPTAT: HIKT .Mich Sen MD, Date Time Electronically viewed and signed by .Mich Sen MD, MD on 03/15/2017 23:43 PROCEDURE: US bilateral lower extremity venous Doppler CLINICAL INDICATION: Bilateral swelling TECHNIQUE: Multiple sonographic images of the bilateral lower extremity deep venous system was obtained utilizing grayscale, color-flow, compressive sonography and Doppler imaging with augmentation. COMPARISON: There are no similar studies submitted for comparison. FINDINGS: There is normal compressibility and flow within the left common femoral, superficial femoral, popliteal, and calf veins. There is normal compressibility and flow within the right common femoral, superficial femoral, popliteal, and calf veins. IMPRESSION: No evidence of DVT within the lower extremities. RPTAT: HIKT .Mich Sen MD, MD Date Time Electronically viewed and signed by .Mich Sen MD, MD on 03/15/2017 23:42 EKG: Rate/Rhythm: Normal Sinus Rhythm 92 beats/min QRS, ST, T-waves: No ST elevation, no T inversion, sinus arrhythmia, low voltage QRS As per ED physician document Labs Result Diagram: 03/15/17 2254 03/15/17 225 Medications Medications Current Medications Ondansetron HCl (Zofran Inj) 4 mg Q6H PRN IV NAUSEA AND/OR VOMITING; Start at 01:00 Acetaminophen (Tylenol Tab) 650 mg Q6H PRN PO PAIN LEVEL 1-3 OR FEVER; Start at 01:00 Pantoprazole (Protonix Iv) 40 mg DAILY@06 IV ; Start 6/30/17 at 06:00 Enoxaparin Sodium (Lovenox) 40 mg DAILY SC ; Start 03/16/17 at 09:00 JAE ABREU Mar 16, 2017 03:30
[2017-03-16] MEDS ORDERED: DEXTROSE 50% 50 ML SYRINGE IV PRN ×2 (03:45)
[2017-03-16] MEDS ORDERED: GLUCOSE GEL 15 GRAM TUBE BUCCAL PRN (03:45)
[2017-03-16] MEDS ORDERED: GLUCAGON 1 MG INJ IM PRN (03:45)
[2017-03-16] MEDS ORDERED: GLUCOSE GEL 15 GRAM TUBE PO PRN ×2 (03:45)
[2017-03-16] MEDS ORDERED: ALBUTEROL/IPRATROPIUM (NEB) 3 ML AMP HHN PRN (04:00)
[2017-03-16] MEDS ORDERED: PANTOPRAZOLE 40 MG INJ IV SCH (06:00)
[2017-03-16] MEDS ORDERED: INSULIN GLARGINE [LANtus] 3 ML PEN SC SCH ×2 (08:00→09:00)
[2017-03-16] MEDS: INSULIN ASPART [NOVOLOG] 3 ML PEN SC SCH ×6 (08:00→21:00)
[2017-03-16] MEDS: SALMETEROL/FLUTICASONE 250/50 INHA INH SCH ×2 (08:58→21:28)
[2017-03-16] MEDS: ENOXAPARIN 40 MG/0.4 ML SYG SC SCH (08:59)
[2017-03-16] MEDS: DOCUSATE SODIUM 100 MG CAP PO SCH (08:59)
[2017-03-16] MEDS: SUCRALFATE 1 GM TAB PO SCH ×4 (08:59→21:28)
[2017-03-16] MEDS: CEFTRIAXONE 1 GM/50 ML (PMX) 50 ML IVPB SCH (10:50)
--- NOTE | 2017-03-16 10:54 | CONS ---
Date/Time of Note Date/Time of Note DATE: 03/16/17 TIME: 10:44 Assessment/Plan Assessment/Plan Chief Complaint/Hosp Course 1. Hyponatremia. Etiology appears to be multifactorial. Possible CHF with underlying SIADH. Patient is grossly volume overloaded with ascites lower extremity edema. 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 Plan at this point is to do a full evaluation. Will check urine osmolarity serum osmolarity uric acid level TSH level. Continue gentle diuretic therapy. Monitor strict I's and O's. Monitor serial sodium levels. Patient was placed on a free water restriction of no more than 800 cc daily. 2. Volume overload. Etiology may be secondary to CHF. Patient undergoing full workup. 2D echo is pending currently on diuretic therapy and consider cardiology evaluation 3. Anemia. Monitor H&H levels #4. UTI and possible sepsis. Patient on antibiotic therapy and continue follow -up cultures 5. Metastatic cholangiocarcinoma. Patient is on chemotherapy. Will follow up with the primary team and oncology 6. Diabetes. Continue Accu-Cheks insulin sliding scale Thank you Dr. Gardner for this interesting consult pleasure follow patient with you throughout hospital course Problems: Consultation Date/Type/Reason Admit Date/Time Mar 16, 2017 at 00:48 Reason for Consultation Hyponatremia Hx of Present Illness The patient is a 71-year-old female, with a past medical history of metastatic cholangiocarcinoma, SIADH. Presenting to the ER because of worsening chronic lower extremity edema. She also complained of shortness of breath and orthopnea today. She was discharged from the hospital just 3 days ago. She denies fever, chills, neck pain, chest pain. She complains of chronic abdominal pain, denied nausea, vomiting, dysuria, diarrhea. The history is is obtained for the daughter. She does not smoke nor drink currently, she is on 3 L nasal cannula continuously at home. Terms of the patient's renal history patient has noted hyponatremia and previous hospital admissions. Etiology is presumed to be due to underlying SIADH. Patient was previously treated with apparent free water restriction. Patient now presents with sodium levels of 122 mEq/L. Patient is grossly volume overloaded and was given diuretic therapy in the emergency room. 14 point review of systems conducted. Pertinent positives in HPI otherwise negative Past Medical History COPD, hypertension, diabetes mellitus, history of GI bleed, history of duodenal/ gastric ulcer, anemia. She is on chemotherapy for metastatic cholangiocarcinoma Past Surgical History Past Surgical Hx: other Social History Alcohol Use: none Smoking Status: Former smoker (1ppd x 50 years, quit 3 years ago) Exam/Review of Systems Vital Signs Vitals Vital Signs Date Time Temp Pulse Resp B/P Pulse Ox O2 Delivery O2 Flow Rate FiO2 03/16/17 08:45 98.0 103 18 125/69 98 03/16/17 02:15 Room Air 03/16/17 01:31 3.0 03/16/17 00:21 30 Intake and Output 03/15/17 03/15/17 03/16/17 15:00 23:00 07:00 Intake Total 200 ml Balance 200 ml Exam eneral: This is a 71 year female in some mild discomfort in her lower extremities HEENT: Atraumatic, normocephalic. The pupils are equal, round and reactive. Extraocular motor are intact Neck: Supple with full range of motion. No rigidity or meningismus Chest: Nontender Lungs: Minimal bilateral crackles in the lungs bilaterally Heart: Normal S1-S2, Regular rhythm and rate. No murmur, S3, or S4 Abdomen: Soft , nontender, nondistended , bowel sounds are present. No guarding no rebound tenderness , No masses or organomegaly. No costovertebral temporal angle mass Extremities: Bilateral 2+ pitting edema of the lower extremities Neurologic: Normal mental status, speech normal, cranial nerves II through XII are intact, motor and sensory are intact, no focal weakn Results Result Diagram: 03/15/17 2254 03/15/172253 Results 24 hrs Laboratory Tests Test 03/15/17 22:47 03/15/17 22:54 03/15/17 23:55 03/16/17 02:19 Blood Gas Specimen Source Blood arterial Arterial Blood Date Drawn 03/15/2017 10:50:26 PM Arterial Blood pH (Temp corrected) 7.467 H Arterial Blood pCO2 (Temp correct) 43.0 Arterial Blood pO2 (Temp corrected) 104.9 H Arterial Blood HCO3 30.4 H Arterial Blood Base Excess 6.1 H Arterial Blood Oxygen Saturation 97.6 Ananth Test ACCEPTAB Arterial Blood Gas Puncture Site Left Radial Arterial Blood Carboxyhemoglobin 0.4 Arterial Blood Methemoglobin 0.3 Blood Gas A-a O2 Differential 58.5 H Oxyhemoglobin Percent 96.9 Total Hemoglobin 8.8 L Blood Gas Temperature 37.0 Blood Gas Actual Respiration Rate 24 Blood Gas Modality NASAL CANNULA FiO2 30.0 Blood Gas Critical Value Read Back Drea PITTMAN. Blood Gas Notified Whom BL Blood Gas Notified Time 03/15/2017 11:04:05 PM White Blood Count 25.0 H Red Blood Count 2.58 L Hemoglobin 8.3 L Hematocrit 25.2 L Mean Corpuscular Volume 97.7 Mean Corpuscular Hemoglobin 32.2 Mean Corpuscular Hemoglobin Concent 32.9 Red Cell Distribution Width Platelet Count 301 Mean Platelet Volume 9.6 Neutrophils % 77.0 Lymphocytes % 10.9 L Monocytes % 8.8 Eosinophils % 0.5 Basophils % 0.2 Nucleated Red Blood Cells % 0.0 Neutrophils # 19.2 H Lymphocytes # 2.7 Monocytes # 2.2 H Eosinophils # 0.1 Basophils # 0.1 Nucleated Red Blood Cells # 0.0 Prothrombin Time 16.5 H Prothrombin Time Ratio 1.3 INR International Normalized Ratio 1.32 Activated Partial Thromboplast Time 58.2 H Sodium Level 122 L Potassium Level 4.4 Chloride Level 86 L Carbon Dioxide Level 33 H Anion Gap 7 L Blood Urea Nitrogen 19 Creatinine 0.89 Glucose Level 78 Calcium Level 8.4 Troponin I < 0.012 B-Type Natriuretic Peptide 792 H Bedside Urine pH (LAB) 6.0 Bedside Urine Protein (LAB) 1+ H Bedside Urine Glucose (UA) Negative Bedside Urine Ketones (LAB) Negative Bedside Urine Blood Negative Bedside Urine Nitrite (LAB) Negative Bedside Urine Leukocyte Esterase (L 1+ H Bedside Glucose 23 *L Test 03/16/17 06:26 03/16/17 07:16 03/16/17 08:10 Bedside Glucose 59 L 86 94 Medications Medications Current Medications Ondansetron HCl (Zofran Inj) 4 mg Q6H PRN IV NAUSEA AND/OR VOMITING; Start at 01:00 Acetaminophen (Tylenol Tab) 650 mg Q6H PRN PO PAIN LEVEL 1-3 OR FEVER; Start at 01:00 Pantoprazole (Protonix Iv) 40 mg DAILY@06 IV Last administered on 03/16/17 06: 24; Admin Dose 40 MG; Start 03/16/17 at 06:00 Enoxaparin Sodium (Lovenox) 40 mg DAILY SC Last administered on 03/16/17 08:59 ; Admin Dose 40 MG; Start 03/16/17 at 09:00 Docusate Sodium (Colace) 100 mg DAILY PO Last administered on 03/16/17 08:59; Admin Dose 100 MG; Start 03/16/17 at 09:00 Polyethylene Glycol (Miralax) 8.5 gm DAILY PRN PO CONSTIPATION; Start 03/16/17 at 03:30 Sucralfate (Carafate) 1 gm QID PO Last administered on 03/16/17 08:59; Admin Dose 1 GM; Start 03/16/17 at 09:00 Salmeterol Xinafoate/ Fluticasone (Advair 250/50 Diskus) 1 inh BID INH Last administered on 03/16/17 08:58; Admin Dose 1 INH; Start 03/16/17 at 09:00 Miscellaneous Information 1 ea NOTE XX ; Start 03/16/17 at 03:45 Glucose (Glutose) 15 gm Q15M PRN PO DECREASED GLUCOSE Last administered on 03/16 06:30; Admin Dose 15 GM; Start 03/16/17 at 03:45 Glucose (Glutose) 22.5 gm Q15M PRN PO DECREASED GLUCOSE; Start 03/16/17 at 03: 45 Dextrose (D50w Syringe) 25 ml Q15M PRN IV DECREASED GLUCOSE; Start 03/16/17 at 03:45 Dextrose (D50w Syringe) 50 ml Q15M PRN IV DECREASED GLUCOSE; Start 03/16/17 at 03:45 Glucagon (Glucagen) 1 mg Q15M PRN IM DECREASED GLUCOSE; Start 03/16/17 at 03:45 Glucose (Glutose) 15 gm Q15M PRN BUCCAL DECREASED GLUCOSE; Start 03/16/17 at 03 :45 Diagnostic Test (Pha) (Accu-Chek) 1 ea 02 XX ; Start 03/17/17 at 02:00 Insulin Glargine 16 unit 16 unit BID@08,20 SC Last administered on 03/16/17 09 :09; Admin Dose 16 UNIT; Start 03/16/17 at 08:00 Ceftriaxone Sodium (Rocephin) 50 ml @ 100 mls/hr Q24H IVPB ; Start 03/16/17 at 10:00 MAEVE WOODS DO Mar 16, 2017 10:54
[2017-03-16 15:27] LABS: CREATININE 0.83 mg/dl (0.44-1.00); POTASSIUM 3.5 mmol/L (3.5-5.1)
--- NOTE | 2017-03-16 16:06 | CONS ---
Date/Time of Note Date/Time of Note DATE: 03/16/17 TIME: 13:54 Assessment/Plan Assessment/Plan Chief Complaint/Hosp Course 71 yo with metastatic cholangiocarcinoma now with progressive disease. Pt is unable to tolerate any more chemotherapy. I spoke at length with the patient and her daughter. At this point I would recommend hospice evaluation Problems: Consultation Date/Type/Reason Admit Date/Time Mar 16, 2017 at 00:48 Date of Consultation: Mar 16, 2017 Type of Consultation: oncology Reason for Consultation stage IV cholangiocarcinoma Referring Provider: SUSAN SMITH MD Hx of Present Illness The patient is a 71-year-old female, with a past medical history of metastatic cholangiocarcinoma, SIADH. Presenting to the ER because of worsening chronic lower extremity edema. She also complained of shortness of breath and orthopnea today. Past Medical History COPD, hypertension, diabetes mellitus, history of GI bleed, history of duodenal/ gastric ulcer, anemia. She is on chemotherapy for metastatic cholangiocarcinoma Past Surgical History Past Surgical Hx: other Social History Alcohol Use: none Smoking Status: Former smoker (1ppd x 50 years, quit 3 years ago) Exam/Review of Systems Vital Signs Vitals Vital Signs Date Time Temp Pulse Resp B/P Pulse Ox O2 Delivery O2 Flow Rate FiO2 03/16/17 12:28 104 03/16/17 11:56 98.0 18 133/59 98 03/16/17 08:45 Nasal Cannula 3.0 03/16/17 00:21 30 Intake and Output 03/15/17 03/15/17 03/16/17 15:00 23:00 07:00 Intake Total 200 ml Balance 200 ml Exam Constitutional: alert, frail, oriented Psych: no complaints Head: normocephalic Eyes: nl conjunctiva ENMT: nl external ears & nose Neck: non-tender, supple Cardiovascular: nl pulses, regular rate and rhythm Gastrointestinal: soft Musculoskeletal: nl extremities to inspection Results Result Diagram: 03/15/17225303/15/172253 Results 24 hrs Laboratory Tests Test 03/15/17 22:47 03/15/17 22:54 03/15/17 23:55 03/16/17 02:19 Blood Gas Specimen Source Blood arterial Arterial Blood Date Drawn 03/15/2017 10:50:26 PM Arterial Blood pH (Temp corrected) 7.467 H Arterial Blood pCO2 (Temp correct) 43.0 Arterial Blood pO2 (Temp corrected) 104.9 H Arterial Blood HCO3 30.4 H Arterial Blood Base Excess 6.1 H Arterial Blood Oxygen Saturation 97.6 Ananth Test ACCEPTAB Arterial Blood Gas Puncture Site Left Radial Arterial Blood Carboxyhemoglobin 0.4 Arterial Blood Methemoglobin 0.3 Blood Gas A-a O2 Differential 58.5 H Oxyhemoglobin Percent 96.9 Total Hemoglobin 8.8 L Blood Gas Temperature 37.0 Blood Gas Actual Respiration Rate 24 Blood Gas Modality NASAL CANNULA FiO2 30.0 Blood Gas Critical Value Read Back Susy P[place] Blood Gas Notified Whom BL Blood Gas Notified Time 03/15/2017 11:04:05 PM White Blood Count 25.0 H Red Blood Count 2.58 L Hemoglobin 8.3 L Hematocrit 25.2 L Mean Corpuscular Volume 97.7 Mean Corpuscular Hemoglobin 32.2 Mean Corpuscular Hemoglobin Concent 32.9 Red Cell Distribution Width Platelet Count 301 Mean Platelet Volume 9.6 Neutrophils % 77.0 Lymphocytes % 10.9 L Monocytes % 8.8 Eosinophils % 0.5 Basophils % 0.2 Nucleated Red Blood Cells % 0.0 Neutrophils # 19.2 H Lymphocytes # 2.7 Monocytes # 2.2 H Eosinophils # 0.1 Basophils # 0.1 Nucleated Red Blood Cells # 0.0 Prothrombin Time 16.5 H Prothrombin Time Ratio 1.3 INR International Normalized Ratio 1.32 Activated Partial Thromboplast Time 58.2 H Sodium Level 122 L Potassium Level 4.4 Chloride Level 86 L Carbon Dioxide Level 33 H Anion Gap 7 L Blood Urea Nitrogen 19 Creatinine 0.89 Glucose Level 78 Calcium Level 8.4 Troponin I < 0.012 B-Type Natriuretic Peptide 792 H Bedside Urine pH (LAB) 6.0 Bedside Urine Protein (LAB) 1+ H Bedside Urine Glucose (UA) Negative Bedside Urine Ketones (LAB) Negative Bedside Urine Blood Negative Bedside Urine Nitrite (LAB) Negative Bedside Urine Leukocyte Esterase (L 1+ H Bedside Glucose 23 *L Test 03/16/17 06:26 03/16/17 07:16 03/16/17 08:10 03/16/17 12:05 Bedside Glucose 59 L 86 94 93 Test 03/16/17 12:36 Bedside Glucose 96 Medications Medications Current Medications Ondansetron HCl (Zofran Inj) 4 mg Q6H PRN IV NAUSEA AND/OR VOMITING; Start at 01:00 Acetaminophen (Tylenol Tab) 650 mg Q6H PRN PO PAIN LEVEL 1-3 OR FEVER; Start at 01:00 Pantoprazole (Protonix Iv) 40 mg DAILY@06 IV Last administered on 03/16/17 06: 24; Admin Dose 40 MG; Start 03/16/17 at 06:00 Enoxaparin Sodium (Lovenox) 40 mg DAILY SC Last administered on 03/16/17 08:59 ; Admin Dose 40 MG; Start 03/16/17 at 09:00 Docusate Sodium (Colace) 100 mg DAILY PO Last administered on 03/16/17 08:59; Admin Dose 100 MG; Start 03/16/17 at 09:00 Polyethylene Glycol (Miralax) 8.5 gm DAILY PRN PO CONSTIPATION; Start 03/16/17 at 03:30 Sucralfate (Carafate) 1 gm QID PO Last administered on 03/16/17 12:38; Admin Dose 1 GM; Start 03/16/17 at 09:00 Salmeterol Xinafoate/ Fluticasone (Advair 250/50 Diskus) 1 inh BID INH Last administered on 03/16/17 08:58; Admin Dose 1 INH; Start 03/16/17 at 09:00 Miscellaneous Information 1 ea NOTE XX ; Start 03/16/17 at 03:45 Glucose (Glutose) 15 gm Q15M PRN PO DECREASED GLUCOSE Last administered on 03/16 06:30; Admin Dose 15 GM; Start 03/16/17 at 03:45 Glucose (Glutose) 22.5 gm Q15M PRN PO DECREASED GLUCOSE; Start 03/16/17 at 03: 45 Dextrose (D50w Syringe) 25 ml Q15M PRN IV DECREASED GLUCOSE; Start 03/16/17 at 03:45 Dextrose (D50w Syringe) 50 ml Q15M PRN IV DECREASED GLUCOSE; Start 03/16/17 at 03:45 Glucagon (Glucagen) 1 mg Q15M PRN IM DECREASED GLUCOSE; Start 03/16/17 at 03:45 Glucose (Glutose) 15 gm Q15M PRN BUCCAL DECREASED GLUCOSE; Start 03/16/17 at 03 :45 Diagnostic Test (Pha) 1 ea 1 ea 02 XX ; Start 03/17/17 at 02:00 Ceftriaxone Sodium (Rocephin) 50 ml @ 100 mls/hr Q24H IVPB Last administered on 03/16/17t 10:50; Admin Dose 100 MLS/HR; Start 03/16/17 at 10:00 Insulin Glargine (Lantus) 16 unit DAILY@08 SC ; Start 03/17/17 at 09:00 CHERIE CEDEÑO M.D. Mar 16, 2017 14:05
[2017-03-16 16:43] LABS: ADD UMIC YES; UR ASCORBIC ACID 40 mg/dL (NEGATIVE); UR BACTERIA FEW /HPF (NONE SEEN); UR BILIRUBIN (Dip) NEGATIVE (NEGATIVE); UR BLOOD (Dip) NEGATIVE (NEGATIVE); UR CLARITY TURBID (CLEAR); UR COLOR AMBER (YELLOW); UR GLUCOSE (Dip) NEGATIVE (NEGATIVE); UR KETONES (Dip) NEGATIVE (NEGATIVE); UR LEUKOCYTE ESTERASE (Dip) 2+ Leu/ul (NEGATIVE); UR NITRITE (Dip) NEGATIVE (NEGATIVE); UR RBC 3 /HPF (0-5); UR SPECIFIC GRAVITY (Dip) 1.019 (1.003-1.030); UR SQUAMOUS EPITHELIAL CELL MANY /HPF (FEW); UR TOTAL PROTEIN (Dip) NEGATIVE (NEGATIVE); UR UROBILINOGEN (Dip) NEGATIVE (NEGATIVE)
[2017-03-16] MEDS ORDERED: FUROSEMIDE 20 MG INJ IV SCH (18:00)
--- NOTE | 2017-03-16 18:19 | CONS ---
Date/Time of Note Date/Time of Note DATE: 03/16/17 TIME: 18:07 Assessment/Plan Assessment/Plan Chief Complaint/Hosp Course IMP: 1.CHF-systolic versus diastolic? acute 2.HTN- 3.Tachycardia- S Tach 4.Hyponatremia 5.cholangiocarcinoma-metastatic s/p CTX 6.abnl ecg-NSSTWA's 7.DM Recc: -Tele -serial ecg's -Continue lasix diuresis -Follow volume status closely -start ACEI afterload reduction -Start low dose BB 1-2 days -Dose IVP digoxin -Onc following -Continue abx's and f/u cx data Problems: Consultation Date/Type/Reason Admit Date/Time Mar 16, 2017 at 00:48 Date of Consultation: Mar 16, 2017 Type of Consultation: cardiology Reason for Consultation CHF Referring Provider: JAE ABREU Hx of Present Illness 71 y/o female with h/o COPD, hypertension, diabetes mellitus, GI bleed, duodenal /gastric ulcer, anemia, metastatic cholangiocarcinoma s/p CTX who p/w sob/ orthopnea. Found to have CHF on cxr and hyponatremia by laboratory analysis. Constitutional: no complaints Eyes: no complaints ENT: no complaints Respiratory: shortness of breath Cardiovascular: orthopenea Gastrointestinal: decreased appetite Genitourinary: no complaints Musculoskeletal: no complaints Skin: no complaints Neurologic: other (generalized weakness) Psychological: no complaints Past Medical History Medical History: congestive heart failure, diabetes, hypertension, peptic ulcer disease, other (cholangiocarcinoma) Past Surgical History Past Surgical Hx: no surgical history Family History Significant Family History: no pertinent family hx Social History Alcohol Use: none Smoking Status: Former smoker (1ppd x 50 years, quit 3 years ago) Drug Use: none Exam/Review of Systems Vital Signs Vitals Vital Signs Date Time Temp Pulse Resp B/P Pulse Ox O2 Delivery O2 Flow Rate FiO2 03/16/17 16:26 98.0 104 18 107/55 98 03/16/17 08:45 Nasal Cannula 3.0 03/16/17 00:21 30 Intake and Output 03/15/17 03/15/17 03/16/17 15:00 23:00 07:00 Intake Total 200 ml Balance 200 ml Exam Constitutional: alert, oriented Psych: no complaints Head: normocephalic ENMT: mucosa pink and moist Neck: jvd (9-20 cm water), supple Respiratory: diminished breath sounds (at bases/B) Cardiovascular: regular rate and rhythm Gastrointestinal: non-tender, soft Musculoskeletal: muscle tone (normal) Extremities: pitting pedal edema (Bilateral) Neurological: other (No focal deficits) Results Result Diagram: 03/15/17 2254 03/16/17 1415 Results 24 hrs Laboratory Tests Test 03/15/17 22:47 03/15/17 22:54 03/15/17 23:55 03/16/17 00:30 Blood Gas Specimen Source Blood arterial Arterial Blood Date Drawn 03/15/2017 10:50:26 PM Arterial Blood pH (Temp corrected) 7.467 H Arterial Blood pCO2 (Temp correct) 43.0 Arterial Blood pO2 (Temp corrected) 104.9 H Arterial Blood HCO3 30.4 H Arterial Blood Base Excess 6.1 H Arterial Blood Oxygen Saturation 97.6 Ananth Test ACCEPTAB Arterial Blood Gas Puncture Site Left Radial Arterial Blood Carboxyhemoglobin 0.4 Arterial Blood Methemoglobin 0.3 Blood Gas A-a O2 Differential 58.5 H Oxyhemoglobin Percent 96.9 Total Hemoglobin 8.8 L Blood Gas Temperature 37.0 Blood Gas Actual Respiration Rate 24 Blood Gas Modality NASAL CANNULA FiO2 30.0 Blood Gas Critical Value Read Back Susy P[place] Blood Gas Notified Whom BL Blood Gas Notified Time 03/15/2017 11:04:05 PM White Blood Count 25.0 H Red Blood Count 2.58 L Hemoglobin 8.3 L Hematocrit 25.2 L Mean Corpuscular Volume 97.7 Mean Corpuscular Hemoglobin 32.2 Mean Corpuscular Hemoglobin Concent 32.9 Red Cell Distribution Width Platelet Count 301 Mean Platelet Volume 9.6 Neutrophils % 77.0 Lymphocytes % 10.9 L Monocytes % 8.8 Eosinophils % 0.5 Basophils % 0.2 Nucleated Red Blood Cells % 0.0 Neutrophils # 19.2 H Lymphocytes # 2.7 Monocytes # 2.2 H Eosinophils # 0.1 Basophils # 0.1 Nucleated Red Blood Cells # 0.0 Prothrombin Time 16.5 H Prothrombin Time Ratio 1.3 INR International Normalized Ratio 1.32 Activated Partial Thromboplast Time 58.2 H Sodium Level 122 L Potassium Level 4.4 Chloride Level 86 L Carbon Dioxide Level 33 H Anion Gap 7 L Blood Urea Nitrogen 19 Creatinine 0.89 Glucose Level 78 Calcium Level 8.4 Troponin I < 0.012 B-Type Natriuretic Peptide 792 H Bedside Urine pH (LAB) 6.0 Bedside Urine Protein (LAB) 1+ H Bedside Urine Glucose (UA) Negative Bedside Urine Ketones (LAB) Negative Bedside Urine Blood Negative Bedside Urine Nitrite (LAB) Negative Bedside Urine Leukocyte Esterase (L 1+ H Urine Color MARCELINO Urine Clarity TURBID A Urine pH 5.0 Urine Specific [place] 1.019 Urine Ketones NEGATIVE Urine Nitrite NEGATIVE Urine Bilirubin NEGATIVE Urine Urobilinogen NEGATIVE Urine Leukocyte Esterase 2+ H Urine Microscopic RBC 3 Urine Microscopic WBC 15 H Urine Squamous Epithelial Cells MANY A Urine Bacteria FEW A Urine Hemoglobin NEGATIVE Urine Random Creatinine 101.20 Urine Random Sodium < 13 L Urine Glucose NEGATIVE Urine Total Protein 17.0 H Test 03/16/17 02:19 03/16/17 06:26 03/16/17 07:16 03/16/17 08:10 Bedside Glucose 23 *L 59 L 86 94 Test 03/16/17 12:05 03/16/17 12:36 03/16/17 14:15 03/16/17 17:24 Bedside Glucose 93 96 86 Sodium Level 123 L Potassium Level 3.5 Chloride Level 84 L Carbon Dioxide Level 38 H Anion Gap 5 L Blood Urea Nitrogen 17 Creatinine 0.83 Glucose Level 67 #L Osmolality 261 L Calcium Level 8.0 L Medications Medications Current Medications Ondansetron HCl (Zofran Inj) 4 mg Q6H PRN IV NAUSEA AND/OR VOMITING; Start at 01:00 Acetaminophen (Tylenol Tab) 650 mg Q6H PRN PO PAIN LEVEL 1-3 OR FEVER; Start at 01:00 Pantoprazole (Protonix Iv) 40 mg DAILY@06 IV Last administered on 03/16/17 06: 24; Admin Dose 40 MG; Start 03/16/17 at 06:00 Enoxaparin Sodium (Lovenox) 40 mg DAILY SC Last administered on 03/16/17 08:59 ; Admin Dose 40 MG; Start 03/16/17 at 09:00 Docusate Sodium (Colace) 100 mg DAILY PO Last administered on 03/16/17 08:59; Admin Dose 100 MG; Start 03/16/17 at 09:00 Polyethylene Glycol (Miralax) 8.5 gm DAILY PRN PO CONSTIPATION; Start 03/16/17 at 03:30 Sucralfate (Carafate) 1 gm QID PO Last administered on 03/16/17 17:26; Admin Dose 1 GM; Start 03/16/17 at 09:00 Salmeterol Xinafoate/ Fluticasone (Advair 250/50 Diskus) 1 inh BID INH Last administered on 03/16/17 08:58; Admin Dose 1 INH; Start 03/16/17 at 09:00 Miscellaneous Information 1 ea NOTE XX ; Start 03/16/17 at 03:45 Glucose (Glutose) 15 gm Q15M PRN PO DECREASED GLUCOSE Last administered on 03/16 06:30; Admin Dose 15 GM; Start 03/16/17 at 03:45 Glucose (Glutose) 22.5 gm Q15M PRN PO DECREASED GLUCOSE; Start 03/16/17 at 03: 45 Dextrose (D50w Syringe) 25 ml Q15M PRN IV DECREASED GLUCOSE; Start 03/16/17 at 03:45 Dextrose (D50w Syringe) 50 ml Q15M PRN IV DECREASED GLUCOSE; Start 03/16/17 at 03:45 Glucagon (Glucagen) 1 mg Q15M PRN IM DECREASED GLUCOSE; Start 03/16/17 at 03:45 Glucose (Glutose) 15 gm Q15M PRN BUCCAL DECREASED GLUCOSE; Start 03/16/17 at 03 :45 Diagnostic Test (Pha) 1 ea 1 ea 02 XX ; Start 03/17/17 at 02:00 Ceftriaxone Sodium (Rocephin) 50 ml @ 100 mls/hr Q24H IVPB Last administered on 03/16/17 10:50; Admin Dose 100 MLS/HR; Start 03/16/17 at 10:00 Insulin Glargine (Lantus) 16 unit DAILY@08 SC ; Start 03/17/17 at 08:00 JOSE BHANDARI Mar 16, 2017 18:18
[2017-03-16] MEDS ORDERED: traMADol 50 MG TAB GTB PRN (18:30)
[2017-03-16] MEDS: DIGOXIN 500 MCG INJ IV SCH (18:37)
--- NOTE | 2017-03-16 18:46 | RADRPT ---
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 Physician: JAE ABREU Quality: Good Procedures: Transthoracic echocardiogram with complete 2D, M-Mode, and doppler examination. Indications: Bilateral lower extremity Edema. 2D/M Mode Doppler Measurement Value Normal Ranges Measurement Value Normal Ranges LVIDd 2D 1.4 3.5 - 5.6 cm AV Mean Alek 1.6 m/sec LVIDs 2D 1.4 2.1 - 4.1 cm AV Mean PG 11.4 mmHg LVPWd 2D 3.0 0.6 - 1.1 cm AV Peak Alek 2.2 m/sec IVSd 2D 1.4 0.6 - 1.1 cm AV Peak PG 19.0 mmHg AoR Diam 2D 3.8 2.0 - 3.7 cm AV VTI 33.9 cm EDV 2D 5.1 cm3 LVOT Mean Alek 1.1 m/sec ESV 2D 2.5 cm3 LVOT Mean PG 5.9 mmHg LA Dimen 2D 2.7 2.3 - 4.0 cm LVOT Peak Alek 1.6 m/sec LVOT Peak PG 10.6 mmHg LVOT VTI 28.8 cm MV E Peak Alek 0.9 m/sec MV A Peak Alek 1.5 m/sec MV E/A 0.6 MV Decel Time 282 msec MV Decel Archule[place] 3 MV E/A 0.6 TR Peak Alek 3.1 m/sec TR Peak PG 39.5 mmHg RVSP 48.0 mmHg Findings Left Ventricle: Normal left ventricular systolic function. Normal left ventricular cavity size. Moderate concentric left ventricular hypertrophy. Ejection fraction is visually estimated at 6065 %. Tissue Doppler/Mitral Doppler indices are consistent with impaired relaxation (Stage I diastolic dysfunction). Right Ventricle: Normal right ventricular size. Normal right ventricular systolic function. Left Atrium: The left atrium is normal in size. Right Atrium: The right atrium is normal in size. Mitral Valve: Mitral valve leaflets appear mildly thickened. Mild mitral annular calcification. Trace mitral regurgitation. Aortic Valve: Aortic valve Max velocity 2.18 m/sec. Max PG 19.00 mmHg. Mean PG 11.00 mmHg. Aortic sclerosis without stenosis. No aortic regurgitation. Tricuspid Valve: Normal appearance of the tricuspid valve. Estimated peak PA systolic pressure 48 mmHg. There is trace to mild tricuspid regurgitation. Pulmonic Valve: Pulmonic valve not well visualized. Pericardium: Normal pericardium with no significant pericardial effusion. Aorta: Normal aortic root. IVC: Dilated IVC with respiratory collapse consistent with elevated right atrial pressure. Conclusions 1.Normal left ventricular systolic function. Normal left ventricular cavity size. Moderate concentric left ventricular hypertrophy. Ejection fraction is visually estimated at 60-65 %. Tissue Doppler/Mitral Doppler indices are consistent with impaired relaxation (Stage I diastolic dysfunction). 2.Mitral valve leaflets appear mildly thickened. Mild mitral annular calcification. Trace mitral regurgitation. 3.Normal appearance of the tricuspid valve. Estimated peak PA systolic pressure 48 mmHg. There is trace to mild tricuspid regurgitation. Electronically Signed By: Spencer Gold 16-Mar-2017 18:45:53 -0700 Patient Name: RYLAND GORDON Study Date: 16-Mar-2017 [id number]
[2017-03-16 22:48] LABS: CALCIUM 7.9 mg/dl (8.4-10.2); CREATININE 0.72 mg/dl (0.44-1.00); POTASSIUM 3.6 mmol/L (3.5-5.1)
[2017-03-17] VITALS (12 sets, daily range): BP systolic 103–134; BP diastolic 52–67; PULSE 95–111; RESP 15–20
[2017-03-17] MEDS: DIGOXIN 500 MCG INJ IV SCH
[2017-03-17] MEDS ORDERED: HYDROmorphONE 1 MG/ML SYG IV PRN
[2017-03-17] MEDS ORDERED: ACCU-CHEK XX SCH (02:00)
[2017-03-17] MEDS: ACCUCHECK AT 2AM (Patients on SS coverage) XX SCH (02:00)
[2017-03-17] MEDS: INSULIN ASPART [NOVOLOG] 3 ML PEN SC SCH ×7 (08:00→22:23)
[2017-03-17] MEDS ORDERED: LIDOCAINE 1% (MPF) 5 ML VIAL SC ONE ×2 (08:30→16:00)
[2017-03-17 08:37] LABS: ABNORMAL IP MESSAGE 1; BASOPHILS % 0.2 % (0.0-2.0); EOSINOPHILS # 0.1 10^3/ul (0.0-0.5); EOSINOPHILS % 0.5 % (0.0-7.0); HEMATOCRIT 23.3 % (37.0-47.0); HEMOGLOBIN 7.6 g/dl (12.0-16.0); LYMPHOCYTES # 1.9 10^3/ul (0.8-2.9); LYMPHOCYTES % 9.2 % (15.0-51.0); MEAN CORPUSCULAR HEMOGLOBIN 32.3 pg (29.0-33.0); MEAN CORPUSCULAR HGB CONC 32.6 g/dl (32.0-37.0); MEAN CORPUSCULAR VOLUME 99.1 fl (82.0-101.0); MEAN PLATELET VOLUME 10.1 fl (7.4-10.4); MONOCYTES % 9.6 % (0.0-11.0); NEUTROPHIL # 16.6 10^3/ul (1.6-7.5); NEUTROPHILS % 78.4 % (39.0-77.0); PLATELET COUNT 251 10^3/UL (140-415); RED BLOOD COUNT 2.35 10^6/ul (4.20-5.40); WHITE BLOOD COUNT 21.2 10^3/ul (4.8-10.8)
[2017-03-17] MEDS: DOCUSATE SODIUM 100 MG CAP PO SCH (08:46)
[2017-03-17] MEDS: SALMETEROL/FLUTICASONE 250/50 INHA INH SCH ×2 (08:46→22:14)
[2017-03-17] MEDS: SUCRALFATE 1 GM TAB PO SCH ×4 (08:46→22:14)
[2017-03-17] MEDS: BENAZEPRIL 10 MG TAB PO SCH (08:47)
[2017-03-17] MEDS: PANTOPRAZOLE (EC) 40 MG TAB PO SCH (08:54)
[2017-03-17] MEDS: FUROSEMIDE 40 MG TAB PO SCH ×2 (08:54→17:23)
[2017-03-17] MEDS: INSULIN GLARGINE [LANtus] 3 ML PEN SC SCH (08:56)
[2017-03-17] MEDS: ENOXAPARIN 40 MG/0.4 ML SYG SC SCH (08:56)
[2017-03-17] MEDS ORDERED: INSULIN GLARGINE [LANtus] 3 ML PEN SC SCH (09:00)
[2017-03-17 09:02] LABS: CHOL/HDL RATIO 4.4 RATIO
[2017-03-17 09:04] LABS: ALBUMIN 2.6 g/dl (3.3-4.9); ALBUMIN/GLOBULIN RATIO 0.66; BILIRUBIN,INDIRECT 0.3 mg/dl (0-1.1); BILIRUBIN,TOTAL 0.3 mg/dl (0.2-1.3); CALCIUM 8.3 mg/dl (8.4-10.2); CREATININE 0.71 mg/dl (0.44-1.00); MAGNESIUM 1.6 mg/dl (1.7-2.5); POTASSIUM 3.9 mmol/L (3.5-5.1); TOTAL PROTEIN 6.5 g/dl (6.1-8.1)
--- NOTE | 2017-03-17 10:00 | PN ---
Date/Time of Note Date/Time of Note DATE: 03/17/17 TIME: 09:55 Assessment/Plan Lines/Catheters IV [facility] Type (from [facility] [place] [facility] Urinary Cath still in place: No Assessment/Plan Chief Complaint/Hosp Course 1. Hyponatremia. Etiology appears to be multifactorial. 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 Patient is grossly volume overloaded with ascites lower extremity edema. -Patient's Sommer is <1%, urinary sodium less than 16, this suggests a prerenal state which can be seen in decompensated heart failure. Patient's 2D echo does show diastolic dysfunction and dilated IVC consistent with increased intravascular volume. -Sodium levels have been improving with free water restriction diuretic therapy Continue gentle diuretic therapy. Monitor strict I's and O's. Monitor serial sodium levels. Patient was placed on a free water restriction of no more than 800 cc daily. 2. Volume overload. Etiology may be secondary to CHF. -2D echo reviewed. Continue diuretic therapy. Follow-up with cardiology 3. Anemia. Monitor H&H levels #4. UTI and possible sepsis. Patient on antibiotic therapy and continue follow -up cultures 5. Metastatic cholangiocarcinoma. Patient is on chemotherapy. Will follow up with the primary team and oncology 6. Diabetes. Continue Accu-Cheks insulin sliding scale 7. Hypomagnesemia. Replete with magnesium oxide Problems: Subjective 24 Hr Interval Summary Free Text/Dictation Patient clinically stable no acute events overnight. No nausea Exam/Review of Systems Vital Signs Vitals Vital Signs Date Time Temp Pulse Resp B/P Pulse Ox O2 Delivery O2 Flow Rate FiO2 03/17/17 08:09 99 03/17/17 08:01 97.0 18 123/67 100 03/17/17 01:01 2.0 03/16/17 08:45 Nasal Cannula 03/16/17 00:21 30 Intake and Output 03/16/17 03/16/17 03/17/17 15:00 23:00 07:00 Intake Total 750 ml Balance 750 ml Exam eneral: This is a 71 year female in some mild discomfort in her lower extremities HEENT: Atraumatic, normocephalic. The pupils are equal, round and reactive. Extraocular motor are intact Neck: Supple with full range of motion. No rigidity or meningismus Chest: Nontender Lungs: Minimal bilateral crackles in the lungs bilaterally Heart: Normal S1-S2, Regular rhythm and rate. No murmur, S3, or S4 Abdomen: Soft , nontender, nondistended , bowel sounds are present. No guarding no rebound tenderness , No masses or organomegaly. No costovertebral temporal angle mass Extremities: Bilateral 2+ pitting edema of the lower extremities Neurologic: Normal mental status, speech normal, cranial nerves II through XII are intact, motor and sensory are intact, no focal weakn Results Result Diagram: 03/17/17 0755 03/17/17 0755 Results 24 hrs Laboratory Tests Test 03/16/17 12:05 03/16/17 12:36 03/16/17 14:15 03/16/17 17:24 Bedside Glucose 93 96 86 Sodium Level 123 L Potassium Level 3.5 Chloride Level 84 L Carbon Dioxide Level 38 H Anion Gap 5 L Blood Urea Nitrogen 17 Creatinine 0.83 Glucose Level 67 #L Osmolality 261 L Calcium Level 8.0 L Test 03/16/17 20:40 03/16/17 22:30 03/17/17 01:40 03/17/17 07:55 Bedside Glucose 122 Sodium Level 125 L 127 L Potassium Level 3.6 3.9 Chloride Level 82 L 82 L Carbon Dioxide Level 34 H 35 H Anion Gap 13 # 14 Blood Urea Nitrogen 17 16 Creatinine 0.72 0.71 Glucose Level 96 105 Calcium Level 7.9 L 8.3 L Troponin I < 0.012 < 0.012 White Blood Count 21.2 H Red Blood Count 2.35 L Hemoglobin 7.6 L Hematocrit 23.3 L Mean Corpuscular Volume 99.1 Mean Corpuscular Hemoglobin 32.3 Mean Corpuscular Hemoglobin Concent 32.6 Red Cell Distribution Width Platelet Count 251 Mean Platelet Volume 10.1 Neutrophils % 78.4 H Lymphocytes % 9.2 L Monocytes % 9.6 Eosinophils % 0.5 Basophils % 0.2 Nucleated Red Blood Cells % 0.0 Neutrophils # 16.6 H Lymphocytes # 1.9 Monocytes # 2.0 H Eosinophils # 0.1 Basophils # 0.0 Nucleated Red Blood Cells # 0.0 Magnesium Level 1.6 L Total Bilirubin 0.3 Direct Bilirubin 0.00 Indirect Bilirubin 0.3 Aspartate Amino Transf (AST/SGOT) 71 H Alanine Aminotransferase (ALT/SGPT) 40 Alkaline Phosphatase 223 H Total Protein 6.5 Albumin 2.6 L Globulin 3.90 H Albumin/Globulin Ratio 0.66 Triglycerides Level 92 Cholesterol Level 89 L LDL Cholesterol, Calculated 51 HDL Cholesterol 20 L Cholesterol/HDL Ratio 4.4 Test 03/17/17 08:16 Bedside Glucose 119 Medications Medications Current Medications Ondansetron HCl (Zofran Inj) 4 mg Q6H PRN IV NAUSEA AND/OR VOMITING; Start at 01:00 Acetaminophen (Tylenol Tab) 650 mg Q6H PRN PO PAIN LEVEL 1-3 OR FEVER; Start at 01:00 Enoxaparin Sodium (Lovenox) 40 mg DAILY SC Last administered on 03/17/17 08:56 ; Admin Dose 40 MG; Start 03/16/17 at 09:00 Docusate Sodium (Colace) 100 mg DAILY PO Last administered on 03/17/17 08:46; Admin Dose 100 MG; Start 03/16/17 at 09:00 Polyethylene Glycol (Miralax) 8.5 gm DAILY PRN PO CONSTIPATION; Start 03/16/17 at 03:30 Sucralfate (Carafate) 1 gm QID PO Last administered on 03/17/17 08:46; Admin Dose 1 GM; Start 03/16/17 at 09:00 Salmeterol Xinafoate/ Fluticasone (Advair 250/50 Diskus) 1 inh BID INH Last administered on 03/17/17 08:46; Admin Dose 1 INH; Start 03/16/17 at 09:00 Miscellaneous Information 1 ea NOTE XX ; Start 03/16/17 at 03:45 Glucose (Glutose) 15 gm Q15M PRN PO DECREASED GLUCOSE Last administered on 03/16 06:30; Admin Dose 15 GM; Start 03/16/17 at 03:45 Glucose (Glutose) 22.5 gm Q15M PRN PO DECREASED GLUCOSE; Start 03/16/17 at 03: 45 Dextrose (D50w Syringe) 25 ml Q15M PRN IV DECREASED GLUCOSE; Start 03/16/17 at 03:45 Dextrose (D50w Syringe) 50 ml Q15M PRN IV DECREASED GLUCOSE; Start 03/16/17 at 03:45 Glucagon (Glucagen) 1 mg Q15M PRN IM DECREASED GLUCOSE; Start 03/16/17 at 03:45 Glucose (Glutose) 15 gm Q15M PRN BUCCAL DECREASED GLUCOSE; Start 03/16/17 at 03 :45 Diagnostic Test (Pha) 1 ea 1 ea 02 XX ; Start 03/17/17 at 02:00 Ceftriaxone Sodium (Rocephin) 50 ml @ 100 mls/hr Q24H IVPB Last administered on 03/16/17 10:50; Admin Dose 100 MLS/HR; Start 03/16/17 at 10:00 Insulin Glargine (Lantus) 16 unit DAILY@08 SC Last administered on 03/17/17 08: 56; Admin Dose 16 UNIT; Start 03/17/17 at 08:00 Tramadol HCl (Ultram) 50 mg Q6H PRN GTB Moderate to severe pain Last administered on 03/16/17 18:37; Admin Dose 50 MG; Start 03/16/17 at 18:30 Benazepril HCl (Lotensin) 10 mg DAILY PO Last administered on 03/17/17 08:47; Admin Dose 10 MG; Start 03/17/17 at 09:00 Hydromorphone HCl (Dilaudid) 0.5 mg Q4H PRN IV PAIN; Start 03/17/17 at 00:00 Pantoprazole (Protonix Tab) 40 mg DAILY@06 PO Last administered on 03/17/17 08: 54; Admin Dose 40 MG; Start 03/17/17 at 08:30 MAEVE WOODS DO Mar 17, 2017 10:00
[2017-03-17] MEDS: CEFTRIAXONE 1 GM/50 ML (PMX) 50 ML IVPB SCH (11:21)
[2017-03-17] MEDS: MAGNESIUM OXIDE 400 MG TAB PO SCH (11:30)
[2017-03-17] MEDS: METHADONE (1 MG/1 ML PO SYG) PO SCH ×2 (15:05→22:17)
--- NOTE | 2017-03-17 17:22 | CONS ---
Date/Time of Note Date/Time of Note DATE: 03/17/17 TIME: 17:20 Assessment/Plan Assessment/Plan Additional Assessment/Plan 1.CHF-systolic versus diastolic? acute - will review ECHO 2.HTN- wel rx now, better 3.Tachycardia- S Tach - Rx underlined cause 4.Hyponatremia 5.cholangiocarcinoma-metastatic s/p CTX - GI follows 6.abnl [id number] - no intervention planned 7.DM Consultation Date/Type/Reason Admit Date/Time Mar 16, 2017 at 00:48 Initial Consult Date 03/16/17 Type of Consultation: cardiology Referring Provider: JAE ABREU 24 HR Interval Summary Free Text/Dictation N acute cahnge - sinus tach on tele ROS: No fever, no chills, no nausea, no vomiting, no diarrhea/constipation No recent weight changes No chest pain, no PND, no orthopnea No dizziness, blurred vision No thirst, no heat or cold intolerance Exam/Review of Systems Vital Signs Vitals Vital Signs Date Time Temp Pulse Resp B/P Pulse Ox O2 Delivery O2 Flow Rate FiO2 03/17/17 16:09 111 03/17/17 11:58 97.6 18 103/52 98 03/17/17 08:30 Nasal Cannula 3.0 03/16/17 00:21 30 Intake and Output 03/16/17 03/16/17 03/17/17 15:00 23:00 07:00 Intake Total 750 ml Balance 750 ml Exam General: WN/WD/NAD, AOx 1-2 HEENT: Unicetric/atraumatic/EOMI (does not follow commands) NECK: JVD elevated, no thyromegaly Lymph: no lymphadenopathy HEART: regular with no S3, II/ systolic murmur at apex LUNGS: Coarse sounds ABD: soft, NT, ND, +BS : Intact Neuro: non focal SKIN: chronic changes EXT: trace edema Results Result Diagram: 03/17/17 0755 03/17/17 0755 Results 24 hrs Laboratory Tests Test 03/16/17 17:24 03/16/17 20:40 03/16/17 22:30 03/17/17 01:40 Bedside Glucose 86 122 Sodium Level 125 L Potassium Level 3.6 Chloride Level 82 L Carbon Dioxide Level 34 H Anion Gap 13 # Blood Urea Nitrogen 17 Creatinine 0.72 Glucose Level 96 Calcium Level 7.9 L Troponin I < 0.012 Test 03/17/17 07:55 03/17/17 08:16 03/17/17 12:12 03/17/17 12:36 White Blood Count 21.2 H Red Blood Count 2.35 L Hemoglobin 7.6 L Hematocrit 23.3 L Mean Corpuscular Volume 99.1 Mean Corpuscular Hemoglobin 32.3 Mean Corpuscular Hemoglobin Concent 32.6 Red Cell Distribution Width Platelet Count 251 Mean Platelet Volume 10.1 Neutrophils % 78.4 H Lymphocytes % 9.2 L Monocytes % 9.6 Eosinophils % 0.5 Basophils % 0.2 Nucleated Red Blood Cells % 0.0 Neutrophils # 16.6 H Lymphocytes # 1.9 Monocytes # 2.0 H Eosinophils # 0.1 Basophils # 0.0 Nucleated Red Blood Cells # 0.0 Sodium Level 127 L Potassium Level 3.9 Chloride Level 82 L Carbon Dioxide Level 35 H Anion Gap 14 Blood Urea Nitrogen 16 Creatinine 0.71 Glucose Level 105 Calcium Level 8.3 L Magnesium Level 1.6 L Total Bilirubin 0.3 Direct Bilirubin 0.00 Indirect Bilirubin 0.3 Aspartate Amino Transf (AST/SGOT) 71 H Alanine Aminotransferase (ALT/SGPT) 40 Alkaline Phosphatase 223 H Troponin I < 0.012 Total Protein 6.5 Albumin 2.6 L Globulin 3.90 H Albumin/Globulin Ratio 0.66 Triglycerides Level 92 Cholesterol Level 89 L LDL Cholesterol, Calculated 51 HDL Cholesterol 20 L Cholesterol/HDL Ratio 4.4 Bedside Glucose 119 69 L 89 Test 03/17/17 12:50 03/17/17 17:17 Bedside Glucose 88 76 Medications Medications Current Medications Ondansetron HCl (Zofran Inj) 4 mg Q6H PRN IV NAUSEA AND/OR VOMITING; Start at 01:00 Acetaminophen (Tylenol Tab) 650 mg Q6H PRN PO PAIN LEVEL 1-3 OR FEVER; Start at 01:00 Enoxaparin Sodium (Lovenox) 40 mg DAILY SC Last administered on 03/17/17 08:56 ; Admin Dose 40 MG; Start 03/16/17 at 09:00 Docusate Sodium (Colace) 100 mg DAILY PO Last administered on 03/17/17 08:46; Admin Dose 100 MG; Start 03/16/17 at 09:00 Polyethylene Glycol (Miralax) 8.5 gm DAILY PRN PO CONSTIPATION; Start 03/16/17 at 03:30 Sucralfate (Carafate) 1 gm QID PO Last administered on 03/17/17 12:59; Admin Dose 1 GM; Start 03/16/17 at 09:00 Salmeterol Xinafoate/ Fluticasone (Advair 250/50 Diskus) 1 inh BID INH Last administered on 03/17/17 08:46; Admin Dose 1 INH; Start 03/16/17 at 09:00 Miscellaneous Information 1 ea NOTE XX ; Start 03/16/17 at 03:45 Glucose (Glutose) 15 gm Q15M PRN PO DECREASED GLUCOSE Last administered on 03/16 06:30; Admin Dose 15 GM; Start 03/16/17 at 03:45 Glucose (Glutose) 22.5 gm Q15M PRN PO DECREASED GLUCOSE; Start 03/16/17 at 03: 45 Dextrose (D50w Syringe) 25 ml Q15M PRN IV DECREASED GLUCOSE; Start 03/16/17 at 03:45 Dextrose (D50w Syringe) 50 ml Q15M PRN IV DECREASED GLUCOSE; Start 03/16/17 at 03:45 Glucagon (Glucagen) 1 mg Q15M PRN IM DECREASED GLUCOSE; Start 03/16/17 at 03:45 Glucose (Glutose) 15 gm Q15M PRN BUCCAL DECREASED GLUCOSE; Start 03/16/17 at 03 :45 Diagnostic Test (Pha) 1 ea 1 ea 02 XX ; Start 03/17/17 at 02:00 Ceftriaxone Sodium (Rocephin) 50 ml @ 100 mls/hr Q24H IVPB Last administered on 03/17/17 11:21; Admin Dose 100 MLS/HR; Start 03/16/17 at 10:00 Insulin Glargine (Lantus) 16 unit DAILY@08 SC Last administered on 03/17/17 08: 56; Admin Dose 16 UNIT; Start 03/17/17 at 08:00 Benazepril HCl (Lotensin) 10 mg DAILY PO Last administered on 03/17/17 08:47; Admin Dose 10 MG; Start 03/17/17 at 09:00 Pantoprazole (Protonix Tab) 40 mg DAILY@06 PO Last administered on 03/17/17 08: 54; Admin Dose 40 MG; Start 03/17/17 at 08:30 Magnesium Oxide (Mag-Ox 400) 400 mg DAILY PO Last administered on 03/17/17 11: 30; Admin Dose 400 MG; Start 03/17/17 at 11:30 Hydromorphone HCl (Dilaudid) 1 mg Q3H PRN IV PAIN; Start 03/17/17 at 15:00 Methadone HCl (Methadone Liq (Ped)) 2 mg Q8H PO Last administered on 03/17/17 15:05; Admin Dose 2 MG; Start 03/17/17 at 15:00 ERIC FRAUSTO MD Mar 17, 2017 17:22
[2017-03-17] MEDS: HYDROmorphONE 1 MG/ML SYG IV PRN (18:12)
--- NOTE | 2017-03-17 22:20 | PN ---
Date/Time of Note Date/Time of Note DATE: 03/17/17 TIME: 22:17 Assessment/Plan VTE Prophylaxis VTE Prophylaxis Intervention: heparin Lines/Catheters IV [facility] (from [facility] porth a cath Urinary Cath still in place: No Assessment/Plan Assessment/Plan #1 acute CHF, new onset : Possibly secondary to tumor burden from her metastatic cholangio-carcinoma versus new onset CHF. Patient does have a BNP of approximately 700. Will provide Lasix diuresis. Will order an echocardiogram. Patient denies any chest pain. Troponin was negative. X-ray did show vascular congestion. #2 hyponatremia: 2/2 CHF + SIADH, Fluid restriction, #3 Leukocytosis: White blood cell count is 25 however her previous labs also show elevated white blood cell count. Nonetheless patient does also have a UTI will treat her with IV antibiotics are started in the ED. Will obtain urine and blood culture. Patient currently does not have any fevers. #4 UTI: Received Zosyn in the ED. At the current time will continue her on ceftriaxone. Will obtain urine culture. #5 diabetes mellitus: We will put patient on insulin sliding scale. Resume home medications. #6 metastatic cholangiocarcinoma: Based on patient's previous history as well as documentation from previous admissions and documentation from hematology seems the patient has received treatments for her cancer however may be at the point where she may not be showing any more response and receiving benefit from these treatments. Her [employer] supervisor did recommend a possible hospice consideration. Will consult palliative care at this time. We will also consider if we need hematology on board as well. #6 DVT and GI prophylaxis: Heparin, Protonix Further treatment strategy as per the clinical course Subjective 24 Hr Interval Summary Free Text/Dictation c/o pain, s/p palliative care consult, started on IV Dilaudid for pain control Exam/Review of Systems Vital Signs Vitals Vital Signs Date Time Temp Pulse Resp B/P Pulse Ox O2 Delivery O2 Flow Rate FiO2 03/17/17 20:23 102 03/17/17 20:00 97.7 15 122/58 98 03/17/17 08:30 Nasal Cannula 3.0 03/16/17 00:21 30 Intake and Output 03/16/17 03/16/17 03/17/17 15:00 23:00 07:00 Intake Total 750 ml Balance 750 ml Exam Constitutional: alert, frail, oriented Psych: no complaints Head: normocephalic Eyes: nl conjunctiva ENMT: nl external ears & nose Neck: non-tender, supple Cardiovascular: nl pulses, regular rate and rhythm Gastrointestinal: soft Musculoskeletal: + edema of LE Results Result Diagram: 03/17/17 0755 03/17/17 0755 Results 24 hrs Laboratory Tests Test 03/16/17 22:30 03/17/17 01:40 03/17/17 07:55 03/17/17 08:16 Sodium Level 125 L 127 L Potassium Level 3.6 3.9 Chloride Level 82 L 82 L Carbon Dioxide Level 34 H 35 H Anion Gap 13 # 14 Blood Urea Nitrogen 17 16 Creatinine 0.72 0.71 Glucose Level 96 105 Calcium Level 7.9 L 8.3 L Troponin I < 0.012 < 0.012 White Blood Count 21.2 H Red Blood Count 2.35 L Hemoglobin 7.6 L Hematocrit 23.3 L Mean Corpuscular Volume 99.1 Mean Corpuscular Hemoglobin 32.3 Mean Corpuscular Hemoglobin Concent 32.6 Red Cell Distribution Width Platelet Count 251 Mean Platelet Volume 10.1 Neutrophils % 78.4 H Lymphocytes % 9.2 L Monocytes % 9.6 Eosinophils % 0.5 Basophils % 0.2 Nucleated Red Blood Cells % 0.0 Neutrophils # 16.6 H Lymphocytes # 1.9 Monocytes # 2.0 H Eosinophils # 0.1 Basophils # 0.0 Nucleated Red Blood Cells # 0.0 Magnesium Level 1.6 L Total Bilirubin 0.3 Direct Bilirubin 0.00 Indirect Bilirubin 0.3 Aspartate Amino Transf (AST/SGOT) 71 H Alanine Aminotransferase (ALT/SGPT) 40 Alkaline Phosphatase 223 H Total Protein 6.5 Albumin 2.6 L Globulin 3.90 H Albumin/Globulin Ratio 0.66 Triglycerides Level 92 Cholesterol Level 89 L LDL Cholesterol, Calculated 51 HDL Cholesterol 20 L Cholesterol/HDL Ratio 4.4 Bedside Glucose 119 Test 03/17/17 12:12 03/17/17 12:36 03/17/17 12:50 03/17/17 17:17 Bedside Glucose 69 L 89 88 76 Medications Medications Current Medications Ondansetron HCl (Zofran Inj) 4 mg Q6H PRN IV NAUSEA AND/OR VOMITING; Start at 01:00 Acetaminophen (Tylenol Tab) 650 mg Q6H PRN PO PAIN LEVEL 1-3 OR FEVER; Start at 01:00 Enoxaparin Sodium (Lovenox) 40 mg DAILY SC Last administered on 03/17/17 08:56 ; Admin Dose 40 MG; Start 03/16/17 at 09:00 Docusate Sodium (Colace) 100 mg DAILY PO Last administered on 03/17/17 08:46; Admin Dose 100 MG; Start 03/16/17 at 09:00 Polyethylene Glycol (Miralax) 8.5 gm DAILY PRN PO CONSTIPATION; Start 03/16/17 at 03:30 Sucralfate (Carafate) 1 gm QID PO Last administered on 03/17/17 17:23; Admin Dose 1 GM; Start 03/16/17 at 09:00 Salmeterol Xinafoate/ Fluticasone (Advair 250/50 Diskus) 1 inh BID INH Last administered on 03/17/17 08:46; Admin Dose 1 INH; Start 03/16/17 at 09:00 Miscellaneous Information 1 ea NOTE XX ; Start 03/16/17 at 03:45 Glucose (Glutose) 15 gm Q15M PRN PO DECREASED GLUCOSE Last administered on 03/16 06:30; Admin Dose 15 GM; Start 03/16/17 at 03:45 Glucose (Glutose) 22.5 gm Q15M PRN PO DECREASED GLUCOSE; Start 03/16/17 at 03: 45 Dextrose (D50w Syringe) 25 ml Q15M PRN IV DECREASED GLUCOSE; Start 03/16/17 at 03:45 Dextrose (D50w Syringe) 50 ml Q15M PRN IV DECREASED GLUCOSE; Start 03/16/17 at 03:45 Glucagon (Glucagen) 1 mg Q15M PRN IM DECREASED GLUCOSE; Start 03/16/17 at 03:45 Glucose (Glutose) 15 gm Q15M PRN BUCCAL DECREASED GLUCOSE; Start 03/16/17 at 03 :45 Diagnostic Test (Pha) 1 ea 1 ea 02 XX ; Start 03/17/17 at 02:00 Ceftriaxone Sodium (Rocephin) 50 ml @ 100 mls/hr Q24H IVPB Last administered on 03/17/17 11:21; Admin Dose 100 MLS/HR; Start 03/16/17 at 10:00 Insulin Glargine (Lantus) 16 unit DAILY@08 SC Last administered on 03/17/17 08: 56; Admin Dose 16 UNIT; Start 03/17/17 at 08:00 Benazepril HCl (Lotensin) 10 mg DAILY PO Last administered on 03/17/17 08:47; Admin Dose 10 MG; Start 03/17/17 at 09:00 Pantoprazole (Protonix Tab) 40 mg DAILY@06 PO Last administered on 03/17/17 08: 54; Admin Dose 40 MG; Start 03/17/17 at 08:30 Magnesium Oxide (Mag-Ox 400) 400 mg DAILY PO Last administered on 03/17/17 11: 30; Admin Dose 400 MG; Start 03/17/17 at 11:30 Hydromorphone HCl (Dilaudid) 1 mg Q3H PRN IV PAIN Last administered on 18:12; Admin Dose 1 MG; Start 03/17/17 at 15:00 Methadone HCl (Methadone Liq (Ped)) 2 mg Q8H PO Last administered on 03/17/17 15:05; Admin Dose 2 MG; Start 03/17/17 at 15:00 SUSAN SMITH MD Mar 17, 2017 22:20
[2017-03-18] VITALS (11 sets, daily range): BP systolic 103–118; BP diastolic 52–55; PULSE 97–104; RESP 15–20
[2017-03-18] MEDS: HYDROmorphONE 1 MG/ML SYG IV PRN ×4 (01:47→23:24)
[2017-03-18] MEDS: ACCUCHECK AT 2AM (Patients on SS coverage) XX SCH (02:00)
[2017-03-18] MEDS: PANTOPRAZOLE (EC) 40 MG TAB PO SCH (06:04)
[2017-03-18] MEDS: FUROSEMIDE 40 MG TAB PO SCH ×2 (06:05→17:30)
[2017-03-18] MEDS: METHADONE (1 MG/1 ML PO SYG) PO SCH ×3 (06:21→22:50)
[2017-03-18 07:26] LABS: CALCIUM 8.4 mg/dl (8.4-10.2); CREATININE 0.66 mg/dl (0.44-1.00); MAGNESIUM 1.6 mg/dl (1.7-2.5); PHOSPHORUS 3.1 mg/dl (2.5-4.9)
[2017-03-18] MEDS: SALMETEROL/FLUTICASONE 250/50 INHA INH SCH ×2 (09:03→20:46)
[2017-03-18] MEDS: DOCUSATE SODIUM 100 MG CAP PO SCH (09:03)
[2017-03-18] MEDS: MAGNESIUM OXIDE 400 MG TAB PO SCH (09:03)
[2017-03-18] MEDS: SUCRALFATE 1 GM TAB PO SCH ×4 (09:03→20:43)
[2017-03-18] MEDS: BENAZEPRIL 10 MG TAB PO SCH (09:04)
[2017-03-18] MEDS: ENOXAPARIN 40 MG/0.4 ML SYG SC SCH (09:05)
[2017-03-18] MEDS: INSULIN GLARGINE [LANtus] 3 ML PEN SC SCH (09:05)
[2017-03-18] MEDS: INSULIN ASPART [NOVOLOG] 3 ML PEN SC SCH ×7 (09:06→20:42)
--- NOTE | 2017-03-18 09:59 | PN ---
Date/Time of Note Date/Time of Note DATE: 03/18/17 TIME: 09:57 Assessment/Plan Lines/Catheters IV [facility] Type (from [facility]): Portacath Urinary Cath still in place: No Assessment/Plan Chief Complaint/Hosp Course 1. Hyponatremia. Etiology appears to be multifactorial. 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 -Sodium levels have been improving with free water restriction diuretic therapy Continue gentle diuretic therapy. Monitor strict I's and O's. 2. Volume overload. Etiology may be secondary to CHF. -2D echo reviewed. Continue diuretic therapy. Follow-up with cardiology 3. Anemia. Monitor H&H levels #4. UTI and possible sepsis. Patient on antibiotic therapy and continue follow -up cultures 5. Metastatic cholangiocarcinoma. Patient is on chemotherapy. Will follow up with the primary team and oncology 6. Diabetes. Continue Accu-Cheks insulin sliding scale 7. Hypomagnesemia. Replete with magnesium oxide Problems: Subjective 24 Hr Interval Summary Free Text/Dictation Patient stable. No events overnight Exam/Review of Systems Vital Signs Vitals Vital Signs Date Time Temp Pulse Resp B/P Pulse Ox O2 Delivery O2 Flow Rate FiO2 03/18/17 08:01 97.8 105 20 112/52 99 03/17/17 20:00 Nasal Cannula 3.0 03/16/17 00:21 30 Intake and Output 03/17/17 03/17/17 03/18/17 15:00 23:00 07:00 Intake Total 620 ml 120 ml Output Total 800 ml 100 ml Balance -180 ml 20 ml Exam HEENT: Atraumatic, normocephalic. The pupils are equal, round and reactive. Extraocular motor are intact Neck: Supple with full range of motion. No rigidity or meningismus Chest: Nontender Lungs: Minimal bilateral crackles in the lungs bilaterally Heart: Normal S1-S2, Regular rhythm and rate. No murmur, S3, or S4 Abdomen: Soft , nontender, nondistended , bowel sounds are present. No guarding no rebound tenderness , No masses or organomegaly. No costovertebral temporal angle mass Extremities: Bilateral 2+ pitting edema of the lower extremities Neurologic: Normal mental status, speech normal, cranial nerves II through XII are intact, motor and sensory are intact, no focal weakness Results Result Diagram: 03/17/17 0755 03/18/17 0615 Results 24 hrs Laboratory Tests Test 03/17/17 12:12 03/17/17 12:36 03/17/17 12:50 03/17/17 17:17 Bedside Glucose 69 L 89 88 76 Test 03/17/17 22:16 03/18/17 06:15 03/18/17 09:01 Bedside Glucose 131 135 Sodium Level 127 L Potassium Level 4.0 Chloride Level 82 L Carbon Dioxide Level 36 H Anion Gap 13 Blood Urea Nitrogen 14 Creatinine 0.66 Glucose Level 117 Calcium Level 8.4 Phosphorus Level 3.1 Magnesium Level 1.6 L Medications Medications Current Medications Ondansetron HCl (Zofran Inj) 4 mg Q6H PRN IV NAUSEA AND/OR VOMITING; Start at 01:00 Acetaminophen (Tylenol Tab) 650 mg Q6H PRN PO PAIN LEVEL 1-3 OR FEVER; Start at 01:00 Enoxaparin Sodium (Lovenox) 40 mg DAILY SC Last administered on 03/18/17 09:05 ; Admin Dose 40 MG; Start 03/16/17 at 09:00 Docusate Sodium (Colace) 100 mg DAILY PO Last administered on 03/18/17 09:03; Admin Dose 100 MG; Start 03/16/17 at 09:00 Polyethylene Glycol (Miralax) 8.5 gm DAILY PRN PO CONSTIPATION; Start 03/16/17 at 03:30 Sucralfate (Carafate) 1 gm QID PO Last administered on 03/18/17 09:03; Admin Dose 1 GM; Start 03/16/17 at 09:00 Salmeterol Xinafoate/ Fluticasone (Advair 250/50 Diskus) 1 inh BID INH Last administered on 03/18/17 09:03; Admin Dose 1 INH; Start 03/16/17 at 09:00 Miscellaneous Information 1 ea NOTE XX ; Start 03/16/17 at 03:45 Glucose (Glutose) 15 gm Q15M PRN PO DECREASED GLUCOSE Last administered on 03/16 06:30; Admin Dose 15 GM; Start 03/16/17 at 03:45 Glucose (Glutose) 22.5 gm Q15M PRN PO DECREASED GLUCOSE; Start 03/16/17 at 03: 45 Dextrose (D50w Syringe) 25 ml Q15M PRN IV DECREASED GLUCOSE; Start 03/16/17 at 03:45 Dextrose (D50w Syringe) 50 ml Q15M PRN IV DECREASED GLUCOSE; Start 03/16/17 at 03:45 Glucagon (Glucagen) 1 mg Q15M PRN IM DECREASED GLUCOSE; Start 03/16/17 at 03:45 Glucose (Glutose) 15 gm Q15M PRN BUCCAL DECREASED GLUCOSE; Start 03/16/17 at 03 :45 Diagnostic Test (Pha) 1 ea 1 ea 02 XX ; Start 03/17/17 at 02:00 Ceftriaxone Sodium (Rocephin) 50 ml @ 100 mls/hr Q24H IVPB Last administered on 03/17/17 11:21; Admin Dose 100 MLS/HR; Start 03/16/17 at 10:00 Insulin Glargine (Lantus) 16 unit DAILY@08 SC Last administered on 03/18/17 09: 05; Admin Dose 16 UNIT; Start 03/17/17 at 08:00 Benazepril HCl (Lotensin) 10 mg DAILY PO Last administered on 03/18/17 09:04; Admin Dose 10 MG; Start 03/17/17 at 09:00 Pantoprazole (Protonix Tab) 40 mg DAILY@06 PO Last administered on 03/18/17 06: 04; Admin Dose 40 MG; Start 03/17/17 at 08:30 Magnesium Oxide (Mag-Ox 400) 400 mg DAILY PO Last administered on 03/18/17 09: 03; Admin Dose 400 MG; Start 03/17/17 at 11:30 Hydromorphone HCl (Dilaudid) 1 mg Q3H PRN IV PAIN Last administered on 09:31; Admin Dose 1 MG; Start 03/17/17 at 15:00 Methadone HCl (Methadone Liq (Ped)) 2 mg Q8H PO Last administered on 03/18/17 06:21; Admin Dose 2 MG; Start 03/17/17 at 15:00 MAEVE WOODS DO Mar 18, 2017 09:59
[2017-03-18] MEDS ORDERED: MAGNESIUM SULFATE 2 GM/50 ML 50 ML IVPB ONE (10:00)
[2017-03-18] MEDS: CEFTRIAXONE 1 GM/50 ML (PMX) 50 ML IVPB SCH (10:44)
--- NOTE | 2017-03-18 11:41 | CONS ---
Date/Time of Note Date/Time of Note DATE: 03/18/17 TIME: 11:39 Assessment/Plan Assessment/Plan Chief Complaint/Hosp Course 71 yo with metastatic cholangiocarcinoma now with progressive disease. Pt is unable to tolerate any more chemotherapy. I spoke at length with the patient and her daughter. At this point I would recommend hospice evaluation -hospice consult has been placed Problems: Consultation Date/Type/Reason Admit Date/Time Mar 16, 2017 at 00:48 Initial Consult Date 03/16/17 Type of Consultation: oncology Reason for Consultation cholangioca Referring Provider: JAE ABREU 24 HR Interval Summary Free Text/Dictation spoke with family this morning. they have agree to hospice. social contact worker is explaining the process Exam/Review of Systems Vital Signs Vitals Vital Signs Date Time Temp Pulse Resp B/P Pulse Ox O2 Delivery O2 Flow Rate FiO2 03/18/17 08:10 Nasal Cannula 3.0 03/18/17 08:01 97.8 105 20 112/52 99 03/16/17 00:21 30 Intake and Output 03/17/17 03/17/17 03/18/17 15:00 23:00 07:00 Intake Total 620 ml 120 ml Output Total 800 ml 100 ml Balance -180 ml 20 ml Exam Constitutional: alert, oriented Psych: no complaints Head: atraumatic, normocephalic Eyes: nl conjunctiva ENMT: nl external ears & nose Neck: supple Respiratory: clear to auscultation Cardiovascular: regular rate and rhythm Gastrointestinal: distended, firm Musculoskeletal: nl extremities to inspection Results Result Diagram: 03/17/17 0755 03/18/17 0615 Results 24 hrs Laboratory Tests Test 03/17/17 12:12 03/17/17 12:36 03/17/17 12:50 03/17/17 17:17 Bedside Glucose 69 L 89 88 76 Test 03/17/17 22:16 03/18/17 06:15 03/18/17 09:01 Bedside Glucose 131 135 Sodium Level 127 L Potassium Level 4.0 Chloride Level 82 L Carbon Dioxide Level 36 H Anion Gap 13 Blood Urea Nitrogen 14 Creatinine 0.66 Glucose Level 117 Calcium Level 8.4 Phosphorus Level 3.1 Magnesium Level 1.6 L Medications Medications Current Medications Ondansetron HCl (Zofran Inj) 4 mg Q6H PRN IV NAUSEA AND/OR VOMITING; Start at 01:00 Acetaminophen (Tylenol Tab) 650 mg Q6H PRN PO PAIN LEVEL 1-3 OR FEVER; Start at 01:00 Enoxaparin Sodium (Lovenox) 40 mg DAILY SC Last administered on 03/18/17 09:05 ; Admin Dose 40 MG; Start 03/16/17 at 09:00 Docusate Sodium (Colace) 100 mg DAILY PO Last administered on 03/18/17 09:03; Admin Dose 100 MG; Start 03/16/17 at 09:00 Polyethylene Glycol (Miralax) 8.5 gm DAILY PRN PO CONSTIPATION; Start 03/16/17 at 03:30 Sucralfate (Carafate) 1 gm QID PO Last administered on 03/18/17 09:03; Admin Dose 1 GM; Start 03/16/17 at 09:00 Salmeterol Xinafoate/ Fluticasone (Advair 250/50 Diskus) 1 inh BID INH Last administered on 03/18/17 09:03; Admin Dose 1 INH; Start 03/16/17 at 09:00 Miscellaneous Information 1 ea NOTE XX ; Start 03/16/17 at 03:45 Glucose (Glutose) 15 gm Q15M PRN PO DECREASED GLUCOSE Last administered on 03/16 06:30; Admin Dose 15 GM; Start 03/16/17 at 03:45 Glucose (Glutose) 22.5 gm Q15M PRN PO DECREASED GLUCOSE; Start 03/16/17 at 03: 45 Dextrose (D50w Syringe) 25 ml Q15M PRN IV DECREASED GLUCOSE; Start 03/16/17 at 03:45 Dextrose (D50w Syringe) 50 ml Q15M PRN IV DECREASED GLUCOSE; Start 03/16/17 at 03:45 Glucagon (Glucagen) 1 mg Q15M PRN IM DECREASED GLUCOSE; Start 03/16/17 at 03:45 Glucose (Glutose) 15 gm Q15M PRN BUCCAL DECREASED GLUCOSE; Start 03/16/17 at 03 :45 Diagnostic Test (Pha) 1 ea 1 ea 02 XX ; Start 03/17/17 at 02:00 Ceftriaxone Sodium (Rocephin) 50 ml @ 100 mls/hr Q24H IVPB Last administered on 03/18/17 10:44; Admin Dose 100 MLS/HR; Start 03/16/17 at 10:00 Insulin Glargine (Lantus) 16 unit DAILY@08 SC Last administered on 03/18/17 09: 05; Admin Dose 16 UNIT; Start 03/17/17 at 08:00 Benazepril HCl (Lotensin) 10 mg DAILY PO Last administered on 03/18/17 09:04; Admin Dose 10 MG; Start 03/17/17 at 09:00 Pantoprazole (Protonix Tab) 40 mg DAILY@06 PO Last administered on 03/18/17 06: 04; Admin Dose 40 MG; Start 03/17/17 at 08:30 Magnesium Oxide (Mag-Ox 400) 400 mg DAILY PO Last administered on 03/18/17 09: 03; Admin Dose 400 MG; Start 03/17/17 at 11:30 Hydromorphone HCl (Dilaudid) 1 mg Q3H PRN IV PAIN Last administered on 09:31; Admin Dose 1 MG; Start 03/17/17 at 15:00 Methadone HCl 2 mg 2 mg Q8H PO Last administered on 03/18/17 06:21; Admin Dose 2 MG; Start 03/17/17 at 15:00 Magnesium Sulfate (Magnesium Sulfate 2 Gm/50 ml) 50 ml @ 25 mls/hr ONCE ONCE IVPB Last administered on 03/18/17 10:45; Admin Dose 25 MLS/HR; Start 03/18/17 at 10:00; Stop 03/18/17 at 11:59 CHERIE CEDEÑO M.D. Mar 18, 2017 11:40
--- NOTE | 2017-03-18 14:17 | PN ---
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 At the current time will continue her on ceftriaxone. Will obtain urine culture. #5 diabetes mellitus: We will put patient on insulin sliding scale. Resume home medications. #6 metastatic cholangiocarcinoma: s/p H & O - recommended for hospice care #6 DVT and GI prophylaxis: Heparin, Protonix IV lasix for anasarca IV dilaudid for pain control S/p Palliative care consult, Will set up family meeting with SW and palliative care physician Subjective 24 Hr Interval Summary Free Text/Dictation started on IV dialudid for pain control, family meeting planned as per palliative care Exam/Review of Systems Vital Signs Vitals Vital Signs Date Time Temp Pulse Resp B/P Pulse Ox O2 Delivery O2 Flow Rate FiO2 03/18/17 12:13 98.3 105 20 111/55 98 03/18/17 08:10 Nasal Cannula 3.0 03/16/17 00:21 30 Intake and Output 03/17/17 03/17/17 03/18/17 15:00 23:00 07:00 Intake Total 620 ml 120 ml Output Total 800 ml 100 ml Balance -180 ml 20 ml Exam Constitutional: alert, frail, oriented Psych: no complaints Head: normocephalic Eyes: nl conjunctiva ENMT: nl external ears & nose Neck: non-tender, supple Cardiovascular: nl pulses, regular rate and rhythm Gastrointestinal: soft Musculoskeletal: + edema of LE Results Result Diagram: 03/17/17 0755 03/18/17 0615 Results 24 hrs Laboratory Tests Test 03/17/17 17:17 03/17/17 22:16 03/18/17 06:15 03/18/17 09:01 Bedside Glucose 76 131 135 Sodium Level 127 L Potassium Level 4.0 Chloride Level 82 L Carbon Dioxide Level 36 H Anion Gap 13 Blood Urea Nitrogen 14 Creatinine 0.66 Glucose Level 117 Calcium Level 8.4 Phosphorus Level 3.1 Magnesium Level 1.6 L Test 03/18/17 12:59 Bedside Glucose 133 Medications Medications Current Medications Ondansetron HCl (Zofran Inj) 4 mg Q6H PRN IV NAUSEA AND/OR VOMITING; Start at 01:00 Acetaminophen (Tylenol Tab) 650 mg Q6H PRN PO PAIN LEVEL 1-3 OR FEVER; Start at 01:00 Enoxaparin Sodium (Lovenox) 40 mg DAILY SC Last administered on 03/18/17 09:05 ; Admin Dose 40 MG; Start 03/16/17 at 09:00 Docusate Sodium (Colace) 100 mg DAILY PO Last administered on 03/18/17 09:03; Admin Dose 100 MG; Start 03/16/17 at 09:00 Polyethylene Glycol (Miralax) 8.5 gm DAILY PRN PO CONSTIPATION; Start 03/16/17 at 03:30 Sucralfate (Carafate) 1 gm QID PO Last administered on 03/18/17 12:58; Admin Dose 1 GM; Start 03/16/17 at 09:00 Salmeterol Xinafoate/ Fluticasone (Advair 250/50 Diskus) 1 inh BID INH Last administered on 03/18/17 09:03; Admin Dose 1 INH; Start 03/16/17 at 09:00 Miscellaneous Information 1 ea NOTE XX ; Start 03/16/17 at 03:45 Glucose (Glutose) 15 gm Q15M PRN PO DECREASED GLUCOSE Last administered on 03/16 06:30; Admin Dose 15 GM; Start 03/16/17 at 03:45 Glucose (Glutose) 22.5 gm Q15M PRN PO DECREASED GLUCOSE; Start 03/16/17 at 03: 45 Dextrose (D50w Syringe) 25 ml Q15M PRN IV DECREASED GLUCOSE; Start 03/16/17 at 03:45 Dextrose (D50w Syringe) 50 ml Q15M PRN IV DECREASED GLUCOSE; Start 03/16/17 at 03:45 Glucagon (Glucagen) 1 mg Q15M PRN IM DECREASED GLUCOSE; Start 03/16/17 at 03:45 Glucose (Glutose) 15 gm Q15M PRN BUCCAL DECREASED GLUCOSE; Start 03/16/17 at 03 :45 Diagnostic Test (Pha) 1 ea 1 ea 02 XX ; Start 03/17/17 at 02:00 Ceftriaxone Sodium (Rocephin) 50 ml @ 100 mls/hr Q24H IVPB Last administered on 03/18/17 10:44; Admin Dose 100 MLS/HR; Start 03/16/17 at 10:00 Insulin Glargine (Lantus) 16 unit DAILY@08 SC Last administered on 03/18/17 09: 05; Admin Dose 16 UNIT; Start 03/17/17 at 08:00 Benazepril HCl (Lotensin) 10 mg DAILY PO Last administered on 03/18/17 09:04; Admin Dose 10 MG; Start 03/17/17 at 09:00 Pantoprazole (Protonix Tab) 40 mg DAILY@06 PO Last administered on 03/18/17 06: 04; Admin Dose 40 MG; Start 03/17/17 at 08:30 Magnesium Oxide (Mag-Ox 400) 400 mg DAILY PO Last administered on 03/18/17 09: 03; Admin Dose 400 MG; Start 03/17/17 at 11:30 Hydromorphone HCl (Dilaudid) 1 mg Q3H PRN IV PAIN Last administered on 09:31; Admin Dose 1 MG; Start 03/17/17 at 15:00 Methadone HCl (Methadone Liq (Ped)) 2 mg Q8H PO Last administered on 03/18/17 06:21; Admin Dose 2 MG; Start 03/17/17 at 15:00 SUSAN SMITH MD Mar 18, 2017 14:17
--- NOTE | 2017-03-18 15:52 | CONS ---
Date/Time of Note Date/Time of Note DATE: 03/18/17 TIME: 15:51 Assessment/Plan Assessment/Plan Additional Assessment/Plan 1.CHF-diastolic, acute - better now 2.HTN- wel rx now, better 3.Tachycardia- S Tach - Rx underlined cause - Stable 4.Hyponatremia -Rx per primary team 5.cholangiocarcinoma-metastatic s/p CTX - GI follows 6.abnl ecg-NSSTWA's - no intervention planned 7.D- keep euglycemic Consultation Date/Type/Reason Admit Date/Time Mar 16, 2017 at 00:48 Initial Consult Date 03/16/17 Type of Consultation: oncology Referring Provider: JAE ABREU 24 HR Interval Summary Free Text/Dictation NO acute events - BP stable - no significant ectopy on tele ROS: No fever, no chills, no nausea, no vomiting, no diarrhea/constipation No recent weight changes No chest pain, no PND, no orthopnea No dizziness, blurred vision No thirst, no heat or cold intolerance Exam/Review of Systems Vital Signs Vitals Vital Signs Date Time Temp Pulse Resp B/P Pulse Ox O2 Delivery O2 Flow Rate FiO2 03/18/17 12:13 98.3 105 20 111/55 98 03/18/17 08:10 Nasal Cannula 3.0 03/16/17 00:21 30 Intake and Output 03/17/17 03/17/17 03/18/17 15:00 23:00 07:00 Intake Total 620 ml 120 ml Output Total 800 ml 100 ml Balance -180 ml 20 ml Exam General: WN/WD/NAD, AOx 2 HEENT: Unicetric/atraumatic/EOMI (follow commands) NECK: JVD elevated, no thyromegaly Lymph: no lymphadenopathy HEART: regular with no S3, II/ systolic murmur at apex LUNGS: Coarse sounds ABD: soft, NT, ND, +BS : Intact Neuro: non focal SKIN: chronic changes EXT: trace edema Results Result Diagram: 03/17/17 0755 03/18/17 0615 Results 24 hrs Laboratory Tests Test 03/17/17 17:17 03/17/17 22:16 03/18/17 06:15 03/18/17 09:01 Bedside Glucose 76 131 135 Sodium Level 127 L Potassium Level 4.0 Chloride Level 82 L Carbon Dioxide Level 36 H Anion Gap 13 Blood Urea Nitrogen 14 Creatinine 0.66 Glucose Level 117 Calcium Level 8.4 Phosphorus Level 3.1 Magnesium Level 1.6 L Test 03/18/17 12:59 Bedside Glucose 133 Medications Medications Current Medications Ondansetron HCl (Zofran Inj) 4 mg Q6H PRN IV NAUSEA AND/OR VOMITING; Start at 01:00 Acetaminophen (Tylenol Tab) 650 mg Q6H PRN PO PAIN LEVEL 1-3 OR FEVER; Start at 01:00 Enoxaparin Sodium (Lovenox) 40 mg DAILY SC Last administered on 03/18/17 09:05 ; Admin Dose 40 MG; Start 03/16/17 at 09:00 Docusate Sodium (Colace) 100 mg DAILY PO Last administered on 03/18/17 09:03; Admin Dose 100 MG; Start 03/16/17 at 09:00 Polyethylene Glycol (Miralax) 8.5 gm DAILY PRN PO CONSTIPATION; Start 03/16/17 at 03:30 Sucralfate (Carafate) 1 gm QID PO Last administered on 03/18/17 12:58; Admin Dose 1 GM; Start 03/16/17 at 09:00 Salmeterol Xinafoate/ Fluticasone (Advair 250/50 Diskus) 1 inh BID INH Last administered on 03/18/17 09:03; Admin Dose 1 INH; Start 03/16/17 at 09:00 Miscellaneous Information 1 ea NOTE XX ; Start 03/16/17 at 03:45 Glucose (Glutose) 15 gm Q15M PRN PO DECREASED GLUCOSE Last administered on 03/16 06:30; Admin Dose 15 GM; Start 03/16/17 at 03:45 Glucose (Glutose) 22.5 gm Q15M PRN PO DECREASED GLUCOSE; Start 03/16/17 at 03: 45 Dextrose (D50w Syringe) 25 ml Q15M PRN IV DECREASED GLUCOSE; Start 03/16/17 at 03:45 Dextrose (D50w Syringe) 50 ml Q15M PRN IV DECREASED GLUCOSE; Start 03/16/17 at 03:45 Glucagon (Glucagen) 1 mg Q15M PRN IM DECREASED GLUCOSE; Start 03/16/17 at 03:45 Glucose (Glutose) 15 gm Q15M PRN BUCCAL DECREASED GLUCOSE; Start 03/16/17 at 03 :45 Diagnostic Test (Pha) 1 ea 1 ea 02 XX ; Start 03/17/17 at 02:00 Ceftriaxone Sodium (Rocephin) 50 ml @ 100 mls/hr Q24H IVPB Last administered on 03/18/17 10:44; Admin Dose 100 MLS/HR; Start 03/16/17 at 10:00 Insulin Glargine (Lantus) 16 unit DAILY@08 SC Last administered on 03/18/17 09: 05; Admin Dose 16 UNIT; Start 03/17/17 at 08:00 Benazepril HCl (Lotensin) 10 mg DAILY PO Last administered on 03/18/17 09:04; Admin Dose 10 MG; Start 03/17/17 at 09:00 Pantoprazole (Protonix Tab) 40 mg DAILY@06 PO Last administered on 03/18/17 06: 04; Admin Dose 40 MG; Start 03/17/17 at 08:30 Magnesium Oxide (Mag-Ox 400) 400 mg DAILY PO Last administered on 03/18/17 09: 03; Admin Dose 400 MG; Start 03/17/17 at 11:30 Hydromorphone HCl (Dilaudid) 1 mg Q3H PRN IV PAIN Last administered on 14:32; Admin Dose 1 MG; Start 03/17/17 at 15:00 Methadone HCl (Methadone Liq (Ped)) 2 mg Q8H PO Last administered on 03/18/17 15:36; Admin Dose 2 MG; Start 03/17/17 at 15:00 ERIC FRAUSTO MD Mar 18, 2017 15:52
[2017-03-19] VITALS (12 sets, daily range): BP systolic 113–134; BP diastolic 57–61; PULSE 95–114; RESP 15–20
[2017-03-19] MEDS: ACCUCHECK AT 2AM (Patients on SS coverage) XX SCH (02:00)
[2017-03-19] MEDS ORDERED: ZOLPIDEM 5 MG TAB PO PRN (02:30)
[2017-03-19] MEDS: PANTOPRAZOLE (EC) 40 MG TAB PO SCH (05:54)
[2017-03-19] MEDS: FUROSEMIDE 40 MG TAB PO SCH ×2 (05:56→17:26)
[2017-03-19 06:46] LABS: ABNORMAL IP MESSAGE 1; HEMATOCRIT 22.5 % (37.0-47.0); MEAN CORPUSCULAR HEMOGLOBIN 31.2 pg (29.0-33.0); MEAN CORPUSCULAR HGB CONC 30.7 g/dl (32.0-37.0); MEAN CORPUSCULAR VOLUME 101.8 fl (82.0-101.0); MEAN PLATELET VOLUME 10.3 fl (7.4-10.4); PLATELET COUNT 236 10^3/UL (140-415); RED BLOOD COUNT 2.21 10^6/ul (4.20-5.40); RED CELL DISTRIBUTION WIDTH 23.6 % (11.5-14.5); WHITE BLOOD COUNT 16.6 10^3/ul (4.8-10.8)
[2017-03-19 07:00] LABS: HEMOGLOBIN 6.9 g/dl (12.0-16.0)
[2017-03-19 07:12] LABS: CALCIUM 8.5 mg/dl (8.4-10.2); CREATININE 0.66 mg/dl (0.44-1.00); MAGNESIUM 4.1 mg/dl (1.7-2.5); PHOSPHORUS 2.7 mg/dl (2.5-4.9)
[2017-03-19] MEDS: METHADONE (1 MG/1 ML PO SYG) PO SCH ×3 (07:41→23:23)
[2017-03-19] MEDS: HYDROmorphONE 1 MG/ML SYG IV PRN ×3 (08:24→20:40)
[2017-03-19] MEDS: BENAZEPRIL 10 MG TAB PO SCH (09:07)
[2017-03-19] MEDS: SALMETEROL/FLUTICASONE 250/50 INHA INH SCH ×2 (09:07→20:23)
[2017-03-19] MEDS: SUCRALFATE 1 GM TAB PO SCH ×4 (09:07→20:24)
[2017-03-19] MEDS: DOCUSATE SODIUM 100 MG CAP PO SCH (09:07)
[2017-03-19] MEDS: INSULIN GLARGINE [LANtus] 3 ML PEN SC SCH (09:12)
[2017-03-19] MEDS: INSULIN ASPART [NOVOLOG] 3 ML PEN SC SCH ×7 (09:12→20:30)
[2017-03-19 10:07] LABS: LYMPHOCYTES # 1.2 10^3/ul (0.8-2.9); MONOCYTE # 2.7 10^3/ul (0.3-0.9); NEUTROPHIL # 12.6 10^3/ul (1.6-7.5)
[2017-03-19 10:08] LABS: POLYCHROMASIA 1+
[2017-03-19 10:55] LABS: ADD SCAN DIFF NO; TOTAL CELLS COUNTED % 100
[2017-03-19] MEDS: MAGNESIUM OXIDE 400 MG TAB PO SCH (11:26)
[2017-03-19] MEDS: ENOXAPARIN 40 MG/0.4 ML SYG SC SCH (11:27)
[2017-03-19] MEDS: CEFTRIAXONE 1 GM/50 ML (PMX) 50 ML IVPB SCH (11:29)
--- NOTE | 2017-03-19 11:49 | CONS ---
Date/Time of Note Date/Time of Note DATE: 03/19/17 TIME: 11:47 Assessment/Plan Assessment/Plan Additional Assessment/Plan 1.CHF-diastolic, acute - better now - improved fluid status 2.HTN- wel rx now, better - will monitor 3.Tachycardia- S Tach - Rx underlined cause - Stable 4.Hyponatremia -Rx per primary team - primary follows 5.cholangiocarcinoma-metastatic s/p CTX - GI follows 6.abnl ecg-NSSTWA's - no intervention planned 7.D- keep euglycemic Consultation Date/Type/Reason Admit Date/Time Mar 16, 2017 at 00:48 Initial Consult Date 03/16/17 Type of Consultation: oncology Referring Provider: JAE ABREU 24 HR Interval Summary Free Text/Dictation No acute change - in good fluid status ROS: No fever, no chills, no nausea, no vomiting, no diarrhea/constipation No recent weight changes No chest pain, no PND, no orthopnea No dizziness, blurred vision No thirst, no heat or cold intolerance Exam/Review of Systems Vital Signs Vitals Vital Signs Date Time Temp Pulse Resp B/P Pulse Ox O2 Delivery O2 Flow Rate FiO2 03/19/17 08:00 96 03/19/17 07:48 98.6 18 129/61 100 03/19/17 01:59 3.0 03/18/17 20:00 Nasal Cannula 03/16/17 00:21 30 Intake and Output 03/18/17 03/18/17 03/19/17 15:00 23:00 07:00 Intake Total 450 ml 600 ml Output Total 1200 ml Balance -750 ml 600 ml Exam General: WN/WD/NAD, AOx 2 HEENT: Unicetric/atraumatic/EOMI (follow commands) NECK: JVD elevated, no thyromegaly Lymph: no lymphadenopathy HEART: regular with no S3, II/ systolic murmur at apex LUNGS: Coarse sounds ABD: soft, NT, ND, +BS : Intact Neuro: non focal SKIN: chronic changes EXT: trace edema Results Result Diagram: 03/19/17 0603/19/17604 Results 24 hrs Laboratory Tests Test 03/18/17 12:59 03/18/17 17:34 03/18/17 20:39 03/19/17 06:05 Bedside Glucose 133 133 157 White Blood Count 16.6 #H Red Blood Count 2.21 L Hemoglobin 6.9 *L Hematocrit 22.5 L Mean Corpuscular Volume 101.8 H Mean Corpuscular Hemoglobin 31.2 Mean Corpuscular Hemoglobin Concent 30.7 L Red Cell Distribution Width 23.6 H Platelet Count 236 Mean Platelet Volume 10.3 Neutrophils % 76.0 Lymphocytes % 7.0 L Monocytes % 16.0 H Metamyelocytes % 1.0 H Neutrophils # 12.6 H Lymphocytes # 1.2 Monocytes # 2.7 H Metamyelocytes # 0.2 Polychromasia 1+ Sodium Level 127 L Potassium Level 4.0 Chloride Level 81 L Carbon Dioxide Level 37 H Anion Gap 13 Blood Urea Nitrogen 12 Creatinine 0.66 Glucose Level 127 Calcium Level 8.5 Phosphorus Level 2.7 Magnesium Level 4.1 #H Test 03/19/17 09:03 Bedside Glucose 153 Medications Medications Current Medications Ondansetron HCl (Zofran Inj) 4 mg Q6H PRN IV NAUSEA AND/OR VOMITING; Start at 01:00 Acetaminophen (Tylenol Tab) 650 mg Q6H PRN PO PAIN LEVEL 1-3 OR FEVER; Start at 01:00 Enoxaparin Sodium (Lovenox) 40 mg DAILY SC Last administered on 03/18/17 09:05 ; Admin Dose 40 MG; Start 03/16/17 at 09:00 Docusate Sodium (Colace) 100 mg DAILY PO Last administered on 03/19/17 09:07; Admin Dose 100 MG; Start 03/16/17 at 09:00 Polyethylene Glycol (Miralax) 8.5 gm DAILY PRN PO CONSTIPATION; Start 03/16/17 at 03:30 Sucralfate (Carafate) 1 gm QID PO Last administered on 03/19/17 09:07; Admin Dose 1 GM; Start 03/16/17 at 09:00 Salmeterol Xinafoate/ Fluticasone (Advair 250/50 Diskus) 1 inh BID INH Last administered on 03/19/17 09:07; Admin Dose 1 INH; Start 03/16/17 at 09:00 Miscellaneous Information 1 ea NOTE XX ; Start 03/16/17 at 03:45 Glucose (Glutose) 15 gm Q15M PRN PO DECREASED GLUCOSE Last administered on 03/16 06:30; Admin Dose 15 GM; Start 03/16/17 at 03:45 Glucose (Glutose) 22.5 gm Q15M PRN PO DECREASED GLUCOSE; Start 03/16/17 at 03: 45 Dextrose (D50w Syringe) 25 ml Q15M PRN IV DECREASED GLUCOSE; Start 03/16/17 at 03:45 Dextrose (D50w Syringe) 50 ml Q15M PRN IV DECREASED GLUCOSE; Start 03/16/17 at 03:45 Glucagon (Glucagen) 1 mg Q15M PRN IM DECREASED GLUCOSE; Start 03/16/17 at 03:45 Glucose (Glutose) 15 gm Q15M PRN BUCCAL DECREASED GLUCOSE; Start 03/16/17 at 03 :45 Diagnostic Test (Pha) 1 ea 1 ea 02 XX ; Start 03/17/17 at 02:00 Ceftriaxone Sodium (Rocephin) 50 ml @ 100 mls/hr Q24H IVPB Last administered on 03/19/17 11:29; Admin Dose 100 MLS/HR; Start 03/16/17 at 10:00 Insulin Glargine (Lantus) 16 unit DAILY@08 SC Last administered on 03/19/17 09: 12; Admin Dose 16 UNIT; Start 03/17/17 at 08:00 Benazepril HCl (Lotensin) 10 mg DAILY PO Last administered on 03/19/17 09:07; Admin Dose 10 MG; Start 03/17/17 at 09:00 Pantoprazole (Protonix Tab) 40 mg DAILY@06 PO Last administered on 03/19/17 05: 54; Admin Dose 40 MG; Start 03/17/17 at 08:30 Magnesium Oxide (Mag-Ox 400) 400 mg DAILY PO Last administered on 03/18/17 09: 03; Admin Dose 400 MG; Start 03/17/17 at 11:30 Hydromorphone HCl (Dilaudid) 1 mg Q3H PRN IV PAIN Last administered on 08:24; Admin Dose 1 MG; Start 03/17/17 at 15:00 Methadone HCl (Methadone Liq (Ped)) 2 mg Q8H PO Last administered on 03/19/17 07:41; Admin Dose 2 MG; Start 03/17/17 at 15:00 Zolpidem Tartrate (Ambien) 5 mg HS PRN PO INSOMNIA Last administered on t 02:33; Admin Dose 5 MG; Start 03/19/17 at 02:30 ERIC FRAUSTO MD Mar 19, 2017 11:48
--- NOTE | 2017-03-19 12:30 | PN ---
Date/Time of Note Date/Time of Note DATE: 03/19/17 TIME: 12:29 Assessment/Plan Lines/Catheters IV [facility]ter Type (from [facility]): portacath Urinary Cath still in place: No Assessment/Plan Chief Complaint/Hosp Course 1. Hyponatremia. Etiology appears to be multifactorial. 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 -Sodium levels have been improving with free water restriction diuretic therapy Continue gentle diuretic therapy. Monitor strict I's and O's. 2. Volume overload. Etiology may be secondary to CHF. -2D echo reviewed. Continue diuretic therapy. Follow-up with cardiology 3. Anemia. Monitor H&H levels #4. UTI and possible sepsis. Patient on antibiotic therapy and continue follow -up cultures 5. Metastatic cholangiocarcinoma. Patient is on chemotherapy. Will follow up with the primary team and oncology 6. Diabetes. Continue Accu-Cheks insulin sliding scale 7. Hypomagnesemia. Replete with magnesium oxide Problems: Subjective 24 Hr Interval Summary Free Text/Dictation Patient seen. No other events noted Exam/Review of Systems Vital Signs Vitals Vital Signs Date Time Temp Pulse Resp B/P Pulse Ox O2 Delivery O2 Flow Rate FiO2 03/19/17 12:00 107 03/19/17 11:46 98.2 20 122/58 100 03/19/17 01:59 3.0 03/18/17 20:00 Nasal Cannula 03/16/17 00:21 30 Intake and Output 03/18/17 03/18/17 03/19/17 15:00 23:00 07:00 Intake Total 450 ml 600 ml Output Total 1200 ml Balance -750 ml 600 ml Exam HEENT: Atraumatic, normocephalic. The pupils are equal, round and reactive. Extraocular motor are intact Neck: Supple with full range of motion. No rigidity or meningismus Chest: Nontender Lungs: Minimal bilateral crackles in the lungs bilaterally Heart: Normal S1-S2, Regular rhythm and rate. No murmur, S3, or S4 Abdomen: Soft , nontender, nondistended , bowel sounds are present. No guarding no rebound tenderness , No masses or organomegaly. No costovertebral temporal angle mass Extremities: Bilateral 2+ pitting edema of the lower extremities Neurologic: Normal mental status, speech normal, cranial nerves II through XII are intact, motor and sensory are intact, no focal weakness Results Result Diagram: 03/19/1760403/19/17 Results 24 hrs Laboratory Tests Test 03/18/17 12:59 03/18/17 17:34 03/18/17 20:39 03/19/17 06:05 Bedside Glucose 133 133 157 White Blood Count 16.6 #H Red Blood Count 2.21 L Hemoglobin 6.9 *L Hematocrit 22.5 L Mean Corpuscular Volume 101.8 H Mean Corpuscular Hemoglobin 31.2 Mean Corpuscular Hemoglobin Concent 30.7 L Red Cell Distribution Width 23.6 H Platelet Count 236 Mean Platelet Volume 10.3 Neutrophils % 76.0 Lymphocytes % 7.0 L Monocytes % 16.0 H Metamyelocytes % 1.0 H Neutrophils # 12.6 H Lymphocytes # 1.2 Monocytes # 2.7 H Metamyelocytes # 0.2 Polychromasia 1+ Sodium Level 127 L Potassium Level 4.0 Chloride Level 81 L Carbon Dioxide Level 37 H Anion Gap 13 Blood Urea Nitrogen 12 Creatinine 0.66 Glucose Level 127 Calcium Level 8.5 Phosphorus Level 2.7 Magnesium Level 4.1 #H Test 03/19/17 09:03 Bedside Glucose 153 Medications Medications Current Medications Ondansetron HCl (Zofran Inj) 4 mg Q6H PRN IV NAUSEA AND/OR VOMITING; Start at 01:00 Acetaminophen (Tylenol Tab) 650 mg Q6H PRN PO PAIN LEVEL 1-3 OR FEVER; Start at 01:00 Enoxaparin Sodium (Lovenox) 40 mg DAILY SC Last administered on 03/18/17 09:05 ; Admin Dose 40 MG; Start 03/16/17 at 09:00 Docusate Sodium (Colace) 100 mg DAILY PO Last administered on 03/19/17 09:07; Admin Dose 100 MG; Start 03/16/17 at 09:00 Polyethylene Glycol (Miralax) 8.5 gm DAILY PRN PO CONSTIPATION; Start 03/16/17 at 03:30 Sucralfate (Carafate) 1 gm QID PO Last administered on 03/19/17 09:07; Admin Dose 1 GM; Start 03/16/17 at 09:00 Salmeterol Xinafoate/ Fluticasone (Advair 250/50 Diskus) 1 inh BID INH Last administered on 03/19/17 09:07; Admin Dose 1 INH; Start 03/16/17 at 09:00 Miscellaneous Information 1 ea NOTE XX ; Start 03/16/17 at 03:45 Glucose (Glutose) 15 gm Q15M PRN PO DECREASED GLUCOSE Last administered on 03/16 06:30; Admin Dose 15 GM; Start 03/16/17 at 03:45 Glucose (Glutose) 22.5 gm Q15M PRN PO DECREASED GLUCOSE; Start 03/16/17 at 03: 45 Dextrose (D50w Syringe) 25 ml Q15M PRN IV DECREASED GLUCOSE; Start 03/16/17 at 03:45 Dextrose (D50w Syringe) 50 ml Q15M PRN IV DECREASED GLUCOSE; Start 03/16/17 at 03:45 Glucagon (Glucagen) 1 mg Q15M PRN IM DECREASED GLUCOSE; Start 03/16/17 at 03:45 Glucose (Glutose) 15 gm Q15M PRN BUCCAL DECREASED GLUCOSE; Start 03/16/17 at 03 :45 Diagnostic Test (Pha) 1 ea 1 ea 02 XX ; Start 03/17/17 at 02:00 Ceftriaxone Sodium (Rocephin) 50 ml @ 100 mls/hr Q24H IVPB Last administered on 03/19/17 11:29; Admin Dose 100 MLS/HR; Start 03/16/17 at 10:00 Insulin Glargine (Lantus) 16 unit DAILY@08 SC Last administered on 03/19/17 09: 12; Admin Dose 16 UNIT; Start 03/17/17 at 08:00 Benazepril HCl (Lotensin) 10 mg DAILY PO Last administered on 03/19/17 09:07; Admin Dose 10 MG; Start 03/17/17 at 09:00 Pantoprazole (Protonix Tab) 40 mg DAILY@06 PO Last administered on 03/19/17 05: 54; Admin Dose 40 MG; Start 03/17/17 at 08:30 Magnesium Oxide (Mag-Ox 400) 400 mg DAILY PO Last administered on 03/18/17 09: 03; Admin Dose 400 MG; Start 03/17/17 at 11:30 Hydromorphone HCl (Dilaudid) 1 mg Q3H PRN IV PAIN Last administered on 08:24; Admin Dose 1 MG; Start 03/17/17 at 15:00 Methadone HCl (Methadone Liq (Ped)) 2 mg Q8H PO Last administered on 03/19/17 07:41; Admin Dose 2 MG; Start 03/17/17 at 15:00 Zolpidem Tartrate (Ambien) 5 mg HS PRN PO INSOMNIA Last administered on 02:33; Admin Dose 5 MG; Start 03/19/17 at 02:30 MAEVE WOODS DO Mar 19, 2017 12:30
--- NOTE | 2017-03-19 13:30 | RADRPT ---
PROCEDURE: US guidance for PICC line CLINICAL INDICATION: PICC line placement TECHNIQUE: Multiple real-time images were acquired of the patient's arm utilizing a high resolutio n transducer. This was performed by the PICC line nurse for venous access. COMPARISON: None FINDINGS: See impression. IMPRESSION: Ultrasound guidance for PICC line placement. There is a patent and compressible right upper extremity vein. RPTAT: AA Physician Chani Date Time Electronically viewed and signed by Anthony Gonzalez Physician on 03/17/2017 19:30 RA/
[2017-03-19 15:01] LABS: MICROALBUMIN 3.5 mg/dL
--- NOTE | 2017-03-19 16:47 | PN ---
Date/Time of Note Date/Time of Note DATE: 03/19/17 TIME: 16:39 Assessment/Plan VTE Prophylaxis VTE Prophylaxis Intervention: LMWH Lines/Catheters IV Catheter Type (from Nrs): Portacath Urinary Cath still in place: No Assessment/Plan Chief Complaint/Hosp Course S: Weak fatigue with some cough but nonproductive. Abd pain, no BM 3 days. Feels distended. Edema possibly same no chest pain. O: Vss sr PE No pallor JVD. No appreciated icterus Reg Crackles bilaterally Bs dimin, mild tender,mild distended; no r/r/g. 1-2 edema Assessment and plan 1. Acute decompensated likely diastolic congestive heart failure. No ACS. Treat Bp. Non-smoker. 2. Mod/severe hypoalbuminemia. Poor prognosis, possibly third spacing. 3. 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 For hospice eval tomorrow afternoon. Consider DNR and home with hospice tomorrow. 4. History of GI bleed 5. History of peptic ulcer disease 6. Constipation 7. Anemia 8. Past tobacco 9. Possible secondary pulmonary hypertension/cor pulmonale- 48 mmHg. 10. Chronic diverticulosis 10. Hyponatremia, possible SIADH. Presently stable on fluid restriction 12. DM/htn/metabolic syndrome. Continue risk factor modification 13. Chr respiratory failure on home O2. Problems: Exam/Review of Systems Vital Signs Vitals Vital Signs Date Time Temp Pulse Resp B/P Pulse Ox O2 Delivery O2 Flow Rate FiO2 03/19/17 16:01 98.0 108 20 125/60 100 03/19/17 08:15 Nasal Cannula 3.0 03/16/17 00:21 30 Intake and Output 03/18/17 03/18/17 03/19/17 15:00 23:00 07:00 Intake Total 450 ml 600 ml Output Total 1200 ml Balance -750 ml 600 ml Results Result Diagram: 03/19/17 0605 03/19/17 0605 Results 24 hrs Laboratory Tests Test 03/18/17 17:34 03/18/17 20:39 03/19/17 06:05 03/19/17 09:03 Bedside Glucose 133 157 153 White Blood Count 16.6 #H Red Blood Count 2.21 L Hemoglobin 6.9 *L Hematocrit 22.5 L Mean Corpuscular Volume 101.8 H Mean Corpuscular Hemoglobin 31.2 Mean Corpuscular Hemoglobin Concent 30.7 L Red Cell Distribution Width 23.6 H Platelet Count 236 Mean Platelet Volume 10.3 Neutrophils % 76.0 Lymphocytes % 7.0 L Monocytes % 16.0 H Metamyelocytes % 1.0 H Neutrophils # 12.6 H Lymphocytes # 1.2 Monocytes # 2.7 H Metamyelocytes # 0.2 Polychromasia 1+ Sodium Level 127 L Potassium Level 4.0 Chloride Level 81 L Carbon Dioxide Level 37 H Anion Gap 13 Blood Urea Nitrogen 12 Creatinine 0.66 Glucose Level 127 Calcium Level 8.5 Phosphorus Level 2.7 Magnesium Level 4.1 #H Test 03/19/17 12:49 Bedside Glucose 188 Medications Medications Current Medications Ondansetron HCl (Zofran Inj) 4 mg Q6H PRN IV NAUSEA AND/OR VOMITING; Start at 01:00 Acetaminophen (Tylenol Tab) 650 mg Q6H PRN PO PAIN LEVEL 1-3 OR FEVER; Start at 01:00 Enoxaparin Sodium (Lovenox) 40 mg DAILY SC Last administered on 03/18/17 09:05 ; Admin Dose 40 MG; Start 03/16/17 at 09:00 Docusate Sodium (Colace) 100 mg DAILY PO Last administered on 03/19/17 09:07; Admin Dose 100 MG; Start 03/16/17 at 09:00 Polyethylene Glycol (Miralax) 8.5 gm DAILY PRN PO CONSTIPATION; Start 03/16/17 at 03:30 Sucralfate (Carafate) 1 gm QID PO Last administered on 03/19/17 13:02; Admin Dose 1 GM; Start 03/16/17 at 09:00 Salmeterol Xinafoate/ Fluticasone (Advair 250/50 Diskus) 1 inh BID INH Last administered on 03/19/17 09:07; Admin Dose 1 INH; Start 03/16/17 at 09:00 Miscellaneous Information 1 ea NOTE XX ; Start 03/16/17 at 03:45 Glucose (Glutose) 15 gm Q15M PRN PO DECREASED GLUCOSE Last administered on 03/16 06:30; Admin Dose 15 GM; Start 03/16/17 at 03:45 Glucose (Glutose) 22.5 gm Q15M PRN PO DECREASED GLUCOSE; Start 03/16/17 at 03: 45 Dextrose (D50w Syringe) 25 ml Q15M PRN IV DECREASED GLUCOSE; Start 03/16/17 at 03:45 Dextrose (D50w Syringe) 50 ml Q15M PRN IV DECREASED GLUCOSE; Start 03/16/17 at 03:45 Glucagon (Glucagen) 1 mg Q15M PRN IM DECREASED GLUCOSE; Start 03/16/17 at 03:45 Glucose (Glutose) 15 gm Q15M PRN BUCCAL DECREASED GLUCOSE; Start 03/16/17 at 03 :45 Diagnostic Test (Pha) 1 ea 1 ea 02 XX ; Start 03/17/17 at 02:00 Ceftriaxone Sodium (Rocephin) 50 ml @ 100 mls/hr Q24H IVPB Last administered on 03/19/17 11:29; Admin Dose 100 MLS/HR; Start 03/16/17 at 10:00 Insulin Glargine (Lantus) 16 unit DAILY@08 SC Last administered on 03/19/17 09: 12; Admin Dose 16 UNIT; Start 03/17/17 at 08:00 Benazepril HCl (Lotensin) 10 mg DAILY PO Last administered on 03/19/17 09:07; Admin Dose 10 MG; Start 03/17/17 at 09:00 Pantoprazole (Protonix Tab) 40 mg DAILY@06 PO Last administered on 03/19/17 05: 54; Admin Dose 40 MG; Start 03/17/17 at 08:30 Magnesium Oxide (Mag-Ox 400) 400 mg DAILY PO Last administered on 03/18/17 09: 03; Admin Dose 400 MG; Start 03/17/17 at 11:30 Hydromorphone HCl (Dilaudid) 1 mg Q3H PRN IV PAIN Last administered on 14:45; Admin Dose 1 MG; Start 03/17/17 at 15:00 Methadone HCl (Methadone Liq (Ped)) 2 mg Q8H PO Last administered on 03/19/17 15:54; Admin Dose 2 MG; Start 03/17/17 at 15:00 Zolpidem Tartrate (Ambien) 5 mg HS PRN PO INSOMNIA Last administered on 02:33; Admin Dose 5 MG; Start 03/19/17 at 02:30 JEFFERY LEIGH MD Mar 19, 2017 16:47
[2017-03-19] MEDS: BISACODYL (EC) 5 MG TAB PO SCH (17:28)
[2017-03-19] MEDS: POLYETHYLENE GLYCOL 17 GM PACKET PO SCH (20:24)
[2017-03-19] MEDS: MAGNESIUM HYDROXIDE 30ML CUP PO SCH (20:30)
--- NOTE | 2017-03-19 20:57 | RADRPT ---
Vent Rate: 103 bpm RR Interval: 0 msec DE Interval: 188 msec QRS Duration: 80 msec QT Interval: 322 msec QTC Interval: 421 msec P-R-T [place]: 77 - -16 - 76 degrees Sinus tachycardia Septal infarct , age undetermined Abnormal ECG Electronically Signed By: Dejan Faria [id number]
[2017-03-19] MEDS: LACTOBACILLUS RHAMNOSUS CAP PO SCH (21:00)
[2017-03-20] VITALS (14 sets, daily range): BP systolic 103–152; BP diastolic 51–72; PULSE 93–108; RESP 17–20
[2017-03-20] MEDS: ACCUCHECK AT 2AM (Patients on SS coverage) XX SCH (02:00)
[2017-03-20] MEDS: HYDROmorphONE 1 MG/ML SYG IV PRN ×3 (02:48→21:08)
[2017-03-20] MEDS: PANTOPRAZOLE (EC) 40 MG TAB PO SCH (05:51)
[2017-03-20] MEDS: FUROSEMIDE 40 MG TAB PO SCH ×2 (05:53→17:36)
[2017-03-20] MEDS: METHADONE (1 MG/1 ML PO SYG) PO SCH ×3 (06:00→23:23)
[2017-03-20 06:51] LABS: ADD SCAN DIFF NO
[2017-03-20 06:53] LABS: ABNORMAL IP MESSAGE 1; BASOPHIL # 0.1 10^3/ul (0.0-0.1); BASOPHILS % 0.3 % (0.0-2.0); EOSINOPHILS # 0.2 10^3/ul (0.0-0.5); HEMATOCRIT 22.7 % (37.0-47.0); HEMOGLOBIN 7.5 g/dl (12.0-16.0); LYMPHOCYTES % 12.9 % (15.0-51.0); MEAN CORPUSCULAR HEMOGLOBIN 32.6 pg (29.0-33.0); MEAN CORPUSCULAR VOLUME 98.7 fl (82.0-101.0); MEAN PLATELET VOLUME 10.2 fl (7.4-10.4); MONOCYTES % 12.7 % (0.0-11.0); NEUTROPHIL # 11.1 10^3/ul (1.6-7.5); NEUTROPHILS % 71.2 % (39.0-77.0); PLATELET COUNT 212 10^3/UL (140-415); RED CELL DISTRIBUTION WIDTH 23.8 % (11.5-14.5); WHITE BLOOD COUNT 15.6 10^3/ul (4.8-10.8)
[2017-03-20 07:16] LABS: CALCIUM 8.3 mg/dl (8.4-10.2); CREATININE 0.57 mg/dl (0.44-1.00); MAGNESIUM 1.5 mg/dl (1.7-2.5); PHOSPHORUS 2.7 mg/dl (2.5-4.9); POTASSIUM 3.8 mmol/L (3.5-5.1)
[2017-03-20] MEDS: INSULIN ASPART [NOVOLOG] 3 ML PEN SC SCH ×7 (08:00→21:00)
[2017-03-20] MEDS: INSULIN GLARGINE [LANtus] 3 ML PEN SC SCH (08:51)
[2017-03-20] MEDS: BISACODYL (EC) 5 MG TAB PO SCH (09:47)
[2017-03-20] MEDS: LACTOBACILLUS RHAMNOSUS CAP PO SCH ×2 (09:48→21:00)
[2017-03-20] MEDS: SUCRALFATE 1 GM TAB PO SCH ×4 (09:48→21:00)
[2017-03-20] MEDS: BENAZEPRIL 10 MG TAB PO SCH (09:53)
[2017-03-20] MEDS: ENOXAPARIN 40 MG/0.4 ML SYG SC SCH (09:55)
--- NOTE | 2017-03-20 10:07 | PN ---
Date/Time of Note Date/Time of Note DATE: 03/20/17 TIME: 10:05 Assessment/Plan Lines/Catheters IV C[facility]ter Type (from [facility] portacath Urinary Cath still in place: No Assessment/Plan Chief Complaint/Hosp Course 1. Hyponatremia. Etiology appears to be multifactorial. 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 -Sodium levels have been improving with free water restriction, diuretic therapy Continue gentle diuretic therapy. Monitor strict I's and O's. 2. Volume overload. Etiology may be secondary to CHF. -2D echo reviewed. Continue diuretic therapy. Follow-up with cardiology 3. Anemia. Monitor H&H levels #4. UTI and possible sepsis. Patient on antibiotic therapy and continue follow -up cultures 5. Metastatic cholangiocarcinoma. Patient is on chemotherapy. Will follow up with the primary team and oncology 6. Diabetes. Continue Accu-Cheks insulin sliding scale 7. Hypomagnesemia. Replete with magnesium oxide Problems: Subjective 24 Hr Interval Summary Free Text/Dictation Patient is stable no acute events. No events overnight Exam/Review of Systems Vital Signs Vitals Vital Signs Date Time Temp Pulse Resp B/P Pulse Ox O2 Delivery O2 Flow Rate FiO2 03/20/17 08:13 2.0 03/20/17 08:07 101 03/20/17 07:28 98.3 19 130/69 97 03/20/17 04:30 Nasal Cannula Intake and Output 03/19/17 03/19/17 03/20/17 15:00 23:00 07:00 Intake Total 450 ml Balance 450 ml Exam HEENT: Atraumatic, normocephalic. The pupils are equal, round and reactive. Extraocular motor are intact Neck: Supple with full range of motion. No rigidity or meningismus Chest: Nontender Lungs: Minimal bilateral crackles in the lungs bilaterally Heart: Normal S1-S2, Regular rhythm and rate. No murmur, S3, or S4 Abdomen: Soft , nontender, nondistended , bowel sounds are present. No guarding no rebound tenderness , No masses or organomegaly. No costovertebral temporal angle mass Extremities: Bilateral 2+ pitting edema of the lower extremities Neurologic: Normal mental status, speech normal, cranial nerves II through XII are intact, motor and sensory are intact, no focal weakness Results Result Diagram: 03/20/17 0600 03/20/17 0600 Results 24 hrs Laboratory Tests Test 03/19/17 12:49 03/19/17 17:30 03/19/17 20:28 03/20/17 05:36 Bedside Glucose 188 152 108 Lab Scanned Report BLOOD TRANSFUSION Test 03/20/17 06:00 03/20/17 08:37 White Blood Count 15.6 H Red Blood Count 2.30 L Hemoglobin 7.5 L Hematocrit 22.7 L Mean Corpuscular Volume 98.7 Mean Corpuscular Hemoglobin 32.6 Mean Corpuscular Hemoglobin Concent 33.0 Red Cell Distribution Width 23.8 H Platelet Count 212 Mean Platelet Volume 10.2 Neutrophils % 71.2 Lymphocytes % 12.9 L Monocytes % 12.7 H Eosinophils % 1.0 Basophils % 0.3 Nucleated Red Blood Cells % 0.0 Neutrophils # 11.1 H Lymphocytes # 2.0 Monocytes # 2.0 H Eosinophils # 0.2 Basophils # 0.1 Nucleated Red Blood Cells # 0.0 Sodium Level 129 L Potassium Level 3.8 Chloride Level 83 L Carbon Dioxide Level 38 H Anion Gap 12 Blood Urea Nitrogen 11 Creatinine 0.57 Glucose Level 115 Calcium Level 8.3 L Phosphorus Level 2.7 Magnesium Level 1.5 #L Bedside Glucose 137 Medications Medications Current Medications Ondansetron HCl (Zofran Inj) 4 mg Q6H PRN IV NAUSEA AND/OR VOMITING; Start at 01:00 Acetaminophen (Tylenol Tab) 650 mg Q6H PRN PO PAIN LEVEL 1-3 OR FEVER; Start at 01:00 Enoxaparin Sodium (Lovenox) 40 mg DAILY SC Last administered on 03/20/17 09:55 ; Admin Dose 40 MG; Start 03/16/17 at 09:00 Sucralfate (Carafate) 1 gm QID PO Last administered on 03/20/17 09:48; Admin Dose 1 GM; Start 03/16/17 at 09:00 Salmeterol Xinafoate/ Fluticasone (Advair 250/50 Diskus) 1 inh BID INH Last administered on 03/19/17 20:23; Admin Dose 1 INH; Start 03/16/17 at 09:00 Miscellaneous Information 1 ea NOTE XX ; Start 03/16/17 at 03:45 Glucose (Glutose) 15 gm Q15M PRN PO DECREASED GLUCOSE Last administered on 03/16 06:30; Admin Dose 15 GM; Start 03/16/17 at 03:45 Glucose (Glutose) 22.5 gm Q15M PRN PO DECREASED GLUCOSE; Start 03/16/17 at 03: 45 Dextrose (D50w Syringe) 25 ml Q15M PRN IV DECREASED GLUCOSE; Start 03/16/17 at 03:45 Dextrose (D50w Syringe) 50 ml Q15M PRN IV DECREASED GLUCOSE; Start 03/16/17 at 03:45 Glucagon (Glucagen) 1 mg Q15M PRN IM DECREASED GLUCOSE; Start 03/16/17 at 03:45 Glucose (Glutose) 15 gm Q15M PRN BUCCAL DECREASED GLUCOSE; Start 03/16/17 at 03 :45 Diagnostic Test (Pha) (Accu-Chek) 1 ea 02 XX ; Start 03/17/17 at 02:00 Insulin Glargine (Lantus) 16 unit DAILY@08 SC Last administered on 03/20/17 08: 51; Admin Dose 16 UNIT; Start 03/17/17 at 08:00 Benazepril HCl (Lotensin) 10 mg DAILY PO Last administered on 03/20/17 09:53; Admin Dose 10 MG; Start 03/17/17 at 09:00 Pantoprazole (Protonix Tab) 40 mg DAILY@06 PO Last administered on 03/20/17 05: 51; Admin Dose 40 MG; Start 03/17/17 at 08:30 Hydromorphone HCl (Dilaudid) 1 mg Q3H PRN IV PAIN Last administered on 02:48; Admin Dose 1 MG; Start 03/17/17 at 15:00 Methadone HCl (Methadone Liq (Ped)) 2 mg Q8H PO Last administered on 03/20/17 06:00; Admin Dose 2 MG; Start 03/17/17 at 15:00 Polyethylene Glycol (Miralax) 8.5 gm BID PO Last administered on 03/19/17 20:24 ; Admin Dose 8.5 GM; Start 03/19/17 at 21:00 Bisacodyl (Dulcolax) 10 mg DAILY PO Last administered on 03/20/17 09:47; Admin Dose 10 MG; Start 03/19/17 at 17:00 Lactobacillus Acidophilus/ Rhamnosus 1 cap 1 cap BID PO Last administered on t 09:48; Admin Dose 1 CAP; Start 03/19/17 at 21:00 Magnesium Sulfate/ Dextrose (Magnesium Sulfate 1 Gm/D5W) 100 ml @ 100 mls/hr ONCE ONCE IVPB ; Start 03/20/17 at 11:00; Stop 03/20/17 at 11:59 MAEVE WOODS DO Mar 20, 2017 10:07
[2017-03-20] MEDS: SALMETEROL/FLUTICASONE 250/50 INHA INH SCH ×2 (10:47→21:08)
[2017-03-20] MEDS: POLYETHYLENE GLYCOL 17 GM PACKET PO SCH ×2 (10:48→11:10)
[2017-03-20] MEDS ORDERED: MAGNESIUM SULFATE 1 GM/D5W 100 ML IVPB ONE (11:00)
[2017-03-20] MEDS: MAGNESIUM HYDROXIDE 30ML CUP PO SCH (11:09)
--- NOTE | 2017-03-20 11:35 | RADRPT ---
PROCEDURE: XR Chest. CLINICAL INDICATION: Cough TECHNIQUE: Single frontal chest x-ray. COMPARISON: 03/15/2017 radiographs, 01/18/2017 CT abdomen/pelvis FINDINGS: There is a right internal jugular central venous catheter with the tip in the lower SVC. The lungs are adequately expanded with increased right basilar atelectasis. Poorly defined nodular opacities are again noted, more prominent within the right lung. There is no pneumothorax or pleural effusion . Heart and mediastinal contours are unchanged. Bones are unchanged without an acute fracture. RPTAT: QQ IMPRESSION: 1. Increased right basilar atelectasis. 2. Similar appearance of the poorly defined nodular opacities more prominent within the right lung suggestive of metastatic disease. .Apryl Patel MD, MD Date Time Electronically viewed and signed by .Apryl Patel MD, on 03/20/2017 11:34 .T/
--- NOTE | 2017-03-20 12:18 | CONS ---
Date/Time of Note Date/Time of Note DATE: 03/20/17 TIME: 12:17 Assessment/Plan Assessment/Plan Additional Assessment/Plan 1.CHF-diastolic, acute - better now - improved fluid status - con't gentlediuresis 2.HTN- wel rx now, better - will monitor 3.Tachycardia- S Tach - Rx underlined cause - Stable - NOW IN SINUS 4.Hyponatremia -Rx per primary team - primary follows 5.cholangiocarcinoma-metastatic s/p CTX - GI follows 6.abnl [id number]'s - no intervention planned 7.D- keep euglycemic Consultation Date/Type/Reason Admit Date/Time Mar 16, 2017 at 00:48 Initial Consult Date 03/16/17 Type of Consultation: oncology Referring Provider: JAE ABREU 24 HR Interval Summary Free Text/Dictation NO acute events - con't Rx - stable VS ROS: No fever, no chills, no nausea, no vomiting, no diarrhea/constipation No recent weight changes No chest pain, no PND, no orthopnea No dizziness, blurred vision No thirst, no heat or cold intolerance Exam/Review of Systems Vital Signs Vitals Vital Signs Date Time Temp Pulse Resp B/P Pulse Ox O2 Delivery O2 Flow Rate FiO2 03/20/17 12:11 93 03/20/17 11:18 98.4 18 103/51 99 03/20/17 08:13 2.0 03/20/17 04:30 Nasal Cannula Intake and Output 03/19/17 03/19/17 03/20/17 15:00 23:00 07:00 Intake Total 450 ml Balance 450 ml Exam General: WN/WD/NAD, AOx 2-3 HEENT: Unicetric/atraumatic/EOMI (follow commands) NECK: JVD elevated, no thyromegaly Lymph: no lymphadenopathy HEART: regular with no S3, II/ systolic murmur at apex LUNGS: Coarse sounds ABD: soft, NT, ND, +BS : Intact Neuro: non focal SKIN: chronic changes EXT: trace edema Results Result Diagram: 03/20/17 0600 03/20/17 0600 Results 24 hrs Laboratory Tests Test 03/19/17 12:49 03/19/17 17:30 03/19/17 20:28 03/20/17 05:36 Bedside Glucose 188 152 108 Lab Scanned Report BLOOD TRANSFUSION Test 03/20/17 06:00 03/20/17 08:37 03/20/17 11:50 White Blood Count 15.6 H Red Blood Count 2.30 L Hemoglobin 7.5 L Hematocrit 22.7 L Mean Corpuscular Volume 98.7 Mean Corpuscular Hemoglobin 32.6 Mean Corpuscular Hemoglobin Concent 33.0 Red Cell Distribution Width 23.8 H Platelet Count 212 Mean Platelet Volume 10.2 Neutrophils % 71.2 Lymphocytes % 12.9 L Monocytes % 12.7 H Eosinophils % 1.0 Basophils % 0.3 Nucleated Red Blood Cells % 0.0 Neutrophils # 11.1 H Lymphocytes # 2.0 Monocytes # 2.0 H Eosinophils # 0.2 Basophils # 0.1 Nucleated Red Blood Cells # 0.0 Sodium Level 129 L Potassium Level 3.8 Chloride Level 83 L Carbon Dioxide Level 38 H Anion Gap 12 Blood Urea Nitrogen 11 Creatinine 0.57 Glucose Level 115 Calcium Level 8.3 L Phosphorus Level 2.7 Magnesium Level 1.5 #L Bedside Glucose 137 103 Medications Medications Current Medications Ondansetron HCl (Zofran Inj) 4 mg Q6H PRN IV NAUSEA AND/OR VOMITING; Start at 01:00 Acetaminophen (Tylenol Tab) 650 mg Q6H PRN PO PAIN LEVEL 1-3 OR FEVER; Start at 01:00 Enoxaparin Sodium (Lovenox) 40 mg DAILY SC Last administered on 03/20/17 09:55 ; Admin Dose 40 MG; Start 03/16/17 at 09:00 Sucralfate (Carafate) 1 gm QID PO Last administered on 03/20/17 09:48; Admin Dose 1 GM; Start 03/16/17 at 09:00 Salmeterol Xinafoate/ Fluticasone (Advair 250/50 Diskus) 1 inh BID INH Last administered on 03/20/17 10:47; Admin Dose 1 INH; Start 03/16/17 at 09:00 Miscellaneous Information 1 ea NOTE XX ; Start 03/16/17 at 03:45 Glucose (Glutose) 15 gm Q15M PRN PO DECREASED GLUCOSE Last administered on 03/16 06:30; Admin Dose 15 GM; Start 03/16/17 at 03:45 Glucose (Glutose) 22.5 gm Q15M PRN PO DECREASED GLUCOSE; Start 03/16/17 at 03: 45 Dextrose (D50w Syringe) 25 ml Q15M PRN IV DECREASED GLUCOSE; Start 03/16/17 at 03:45 Dextrose (D50w Syringe) 50 ml Q15M PRN IV DECREASED GLUCOSE; Start 03/16/17 at 03:45 Glucagon (Glucagen) 1 mg Q15M PRN IM DECREASED GLUCOSE; Start 03/16/17 at 03:45 Glucose (Glutose) 15 gm Q15M PRN BUCCAL DECREASED GLUCOSE; Start 03/16/17 at 03 :45 Diagnostic Test (Pha) (Accu-Chek) 1 ea 02 XX ; Start 03/17/17 at 02:00 Insulin Glargine (Lantus) 16 unit DAILY@08 SC Last administered on 03/20/17 08: 51; Admin Dose 16 UNIT; Start 03/17/17 at 08:00 Benazepril HCl (Lotensin) 10 mg DAILY PO Last administered on 03/20/17 09:53; Admin Dose 10 MG; Start 03/17/17 at 09:00 Pantoprazole (Protonix Tab) 40 mg DAILY@06 PO Last administered on 03/20/17 05: 51; Admin Dose 40 MG; Start 03/17/17 at 08:30 Hydromorphone HCl (Dilaudid) 1 mg Q3H PRN IV PAIN Last administered on 02:48; Admin Dose 1 MG; Start 03/17/17 at 15:00 Methadone HCl (Methadone Liq (Ped)) 2 mg Q8H PO Last administered on 03/20/17 10:48; Admin Dose 2 MG; Start 03/17/17 at 15:00 Polyethylene Glycol (Miralax) 8.5 gm BID PO Last administered on 03/20/17 11:10 ; Admin Dose 8.5 GM; Start 03/19/17 at 21:00 Bisacodyl (Dulcolax) 10 mg DAILY PO Last administered on 03/20/17 09:47; Admin Dose 10 MG; Start 03/19/17 at 17:00 Lactobacillus Acidophilus/ Rhamnosus (Culturelle) 1 cap BID PO Last administered on 03/20/17 09:48; Admin Dose 1 CAP; Start 03/19/17 at 21:00 ERIC FRAUSTO MD Mar 20, 2017 12:18
--- NOTE | 2017-03-20 13:08 | PN ---
Date/Time of Note Date/Time of Note DATE: 03/20/17 TIME: 13:06 Assessment/Plan VTE Prophylaxis VTE Prophylaxis Intervention: LMWH Lines/Catheters IV Catheter Type (from Nrsg): Central Line Central line still needed: Yes (IV access) Urinary Cath still in place: No Assessment/Plan Chief Complaint/Hosp Course S: 03/19 weak fatigue with some cough but nonproductive. Abd pain, no BM 3 days. Feels distended. Edema possibly same no chest pain. 03/20: Stable but no BM. O: Vss sr PE No pallor/ JVD. No appreciated icterus Reg Crackles bilaterally Bs dimin, mild tender,mild distended; no r/r/g. 1 edema Assessment and plan 1. Acute decompensated likely diastolic congestive heart failure. No ACS. Stable, treat Bp. Non-smoker. 2. Mod/severe hypoalbuminemia. Poor prognosis, possibly third spacing. 3. 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 For hospice eval. Consider DNR and home with hospice. 4. History of GI bleed 5. History of peptic ulcer disease 6. Constipation 7. Anemia 8. Past tobacco 9. Possible secondary pulmonary hypertension/cor pulmonale- 48 mmHg. 10. Chronic diverticulosis 10. Hyponatremia, possible SIADH. Presently stable on fluid restriction 12. DM/htn/metabolic syndrome. Continue risk factor modification 13. Chr respiratory failure on home O2. Problems: Exam/Review of Systems Vital Signs Vitals Vital Signs Date Time Temp Pulse Resp B/P Pulse Ox O2 Delivery O2 Flow Rate FiO2 03/20/17 12:11 93 03/20/17 11:18 98.4 18 103/51 99 03/20/17 10:30 Nasal Cannula 3.0 Intake and Output 03/19/17 03/19/17 03/20/17 15:00 23:00 07:00 Intake Total 450 ml Balance 450 ml Results Result Diagram: 03/20/17 0600 03/20/17 0600 Results 24 hrs Laboratory Tests Test 03/19/17 17:30 03/19/17 20:28 03/20/17 05:36 03/20/17 06:00 Bedside Glucose 152 108 Lab Scanned Report BLOOD TRANSFUSION White Blood Count 15.6 H Red Blood Count 2.30 L Hemoglobin 7.5 L Hematocrit 22.7 L Mean Corpuscular Volume 98.7 Mean Corpuscular Hemoglobin 32.6 Mean Corpuscular Hemoglobin Concent 33.0 Red Cell Distribution Width 23.8 H Platelet Count 212 Mean Platelet Volume 10.2 Neutrophils % 71.2 Lymphocytes % 12.9 L Monocytes % 12.7 H Eosinophils % 1.0 Basophils % 0.3 Nucleated Red Blood Cells % 0.0 Neutrophils # 11.1 H Lymphocytes # 2.0 Monocytes # 2.0 H Eosinophils # 0.2 Basophils # 0.1 Nucleated Red Blood Cells # 0.0 Sodium Level 129 L Potassium Level 3.8 Chloride Level 83 L Carbon Dioxide Level 38 H Anion Gap 12 Blood Urea Nitrogen 11 Creatinine 0.57 Glucose Level 115 Calcium Level 8.3 L Phosphorus Level 2.7 Magnesium Level 1.5 #L Test 03/20/17 08:37 03/20/17 11:50 Bedside Glucose 137 103 Medications Medications Current Medications Ondansetron HCl (Zofran Inj) 4 mg Q6H PRN IV NAUSEA AND/OR VOMITING; Start at 01:00 Acetaminophen (Tylenol Tab) 650 mg Q6H PRN PO PAIN LEVEL 1-3 OR FEVER; Start at 01:00 Enoxaparin Sodium (Lovenox) 40 mg DAILY SC Last administered on 03/20/17 09:55 ; Admin Dose 40 MG; Start 03/16/17 at 09:00 Sucralfate (Carafate) 1 gm QID PO Last administered on 03/20/17 12:57; Admin Dose 1 GM; Start 03/16/17 at 09:00 Salmeterol Xinafoate/ Fluticasone (Advair 250/50 Diskus) 1 inh BID INH Last administered on 03/20/17 10:47; Admin Dose 1 INH; Start 03/16/17 at 09:00 Miscellaneous Information 1 ea NOTE XX ; Start 03/16/17 at 03:45 Glucose (Glutose) 15 gm Q15M PRN PO DECREASED GLUCOSE Last administered on 03/16 06:30; Admin Dose 15 GM; Start 03/16/17 at 03:45 Glucose (Glutose) 22.5 gm Q15M PRN PO DECREASED GLUCOSE; Start 03/16/17 at 03: 45 Dextrose (D50w Syringe) 25 ml Q15M PRN IV DECREASED GLUCOSE; Start 03/16/17 at 03:45 Dextrose (D50w Syringe) 50 ml Q15M PRN IV DECREASED GLUCOSE; Start 03/16/17 at 03:45 Glucagon (Glucagen) 1 mg Q15M PRN IM DECREASED GLUCOSE; Start 03/16/17 at 03:45 Glucose (Glutose) 15 gm Q15M PRN BUCCAL DECREASED GLUCOSE; Start 03/16/17 at 03 :45 Diagnostic Test (Pha) (Accu-Chek) 1 ea 02 XX ; Start 03/17/17 at 02:00 Insulin Glargine (Lantus) 16 unit DAILY@08 SC Last administered on 03/20/17 08: 51; Admin Dose 16 UNIT; Start 03/17/17 at 08:00 Benazepril HCl (Lotensin) 10 mg DAILY PO Last administered on 03/20/17 09:53; Admin Dose 10 MG; Start 03/17/17 at 09:00 Pantoprazole (Protonix Tab) 40 mg DAILY@06 PO Last administered on 03/20/17 05: 51; Admin Dose 40 MG; Start 03/17/17 at 08:30 Hydromorphone HCl (Dilaudid) 1 mg Q3H PRN IV PAIN Last administered on 02:48; Admin Dose 1 MG; Start 03/17/17 at 15:00 Methadone HCl (Methadone Liq (Ped)) 2 mg Q8H PO Last administered on 03/20/17 10:48; Admin Dose 2 MG; Start 03/17/17 at 15:00 Polyethylene Glycol (Miralax) 8.5 gm BID PO Last administered on 03/20/17 11:10 ; Admin Dose 8.5 GM; Start 03/19/17 at 21:00 Bisacodyl (Dulcolax) 10 mg DAILY PO Last administered on 03/20/17 09:47; Admin Dose 10 MG; Start 03/19/17 at 17:00 Lactobacillus Acidophilus/ Rhamnosus (Culturelle) 1 cap BID PO Last administered on 03/20/17 09:48; Admin Dose 1 CAP; Start 03/19/17 at 21:00 JEFFERY LEIGH MD Mar 20, 2017 13:08
[2017-03-20] MEDS ORDERED: NA PHOSPHATE/BIPHOS 133 ML ENEMA PR PRN (20:00)
[2017-03-20] MEDS ORDERED: MAGNESIUM CITRATE 300 ML BTL PO ONE (20:00)
[2017-03-21] VITALS (9 sets, daily range): BP systolic 108–141; BP diastolic 54–81; PULSE 99–113; RESP 20–21
[2017-03-21] MEDS: ACCUCHECK AT 2AM (Patients on SS coverage) XX SCH (02:00)
[2017-03-21] MEDS: HYDROmorphONE 1 MG/ML SYG IV PRN ×3 (02:47→16:44)
[2017-03-21] MEDS: METHADONE (1 MG/1 ML PO SYG) PO SCH ×2 (06:11→15:47)
[2017-03-21] MEDS: PANTOPRAZOLE (EC) 40 MG TAB PO SCH (06:11)
[2017-03-21] MEDS: FUROSEMIDE 40 MG TAB PO SCH ×2 (06:12→17:24)
[2017-03-21 07:32] LABS: ADD SCAN DIFF NO
[2017-03-21 07:38] LABS: ABNORMAL IP MESSAGE 1; BASOPHILS % 0.2 % (0.0-2.0); EOSINOPHILS # 0.1 10^3/ul (0.0-0.5); EOSINOPHILS % 0.5 % (0.0-7.0); HEMATOCRIT 25.2 % (37.0-47.0); HEMOGLOBIN 7.9 g/dl (12.0-16.0); LYMPHOCYTES # 1.6 10^3/ul (0.8-2.9); LYMPHOCYTES % 10.5 % (15.0-51.0); MEAN CORPUSCULAR HGB CONC 31.3 g/dl (32.0-37.0); MEAN CORPUSCULAR VOLUME 98.8 fl (82.0-101.0); MEAN PLATELET VOLUME 10.7 fl (7.4-10.4); MONOCYTE # 1.8 10^3/ul (0.3-0.9); MONOCYTES % 11.7 % (0.0-11.0); NEUTROPHIL # 11.9 10^3/ul (1.6-7.5); NEUTROPHILS % 75.5 % (39.0-77.0); PLATELET COUNT 225 10^3/UL (140-415); RED BLOOD COUNT 2.55 10^6/ul (4.20-5.40); RED CELL DISTRIBUTION WIDTH 22.6 % (11.5-14.5); WHITE BLOOD COUNT 15.7 10^3/ul (4.8-10.8)
[2017-03-21 08:10] LABS: CALCIUM 8.6 mg/dl (8.4-10.2); CREATININE 0.55 mg/dl (0.44-1.00); MAGNESIUM 1.7 mg/dl (1.7-2.5); POTASSIUM 3.8 mmol/L (3.5-5.1)
[2017-03-21] MEDS: SALMETEROL/FLUTICASONE 250/50 INHA INH SCH (09:10)
[2017-03-21] MEDS: LACTOBACILLUS RHAMNOSUS CAP PO SCH (09:10)
[2017-03-21] MEDS: SUCRALFATE 1 GM TAB PO SCH ×3 (09:10→16:44)
[2017-03-21] MEDS: BISACODYL (EC) 5 MG TAB PO SCH (09:11)
[2017-03-21] MEDS: INSULIN ASPART [NOVOLOG] 3 ML PEN SC SCH ×6 (09:12→17:26)
[2017-03-21] MEDS: ENOXAPARIN 40 MG/0.4 ML SYG SC SCH (09:13)
[2017-03-21] MEDS: POLYETHYLENE GLYCOL 17 GM PACKET PO SCH (09:13)
[2017-03-21] MEDS: INSULIN GLARGINE [LANtus] 3 ML PEN SC SCH (09:13)
[2017-03-21] MEDS: BENAZEPRIL 10 MG TAB PO SCH (09:14)
--- NOTE | 2017-03-21 09:27 | PN ---
Date/Time of Note Date/Time of Note DATE: 03/21/17 TIME: 09:27 Assessment/Plan Lines/Catheters IV Catheter Type (from [facility]): YOVANY CATH Urinary Cath still in place: No Assessment/Plan Chief Complaint/Hosp Course 1. Hyponatremia. Etiology appears to be multifactorial. 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 -Sodium levels have been improving with free water restriction, diuretic therapy Continue gentle diuretic therapy. Monitor strict I's and O's. 2. Volume overload. Etiology may be secondary to CHF. -2D echo reviewed. Continue diuretic therapy. Follow-up with cardiology 3. Anemia. Monitor H&H levels #4. UTI and possible sepsis. Patient on antibiotic therapy and continue follow -up cultures 5. Metastatic cholangiocarcinoma. Patient is on chemotherapy. Will follow up with the primary team and oncology 6. Diabetes. Continue Accu-Cheks insulin sliding scale 7. Hypomagnesemia. Replete with magnesium oxide Problems: Subjective 24 Hr Interval Summary Free Text/Dictation Patient stable no events overnight no fevers chills nausea vomiting Exam/Review of Systems Vital Signs Vitals Vital Signs Date Time Temp Pulse Resp B/P Pulse Ox O2 Delivery O2 Flow Rate FiO2 03/21/17 08:13 100 03/21/17 07:53 98.0 20 120/58 99 03/21/17 05:39 2.0 03/20/17 21:00 Nasal Cannula Intake and Output 03/20/17 03/20/17 03/21/17 15:00 23:00 07:00 Intake Total 700 ml 400 ml Output Total 300 ml Balance 700 ml 100 ml Exam HEENT: Head is normocephalic. NECK: Supple. HEART: Regular rate. LUNGS: Show diminished breath sounds at base. ABDOMEN: Soft, nontender to palpation without rebound or guarding. EXTREMITIES: Negative for clubbing, cyanosis, + edema. DERMATOLOGIC: No rashes. MUSCULOSKELETAL: The patient has no joint effusions. NEUROLOGIC: No change in exam. Results Result Diagram: 03/21/17 0640 03/21/17 0640 Results 24 hrs Laboratory Tests Test 03/20/17 11:50 03/20/17 17:06 03/20/17 21:03 03/21/17 06:40 Bedside Glucose 103 153 110 White Blood Count 15.7 H Red Blood Count 2.55 L Hemoglobin 7.9 L Hematocrit 25.2 L Mean Corpuscular Volume 98.8 Mean Corpuscular Hemoglobin 31.0 Mean Corpuscular Hemoglobin Concent 31.3 L Red Cell Distribution Width 22.6 H Platelet Count 225 Mean Platelet Volume 10.7 H Neutrophils % 75.5 Lymphocytes % 10.5 L Monocytes % 11.7 H Eosinophils % 0.5 Basophils % 0.2 Nucleated Red Blood Cells % 0.0 Neutrophils # 11.9 H Lymphocytes # 1.6 Monocytes # 1.8 H Eosinophils # 0.1 Basophils # 0.0 Nucleated Red Blood Cells # 0.0 Sodium Level 128 L Potassium Level 3.8 Chloride Level 79 L Carbon Dioxide Level 40 H Anion Gap 13 Blood Urea Nitrogen 10 Creatinine 0.55 Glucose Level 159 Calcium Level 8.6 Magnesium Level 1.7 Test 03/21/17 09:09 Bedside Glucose 176 Medications Medications Current Medications Ondansetron HCl (Zofran Inj) 4 mg Q6H PRN IV NAUSEA AND/OR VOMITING; Start at 01:00 Acetaminophen (Tylenol Tab) 650 mg Q6H PRN PO PAIN LEVEL 1-3 OR FEVER; Start at 01:00 Enoxaparin Sodium (Lovenox) 40 mg DAILY SC Last administered on 03/21/17 09:13 ; Admin Dose 40 MG; Start 03/16/17 at 09:00 Sucralfate (Carafate) 1 gm QID PO Last administered on 03/21/17 09:10; Admin Dose 1 GM; Start 03/16/17 at 09:00 Salmeterol Xinafoate/ Fluticasone (Advair 250/50 Diskus) 1 inh BID INH Last administered on 03/21/17 09:10; Admin Dose 1 INH; Start 03/16/17 at 09:00 Miscellaneous Information 1 ea NOTE XX ; Start 03/16/17 at 03:45 Glucose (Glutose) 15 gm Q15M PRN PO DECREASED GLUCOSE Last administered on 03/16 06:30; Admin Dose 15 GM; Start 03/16/17 at 03:45 Glucose (Glutose) 22.5 gm Q15M PRN PO DECREASED GLUCOSE; Start 03/16/17 at 03: 45 Dextrose (D50w Syringe) 25 ml Q15M PRN IV DECREASED GLUCOSE; Start 03/16/17 at 03:45 Dextrose (D50w Syringe) 50 ml Q15M PRN IV DECREASED GLUCOSE; Start 03/16/17 at 03:45 Glucagon (Glucagen) 1 mg Q15M PRN IM DECREASED GLUCOSE; Start 03/16/17 at 03:45 Glucose (Glutose) 15 gm Q15M PRN BUCCAL DECREASED GLUCOSE; Start 03/16/17 at 03 :45 Diagnostic Test (Pha) (Accu-Chek) 1 ea 02 XX ; Start 03/17/17 at 02:00 Insulin Glargine (Lantus) 16 unit DAILY@08 SC Last administered on 03/21/17 09: 13; Admin Dose 16 UNIT; Start 03/17/17 at 08:00 Benazepril HCl (Lotensin) 10 mg DAILY PO Last administered on 03/21/17 09:14; Admin Dose 10 MG; Start 03/17/17 at 09:00 Pantoprazole (Protonix Tab) 40 mg DAILY@06 PO Last administered on 03/21/17 06: 11; Admin Dose 40 MG; Start 03/17/17 at 08:30 Hydromorphone HCl (Dilaudid) 1 mg Q3H PRN IV PAIN Last administered on 02:47; Admin Dose 1 MG; Start 03/17/17 at 15:00 Methadone HCl (Methadone Liq (Ped)) 2 mg Q8H PO Last administered on 03/21/17 06:11; Admin Dose 2 MG; Start 03/17/17 at 15:00 Polyethylene Glycol (Miralax) 8.5 gm BID PO Last administered on 03/21/17 09:13 ; Admin Dose 8.5 GM; Start 03/19/17 at 21:00 Bisacodyl (Dulcolax) 10 mg DAILY PO Last administered on 03/21/17 09:11; Admin Dose 10 MG; Start 03/19/17 at 17:00 Lactobacillus Acidophilus/ Rhamnosus (Culturelle) 1 cap BID PO Last administered on 03/21/17 09:10; Admin Dose 1 CAP; Start 03/19/17 at 21:00 Sodium Biphosphate/ Sodium Phosphate (Fleet Enema) 133 ml DAILY PRN ME CONSTIPATION Last administered on 03/21/17 05:07; Admin Dose 133 ML; Start at 20:00 MAEVE WOODS 5, 2017 09:27
--- NOTE | 2017-03-21 16:01 | CONS ---
Date/Time of Note Date/Time of Note DATE: 03/21/17 TIME: 15:58 Assessment/Plan Assessment/Plan Chief Complaint/Hosp Course IMP: 1.PVW-Drnyrfdjd-nbbgh on chronic likely 2.HTN- 3.Tachycardia- S Tach overall improved 4.Hyponatremia-ongoing 5.cholangiocarcinoma-metastatic s/p CTX 6.abnl ecg-NSSTWA's-negative trop x 3 7.DM Recc: -Tele -serial ecg's -Continue lasix diuresis -Follow volume status closely -Contnue ACEI -start low dose BB as tolerated -Dose IVP digoxin -Onc following -Continue abx's and f/u cx data Problems: Consultation Date/Type/Reason Admit Date/Time Mar 16, 2017 at 00:48 Initial Consult Date 03/16/17 Type of Consultation: cardiology Reason for Consultation CHF Referring Provider: JAE ABREU Exam/Review of Systems Vital Signs Vitals Vital Signs Date Time Temp Pulse Resp B/P Pulse Ox O2 Delivery O2 Flow Rate FiO2 03/21/17 12:25 112 03/21/17 11:55 3.0 03/21/17 11:42 98.2 20 108/54 91 03/21/17 11:38 Nasal Cannula Intake and Output 03/20/17 03/20/17 03/21/17 15:00 23:00 07:00 Intake Total 700 ml 400 ml Output Total 300 ml Balance 700 ml 100 ml Exam Review of Systems: CONSTITUTIONAL: No fevers, chills. PULMONARY: No sob CARDIOVASCULAR: No chest pain/palpitations GASTROINTESTINAL:c/o abd pain GENITOURINARY: No hematuria/dysuria. MUSCULOSKELETAL: No myagias/arthalgias. PSYCHIATRIC: The patient denies depression. NEUROLOGIC: No weakness Constitutional: alert Psych: no complaints Head: normocephalic ENMT: mucosa pink and moist Neck: jvd (9 cm water), supple Respiratory: diminished breath sounds (at bases/B) Cardiovascular: regular rate and rhythm Gastrointestinal: non-tender, soft Musculoskeletal: muscle tone (normal) Extremities: pitting pedal edema (bilateral) Neurological: other (No focal deficits) Results Result Diagram: 03/21/17 0640 03/21/17 0640 Results 24 hrs Laboratory Tests Test 03/20/17 17:06 03/20/17 21:03 03/21/17 06:40 03/21/17 09:09 Bedside Glucose 153 110 176 White Blood Count 15.7 H Red Blood Count 2.55 L Hemoglobin 7.9 L Hematocrit 25.2 L Mean Corpuscular Volume 98.8 Mean Corpuscular Hemoglobin 31.0 Mean Corpuscular Hemoglobin Concent 31.3 L Red Cell Distribution Width 22.6 H Platelet Count 225 Mean Platelet Volume 10.7 H Neutrophils % 75.5 Lymphocytes % 10.5 L Monocytes % 11.7 H Eosinophils % 0.5 Basophils % 0.2 Nucleated Red Blood Cells % 0.0 Neutrophils # 11.9 H Lymphocytes # 1.6 Monocytes # 1.8 H Eosinophils # 0.1 Basophils # 0.0 Nucleated Red Blood Cells # 0.0 Sodium Level 128 L Potassium Level 3.8 Chloride Level 79 L Carbon Dioxide Level 40 H Anion Gap 13 Blood Urea Nitrogen 10 Creatinine 0.55 Glucose Level 159 Calcium Level 8.6 Magnesium Level 1.7 Test 03/21/17 11:58 Bedside Glucose 139 Medications Medications Current Medications Ondansetron HCl (Zofran Inj) 4 mg Q6H PRN IV NAUSEA AND/OR VOMITING; Start at 01:00 Acetaminophen (Tylenol Tab) 650 mg Q6H PRN PO PAIN LEVEL 1-3 OR FEVER; Start at 01:00 Enoxaparin Sodium (Lovenox) 40 mg DAILY SC Last administered on 03/21/17 09:13 ; Admin Dose 40 MG; Start 03/16/17 at 09:00 Sucralfate (Carafate) 1 gm QID PO Last administered on 03/21/17 12:01; Admin Dose 1 GM; Start 03/16/17 at 09:00 Salmeterol Xinafoate/ Fluticasone (Advair 250/50 Diskus) 1 inh BID INH Last administered on 03/21/17 09:10; Admin Dose 1 INH; Start 03/16/17 at 09:00 Miscellaneous Information 1 ea NOTE XX ; Start 03/16/17 at 03:45 Glucose (Glutose) 15 gm Q15M PRN PO DECREASED GLUCOSE Last administered on 03/16 06:30; Admin Dose 15 GM; Start 03/16/17 at 03:45 Glucose (Glutose) 22.5 gm Q15M PRN PO DECREASED GLUCOSE; Start 03/16/17 at 03: 45 Dextrose (D50w Syringe) 25 ml Q15M PRN IV DECREASED GLUCOSE; Start 03/16/17 at 03:45 Dextrose (D50w Syringe) 50 ml Q15M PRN IV DECREASED GLUCOSE; Start 03/16/17 at 03:45 Glucagon (Glucagen) 1 mg Q15M PRN IM DECREASED GLUCOSE; Start 03/16/17 at 03:45 Glucose (Glutose) 15 gm Q15M PRN BUCCAL DECREASED GLUCOSE; Start 03/16/17 at 03 :45 Diagnostic Test (Pha) (Accu-Chek) 1 ea 02 XX ; Start 03/17/17 at 02:00 Insulin Glargine (Lantus) 16 unit DAILY@08 SC Last administered on 03/21/17 09: 13; Admin Dose 16 UNIT; Start 03/17/17 at 08:00 Benazepril HCl (Lotensin) 10 mg DAILY PO Last administered on 03/21/17 09:14; Admin Dose 10 MG; Start 03/17/17 at 09:00 Pantoprazole (Protonix Tab) 40 mg DAILY@06 PO Last administered on 03/21/17 06: 11; Admin Dose 40 MG; Start 03/17/17 at 08:30 Hydromorphone HCl (Dilaudid) 1 mg Q3H PRN IV PAIN Last administered on 11:59; Admin Dose 1 MG; Start 03/17/17 at 15:00 Methadone HCl (Methadone Liq (Ped)) 2 mg Q8H PO Last administered on 03/21/17 15:47; Admin Dose 2 MG; Start 03/17/17 at 15:00 Polyethylene Glycol (Miralax) 8.5 gm BID PO Last administered on 03/21/17 09:13 ; Admin Dose 8.5 GM; Start 03/19/17 at 21:00 Bisacodyl (Dulcolax) 10 mg DAILY PO Last administered on 03/21/17 09:11; Admin Dose 10 MG; Start 03/19/17 at 17:00 Lactobacillus Acidophilus/ Rhamnosus (Culturelle) 1 cap BID PO Last administered on 03/21/17 09:10; Admin Dose 1 CAP; Start 03/19/17 at 21:00 Sodium Biphosphate/ Sodium Phosphate (Fleet Enema) 133 ml DAILY PRN ID CONSTIPATION Last administered on 03/21/17t 05:07; Admin Dose 133 ML; Start at 20:00 JOSE BHANDARI Mar 21, 2017 16:00
--- NOTE | 2017-03-21 17:19 | PDOCDIS ---
Discharge Instructions DIAGNOSIS Discharge Diagnosis Shortness of breath CONDITION Patient Condition: Stable HOME CARE INSTRUCTIONS: Special Diet: REGULAR DIET ACTIVITY: Activity Restrictions: Slowly Increase Activity Do not Drive FOLLOW UP/APPOINTMENTS Follow-up Plan [facility] to follow Appointment primary as needed JEFFERY LEIGH MD Mar 21, 2017 17:19
[2017-03-21] MEDS ORDERED: BENA5TAB2 PO (17:23)
[2017-03-21] MEDS ORDERED: FURO40TA4 PO (17:23)
[2017-03-21] MEDS ORDERED: METO-448 PO (17:23)
--- NOTE | 2017-03-21 17:30 | DS ---
Date/Time of Note Date/Time of Note DATE: 03/21/17 TIME: 17:24 Discharge Summary Admission/Discharge Info Admit Date/Time Mar 16, 2017 at 00:48 Discharge Date/Time 03/21/17 Discharge Diagnosis Shortness of breath Patient Condition: Stable Hx of Present Illness CC: sob, lower extremity edema The patient is a 71-year-old female, presenting to the ER because of worsening chronic lower extremity edema. She also complained of shortness of breath and orthopnea today. She was discharged from the hospital just 3 days ago. She denies fever, chills, neck pain, chest pain. She complains of chronic abdominal pain, denied nausea, vomiting, dysuria, diarrhea. The history is is obtained for the daughter. She does not smoke nor drink currently, she is on 3 L nasal cannula continuously at home. allergies: nkda meds: see NOV Hospital Course 71-year-old female admitted with shortness of breath. X-ray concerning for fluid overload. Seen by cardiology optimized medically. X-ray appears improved. No evidence of acute coronary syndrome. MARCELLA inhibitor added. Beta- sierra continued. Will continue short course of Lasix. Unfortunately the larger issue is her cancer. In terms of her metastatic cholangio carcinoma. Her prognosis is noted to be poor. Patient was seen in consultation with [facility] hosp[facility]. Patient is signed on to continue with [facility] at home. Discharge plan Hospice with the [facility] to continue, or primary care appointment this week. Diet: Low salt as tolerated Activity: No driving DME none CODE STATUS full Condition stable Allergies none Barriers discharge not Pending tests none Functional status patient is awake alert she and family are aware of care plan and options Reason for admission shortness of breath Stopped medications: Tradjenta Continue medications all others Altered medications metoprolol now 12.5 daily New medications Benazepril 5 daily Lasix 40 twice daily 3 days Home Meds Active Scripts Furosemide* (Furosemide*) 40 Mg Tablet, 40 MG PO BID DIURETICS for 3 Days, #6 TAB Prov:JEFFERY LEIGH MD 03/21/17 Metoprolol Tartrate* (Lopressor*) 25 Mg Tab, 12.5 MG PO BID for 5 Days, #10 TAB Prov:JEFFERY LEIGH MD 03/21/17 Benazepril Hcl* (Benazepril Hcl*) 5 Mg Tablet, 5 MG PO DAILY for 5 Days, #5 TAB Prov:JEFFERY LEIGH MD 03/21/17 Sucralfate (Carafate) 1 Gm Tablet, 1 GM PO QID for 30 Days, TAB Prov:TERRELL DOZIER NP 02/27/17 Pantoprazole* (Protonix*) 40 Mg Tablet.dr, 40 MG PO BID for 30 Days, TAB Prov:TERRELL DOZIER NP 02/27/17 Polyethylene Glycol* (Miralax*) 17 Gm Powd.pack, 8.5 GM PO DAILY Y for CONSTIPATION, #30 Prov:EVANS PRABHAKAR MD 01/22/17 Docusate Sodium (Dok) 100 Mg Capsule, 100 MG PO DAILY, #30 CAP Prov:EVANS PRABHAKAR MD 01/22/17 Reported Medications Insulin Glargine* (Lantus*) 100 Unit/Ml Soln, 16 UNIT SC BID, #1 VIAL 03/15/17 Budesonide-Formoterol Fumarate* (Symbicort*) 160-4.5 Hfa.aer.ad, 2 PUFF INHALATION BID, #1 EACH 05/21/16 Discontinued Reported Medications Acetamin/Butalbital/Caffeine* (Fioricet*) [id number] Tab, 1 TAB PO Q4H Y for PAIN LEVEL 1-5, TAB 03/11/17 Discontinued Scripts Linagliptin (TRADJENTA) 5 Mg Tablet, 5 MG PO DAILY, #30 TAB Prov:EVANS PRABHAKAR MD 01/22/17 Metoprolol Tartrate* (Lopressor*) 25 Mg Tab, 25 MG PO BID, #60 TAB Prov:EVANS PRABHAKAR MD 01/22/17 Albuterol/Ipratropium* (Combivent Respimat*) 20-100 Mcg/Inh - 4 Gm Aer.w.adap, 1 PUFF INHALATION QID for SHORTNESS OF BREATH, #2 INHALER Prov:SUSAN SMITH MD 03/12/17 Oxycodone HCl/Acetaminophen (Percocet 5-325 mg Tablet) 1 Each Tablet, 1 EACH PO Q6H, #1 TAB Prov:EVANS PRABHAKAR MD 01/22/17 Insulin Glargine* (Lantus*) 100 Unit/Ml Soln, 20 UNIT SC QAM for 30 Days Prov:EVANS PRABHAKAR MD 01/22/17 Alprazolam* (Alprazolam*) 0.5 Mg Tablet, 0.5 MG PO Q8H Y for ANXIETY, #20 TAB Prov:TERRELL DOZIER NP 06/22/16 Follow-up Plan [facility] to Follow or appointment primary this week Primary Care Provider [facility] Pending Labs Laboratory Tests Test 03/20/17 21:03 03/21/17 06:40 03/21/17 09:09 03/21/17 11:58 Bedside Glucose 110mg/dL (70-220) 176mg/dL (70-220) 139mg/dL (70-220) White Blood Count 15.710^3/ul (4.8-10.8) Red Blood Count 2.5510^6/ul (4.20-5.40) Hemoglobin 7.9g/dl (12.0-16.0) Hematocrit 25.2% (37.0-47.0) Mean Corpuscular Volume 98.8fl (82.0-101.0) Mean Corpuscular Hemoglobin 31.0pg (29.0-33.0) Mean Corpuscular Hemoglobin Concent 31.3g/dl (32.0-37.0) Red Cell Distribution Width 22.6% (11.5-14.5) Platelet Count 78417^3/UL (140-415) Mean Platelet Volume 10.7fl (7.4-10.4) Neutrophils % 75.5% (39.0-77.0) Lymphocytes % 10.5% (15.0-51.0) Monocytes % 11.7% (0.0-11.0) Eosinophils % 0.5% (0.0-7.0) Basophils % 0.2% (0.0-2.0) Nucleated Red Blood Cells % 0.0/100WBC (0.0-0.0) Neutrophils # 11.910^3/ul (1.6-7.5) Lymphocytes # 1.610^3/ul (0.8-2.9) Monocytes # 1.810^3/ul (0.3-0.9) Eosinophils # 0.110^3/ul (0.0-0.5) Basophils # 0.010^3/ul (0.0-0.1) Nucleated Red Blood Cells # 0.010^3/ul (0.0-0.0) Sodium Level 128mmol/L (135-144) Potassium Level 3.8mmol/L (3.5-5.1) Chloride Level 79mmol/L (97-110) Carbon Dioxide Level 40mmol/L (21-31) Anion Gap 13 (8-16) Blood Urea Nitrogen 10mg/dl (7-20) Creatinine 0.55mg/dl (0.44-1.00) Glucose Level 159mg/dl (70-220) Calcium Level 8.6mg/dl (8.4-10.2) Magnesium Level 1.7mg/dl (1.7-2.5) JEFFERY LEIGH MD Mar 21, 2017 17:30
[2017-03-21] MEDS ORDERED: METOPROLOL 25 MG TAB PO SCH (21:00)
[2017-03-22] MEDS ORDERED: BENAZEPRIL 5 MG TAB PO SCH (09:00)
== END 2017-03-21 19:25 | disposition home or self-care (01) | DRG 871 ==
LOC: E/R 21:49 → MS4 03-16 00:48
PROVIDERS: ADMIT Family Medicine; ATTEND Family Medicine
PROC: 02HV33Z Insertion of Infusion Device into Superior Vena Cava, Percutaneous Approach (ICD-10-PCS; principal; 2017-03-17)
PROC: B548ZZA Ultrasonography of Superior Vena Cava, Guidance (ICD-10-PCS; 2017-03-17)
DX: A41.9 Sepsis, unspecified organism (principal); I50.31 Acute diastolic (congestive) heart failure; J96.10 Chronic respiratory failure, unspecified whether with hypoxia or hypercapnia; C78.00 Secondary malignant neoplasm of unspecified lung; C78.7 Secondary malignant neoplasm of liver and intrahepatic bile duct; E87.1 Hypo-osmolality and hyponatremia; E88.09 Other disorders of plasma-protein metabolism, not elsewhere classified; I11.0 Hypertensive heart disease with heart failure; N39.0 Urinary tract infection, site not specified; E11.9 Type 2 diabetes mellitus without complications; E83.42 Hypomagnesemia; K57.90 Diverticulosis of intestine, part unspecified, without perforation or abscess without bleeding; I27.2 Other secondary pulmonary hypertension; D64.9 Anemia, unspecified; G89.29 Other chronic pain; R60.0 Localized edema; R10.9 Unspecified abdominal pain; Z87.11 Personal history of peptic ulcer disease; Z87.891 Personal history of nicotine dependence; Z79.899 Other long term (current) drug therapy; Z99.81 Dependence on supplemental oxygen; Z79.4 Long term (current) use of insulin; Z99.2 Dependence on renal dialysis
CPT/HCPCS: 36415; 36430; 36600; 71010; 76937; 80048; 80053; 80061; 81001; 81003; 82043; 82803; 82962; 83735; 83880; 83930; 84100; 84155; 84300; 84484; 85025; 85610; 85730; 86850; 86900; 86901; 86920; 87040; 87081; 87086; 93005; 93306; 93970; 94664; 96374; 96375; J1940; C9113; J0696; J1170; J1650; J1815; J2405; J2543; J3475; P9016